=== PATIENT | female | born 1945 | race Caucasian/White ===

== ENCOUNTER 2022-06-14 08:51 | Inpatient (IN) | payer MEDICARE, OTHER, SELFPAY ==
[2022-06-14] VITALS (16 sets, daily range): BP systolic 81–99; BP diastolic 38–66; PULSE 66–120; RESP 14–24; TEMP 36.4–37.2; O2SAT 92–100; BMI 15.5
--- NOTE | ~2022-06-14 | XR_ITS ---
EXAMINATION: XR CHEST CLINICAL INFORMATION: Shortness of breath. Wheezing. COMPARISON: 11/09/2009 TECHNIQUE: Frontal view of the chest was obtained. FINDINGS: Cardiac leads overlie the chest. The lungs are well expanded. There is no focal consolidation, edema, or effusion. No pneumothorax. The cardiomediastinal silhouette is within normal limits of size with a tortuous aorta. No acute osseous abnormality. XR/XR chest 1V IMPRESSION: No acute pulmonary finding.
--- NOTE | ~2022-06-14 | XR_ITS ---
EXAMINATION: XR CHEST CLINICAL INFORMATION: Pleural effusion. COMPARISON: Chest radiographs 06/14/2022, 11/09/2009. TECHNIQUE: The chest is imaged portably and 6 views: AP, crosstable lateral x2, decubitus x3. FINDINGS: There are small bilateral layering basilar effusions, larger on left. There is bibasilar passive atelectasis. Difficult to exclude superimposed posterior basilar airspace consolidation. The upper and mid lung zones are clear. The vascularity is normal. The cardiopericardial silhouette is within normal. There is no pneumothorax or pleural reaction. XR/XR chest 4 views IMPRESSION: -Bilateral layering basilar effusions, larger on left. -Bibasilar passive atelectasis, difficult to exclude superimposed posterior basilar airspace consolidation. -No pneumothorax. Vascularity normal.
--- NOTE | ~2022-06-14 | US_ITS ---
EXAMINATION: US ABDOMEN COMPLETE CLINICAL INFORMATION: Malnourished. COMPARISON: CT scan of the abdomen and pelvis dated 11/09/2009. Chest radiograph dated 06/14/2022. TECHNIQUE: Real-time imaging of the abdominal viscera. FINDINGS: PANCREAS: Visualized portions unremarkable. ABDOMINAL AORTA: Visualized portions unremarkable. INFERIOR VENA CAVA: Visualized portions unremarkable. LIVER: Diffuse increased echotexture. In the left lobe is a lobulated anechoic lesion with echogenic margins measuring approximately 2.3 x 1.7 x 1.7 cm. Color Doppler showed no abnormal vascular flow. GALLBLADDER: Diffuse mural thickening without intraluminal abnormality. Mild pericholecystic fluid. Color Doppler showed no abnormal vascular flow. COMMON BILE DUCT: Normal in caliber measuring 0.4 cm in diameter. RIGHT KIDNEY: 11.1 cm. An interpolar anechoic cyst measures 1.1 cm. Doppler showed no abnormal vascular flow. LEFT KIDNEY: 10.4 cm. Unremarkable. SPLEEN: 6.6 cm. Unremarkable. FREE FLUID: Mild peritoneal ascites. Left pleural effusion. US/US abdomen complete IMPRESSION: 1. Hepatic steatosis. Anechoic lesion in the left lobe appears to correlate with the previously seen cyst, but cannot be classified as simple. This could be best evaluated with contrast-enhanced abdominal MRI. 2. Gallbladder mural thickening and pericholecystic fluid is nonspecific, but does not appear acute and is likely secondary to systemic disease/peritoneal ascites. No significant biliary ductal dilatation. If the patient experiences acute right upper quadrant pain this can be monitored for change with right upper quadrant abdominal ultrasound as clinically indicated. 3. Small right renal cyst demonstrates benign features not requiring follow-up. 4. Left pleural effusion. This was not seen on the most recent chest radiograph. PA and lateral views of the chest are recommended.
--- NOTE | ~2022-06-14 | CT_ITS ---
EXAMINATION: CT CHEST WITHOUT CONTRAST CLINICAL INFORMATION: Pleural effusion. COMPARISON: None. TECHNIQUE: Multidetector volumetric CT imaging of the chest was done. Axial MIP volume rendering provided. Sagittal and coronal reformatted images were obtained. This CT examination was performed using dose optimization techniques as appropriate, variously including the following: *Automated exposure control *Adjustment of mA and/or kV according to patient size (this includes techniques or standardized protocols for targeted exams where dose is matched to indication/reason for exam; i.e. extremities or head) *Use of iterative reconstruction technique DLP: 116 mGy-cm. FINDINGS: [employer]: Bilateral blunting of CP angle with hyper-expanded lungs. LUNGS: There is diffuse emphysematous lungs with a pleural-based 1.3 cm nodule right posterior apex axial image 160/8. There is a left lower lobe airspace consolidation/compressive atelectasis. The rest of lungs are clear. There is bilateral apical pleural thickening and parenchymal scarring. MEDIASTINUM: Heart size and the great vessels are normal caliber. There are coronary artery and mitral valve calcifications present. The thyroid lobes are symmetric and normal with a punctate left lobe calcification. Central trachea and the bronchi appear widely patent. PLEURA: There are bilateral [id number] pleural effusions slightly, greater on the left. AXILLA: There are small shotty lymph nodes in bilateral axilla, left greater than right. The largest lymph node left axilla measures 9 mm axial image 24/4. Right lateral thoracic lymph nodes measures 8 mm on axial image 30/4. UPPER ABDOMEN: Visualized liver, spleen, pancreas and bilateral adrenal glands are unremarkable. There is a dilated upper abdominal aorta measuring 3.3 x 3.5 cm. OSSEOUS STRUCTURES: No lytic or sclerotic process seen. There is mild ventral spondylosis upper thoracic spine. CT/CT chest wo con IMPRESSION: Bilateral [id number] pleural effusions greater on the left side with left lower lobe airspace consolidation/compressive atelectasis. There is a worrisome nodule in the left posterior lung apex. Fleischner guidelines were followed.
--- NOTE | ~2022-06-14 | CT_ITS ---
EXAMINATION: CT ABDOMEN WITH AND WITHOUT CONTRAST CLINICAL INFORMATION: Liver mass COMPARISON: Noncontrast chest CT 06/18/2022. Ultrasound 06/16/2022. TECHNIQUE: Multidetector volumetric imaging through the abdomen before and after the administration of: Intravenous contrast: 85 mL Omnipaque 350 No contrast reaction reported Sagittal and coronal reformatted images were obtained on the technologist workstation. Arterial and portal venous phase postcontrast images were obtained. This CT examination was performed using dose optimization techniques as appropriate, variously including the following: *Automated exposure control *Adjustment of mA and/or kV according to patient size (this includes techniques or standardized protocols for targeted exams where dose is matched to indication/reason for exam; i.e. extremities or head) *Use of iterative reconstruction technique Total exam dose-length product 538 mGy-cm FINDINGS: LUNG BASES: Moderate bilateral pleural effusions, left greater than right with associated atelectasis. Normal heart size. No pericardial effusion. LIVER, GALLBLADDER, AND BILIARY TREE: The lesion of concern is seen in the left lobe of liver measuring 2.3 x 1.8 cm. It has central fluid density with a single thin septation. There is minimal irregularity to the naranjo but they are not ill-defined. This was visible and similar in size on the noncontrast CT 11/09/2009. It was 2.1 cm in diameter at that time. There is an additional likely 5 mm cyst along the anterior margin the left lobe of the liver. The gallbladder is unremarkable with no evidence of radiopaque gallstones, gallbladder wall thickening, or obvious pericholecystic inflammatory changes. PANCREAS: Normal; no mass or surrounding fluid. SPLEEN: Normal size. No focal lesion. ADRENAL GLANDS: Normal; no mass. KIDNEYS AND URETERS: The kidneys are normal in size, shape, and attenuation. No hydronephrosis, hydroureter, or calculi. GASTROINTESTINAL TRACT: Stomach and small bowel non-dilated. No colonic wall thickening or pericolonic inflammatory changes. Scattered colonic diverticulosis. ABDOMINAL WALL: No significant hernia is appreciated. Anasarca. LYMPHOVASCULAR STRUCTURES: No retroperitoneal or mesenteric lymphadenopathy. Tortuous abdominal aorta. It measures 3.3 cm in transverse dimension on coronal images. There is extensive peripheral thrombus. This could reflect chronic sequelae of a prior dissection. The celiac and superior mesenteric arteries enhance normally, arising from the contrast-enhanced anterior portion of the aorta. Both renal arteries arise from what would be the true lumen or at least the contrast opacified portion of the aorta. Both, and iliac arteries enhance normally. OSSEOUS STRUCTURES: Chronic appearing superior endplate compression deformity of L5. Schmorl's node deformity of T12. CT/CT liver 3 phase IMPRESSION: The finding of concern in the left lobe of liver corresponds to a complex cyst. This is been present in the liver since 2008 minimal a changed in size since 2008. The greater than 10 years of relative stability are reassuring, arguing against a malignancy such as a cystadenoma. Its unclear that further follow-up would be helpful. 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 There is extensive peripheral thrombus in the abdominal aorta; the appearance suggests a chronic thrombosed dissection. Recommend nonemergent vascular surgery consultation to guide further management. Moderate bilateral pleural effusions, left greater than right.
--- NOTE | 2022-06-14 09:14 | ECG_ITS ---
Test Reason : fall Blood Pressure : / mmHG Vent. Rate : 116 BPM Atrial Rate : 000 BPM P-R Int : 000 ms QRS Dur : 082 ms QT Int : 450 ms P-R-T Axes : 000 -31 028 degrees QTc Int : 625 ms Atrial fibrillation with rapid ventricular response with premature ventricular or aberrantly conducted complexes Left axis deviation Low voltage QRS ST & T wave abnormality, consider inferior ischemia Abnormal ECG No previous ECGs available Referred By: Barbie Loera Electronically Signed By:
--- NOTE | 2022-06-14 09:17 | ED.FALL ---
HPI - Fall General Chief Complaint: Fall Stated Complaint: FALL OUT OF BED,NO OBV DEFORMITY PER EMS Time Seen by Provider: 06/14/22 09:06 Source: patient and EMS Mode of arrival: EMS Limitations: no limitations History of Present Illness HPI Narrative: 77-year-old female with reported no medical history, bed bound and nonambulatory for the last 1 year who presents to the ER from home via EMS for evaluation of a fall out of bed. She states she must have ?hit a button? on her hospital bed that is in her living room, causing the bed to go up in her to fall out of it. She fell onto her left side. She has a mild left hip pain, left shoulder pain and left breast pain where she fell. She did not hit her head or lose consciousness. She is not on anticoagulation. She is able to flex and extend the left leg. She does not think it is broken, she describes as just a little bit sore. She is an active smoker at home and reports some shortness of breath since the fall as well. She is not on any inhalers and has no known lung pathology but is a long-time smoker. She denies any chest pain. She reports a chronic cough, worse every morning. No new cough or phlegm production. No fevers. MD complaint: fall Onset (ago): minute(s) Fall from: out of bed Fall witnessed: no Place fall occurred: home Loss of consciousness: none Prolonged down time: no Symptoms prior to fall: none Context: tripped/slipped Location of injury: chest and pelvis Location of injury - extremities: left: shoulder Severity: mild Severity scale (1-10): 3 Quality: aching Associated symptoms (after fall): shortness of breath Related Data Allergies Allergy/AdvReac Type Severity Reaction Status Date / Time Unable to Assess Allergy Unverified 06/14/22 09:14 Review of Systems Review of Systems: Constitutional: No Fever, No Chills ENT/Mouth: No sore throat, No Rhinorrhea, No Swallowing Difficulty Eyes: No Eye Pain, No Swelling, No Redness Cardiovascular: No Chest Pain, + SOB, No Orthopnea, No Edema Respiratory: No Cough, No Sputum, + Wheezing, No dyspnea Gastrointestinal: No Nausea, No Vomiting, No Diarrhea, No abdominal Pain, No Hematochezia, No Melena Genitourinary: No Dysuria, No Urinary Frequency, No Hematuria Musculoskeletal: + joint pain, No Myalgias Skin: No Skin Lesions, No rash Neuro: + Weakness, No Numbness, No Dizziness, No Headache Psych: No Anxiety/Panic, No Depression Heme/Lymph: No Bruising, No Lymphadenopathy Endocrine: No Polyuria, No Polydipsia [facility] Social History Social History Advance Directives: Yes Advance Directives Information Provided: Yes Advance Directives on File: No Physical Exam Vital Signs: Vital Signs: Last Vital Signs Temp 97.5 F 06/14/22 12:30 Pulse 109 H 06/14/22 14:19 Resp 20 06/14/22 14:19 BP 87/43 L 06/14/22 14:19 Pulse Ox 93 06/14/22 14:19 O2 Del Method 06/14/22 14:19 O2 Flow Rate 1.5 06/14/22 14:19 BMI result Body Mass Index 15.5 Appearance: Alert, frail elderly female sitting up in the stretcher Oriented X3. No acute distress. Eyes: Pupils equal, round and reactive to light. ENT: Pharynx normal. Neck: Normal inspection. Neck supple. CVS: Tachycardic, heart rate 110, regular rhythm. Pulses normal. Respiratory: No respiratory distress. Breath sounds normal. No ecchymosis on the left side of her chest wall, no point tenderness. Abdomen: Soft and nontender. +BS x4 Skin: Skin warm and dry. Normal skin color. Normal skin turgor. No rashes. Extremities: Cachectic x4. Legs held in the flexed position, able to fully extend and bend of her bilateral lower extremities. Pelvis was stable. Mild tenderness the left lateral hip, no point tenderness. Normal range of motion. No lower extremity edema. Left upper extremity with mild tenderness throughout the shoulder joint, no point tenderness, normal passive and active range of motion of the left shoulder until about 90 degrees when she starts to have discomfort. Neurovascularly intact distally. 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 Neuro: Oriented X 3. No motor deficit. No sensory deficit. Cranial nerves 2-12 grossly intact. Normal speech and cognition. Course Course Course Narrative: 77-year-old female who is an active smoker and has not been to a physician in several years presents to the ER for evaluation after she fell out of her hospital bed at home. She reports some mild left-sided hip pain and left-sided shoulder pain. She has normal range of motion of the left hip without any deformity on examination, doubt acute fracture. On arrival to the ER patient is tachycardic and reports some shortness of breath. She has wheezing throughout her right lung. Most likely has in on diagnosis COPD. She is not on inhalers and continues to smoke at home. Will check a chest x-ray, give her a DuoNeb for her wheezing and shortness of breath. She denies any chest pain at this time. Blood pressure is soft 90/50 with a map of 72, most likely her baseline. She denies any lightheadedness or dizziness. Will get full workup and re-evaluate. She has a pending results and improved Reevaluation(s) Reevaluation #1: Patient feels better after her DuoNeb treatment. Wheezing has improved. SpO2 96% on room air. Difficult to obtain as saturation at times. Chest x-ray was performed but she declined getting imaging of her left shoulder left hip, stating she does not think anything is broken and they are necessary. Her lab workup is showing a significant normocytic anemia. Her H&H is 7.9/24.7. No known baseline. Her platelets are normal and her white blood cell count is normal. Patient does not know when she last had blood work done and does not know she has never been anemic before. She does report a history of rectal bleeding about 5 or 6 years ago. 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 She denies any recent rectal bleeding, heart the last episode was about 3 months ago with bright red blood per rectum x1. She denies any melena or other episodes of bleeding. Will plan to do a rectal exam, check occult stool, hold off on transfusion at this time as she is not actively bleeding or thought to be symptomatic due to her likely chronic anemia. Her alk-phos is mildly elevated as well. There is a concern for underlying cancer. Reevaluation #2: Stool is heme-positive dark brown stool. No palpable rectal tumor or hemorrhoids. Will plan to repeat H&H, if trending downward well require admission for further evaluation treatment. Reevaluation #3: H&H did trend down to 7.3/23.2. She is more hypotensive. She feels lightheaded. She has mild ongoing tachycardia. She denies chest pain and shortness of breath at this time. No active GI bleeding at this time. No signs of infection at this time and not thought to be septic. Will plan to give additional IV fluids, albumin (serum albumin 2 range), and transfuse 1 unit PRBC. Also give a dose of IV Protonix concern for possible slow upper GI bleed. Will make GI aware of her admission and plan to admit to Medicine for further management. Consent obtained for blood transfusion and is in the chart. Consultations Consultation #1: Gastroenterology MDM - Fall Lab Data Result diagrams: 06/14/22 14:03 06/14/22 10:26 Labs: Lab Results 06/14/22 06/14/22 06/14/22 Range/Units 09:41 09:41 09:41 WBC 10.2 (4.8-10.8) X10*3/uL RBC 2.61 L (4.20-5.50) X10*6/uL Hgb 7.9 L (12.0-16.0) g/dl Hct 24.7 L (37.0-47.0) % MCV 94.6 (80.0-98.0) fL MCH 30.3 (27.0-33.0) pg MCHC 32.0 (31.0-35.0) g/dl RDW 15.1 (11.0-16.0) % Plt Count 359 (160-400) X10*3/uL MPV Not Reportable Immature Gran % (Auto) 0.9 H (0.0-0.4) % Neut % (Auto) 75.5 H (45-73) % Lymph % (Auto) 12.2 L (20-40) % Jefferson % (Auto) 10.9 (2-11) % Eos % (Auto) 0.1 (0-4) % Baso % (Auto) 0.4 (0-2) % Lymph # (Auto) 1.2 (1.2-4.9) X10*3/uL Jefferson # (Auto) 1.1 (0.1-1.2) X10*3/uL Eos # (Auto) 0.0 (0.0-0.4) X10*3/uL Baso # (Auto) 0.0 (0.0-0.2) X10*3/uL Abs Immat Gran (auto) 0.09 H (0.00-0.03) X10*3/uL Absolute Neuts (auto) 7.7 (2.0-8.3) x10*3/uL Absolute Nucleated RBC 0.000 (0.0-0.012) X10*3/uL Nucleated RBC % (auto) 0.0 (0.0-0.2) /100WBC Smear Tech's Comments VERIFIED Sodium (135-145) mmol/L Potassium (3.3-5.1) mmol/L Chloride (96-108) mmol/L Carbon Dioxide (22-29) mmol/L Anion Gap (12-20) BUN (9-16) mg/dL Creatinine (0.5-1.4) mg/dL Estim Creat Clear Calc Estimated GFR Random Glucose (60-115) mg/dL Calcium (8.4-10.2) mg/dL Magnesium (1.6-2.6) mg/dL Total Bilirubin (0.0-1.0) mg/dL Direct Bilirubin (0.0-0.5) mg/dL AST (5-31) U/L ALT (0-31) U/L Alkaline Phosphatase (39-117) U/L Troponin I High Sens (<3.5-17.0) ng/L B-Natriuretic Peptide 143 H (<100) pg/mL Total Protein (6.5-8.0) g/dL Albumin (3.5-5.0) g/dL TSH (0.32-4.0) uIU/mL Stool Occult Blood (NEGATIVE) COVID-19 (AVA) Negative (Negative) COVID-19 Clin Com See Note Blood Type Antibody Screen Crossmatch 06/14/22 06/14/22 06/14/22 Range/Units 10:26 10:26 10:26 WBC (4.8-10.8) X10*3/uL RBC (4.20-5.50) X10*6/uL Hgb (12.0-16.0) g/dl Hct (37.0-47.0) % MCV (80.0-98.0) fL MCH (27.0-33.0) pg MCHC (31.0-35.0) g/dl RDW (11.0-16.0) % Plt Count (160-400) X10*3/uL MPV Immature Gran % (Auto) (0.0-0.4) % Neut % (Auto) (45-73) % Lymph % (Auto) (20-40) % Jefferson % (Auto) (2-11) % Eos % (Auto) (0-4) % Baso % (Auto) (0-2) % Lymph # (Auto) (1.2-4.9) X10*3/uL Jefferson # (Auto) (0.1-1.2) X10*3/uL Eos # (Auto) (0.0-0.4) X10*3/uL Baso # (Auto) (0.0-0.2) X10*3/uL Abs Immat Gran (auto) (0.00-0.03) X10*3/uL Absolute Neuts (auto) (2.0-8.3) x10*3/uL Absolute Nucleated RBC (0.0-0.012) X10*3/uL Nucleated RBC % (auto) (0.0-0.2) /100WBC Smear Tech's Comments Sodium 134 L (135-145) mmol/L Potassium 3.9 (3.3-5.1) mmol/L Chloride 102 (96-108) mmol/L Carbon Dioxide 19 L (22-29) mmol/L Anion Gap 17 (12-20) BUN 9 (9-16) mg/dL Creatinine 0.51 (0.5-1.4) mg/dL Estim Creat Clear Calc 58.0 Estimated GFR > 60 Random Glucose 127 H (60-115) mg/dL Calcium 7.3 L (8.4-10.2) mg/dL Magnesium 1.7 (1.6-2.6) mg/dL Total Bilirubin 0.5 (0.0-1.0) mg/dL Direct Bilirubin 0.3 (0.0-0.5) mg/dL AST 80 H (5-31) U/L ALT 40 H (0-31) U/L Alkaline Phosphatase 182 H (39-117) U/L Troponin I High Sens < 3.5 (<3.5-17.0) ng/L B-Natriuretic Peptide (<100) pg/mL Total Protein 5.1 L (6.5-8.0) g/dL Albumin 2.4 L (3.5-5.0) g/dL TSH 1.70 (0.32-4.0) uIU/mL Stool Occult Blood (NEGATIVE) COVID-19 (AVA) (Negative) COVID-19 Clin Com Blood Type Antibody Screen Crossmatch 06/14/22 06/14/22 06/14/22 Range/Units 12:57 14:03 14:03 WBC 9.8 (4.8-10.8) X10*3/uL RBC 2.39 L (4.20-5.50) X10*6/uL Hgb 7.3 L (12.0-16.0) g/dl Hct 23.2 L (37.0-47.0) % MCV 97.1 (80.0-98.0) fL MCH 30.5 (27.0-33.0) pg MCHC 31.5 (31.0-35.0) g/dl RDW 15.2 (11.0-16.0) % Plt Count 299 (160-400) X10*3/uL MPV 8.8 L Immature Gran % (Auto) 0.8 H (0.0-0.4) % Neut % (Auto) 77.7 H (45-73) % Lymph % (Auto) 9.0 L (20-40) % Jefferson % (Auto) 12.4 H (2-11) % Eos % (Auto) 0.0 (0-4) % Baso % (Auto) 0.1 (0-2) % Lymph # (Auto) 0.9 L (1.2-4.9) X10*3/uL Jefferson # (Auto) 1.2 (0.1-1.2) X10*3/uL Eos # (Auto) 0.0 (0.0-0.4) X10*3/uL Baso # (Auto) 0.0 (0.0-0.2) X10*3/uL Abs Immat Gran (auto) 0.08 H (0.00-0.03) X10*3/uL Absolute Neuts (auto) 7.6 (2.0-8.3) x10*3/uL Absolute Nucleated RBC 0.000 (0.0-0.012) X10*3/uL Nucleated RBC % (auto) 0.0 (0.0-0.2) /100WBC Smear Tech's Comments Sodium (135-145) mmol/L Potassium (3.3-5.1) mmol/L Chloride (96-108) mmol/L Carbon Dioxide (22-29) mmol/L Anion Gap (12-20) BUN (9-16) mg/dL Creatinine (0.5-1.4) mg/dL Estim Creat Clear Calc Estimated GFR Random Glucose (60-115) mg/dL Calcium (8.4-10.2) mg/dL Magnesium (1.6-2.6) mg/dL Total Bilirubin (0.0-1.0) mg/dL Direct Bilirubin (0.0-0.5) mg/dL AST (5-31) U/L ALT (0-31) U/L Alkaline Phosphatase (39-117) U/L Troponin I High Sens (<3.5-17.0) ng/L B-Natriuretic Peptide (<100) pg/mL Total Protein (6.5-8.0) g/dL Albumin (3.5-5.0) g/dL TSH (0.32-4.0) uIU/mL Stool Occult Blood POSITIVE (NEGATIVE) COVID-19 (AVA) (Negative) COVID-19 Clin Com Blood Type B Positive Antibody Screen NEGATIVE Crossmatch See Detail Critical Care Time Critical Care Time Critical Care Time: Yes Total Critical Care Time: 39 Attestation: I have personally provided critical care time exclusive of time spent on separately billable procedures. Time includes review of lab data, radiology results, discussion with consultants, and monitoring for potential decompensation. Intervention performed as documented. Discharge Plan Discharge Clinical Impression: Acute blood loss anemia, Heme positive stool Patient Disposition: Admitted As Inpatient
[2022-06-14] MEDS: Albuterol/Iprat 2.5/0.5MG 3 ML AMPUL.NEB INHALE ×3 (09:46→19:24)
[2022-06-14 09:49] LABS: Basophils Percent Auto 0.4 % (0-2); Eosinophils Percent Auto 0.1 % (0-4); Hematocrit 24.7 % (37.0-47.0); Hemoglobin 7.9 g/dl (12.0-16.0); Imm Gran Abs Auto 0.09 X10*3/uL (0.00-0.03); Imm Gran Pct Auto 0.9 % (0.0-0.4); Lymphocytes Absolute Auto 1.2 X10*3/uL (1.2-4.9); Lymphocytes Percent Auto 12.2 % (20-40); MANUAL DIFF FLAG SCAN; Mean Corpuscular Hemoglobin 30.3 pg (27.0-33.0); Mean Corpuscular Volume 94.6 fL (80.0-98.0); Monocytes Absolute Auto 1.1 X10*3/uL (0.1-1.2); Monocytes Percent Auto 10.9 % (2-11); Neutrophils Absolute Auto 7.7 x10*3/uL (2.0-8.3); Neutrophils Percent Auto 75.5 % (45-73); PLT CLUMP 1; Red Blood Count 2.61 X10*6/uL (4.20-5.50); Red Cell Distribution Width 15.1 % (11.0-16.0); SCAN SMEAR FLAG 1
[2022-06-14] MEDS: 0.9 % Sodium Chloride 1,000 ML 999 ML IVCONT (09:53)
[2022-06-14 10:06] LABS: COVID-19 Test Negative (Negative)
[2022-06-14 10:16] LABS: Platelet Count 359 X10*3/uL (160-400); SLIDE REVIEW VERIFIED; White Blood Count 10.2 X10*3/uL (4.8-10.8)
[2022-06-14 10:18] LABS: B Type Natriuretic Peptide 143 pg/mL (<100)
[2022-06-14] MEDS: Magnesium Sulfate/D5W 1 GM/100 ML PIGGYBACK IV (10:52)
[2022-06-14 11:11] LABS: Alanine Aminotransferase 40 U/L (0-31); Albumin Level 2.4 g/dL (3.5-5.0); Alkaline Phosphatase 182 U/L (39-117); Anion Gap 17 (12-20); Aspartate Amino Transferase 80 U/L (5-31); Bilirubin Direct 0.3 mg/dL (0.0-0.5); Bilirubin Total 0.5 mg/dL (0.0-1.0); Blood Urea Nitrogen 9 mg/dL (9-16); Calcium 7.3 mg/dL (8.4-10.2); Carbon Dioxide 19 mmol/L (22-29); Chloride 102 mmol/L (96-108); Estimated Glomerular Filt Rate > 60; Glucose Random 127 mg/dL (60-115); Magnesium 1.7 mg/dL (1.6-2.6); Potassium 3.9 mmol/L (3.3-5.1); Sodium 134 mmol/L (135-145); Total Protein 5.1 g/dL (6.5-8.0)
[2022-06-14 11:17] LABS: Troponin-I High Sensitivity < 3.5 ng/L (<3.5-17.0)
[2022-06-14 13:05] LABS: OBS Int Ctl Valid YES; OBS1 POSITIVE (NEGATIVE)
[2022-06-14 14:10] LABS: MANUAL DIFF FLAG NO
[2022-06-14 14:11] LABS: Basophils Percent Auto 0.1 % (0-2); Hematocrit 23.2 % (37.0-47.0); Hemoglobin 7.3 g/dl (12.0-16.0); Imm Gran Abs Auto 0.08 X10*3/uL (0.00-0.03); Imm Gran Pct Auto 0.8 % (0.0-0.4); Lymphocytes Absolute Auto 0.9 X10*3/uL (1.2-4.9); Mean Corpuscular HGB Conc 31.5 g/dl (31.0-35.0); Mean Corpuscular Hemoglobin 30.5 pg (27.0-33.0); Mean Corpuscular Volume 97.1 fL (80.0-98.0); Mean Platelet Volume 8.8 fL (9.4-12.3); Monocytes Absolute Auto 1.2 X10*3/uL (0.1-1.2); Monocytes Percent Auto 12.4 % (2-11); Neutrophils Absolute Auto 7.6 x10*3/uL (2.0-8.3); Neutrophils Percent Auto 77.7 % (45-73); Platelet Count 299 X10*3/uL (160-400); Red Blood Count 2.39 X10*6/uL (4.20-5.50); Red Cell Distribution Width 15.2 % (11.0-16.0); White Blood Count 9.8 X10*3/uL (4.8-10.8)
[2022-06-14] MEDS: Lactated Ringers 500 ML IVCONT (14:38)
[2022-06-14] MEDS: Albumin Human 25 % 100 ML IV (14:47)
[2022-06-14] MEDS: Pantoprazole Sodium 40 MG/10 ML VIAL IVPUSH (14:56)
--- NOTE | 2022-06-14 15:03 | PHA.MEDREC ---
Pharmacy Consult ? Medication Reconciliation Pharmacy has completed the medication reconciliation.
[2022-06-14 15:56] LABS: Immature Retic Fraction 31.5 % (3.0-15.9); Retic HGB Equivalent 27.1 pg (30.0-35.0); Reticulocyte Percent 3.2 % (0.5-1.8); Reticulocytes Absolute 0.076 X10*6/uL (0.026-0.095)
--- NOTE | 2022-06-14 15:59 | PM.IMHP ---
History of Present Illness Date of Service: 06/14/22 Chief Complaint: fall 77yo F with no diagnosed chronic medical conditions, but no primary care doctor for many years. She has been bed-bound for years. She presents after multiple falls related to her legs giving out, without any lightheadedness or LOC. Today, she fell on to her left side but denies any hip pain and declines hip radiography. She smokes 1 pack a day and drinks 4 glasses of wine daily. Denies history of alcohol withdrawal and does not get shaky when she does not drink alcohol. She has lost an unquantified amount of weight due to poor appetite. She reports a chronic cough but does not have diagnosed COPD or asthma. No purulent sputum. No fever. In the ED, she presented with soft BP in the 80s-90s/40s-50s with tachycardia in the 100s-110s. She was given a Duoneb treatment. Laboratory studies showed normocytic anemia, with Hb 7.9->7.3; other cell lines normal. She reports a history of colononscopy over 6 years ago at [facility] that revealed AVM. Denies recent hematochezia or melena. Denies abdominal pain. FOBT was positive. LFTs are moderately elevated, with AST 80, ALT 40, alk phos 182, and LDH 323. Albumin low at 2.4. Serum iron is low at 19. She was given 1L of IV NS, 500 mL of IV LR, and 25g of IV albumin. One unit of packed red blood cell transfusion was ordered. Review of Systems Review of Systems: Yes all other systems are reviewed and are negative [facility] Medical History History of arteriovenous malformation History of uterine fibroid Tobacco abuse Surgical History History of hysterectomy Social History Alcohol intake: current Patient Tobacco Use Status: Current everyday Tobacco user Cigarette Packs Per Day: 1 Advance Directives: Yes Advance Directives Information Provided: Yes Advance Directives on File: No Meds Allergies Allergy/AdvReac Type Severity Reaction Status Date / Time Unable to Assess Allergy Unverified 06/14/22 09:14 Active Medications: Current Medications Acetaminophen (Acetaminophen 325 Mg Tablet) 650 mg PO Q6H PRN PRN Reason: Pain, Mild (Pain Scale 1-3) Albuterol Sulfate (Albuterol Sulfate (0.083%) 2.5 Mg/3 Ml Vial.Neb) 2.5 mg INHALE Q2H PRN PRN Reason: Shortness of Breath/Wheezing Albuterol/Ipratropium (Albuterol/Iprat 2.5/0.5mg 3 Ml Ampul.Neb) 3 ml INHALE RQ4H WHILE AWAKE [facility] Last Admin: 06/14/22 15:53 Dose: 3 ml Thiamine HCl 100 mg/ Sodium (Chloride) 101 mls @ 202 mls/hr IV DAILY [facility] Multivitamins/Vitamin C (Multivitamin Tablet) 1 tab PO DAILY [facility] Nicotine (Nicotine 21 Mg Patch.Td24) 21 mg TRANSDERMA DAILY [facility] Ondansetron HCl (Ondansetron Hcl 4 Mg/2 Ml Vial) 4 mg IVPUSH Q8H PRN PRN Reason: Nausea and Vomiting Pantoprazole Sodium (Pantoprazole Sodium 40 Mg/10 Ml Vial) 40 mg IVPUSH DAILY@0630 [facility] Last Admin: 06/14/22 14:56 Dose: 40 mg Sodium Chloride (0.9 % Sodium Chloride Flush 3 Ml Syringe) 3 ml IVFLUSH QSHIFT [facility] Home Medications Medication Instructions Recorded Confirmed Last Taken Type No Known Home Meds 06/14/22 06/14/22 Unknown History Physical Exam Vital Signs and Narrative: Vital Signs: Last Vital Signs Temp 97.5 F 06/14/22 12:30 Pulse 110 H 06/14/22 15:53 Resp 16 06/14/22 15:53 BP 87/43 L 06/14/22 14:19 Pulse Ox 93 06/14/22 14:19 O2 Del Method 06/14/22 14:19 O2 Flow Rate 1.5 06/14/22 14:19 BMI result Body Mass Index 15.5 Gen: in no acute distress but cachectic and pale; weak; bedbound HEENT: sclera anicteric, moist and very pale mucus membranes Neck: supple Lungs: clear to auscultation bilaterally Heart: regular, tachycardic, no murmurs Abd: soft, non-tender, non-distended Ext: 1+ edema bilaterally Skin: warm/well-perfused Neuro: alert and oriented x3, no focal findings Psych: appropriate affect Results Labs CBC and Chem 7: 06/14/22 14:03 06/14/22 10:26 Labs: Laboratory Results - last 24 hr 06/14/22 06/14/22 06/14/22 09:41 09:41 09:41 MCV 94.6 MCH 30.3 MCHC 32.0 RDW 15.1 Plt Count 359 MPV Not Reportable Immature Gran % (Auto) 0.9 H Neut % (Auto) 75.5 H Lymph % (Auto) 12.2 L Cedar % (Auto) 10.9 Eos % (Auto) 0.1 Baso % (Auto) 0.4 Lymph # (Auto) 1.2 Cedar # (Auto) 1.1 Eos # (Auto) 0.0 Baso # (Auto) 0.0 Abs Immat Gran (auto) 0.09 H Absolute Neuts (auto) 7.7 Absolute Nucleated RBC 0.000 Nucleated RBC % (auto) 0.0 Smear Tech's Comments VERIFIED Absolute Retic Percent Retic Immature Retic Fraction Retic Hgb Equivalent Anion Gap Estim Creat Clear Calc Estimated GFR Random Glucose Calcium Magnesium Total Bilirubin Direct Bilirubin AST ALT Alkaline Phosphatase Troponin I High Sens B-Natriuretic Peptide 143 H Total Protein Albumin TSH Stool Occult Blood COVID-19 (AVA) Negative COVID-19 Clin Com See Note Blood Type Antibody Screen Crossmatch 06/14/22 06/14/22 06/14/22 10:26 10:26 10:26 MCV MCH MCHC RDW Plt Count MPV Immature Gran % (Auto) Neut % (Auto) Lymph % (Auto) Cedar % (Auto) Eos % (Auto) Baso % (Auto) Lymph # (Auto) Cedar # (Auto) Eos # (Auto) Baso # (Auto) Abs Immat Gran (auto) Absolute Neuts (auto) Absolute Nucleated RBC Nucleated RBC % (auto) Smear Tech's Comments Absolute Retic Percent Retic Immature Retic Fraction Retic Hgb Equivalent Anion Gap 17 Estim Creat Clear Calc 58.0 Estimated GFR > 60 Random Glucose 127 H Calcium 7.3 L Magnesium 1.7 Total Bilirubin 0.5 Direct Bilirubin 0.3 AST 80 H ALT 40 H Alkaline Phosphatase 182 H Troponin I High Sens < 3.5 B-Natriuretic Peptide Total Protein 5.1 L Albumin 2.4 L TSH 1.70 Stool Occult Blood COVID-19 (AVA) COVID-19 [employer] Com Blood Type Antibody Screen Crossmatch 06/14/22 06/14/22 06/14/22 12:57 14:03 14:03 MCV 97.1 MCH 30.5 MCHC 31.5 RDW 15.2 Plt Count 299 MPV 8.8 L Immature Gran % (Auto) 0.8 H Neut % (Auto) 77.7 H Lymph % (Auto) 9.0 L Cedar % (Auto) 12.4 H Eos % (Auto) 0.0 Baso % (Auto) 0.1 Lymph # (Auto) 0.9 L Cedar # (Auto) 1.2 Eos # (Auto) 0.0 Baso # (Auto) 0.0 Abs Immat Gran (auto) 0.08 H Absolute Neuts (auto) 7.6 Absolute Nucleated RBC 0.000 Nucleated RBC % (auto) 0.0 Smear Tech's Comments Absolute Retic 0.076 Percent Retic 3.2 H Immature Retic Fraction 31.5 H Retic Hgb Equivalent 27.1 L Anion Gap Estim Creat Clear Calc Estimated GFR Random Glucose Calcium Magnesium Total Bilirubin Direct Bilirubin AST ALT Alkaline Phosphatase Troponin I High Sens B-Natriuretic Peptide Total Protein Albumin TSH Stool Occult Blood POSITIVE COVID-19 (AVA) COVID-19 [employer] Com Blood Type B Positive Antibody Screen NEGATIVE Crossmatch See Detail Imaging Radiologist's Impressions: Impressions Chest X-Ray 06/14/22 10:44 IMPRESSION: No acute pulmonary finding. Assessment and Plan (1) Chronic blood loss anemia: Status: Acute Plan 77yo bedbound F with no diagnosed chronic medical conditions but heavy tobacco + alcohol use, and prior history of intestinal AVM, presenting after multiple falls and found to be profoundly anemic and malnourished. # chronic blood loss/iron deficiency anemia, likely UGIB # hypotension - admit to IMC, transfuse total 2 units pRBCs, NPO, GI consult for EGD, IV PPI, iron supplementation once taking POs # possible COPD - prn nebulizer treatments, outpt PFTs # tobacco abuse - nicotine replacement therapy # excess EtOH intake - CIWA scale. IV thiamine. Addiction Medicine + CARE Team consults # severe protein/calorie malnutrition - multivitamin + supplements when taking POs VTE prophylaxis: SCDs, no heparin code status: full code I anticipate that the patient will stay at least 2 midnights in hospital due to the above reasons. It is neither reasonable nor safe to care for them in a less acute setting. Quality Stroke Does the patient have a stroke diagnosis?: No VTE Prior VTE?: No VTE Risk Level:: Medical - moderate - high VTE Device Contraindication: N/A - Device Ordered VTE Drug Contraindication: Treatment Not Indicated
[2022-06-14 16:04] LABS: Iron 19 mcg/dL (30-160); Lactate Dehydrogenase 323 U/L (122-220); Percent Iron Saturation 8 % (15-50); Total Iron Binding Capacity 229 mcg/dL (228-428); Unsaturated Iron Binding 210 ug/dL
[2022-06-14 16:26] LABS: Ferritin 76 ng/mL (10-250)
[2022-06-14 16:51] LABS: Folate < 1.6 ng/mL (> or = 4.0); Vitamin B12 1135 pg/mL (200-900)
[2022-06-14] MEDS: Multivitamin TABLET 1 TAB PO (16:54)
[2022-06-14] MEDS: Thiamine HCL 100 MG in 0.9 % Sodium Chloride 100 ML 202 MG IV (16:54)
[2022-06-14] MEDS: Nicotine 21 MG PATCH.TD24 TRANSDERMA (16:54)
[2022-06-14 18:39] LABS: Hematocrit 24.6 % (37.0-47.0); Hemoglobin 8.1 g/dl (12.0-16.0)
[2022-06-14] MEDS: 0.9 % Sodium Chloride Flush 3 ML SYRINGE IVFLUSH (23:53)
[2022-06-15] VITALS (11 sets, daily range): BP systolic 81–96; BP diastolic 50–65; PULSE 89–109; RESP 13–18; TEMP 36.4–36.9; O2SAT 92–100
--- NOTE | 2022-06-15 02:23 | PC.NURSE ---
Provider notified of BP 78-90/45-60, P 100-110. No new orders at this time.
--- NOTE | 2022-06-15 02:28 | PC.NURSE ---
Report given to omar RN-patient to be transferred to overflow unit bed 6.
--- NOTE | 2022-06-15 02:33 | PM.EVENT ---
Event Note Date of Service: 06/15/22 Event Note: pt hypotensive likely 2/2 dehydrationa nd blood loss anemia will give 1 L of LR
[2022-06-15] MEDS: Lactated Ringers 1,000 ML 999 ML IV (03:21)
[2022-06-15 03:24] LABS: Basophils Percent Auto 0.4 % (0-2); Eosinophils Percent Auto 0.1 % (0-4); Hematocrit 27.2 % (37.0-47.0); Hemoglobin 9.1 g/dl (12.0-16.0); Imm Gran Abs Auto 0.03 X10*3/uL (0.00-0.03); Imm Gran Pct Auto 0.4 % (0.0-0.4); Lymphocytes Absolute Auto 1.5 X10*3/uL (1.2-4.9); Lymphocytes Percent Auto 21.3 % (20-40); MANUAL DIFF FLAG NO; Mean Corpuscular HGB Conc 33.5 g/dl (31.0-35.0); Mean Corpuscular Hemoglobin 30.4 pg (27.0-33.0); Mean Corpuscular Hemoglobin 30.5 pg (27.0-33.0); Mean Corpuscular Volume 91.3 fL (80.0-98.0); Mean Platelet Volume 8.7 fL (9.4-12.3); Mean Platelet Volume 8.8 fL (9.4-12.3); Monocytes Percent Auto 14.5 % (2-11); NRBC Pct Auto 0.3 /100WBC (0.0-0.2); Neutrophils Absolute Auto 4.5 x10*3/uL (2.0-8.3); Neutrophils Percent Auto 63.3 % (45-73); Platelet Count 205 X10*3/uL (160-400); Platelet Count 216 X10*3/uL (160-400); Red Blood Count 2.98 X10*6/uL (4.20-5.50); Red Blood Count 2.99 X10*6/uL (4.20-5.50); Red Cell Distribution Width 15.3 % (11.0-16.0); White Blood Count 6.8 X10*3/uL (4.8-10.8); White Blood Count 7.1 X10*3/uL (4.8-10.8)
[2022-06-15 03:30] LABS: Prothrombin Time 11.9 SEC (10.0-13.1)
[2022-06-15 03:47] LABS: Anion Gap 12 (12-20); Blood Urea Nitrogen 10 mg/dL (9-16); Calcium 7.5 mg/dL (8.4-10.2); Carbon Dioxide 21 mmol/L (22-29); Chloride 105 mmol/L (96-108); Creatinine Clr Calc Pharmacy 67.2; Estimated Glomerular Filt Rate > 60; Glucose Random 92 mg/dL (60-115); Potassium 3.1 mmol/L (3.3-5.1); Sodium 135 mmol/L (135-145)
[2022-06-15] MEDS: Pantoprazole Sodium 40 MG/10 ML VIAL IVPUSH (05:50)
--- NOTE | 2022-06-15 06:26 | PC.NURSE ---
Pt blood pressure 81/55, Hospitalist made aware, Pt denies, sob/cp and dizziness.
[2022-06-15 07:29] LABS: Lactic Acid 1.4 mmol/L (0.5-2.0)
[2022-06-15 08:37] LABS: Magnesium 1.9 mg/dL (1.6-2.6)
[2022-06-15] MEDS: Albumin Human 25 % 100 ML IV ×3 (08:41→21:57)
[2022-06-15] MEDS: Nicotine 21 MG PATCH.TD24 TRANSDERMA (08:43)
[2022-06-15] MEDS: Multivitamin TABLET 1 TAB PO (08:45)
[2022-06-15] MEDS: Thiamine HCL 100 MG in 0.9 % Sodium Chloride 100 ML 200 MG IV (08:55)
--- NOTE | 2022-06-15 09:17 | P.CNGI_ITS ---
History of Present Illness Data of Consult Service Date: 06/15/22 Requesting physician: Anamika Willis Primary Care Provider: None Physician HPI Reason for consult: anemia 77yo F who I am seeing for assessment of anemia. Patient initially presenting with weakness and multiple falls without LOC. She also admits to weight loss and poor appetite with chronic cough. she also admits to chronic constipation and had x1 episode of rectal bleeding one month ago. otherwise denies melena. She also feels she has lost weight but cant quantify. Admits to poor appetite and episodic upper abdominal discomfort worse with food. denies dysphagia. She has been bed bound for months which started 2 years ago with progressive weakness of legs with diminshed mobility and strength in legs. she has fear of doctors and never sought help all this time. She reports a history of colonoscopy over 6 years ago at [facility] that revealed AVM She smokes 1 pack a day and drinks 4 glasses of wine daily. not taking nsaids on a regular basis or aspirin. LABS: normocytic anemia, with Hb 7.9->7.3, with 1 unit PRBC ordered and appropriate incrementation to 9 g/dl. AST 80, ALT 40, alk phos 182, and LDH 323.? Albumin low at 2.4.? Serum iron low folate low Review of Systems Review of Systems: Constitutional : + Weight loss, No Fever, No Chills ENT/Mouth : No sore throat, No Rhinorrhea Eyes: No Swelling, No Redness Cardiovascular : No Chest Pain, No SOB, No Edema Respiratory : + Cough, No Sputum, No Wheezing Gastrointestinal : see HPI Genitourinary : NO Dysuria, No Urinary Frequency, No Hematuria, No Urgency Musculoskeletal : No joint pain, No Myalgias, No Joint Swelling Skin : No Skin Lesions, No rash Neuro : + Weakness, No Numbness, No Dizziness, No Headache Psych : No Anxiety/Panic, No Depression Heme/Lymph: No Bruising, No Lymphadenopathy Endocrine : No Polyuria, No Polydipsia All other systems reviewed and are negative. [facility] Past Medical History Medical History History of arteriovenous malformation History of uterine fibroid Tobacco abuse Surgical History Surgical History History of hysterectomy Social History Social History Alcohol intake: current Patient Tobacco Use Status: Current everyday Tobacco user Cigarette Packs Per Day: 1 Advance Directives: Yes Advance Directives Information Provided: Yes Advance Directives on File: No Meds Allergies Allergy/AdvReac Type Severity Reaction Status Date / Time Unable to Assess Allergy Unverified 06/14/22 09:14 Active Medications: Current Medications Acetaminophen (Acetaminophen 325 Mg Tablet) 650 mg PO Q6H PRN PRN Reason: Pain, Mild (Pain Scale 1-3) Albuterol Sulfate (Albuterol Sulfate (0.083%) 2.5 Mg/3 Ml Vial.Neb) 2.5 mg INHALE Q2H PRN PRN Reason: Shortness of Breath/Wheezing Albuterol/Ipratropium (Albuterol/Iprat 2.5/0.5mg 3 Ml Ampul.Neb) 3 ml INHALE RQ4H WHILE AWAKE [facility] Last Admin: 06/15/22 09:07 Dose: Not Given Thiamine HCl 100 mg/ Sodium (Chloride) 101 mls @ 202 mls/hr IV DAILY [facility] Last Admin: 06/15/22 08:55 Dose: 200 mls/hr Folic Acid 1 mg/ Sodium (Chloride) 50.2 mls @ 100.4 mls/hr IV DAILY [facility] Potassium Chloride () 10 meq in 100 mls @ 100 mls/hr IV Q1H [facility] Stop: 06/15/22 10:59 Albumin Human (Kedbumin 25 %) 100 mls @ 100 mls/hr IV Q6H [facility] Stop: 06/16/22 03:59 Last Admin: 06/15/22 08:41 Dose: 100 mls/hr Multivitamins/Vitamin C (Multivitamin Tablet) 1 tab PO DAILY [facility] Last Admin: 06/15/22 08:45 Dose: 1 tab Nicotine (Nicotine 21 Mg Patch.Td24) 21 mg TRANSDERMA DAILY [facility] Last Admin: 06/15/22 08:43 Dose: 21 mg Ondansetron HCl (Ondansetron Hcl 4 Mg/2 Ml Vial) 4 mg IVPUSH Q8H PRN PRN Reason: Nausea and Vomiting Pantoprazole Sodium (Pantoprazole Sodium 40 Mg/10 Ml Vial) 40 mg IVPUSH DAILY@0630 [facility] Last Admin: 06/15/22 05:50 Dose: 40 mg Sodium Chloride (0.9 % Sodium Chloride Flush 3 Ml Syringe) 3 ml IVFLUSH QSHIFT [facility] Last Admin: 06/15/22 09:14 Dose: Not Given Home Medications Medication Instructions Recorded Confirmed Last Taken Type No Known Home Meds 06/14/22 06/14/22 Unknown History Physical Exam Vital Signs: Vital Signs: Last Vital Signs Temp 97.9 F 06/15/22 05:29 Pulse 96 06/15/22 08:09 Resp 16 06/15/22 08:09 BP 83/59 L 06/15/22 08:09 Pulse Ox 97 06/15/22 08:09 O2 Del Method 06/15/22 08:09 O2 Flow Rate 1 06/15/22 08:09 BMI result Body Mass Index 15.5 EXAM: GENERAL: The patient is thin and wasted VITAL SIGNS:see workflow HEENT: Nonicteric sclerae, PERRLA, EOMI. Oropharynx clear. Moist mucous membranes. Conjunctivae appear well perfused. No thyroid mass. CHEST: Chest wall is nontender. HEART: Regular rate and rhythm without murmurs. LUNGS: Clear to auscultation bilaterally with reduced air entry ABDOMEN: Soft, positive bowel sounds, nontender, no organomegaly.no flank tenderness SKIN: No rash, no excessive bruising, petechiae, or purpura. NEUROLOGIC: Cranial nerves II-XII intact, reduced power and movement of both legs, very wasted psych- normal Results Labs CBC & Chem 7: 06/15/22 03:17 06/15/22 03:17 Labs: Short CBC 06/14/22 06/14/22 06/14/22 Range/Units 09:41 14:03 18:09 WBC 10.2 9.8 (4.8-10.8) X10*3/uL Hgb 7.9 L 7.3 L 8.1 L (12.0-16.0) g/dl Hct 24.7 L 23.2 L 24.6 L (37.0-47.0) % Plt Count 359 299 (160-400) X10*3/uL 06/15/22 06/15/22 Range/Units 03:17 03:17 WBC 6.8 7.1 (4.8-10.8) X10*3/uL Hgb 9.1 L 9.1 L (12.0-16.0) g/dl Hct 27.2 L 27.2 L (37.0-47.0) % Plt Count 216 D 205 (160-400) X10*3/uL BMP 06/14/22 06/15/22 10:26 03:17 Sodium 134 L 135 Potassium 3.9 3.1 L D Chloride 102 105 Carbon Dioxide 19 L 21 L BUN 9 10 Creatinine 0.51 0.44 L Calcium 7.3 L 7.5 L Liver Function 06/14/22 Range/Units 10:26 Total Bilirubin 0.5 (0.0-1.0) mg/dL Direct Bilirubin 0.3 (0.0-0.5) mg/dL AST 80 H (5-31) U/L ALT 40 H (0-31) U/L Alkaline Phosphatase 182 H (39-117) U/L Albumin 2.4 L (3.5-5.0) g/dL Assessment and Plan (1) Chronic blood loss anemia: Status: Acute (2) Musculoskeletal immobility: Status: Acute (3) Malnutrition: Status: Acute Plan 1/ Anemia, iron def with folic acid def as well, maybe due to malnutrition or malabsorption, neoplasia, PUD, IBD 2/ Immobility and muscle wasting maybe due to neuropathy, spinal cord disease, paraneoplastic syndrome, dysautonomia nahun with her low BP readings. PLAN: 1/ replenish folate as doing 2/ US abdomen, may need CT scan as well 3/ check TSh, cortisol seems to be normal 4/ check viral hep serologies, HIV, peripheral smear, VDRL, myeloma screen, anti Hu, YO antibodies, fecal fat 5/ EGD on Friday, meantime can add midodrine see if helps her BP 6/ consider neurological consult Procedures Date of Service Date of Service: 06/15/22
--- NOTE | 2022-06-15 10:34 | P.PNIM_ITS ---
Subjective Subjective Date of Service: 06/15/22 Interval History: BP still low, given LR LA normal Denies lightheadedness No abd pain Poor appetite Review of Systems Review of Systems: Yes all other systems are reviewed and are negative Physical Exam Vital Signs: Vital Signs: Last Vital Signs Temp 97.9 F 06/15/22 05:29 Pulse 96 06/15/22 08:09 Resp 16 06/15/22 08:09 BP 83/59 L 06/15/22 08:09 Pulse Ox 97 06/15/22 08:09 O2 Del Method 06/15/22 08:09 O2 Flow Rate 1 06/15/22 08:09 BMI result Body Mass Index 15.5 Gen: in no acute distress but cachectic and pale; weak; bedbound HEENT: sclera anicteric, moist and very pale mucus membranes Neck: supple Lungs: clear to auscultation bilaterally Heart: regular, no murmurs Abd: soft, non-tender, non-distended Ext: 1+ edema bilaterally Skin: warm/well-perfused Neuro: alert and oriented x3, no focal findings Psych: appropriate affect Objective Data Active Medications Acetaminophen (Acetaminophen 325 Mg Tablet) 650 mg PO Q6H PRN PRN Reason: Pain, Mild (Pain Scale 1-3) Albuterol Sulfate (Albuterol Sulfate (0.083%) 2.5 Mg/3 Ml Vial.Neb) 2.5 mg INHALE Q2H PRN PRN Reason: Shortness of Breath/Wheezing Albuterol/Ipratropium (Albuterol/Iprat 2.5/0.5mg 3 Ml Ampul.Neb) 3 ml INHALE RQ4H WHILE AWAKE [facility] Last Admin: 06/15/22 09:07 Dose: Not Given Documented By: MARK Non-Admin Reason: rt unavail Thiamine HCl 100 mg/ Sodium (Chloride) 101 mls @ 202 mls/hr IV DAILY [facility] Last Admin: 06/15/22 08:55 Dose: 200 mls/hr Documented By: MICKEY Comments: 100mg into 100ml 0.9% sodium chloride Folic Acid 1 mg/ Sodium (Chloride) 50.2 mls @ 100.4 mls/hr IV DAILY [facility] Potassium Chloride () 10 meq in 100 mls @ 100 mls/hr IV Q1H [facility] Stop: 06/15/22 10:59 Albumin Human (Kedbumin 25 %) 100 mls @ 100 mls/hr IV Q6H [facility] Stop: 06/16/22 03:59 Last Admin: 06/15/22 08:41 Dose: 100 mls/hr Documented By: MICKEY Multivitamins/Vitamin C (Multivitamin Tablet) 1 tab PO DAILY [facility] Last Admin: 06/15/22 08:45 Dose: 1 tab Documented By: MICKEY Nicotine (Nicotine 21 Mg Patch.Td24) 21 mg TRANSDERMA DAILY [facility] Last Admin: 06/15/22 08:43 Dose: 21 mg Documented By: MICKEY Ondansetron HCl (Ondansetron Hcl 4 Mg/2 Ml Vial) 4 mg IVPUSH Q8H PRN PRN Reason: Nausea and Vomiting Pantoprazole Sodium (Pantoprazole Sodium 40 Mg/10 Ml Vial) 40 mg IVPUSH DAILY@0630 [facility] Last Admin: 06/15/22 05:50 Dose: 40 mg Documented By: CLAUDIA Sodium Chloride (0.9 % Sodium Chloride Flush 3 Ml Syringe) 3 ml IVFLUSH QSHIFT [facility] Last Admin: 06/15/22 09:14 Dose: Not Given Documented By: MICKEY Non-Admin Reason: IV Running Labs CBC & Chem 7: 06/15/22 03:17 06/15/22 03:17 Labs: Laboratory Results - last 24 hr 06/14/22 06/14/22 06/14/22 09:41 10:26 10:26 MCV MCH MCHC RDW Plt Count MPV Immature Gran % (Auto) Neut % (Auto) Lymph % (Auto) Gates % (Auto) Eos % (Auto) Baso % (Auto) Lymph # (Auto) Gates # (Auto) Eos # (Auto) Baso # (Auto) Abs Immat Gran (auto) Absolute Neuts (auto) Absolute Nucleated RBC Nucleated RBC % (auto) Absolute Retic Percent Retic Immature Retic Fraction Retic Hgb Equivalent PT INR Anion Gap 17 Estim Creat Clear Calc 58.0 Estimated GFR > 60 Random Glucose 127 H Lactic Acid Calcium 7.3 L Magnesium 1.7 Iron 19 L TIBC 229 % Saturation 8 L Unsat Iron Binding 210 Ferritin 76 Total Bilirubin 0.5 Direct Bilirubin 0.3 AST 80 H ALT 40 H Alkaline Phosphatase 182 H Lactate Dehydrogenase 323 H Troponin I High Sens Total Protein 5.1 L Albumin 2.4 L Vitamin B12 1135 H Folate < 1.6 L TSH 1.70 Random Cortisol Stool Occult Blood Blood Type Antibody Screen Crossmatch 06/14/22 06/14/22 06/14/22 10:26 12:57 14:03 MCV 97.1 MCH 30.5 MCHC 31.5 RDW 15.2 Plt Count 299 MPV 8.8 L Immature Gran % (Auto) 0.8 H Neut % (Auto) 77.7 H Lymph % (Auto) 9.0 L Gates % (Auto) 12.4 H Eos % (Auto) 0.0 Baso % (Auto) 0.1 Lymph # (Auto) 0.9 L Gates # (Auto) 1.2 Eos # (Auto) 0.0 Baso # (Auto) 0.0 Abs Immat Gran (auto) 0.08 H Absolute Neuts (auto) 7.6 Absolute Nucleated RBC 0.000 Nucleated RBC % (auto) 0.0 Absolute Retic 0.076 Percent Retic 3.2 H Immature Retic Fraction 31.5 H Retic Hgb Equivalent 27.1 L PT INR Anion Gap Estim Creat Clear Calc Estimated GFR Random Glucose Lactic Acid Calcium Magnesium Iron TIBC % Saturation Unsat Iron Binding Ferritin Total Bilirubin Direct Bilirubin AST ALT Alkaline Phosphatase Lactate Dehydrogenase Troponin I High Sens < 3.5 Total Protein Albumin Vitamin B12 Folate TSH Random Cortisol Stool Occult Blood POSITIVE Blood Type Antibody Screen Crossmatch 06/14/22 06/15/22 06/15/22 14:03 03:17 03:17 MCV 91.3 D MCH 30.5 MCHC 33.5 RDW 15.3 Plt Count 216 D MPV 8.7 L Immature Gran % (Auto) Neut % (Auto) Lymph % (Auto) Gates % (Auto) Eos % (Auto) Baso % (Auto) Lymph # (Auto) Gates # (Auto) Eos # (Auto) Baso # (Auto) Abs Immat Gran (auto) Absolute Neuts (auto) Absolute Nucleated RBC 0.000 Nucleated RBC % (auto) 0.0 Absolute Retic Percent Retic Immature Retic Fraction Retic Hgb Equivalent PT 11.9 INR 1.0 Anion Gap Estim Creat Clear Calc Estimated GFR Random Glucose Lactic Acid Calcium Magnesium Iron TIBC % Saturation Unsat Iron Binding Ferritin Total Bilirubin Direct Bilirubin AST ALT Alkaline Phosphatase Lactate Dehydrogenase Troponin I High Sens Total Protein Albumin Vitamin B12 Folate TSH Random Cortisol Stool Occult Blood Blood Type B Positive Antibody Screen NEGATIVE Crossmatch See Detail 06/15/22 06/15/22 06/15/22 03:17 03:17 03:17 MCV 91.0 MCH 30.4 MCHC 33.5 RDW 15.3 Plt Count 205 MPV 8.8 L Immature Gran % (Auto) 0.4 Neut % (Auto) 63.3 Lymph % (Auto) 21.3 Gates % (Auto) 14.5 H Eos % (Auto) 0.1 Baso % (Auto) 0.4 Lymph # (Auto) 1.5 Gates # (Auto) 1.0 Eos # (Auto) 0.0 Baso # (Auto) 0.0 Abs Immat Gran (auto) 0.03 Absolute Neuts (auto) 4.5 Absolute Nucleated RBC 0.020 H Nucleated RBC % (auto) 0.3 H Absolute Retic Percent Retic Immature Retic Fraction Retic Hgb Equivalent PT INR Anion Gap 12 Estim Creat Clear Calc 67.2 Estimated GFR > 60 Random Glucose 92 Lactic Acid Calcium 7.5 L Magnesium 1.9 Iron TIBC % Saturation Unsat Iron Binding Ferritin Total Bilirubin Direct Bilirubin AST ALT Alkaline Phosphatase Lactate Dehydrogenase Troponin I High Sens Total Protein Albumin Vitamin B12 Folate TSH Random Cortisol 16.0 Stool Occult Blood Blood Type Antibody Screen Crossmatch 06/15/22 07:13 MCV MCH MCHC RDW Plt Count MPV Immature Gran % (Auto) Neut % (Auto) Lymph % (Auto) Gates % (Auto) Eos % (Auto) Baso % (Auto) Lymph # (Auto) Gates # (Auto) Eos # (Auto) Baso # (Auto) Abs Immat Gran (auto) Absolute Neuts (auto) Absolute Nucleated RBC Nucleated RBC % (auto) Absolute Retic Percent Retic Immature Retic Fraction Retic Hgb Equivalent PT INR Anion Gap Estim Creat Clear Calc Estimated GFR Random Glucose Lactic Acid 1.4 Calcium Magnesium Iron TIBC % Saturation Unsat Iron Binding Ferritin Total Bilirubin Direct Bilirubin AST ALT Alkaline Phosphatase Lactate Dehydrogenase Troponin I High Sens Total Protein Albumin Vitamin B12 Folate TSH Random Cortisol Stool Occult Blood Blood Type Antibody Screen Crossmatch Assessment and Plan (1) Chronic blood loss anemia: Status: Acute (2) Heme positive stool: Status: Acute Plan 77yo bedbound F with no diagnosed chronic medical conditions but heavy tobacco + alcohol use, and prior history of intestinal AVM, presenting after multiple falls and found to be profoundly anemic and malnourished. # chronic blood loss/iron and folate deficiency anemia, likely UGIB - H+H responded appropriately to transfusion of 2u pRBCs. give IV folate. start iron once taking POs. continue IV PPI. pending GI evaluation with EGD # hypotension - not septic, likely due to hypoalbuminemia- will give 25g albumin q6h x 4 doses. random cortisol normal # hypoK - replete, recheck in AM # possible COPD - prn nebulizer treatments, outpt PFTs # tobacco abuse - nicotine replacement therapy # excess EtOH intake - CIWA scale.? IV thiamine.? Addiction Medicine + CARE Team consults. no withdrawal syndrome at this point # severe protein/calorie malnutrition - multivitamin + supplements when taking POs VTE prophylaxis: SCDs, no heparin In my clinical judgment, the patient requires continued hospitalization for the following reasons: endoscopic evaluation Quality Stroke Does the patient have a stroke diagnosis?: No VTE Prior VTE?: No VTE Risk Level:: Medical - moderate - high VTE Device Contraindication: N/A - Device Ordered VTE Drug Contraindication: Treatment Not Indicated
[2022-06-15] MEDS: Potassium Chloride/H20 10 MEQ/100 ML PIGGYBACK 100 MEQ IV ×2 (10:36→11:54)
[2022-06-15] MEDS: Folic Acid 1 MG in 0.9 % Sodium Chloride 50 ML 100.4 MG IV (11:44)
[2022-06-15] MEDS: Albuterol/Iprat 2.5/0.5MG 3 ML AMPUL.NEB INHALE ×3 (12:13→20:12)
--- NOTE | 2022-06-15 15:24 | MHC.RECOVSUP ---
Recovery Support note: Patient is a 77 year old Mexican speaking female who presented to [facility] due to a fall. This technical report writer met with patient in [id number] to discuss her alcohol use and recovery supports. Patient reports she exaggerated her alcohol use when speaking with the doctor. Patient reports she drinks 1-2 glasses of wine with a lot of ice in them. Patient reports she does not find this pattern of use to be problematic and that she is not interested in reducing her consumption at this time or hearing about recovery resources. Recovery Support Team is available to meet with patient to discuss recovery supports and reducing consumption if patient is interested. Discussed case with Izabela Rojo NP.
[2022-06-15] MEDS: Midodrine HCl 5 MG TABLET PO (16:05)
--- NOTE | 2022-06-15 16:18 | MHC.CM.PN ---
PT REPORTS SHE LIVES AT HOME WITH HER SHE SAYS SHE HAS BEEN BED BOUND FOR YEARS AND HE PROVIDES ALL OF HER CARE PT DENIES HAVING ANY HOME SERVICES SHE ALSO HAS NO PCP PT REPORTS SHE USED TO HAVE A HOSPITAL BED BUT IT WAS TOO BIG SO SHE SLEEPS ON THE COUCH PT REPORTS HER IS HER HCP - COPY REQUESTED PT IS NOT COVID VACCINATED IMM DELIVERED, COPY SENT TO [facility] CURRENT DC IS HOME WITH RESUMPTION OF FAMILY CARE PT WILL NEED BLS TRANSPORT
--- NOTE | 2022-06-15 18:50 | PC.NURSE ---
pt lying in hospital bed, aox3, soft spoken. Reports to be bedbound about one year (PT consulted this shift). Denies any sx of ETOH withdrawal, no s/s noted during assessment. Denies CP/SOB, Bp soft throughout shift (MD aware), started midodrine this shift. Gi consult in place, would like Bp to improve prior to any invasive testing per report. Denies pain, abd is soft non tender, +BSx 4. no edema noted to extremities. Family at bedside throught shift. Denies any other needs at this time, call cm within place. will continue to monitor.
--- NOTE | 2022-06-15 19:47 | PM.EVENT ---
Event Note Date of Service: 06/15/22 Event Note: Addiction note Please see Recovery Support note
[2022-06-16] VITALS (9 sets, daily range): BP systolic 82–101; BP diastolic 57–76; PULSE 87–111; RESP 14–20; TEMP 36.3–37; O2SAT 95–100
[2022-06-16] MEDS: Albumin Human 25 % 100 ML IV ×4 (03:56→20:13)
[2022-06-16] MEDS: Pantoprazole Sodium 40 MG/10 ML VIAL IVPUSH (06:06)
[2022-06-16 06:25] LABS: Hematocrit 25.5 % (37.0-47.0); Hemoglobin 8.4 g/dl (12.0-16.0); Mean Corpuscular HGB Conc 32.9 g/dl (31.0-35.0); Mean Corpuscular Hemoglobin 29.9 pg (27.0-33.0); Mean Corpuscular Volume 90.7 fL (80.0-98.0); Mean Platelet Volume 8.7 fL (9.4-12.3); Platelet Count 207 X10*3/uL (160-400); Red Blood Count 2.81 X10*6/uL (4.20-5.50); White Blood Count 5.5 X10*3/uL (4.8-10.8)
[2022-06-16 07:13] LABS: Alanine Aminotransferase 24 U/L (0-31); Albumin Level 3.5 g/dL (3.5-5.0); Alkaline Phosphatase 95 U/L (39-117); Anion Gap 13 (12-20); Aspartate Amino Transferase 60 U/L (5-31); Bilirubin Total 1.5 mg/dL (0.0-1.0); Blood Urea Nitrogen 9 mg/dL (9-16); Calcium 8.2 mg/dL (8.4-10.2); Carbon Dioxide 21 mmol/L (22-29); Chloride 105 mmol/L (96-108); Creatinine Clr Calc Pharmacy 65.7; Estimated Glomerular Filt Rate > 60; Glucose Random 79 mg/dL (60-115); Magnesium 1.8 mg/dL (1.6-2.6); Potassium 2.7 mmol/L (3.3-5.1); Sodium 136 mmol/L (135-145); Total Protein 5.1 g/dL (6.5-8.0)
[2022-06-16] MEDS: Albuterol/Iprat 2.5/0.5MG 3 ML AMPUL.NEB INHALE ×4 (07:38→19:01)
[2022-06-16] MEDS: Multivitamin TABLET 1 TAB PO (08:20)
[2022-06-16] MEDS: Nicotine 21 MG PATCH.TD24 TRANSDERMA (08:23)
[2022-06-16] MEDS: 0.9 % Sodium Chloride Flush 3 ML SYRINGE IVFLUSH ×3 (08:26→20:14)
[2022-06-16] MEDS: Potassium Chloride/H20 10 MEQ/100 ML PIGGYBACK 100 MEQ IV ×4 (08:26→16:26)
[2022-06-16] MEDS: Folic Acid 1 MG in 0.9 % Sodium Chloride 50 ML 100 MG IV (09:23)
[2022-06-16] MEDS: Potassium Chloride Packet 20 MEQ PACKET 40 MEQ PO (09:23)
--- NOTE | 2022-06-16 09:55 | HO.PM.IMPN ---
Subjective Subjective Date of Service: 06/16/22 Interval History: BP low; not lightheaded no abd pain Review of Systems Review of Systems: Yes all other systems are reviewed and are negative Physical Exam Vital Signs: Vital Signs: Last Vital Signs Temp 97.7 F 06/16/22 07:41 Pulse 90 06/16/22 07:41 Resp 20 06/16/22 07:41 BP 82/69 L 06/16/22 07:41 Pulse Ox 100 06/16/22 07:41 O2 Del Method 06/16/22 07:41 O2 Flow Rate 4 06/16/22 07:41 BMI result Body Mass Index 15.5 Gen: in no acute d istress but cachec tic and pale; weak ; bedbound HEENT: sclera anicteric, moist and very pal e mucus membranes Neck: supple Lungs : clear to auscult ation bilaterally Heart: regular, no murmurs Abd: soft , non-tender, non- distended Ext: 1+ edema bilaterally Skin: warm/well-pe rfused Neuro: aler t and oriented x3, no focal findings Psych: appropriat e affect Objective Data Active Medications Acetaminophen (Acetaminophen 325 Mg Tablet) 650 mg PO Q6H PRN PRN Reason: Pain, Mild (Pain Scale 1-3) Albuterol Sulfate (Albuterol Sulfate (0.083%) 2.5 Mg/3 Ml Vial.Neb) 2.5 mg INHALE Q2H PRN PRN Reason: Shortness of Breath/Wheezing Albuterol/Ipratropium (Albuterol/Iprat 2.5/0.5mg 3 Ml Ampul.Neb) 3 ml INHALE RQ4H WHILE AWAKE [facility] Last Admin: 06/16/22 07:38 Dose: 3 ml Documented By: MARK Thiamine HCl 100 mg/ Sodium (Chloride) 101 mls @ 202 mls/hr IV DAILY [facility] Last Infusion: 06/15/22 13:04 Dose: 200 mls/hr Documented By: MICKEY Folic Acid 1 mg/ Sodium (Chloride) 50.2 mls @ 100.4 mls/hr IV DAILY [facility] Last Admin: 06/16/22 09:23 Dose: 100 mls/hr Documented By: LAILA Albumin Human (Kedbumin 25 %) 100 mls @ 100 mls/hr IV Q6H [facility] Stop: 06/17/22 02:59 Last Admin: 06/16/22 08:24 Dose: 100 mls/hr Documented By: LAILA Potassium Chloride () 10 meq in 100 mls @ 100 mls/hr IV Q1H [facility] Stop: 06/16/22 11:44 Last Infusion: 06/16/22 09:41 Dose: 0 mls/hr Documented By: LAILA Midodrine (Midodrine Hcl 10 Mg Tablet) 10 mg PO TIDAC [facility] Multivitamins/Vitamin C (Multivitamin Tablet) 1 tab PO DAILY [facility] Last Admin: 06/16/22 08:20 Dose: 1 tab Documented By: LAILA Nicotine (Nicotine 21 Mg Patch.Td24) 21 mg TRANSDERMA DAILY [facility] Last Admin: 06/16/22 08:23 Dose: 21 mg Documented By: LAILA Ondansetron HCl (Ondansetron Hcl 4 Mg/2 Ml Vial) 4 mg IVPUSH Q8H PRN PRN Reason: Nausea and Vomiting Pantoprazole Sodium (Pantoprazole Sodium 40 Mg/10 Ml Vial) 40 mg IVPUSH DAILY@0630 [facility] Last Admin: 06/16/22 06:06 Dose: 40 mg Documented By: LISET Sodium Chloride (0.9 % Sodium Chloride Flush 3 Ml Syringe) 3 ml IVFLUSH QSHIFT [facility] Last Admin: 06/16/22 08:26 Dose: 3 ml Documented By: LAILA Labs CBC & Chem 7: 06/16/22 06:11 06/16/22 06:11 Labs: Laboratory Results - last 24 hr 06/15/22 06/16/22 06/16/22 03:17 06:11 06:11 MCV 90.7 MCH 29.9 MCHC 32.9 RDW 16.0 Plt Count 207 MPV 8.7 L Absolute Nucleated RBC 0.000 Nucleated RBC % (auto) 0.0 Anion Gap 13 Estim Creat Clear Calc 65.7 Estimated GFR > 60 Random Glucose 79 Calcium 8.2 L D Magnesium 1.8 Total Bilirubin 1.5 H AST 60 H ALT 24 Alkaline Phosphatase 95 D Total Protein 5.1 L Albumin 3.5 D Random Cortisol 16.0 Assessment and Plan (1) Chronic blood loss anemia: Status: Acute (2) Heme positive stool: Status: Acute Plan hospital d#3 77yo bedbound F with no diagnosed chronic medical conditions but heavy tobacco + alcohol use, and prior history of intestinal AVM, presenting after multiple falls and found to be profoundly anemic and malnourished. # chronic blood loss/iron and folate deficiency anemia, likely UGIB - H+H responded appropriately to transfusion of 2u pRBCs. continue IV folate. start iron once taking POs. continue IV PPI. pending GI evaluation with EGD tomorrow # hypotension - not septic, likely due to hypoalbuminemia- will give another round of 25g albumin q6h x 4 doses. random cortisol normal # hypoK - replete IV+PO, recheck in AM # possible COPD - prn nebulizer treatments, outpt PFTs # tobacco abuse - nicotine replacement therapy # excess EtOH intake - CIWA scale.? IV thiamine.? Addiction Medicine + CARE Team consults. no withdrawal syndrome at this point. pt reports exaggerating how much she actually drinks. # severe protein/calorie malnutrition - multivitamin + supplements when taking POs VTE prophylaxis: SCDs, no heparin dispo: STR per PT In my clinical judgment, the patient requires continued hospitalization for the following reasons: endoscopic evaluation, placement Quality Stroke Does the patient have a stroke diagnosis?: No VTE Prior VTE?: No VTE Risk Level:: Medical - moderate - high VTE Device Contraindication: N/A - Device Ordered VTE Drug Contraindication: Treatment Not Indicated
[2022-06-16] MEDS: Thiamine HCL 100 MG in 0.9 % Sodium Chloride 100 ML 200 MG IV (10:49)
[2022-06-16] MEDS: Midodrine HCl 10 MG TABLET PO ×2 (10:50→16:27)
[2022-06-16] MEDS: LORazepam 0.5 MG TABLET PO (18:44)
[2022-06-17] VITALS (14 sets, daily range): BP systolic 90–120; BP diastolic 55–80; PULSE 91–104; RESP 16–24; TEMP 36.2–36.9; O2SAT 94–100; BMI 15.5
[2022-06-17] MEDS: Albumin Human 25 % 100 ML IV (03:36)
[2022-06-17] MEDS: Pantoprazole Sodium 40 MG/10 ML VIAL IVPUSH (05:47)
[2022-06-17 06:17] LABS: Hemoglobin 8.5 g/dl (12.0-16.0); Mean Corpuscular HGB Conc 32.7 g/dl (31.0-35.0); Mean Corpuscular Hemoglobin 30.4 pg (27.0-33.0); Mean Corpuscular Volume 92.9 fL (80.0-98.0); Mean Platelet Volume 8.9 fL (9.4-12.3); Platelet Count 212 X10*3/uL (160-400); White Blood Count 5.4 X10*3/uL (4.8-10.8)
[2022-06-17 06:45] LABS: Alanine Aminotransferase 21 U/L (0-31); Albumin Level 4.2 g/dL (3.5-5.0); Alkaline Phosphatase 76 U/L (39-117); Aspartate Amino Transferase 47 U/L (5-31); Bilirubin Direct 0.9 mg/dL (0.0-0.5); Bilirubin Total 1.2 mg/dL (0.0-1.0); Total Protein 5.6 g/dL (6.5-8.0)
[2022-06-17 06:54] LABS: HBS Num1 2.47 mIU/mL (0-7.99); HBsAGNum1 0.22 S/CO (0.00-0.99); HIV AB/AG Nonreactive (Nonreactive); HIV Num 1 0.06 S/CO (0.00-0.99); Hepatitis B Core Antibody Nonreactive (Nonreactive); Hepatitis B Surface Antigen Negative (Negative); ~HepC Num1 0.04 S/CO (0.00-0.79); ~Hepatitis B Surface Antibody NONREACTIVE (Nonreactive); ~Hepatitis C Antibody Nonreactive (Nonreactive)
[2022-06-17 08:08] LABS: Blood Urea Nitrogen 6 mg/dL (9-16); Calcium 8.6 mg/dL (8.4-10.2); Creatinine Clr Calc Pharmacy 61.6; Estimated Glomerular Filt Rate > 60; Glucose Random 62 mg/dL (60-115)
[2022-06-17 08:19] LABS: Anion Gap 17 (12-20); Carbon Dioxide 17 mmol/L (22-29); Chloride 105 mmol/L (96-108); Potassium 3.3 mmol/L (3.3-5.1); Sodium 136 mmol/L (135-145)
[2022-06-17] MEDS: Midodrine HCl 10 MG TABLET PO ×3 (08:33→17:30)
[2022-06-17] MEDS: Multivitamin TABLET 1 TAB PO (08:33)
[2022-06-17] MEDS: LORazepam 0.5 MG TABLET PO (08:33)
[2022-06-17] MEDS: Nicotine 21 MG PATCH.TD24 TRANSDERMA (08:33)
[2022-06-17] MEDS: 0.9 % Sodium Chloride Flush 3 ML SYRINGE IVFLUSH ×2 (08:34→17:30)
[2022-06-17] MEDS: Albuterol/Iprat 2.5/0.5MG 3 ML AMPUL.NEB INHALE ×3 (08:39→19:07)
--- NOTE | 2022-06-17 10:27 | PC.NURSE ---
In preparation for transport 4 rings, 1 bracelet and 1 necklace removed from pt and placed in bag labeled with pts name and given to Noman. Witnessed by Carlos Eduardo Villegas.
[2022-06-17 10:28] LABS: Syphilis Screen Nonreactive (Nonreactive)
[2022-06-17] MEDS: Lactated Ringers 1,000 ML 100 ML IVCONT ×3 (10:46→23:41)
--- NOTE | 2022-06-17 10:48 | MHC.SHP ---
Pre-Procedural Eval Section A Date of Service: 06/17/22 The patient is an INPATIENT: Yes The History & Physical has been completed within 30 days and I have reviewed it.: Yes Section B Chief Complaint: GI Bleed, anemia, hypotension, malnutrition Allergies: Allergies Allergy/AdvReac Type Severity Reaction Status Date / Time No Known Allergies Allergy Verified 06/16/22 08:48 Plan Diagnosis/Plan: Unchanged I have reviewed the history and physical and performed a pertinent physical examination on my patient. No changes have occurred unless specified. EGD
--- NOTE | 2022-06-17 10:48 | W.PM.OPN ---
Operative Note Operative Note Date of Service: 06/17/22 Narrative: Procedure Description: EGD Indication: anemia Anesthesia: MAC FLEXIBLE TRANSORAL UPPER GASTROINTESTINAL ENDOSCOPY UPPER ENDOSCOPY Consent: Indications for the procedure and potential complications of bleeding, perforation, reaction to medications and missed diagnosis were discussed with the patient and informed consent was obtained. Instrument: Olympus GIF H 190 J mid size upper endoscope Monitoring: Vital signs and clinical assessment, continuous EKG monitoring, Pulse oximetry, Carbon Dioxide monitoring and blood pressure monitoring were done throughout the procedure. Procedure: The patient was placed in the left lateral decubitis position and pre-procedure medications were administered and a bite block was placed. The endoscope was inserted into the mouth and advanced under direct vision to the third part of duodenum. A careful inspection was made as the upper endoscope was withdrawn including a retroflexed examination of the proximal stomach; Findings and interventions are described below. Findings: Larynx:normal Esophagus: GE junction at 35 cm, diaphragm hiatus at 35 cm, esophagitis noted, moderate inflammation with schatzki ring, bx taken Stomach: Patchy gastric erythema. Biopsies were obtained. Grade 2 flap valve on retroflexed examination of the cardia. Duodenum: Mucosal atrophy with patchy erythema and few erosions Intervention: Biopsies as noted above Impression/Findings: duodenitis- may be acid related damage or enteropathy e.g celiac disease esophagitis schatzki ring PLAN: await bx, check celiac panel she had declined colonoscopy, if anemia persists and bx neg for celiac then re discuss colonoscopy with her
--- NOTE | 2022-06-17 10:59 | HO.PM.IMPN ---
Subjective Subjective Date of Service: 06/17/22 Interval History: BP improved still lightheaded though improved no further GI bleeding NPO for EGD today Review of Systems Review of Systems: Yes all other systems are reviewed and are negative Physical Exam Vital Signs: Vital Signs: Last Vital Signs Temp 97.7 F 06/17/22 10:39 Pulse 101 H 06/17/22 10:39 Resp 24 H 06/17/22 10:39 BP 114/70 06/17/22 10:39 Pulse Ox 94 06/17/22 10:39 O2 Del Method 06/17/22 10:39 O2 Flow Rate 2 06/17/22 07:40 BMI result Body Mass Index 15.5 Gen: in no acute distress but cachectic and pale; weak; bedbound HEENT: sclera anicteric, moist and very pale mucus membranes Neck: supple Lungs: clear to auscultation bilaterally Heart: regular, no murmurs Abd: soft, non-tender, non-distended Ext: 1+ edema bilaterally Skin: warm/well-perfused Neuro: alert and oriented x3, no focal findings Psych: appropriate affect Objective Data Active Medications Acetaminophen (Acetaminophen 325 Mg Tablet) 650 mg PO Q6H PRN PRN Reason: Pain, Mild (Pain Scale 1-3) Albuterol Sulfate (Albuterol Sulfate (0.083%) 2.5 Mg/3 Ml Vial.Neb) 2.5 mg INHALE Q2H PRN PRN Reason: Shortness of Breath/Wheezing Albuterol/Ipratropium (Albuterol/Iprat 2.5/0.5mg 3 Ml Ampul.Neb) 3 ml INHALE RQ4H WHILE AWAKE [facility] Last Admin: 06/17/22 08:39 Dose: 3 ml Documented By: ISHAN Thiamine HCl 100 mg/ Sodium (Chloride) 101 mls @ 202 mls/hr IV DAILY [facility] Last Infusion: 06/16/22 11:48 Dose: 0 mls/hr Documented By: LAILA Folic Acid 1 mg/ Sodium (Chloride) 50.2 mls @ 100.4 mls/hr IV DAILY [facility] Last Infusion: 06/16/22 10:08 Dose: 0 mls/hr Documented By: LAILA Lorazepam (Lorazepam 0.5 Mg Tablet) 0.5 mg PO Q8H PRN PRN Reason: anxiety Last Admin: 06/17/22 08:33 Dose: 0.5 mg Documented By: RYAN Midodrine (Midodrine Hcl 10 Mg Tablet) 10 mg PO TIDAC [facility] Last Admin: 06/17/22 08:33 Dose: 10 mg Documented By: RYAN Multivitamins/Vitamin C (Multivitamin Tablet) 1 tab PO DAILY [facility] Last Admin: 06/17/22 08:33 Dose: 1 tab Documented By: RYAN Nicotine (Nicotine 21 Mg Patch.Td24) 21 mg TRANSDERMA DAILY [facility] Last Admin: 06/17/22 08:33 Dose: 21 mg Documented By: RYAN Ondansetron HCl (Ondansetron Hcl 4 Mg/2 Ml Vial) 4 mg IVPUSH Q8H PRN PRN Reason: Nausea and Vomiting Pantoprazole Sodium (Pantoprazole Sodium 40 Mg/10 Ml Vial) 40 mg IVPUSH DAILY@0630 [facility] Last Admin: 06/17/22 05:47 Dose: 40 mg Documented By: LACI Sodium Chloride (0.9 % Sodium Chloride Flush 3 Ml Syringe) 3 ml IVFLUSH QSHIFT [facility] Last Admin: 06/17/22 08:34 Dose: 3 ml Documented By: RYAN Labs CBC & Chem 7: 06/17/22 06:08 06/17/22 06:08 Labs: Laboratory Results - last 24 hr 06/16/22 06/16/22 06/17/22 06:11 06:11 06:08 MCV 92.9 MCH 30.4 MCHC 32.7 RDW 16.0 Plt Count 212 MPV 8.9 L Absolute Nucleated RBC 0.000 Nucleated RBC % (auto) 0.0 Anion Gap Estim Creat Clear Calc Estimated GFR Random Glucose Calcium Total Bilirubin Direct Bilirubin AST ALT Alkaline Phosphatase Total Protein Albumin T.pallidum Ab (EIA) Nonreactive Hep Bs Antigen Negative Hep Bs Antibody NONREACTIVE Hep B Core Total Ab Nonreactive Hepatitis C Ab (EIA) Nonreactive HIV 1&2 Ab/P24 Ag 4thGn Nonreactive 06/17/22 06:08 MCV MCH MCHC RDW Plt Count MPV Absolute Nucleated RBC Nucleated RBC % (auto) Anion Gap 17 Estim Creat Clear Calc 61.6 Estimated GFR > 60 Random Glucose 62 Calcium 8.6 Total Bilirubin 1.2 H Direct Bilirubin 0.9 H AST 47 H ALT 21 Alkaline Phosphatase 76 Total Protein 5.6 L Albumin 4.2 T.pallidum Ab (EIA) Hep Bs Antigen Hep Bs Antibody Hep B Core Total Ab Hepatitis C Ab (EIA) HIV 1&2 Ab/P24 Ag 4thGn Impressions Abdomen Ultrasound 06/16/22 09:30 IMPRESSION: 1. Hepatic steatosis. Anechoic lesion in the left lobe appears to correlate with the previously seen cyst, but cannot be classified as simple. This could be best evaluated with contrast-enhanced abdominal MRI. 2. Gallbladder mural thickening and pericholecystic fluid is nonspecific, but does not appear acute and is likely secondary to systemic disease/peritoneal ascites. No significant biliary ductal dilatation. If the patient experiences acute right upper quadrant pain this can be monitored for change with right upper quadrant abdominal ultrasound as clinically indicated. 3. Small right renal cyst demonstrates benign features not requiring follow-up. 4. Left pleural effusion. This was not seen on the most recent chest radiograph. PA and lateral views of the chest are recommended. Assessment and Plan (1) Chronic blood loss anemia: Status: Acute (2) Heme positive stool: Status: Acute Plan hospital d#4 77yo bedbound F with no diagnosed chronic medical conditions but heavy tobacco + alcohol use, and prior history of intestinal AVM, presenting after multiple falls and found to be profoundly anemic and malnourished. # chronic blood loss/iron and folate deficiency anemia, likely UGIB - H+H responded appropriately to transfusion of 2u pRBCs. continue IV folate. start iron once taking POs. continue IV PPI. EGD today # neuromuscular weakness - Neurology consult pending. serologic workup as per GI. # liver neoplasm - unable to characterize as simple; will obtain contrast-enhanced MRI and check AFP # pleural effusion - CXR PA/lat/decub # hypotension - not septic. cortisol normal. improved after albumin + blood transfusion # hypoK - repleted # possible COPD - prn nebulizer treatments, outpt PFTs # tobacco abuse - nicotine replacement therapy # excess EtOH intake - CIWA scale.? IV thiamine.? Addiction Medicine + CARE Team consults. no withdrawal syndrome at this point. pt reports exaggerating how much she actually drinks. # severe protein/calorie malnutrition - multivitamin + supplements when taking POs VTE prophylaxis: SCDs, no heparin given GI bleeding dispo: STR per PT In my clinical judgment, the patient requires continued hospitalization for the following reasons: endoscopic evaluation, placement Quality Stroke Does the patient have a stroke diagnosis?: No VTE Prior VTE?: No VTE Risk Level:: Medical - moderate - high VTE Device Contraindication: N/A - Device Ordered VTE Drug Contraindication: Treatment Not Indicated
--- NOTE | 2022-06-17 12:13 | MHC.CM.PN ---
Per rounds, plan for patient to have EGD today. No discharge. Case Management will continue to follow patient for discharge planning needs.
[2022-06-17] MEDS: Folic Acid 1 MG in 0.9 % Sodium Chloride 50 ML 100 MG IV (12:45)
[2022-06-17] MEDS: Thiamine HCL 100 MG in 0.9 % Sodium Chloride 100 ML 202 MG IV (14:01)
--- NOTE | 2022-06-17 14:04 | MHC.CLN ---
Addendum entered by Lynne Jay, MINA 06/17/22 15:17: DIET ADVANCED TO REGULAR WITH ENSURE TID PER MD. ADDED NDD3 CONSISTENCY PER CONVERSATION WITH PATIENT. ENSURE TID PROVIDES ADDITIONAL 1050 KCALS, 60 G PROTEIN. Original Note: NUTRITION CURRENTLY NPO POST PROCEDURE. PREFERS SOFT FOODS. WHEN DIET RESUMES, RECOMMEND NDD3 CONSISTENCY BASED ON CONVERSATION WITH PATIENT. ADD ENSURE BID TO PROVIDE ADDITIONAL 700 KCALS, 40 GRAMS PROTEIN. QUALIFIES SEVERELY MALNOURISHED.
--- NOTE | 2022-06-17 15:27 | P.CNNE_ITS ---
History of Present Illness Data of Consult Service Date: 06/17/22 Primary Care Provider: None Physician HPI Reason for consult: Autonomic neuropathy 77 years old woman drinking 2-4 alcoholic beverages a day and complain of being generally weak, having tremor and I was asked to see her for possible autonomic neuropathy. Apparently she has not been able to ambulate for a while. There was no complaint of any sudden change in personality or trauma. Review of Systems Review of Systems: No recent fall or trauma [facility] Past Medical History Medical History History of arteriovenous malformation History of uterine fibroid Tobacco abuse Surgical History Surgical History History of hysterectomy Social History Social History Household Members: Spouse Housing: House Do you presently have visiting nurse or other home services: No Alcohol intake: current Patient Tobacco Use Status: Current everyday Tobacco user Tobacco use type: Cigarette Cigarette Packs Per Day: 1 Cigarettes Per Day: 20.0 Advance Directives Date on File: 06/15/22 service: No Current occupational status: retired [employer] Allergies Allergy/AdvReac Type Severity Reaction Status Date / Time No Known Allergies Allergy Verified 06/16/22 08:48 Active Medications: Current Medications Acetaminophen (Acetaminophen 325 Mg Tablet) 650 mg PO Q6H PRN PRN Reason: Pain, Mild (Pain Scale 1-3) Albuterol Sulfate (Albuterol Sulfate (0.083%) 2.5 Mg/3 Ml Vial.Neb) 2.5 mg INHALE Q2H PRN PRN Reason: Shortness of Breath/Wheezing Albuterol/Ipratropium (Albuterol/Iprat 2.5/0.5mg 3 Ml Ampul.Neb) 3 ml INHALE RQ4H WHILE AWAKE [facility] Last Admin: 06/17/22 12:04 Dose: Not Given Folic Acid 1 mg/ Sodium (Chloride) 50.2 mls @ 100.4 mls/hr IV DAILY [facility] Last Infusion: 06/17/22 13:52 Dose: Infused Lactated Ringer's (Lr) 1,000 mls @ 100 mls/hr IVCONT .Q10H [facility] Last Admin: 06/17/22 10:46 Dose: 100 mls/hr Thiamine HCl 100 mg/ Sodium (Chloride) 101 mls @ 202 mls/hr IV DAILY [facility] Last Infusion: 06/17/22 14:59 Dose: Infused Lorazepam (Lorazepam 0.5 Mg Tablet) 0.5 mg PO Q8H PRN PRN Reason: anxiety Last Admin: 06/17/22 08:33 Dose: 0.5 mg Midodrine (Midodrine Hcl 10 Mg Tablet) 10 mg PO TIDAC [facility] Last Admin: 06/17/22 12:45 Dose: 10 mg Multivitamins/Vitamin C (Multivitamin Tablet) 1 tab PO DAILY [facility] Last Admin: 06/17/22 08:33 Dose: 1 tab Nicotine (Nicotine 21 Mg Patch.Td24) 21 mg TRANSDERMA DAILY [facility] Last Admin: 06/17/22 08:33 Dose: 21 mg Ondansetron HCl (Ondansetron Hcl 4 Mg/2 Ml Vial) 4 mg IVPUSH Q8H PRN PRN Reason: Nausea and Vomiting Pantoprazole Sodium (Pantoprazole Sodium 40 Mg/10 Ml Vial) 40 mg IVPUSH DAILY@0630 [facility] Last Admin: 06/17/22 05:47 Dose: 40 mg Sodium Chloride (0.9 % Sodium Chloride Flush 3 Ml Syringe) 3 ml IVFLUSH QSHIFT [facility] Last Admin: 06/17/22 08:34 Dose: 3 ml Home Medications Medication Instructions Recorded Confirmed Last Taken Type No Known Home Meds 06/14/22 06/14/22 Unknown History Physical Exam Vital Signs: Vital Signs: Last Vital Signs Temp 97.6 F 06/17/22 12:04 Pulse 94 06/17/22 12:04 Resp 18 06/17/22 12:04 BP 107/61 06/17/22 12:04 Pulse Ox 95 06/17/22 12:04 O2 Del Method 06/17/22 12:04 O2 Flow Rate 5 06/17/22 11:34 BMI result Body Mass Index 15.5 Neuro: Other: She was alert and awake with normal spontaneity of speech fluency comprehension and affect. Oral hygiene was poor. She had a generalized muscle atrophy and somewhat cachexia. Limbs were flexed. Deep tendon reflexes are absent. There were significant arthritic changes. Moderate tremor with sustained posture was noted in upper extremities. Plantars were withdrawing. Feet were very sensitive. Face was symmetrical. Visual garcia are full. Extraocular muscles were intact. There was no nystagmus. Results Labs CBC & Chem 7: 06/17/22 06:08 06/17/22 06:08 Labs: Short CBC 06/17/22 Range/Units 06:08 WBC 5.4 (4.8-10.8) X10*3/uL Hgb 8.5 L (12.0-16.0) g/dl Hct 26.0 L (37.0-47.0) % Plt Count 212 (160-400) X10*3/uL BMP 06/17/22 06:08 Sodium 136 Potassium 3.3 D Chloride 105 Carbon Dioxide 17 L BUN 6 L Creatinine 0.48 L Calcium 8.6 Liver Function 06/17/22 Range/Units 06:08 Total Bilirubin 1.2 H (0.0-1.0) mg/dL Direct Bilirubin 0.9 H (0.0-0.5) mg/dL AST 47 H (5-31) U/L ALT 21 (0-31) U/L Alkaline Phosphatase 76 (39-117) U/L Albumin 4.2 (3.5-5.0) g/dL Assessment and Plan (1) Alcoholism: Status: Acute (2) Alcoholic peripheral neuropathy: Status: Acute 77 years old woman who suffered from multiple complications of alcoholism including peripheral neuropathy tremor and in this type of patient autonomic neuropathy was also common. She also has significant arthritis, which might have been another reason for her disability. Mainstay of management is vitamin B complex supplementation, complete avoidance of alcohol, and attention to her behavioral issues per (3) Cerebellar ataxia: Status: Acute Procedures Date of Service Date of Service: 06/17/22
[2022-06-18] VITALS (10 sets, daily range): BP systolic 82–101; BP diastolic 49–62; PULSE 88–106; RESP 16–24; TEMP 35.6–36.6; O2SAT 90–97
[2022-06-18 06:28] LABS: Hematocrit 29.2 % (37.0-47.0); Hemoglobin 9.2 g/dl (12.0-16.0); Mean Corpuscular HGB Conc 31.5 g/dl (31.0-35.0); Mean Corpuscular Volume 95.1 fL (80.0-98.0); Mean Platelet Volume 9.2 fL (9.4-12.3); Platelet Count 232 X10*3/uL (160-400); Red Blood Count 3.07 X10*6/uL (4.20-5.50); Red Cell Distribution Width 16.3 % (11.0-16.0); White Blood Count 5.5 X10*3/uL (4.8-10.8)
[2022-06-18] MEDS: Pantoprazole Sodium 40 MG/10 ML VIAL IVPUSH (06:43)
[2022-06-18 07:08] LABS: Anion Gap 19 (12-20); Blood Urea Nitrogen 4 mg/dL (9-16); Calcium 7.8 mg/dL (8.4-10.2); Carbon Dioxide 15 mmol/L (22-29); Chloride 107 mmol/L (96-108); Creatinine Clr Calc Pharmacy 61.6; Estimated Glomerular Filt Rate > 60; Glucose Random 58 mg/dL (60-115); Magnesium 1.5 mg/dL (1.6-2.6); Sodium 138 mmol/L (135-145)
[2022-06-18] MEDS: Albuterol/Iprat 2.5/0.5MG 3 ML AMPUL.NEB INHALE ×3 (07:45→20:14)
[2022-06-18] MEDS: Potassium Chloride ER 20 MEQ TAB.ER.PRT PO (08:08)
[2022-06-18] MEDS: Nicotine 21 MG PATCH.TD24 TRANSDERMA (08:08)
[2022-06-18] MEDS: Midodrine HCl 10 MG TABLET PO ×3 (08:09→17:13)
[2022-06-18] MEDS: Magnesium Sulfate/H2O 2 GM/50 ML PIGGYBACK IV (08:09)
[2022-06-18] MEDS: Multivitamin TABLET 1 TAB PO (08:09)
[2022-06-18] MEDS: Ferrous Sulfate 324 MG TABLET.DR PO (08:09)
[2022-06-18] MEDS: 0.9 % Sodium Chloride Flush 3 ML SYRINGE IVFLUSH (08:12)
[2022-06-18 08:29] LABS: Glucose, Whole Blood 67 mg/dL (60-115)
[2022-06-18 09:21] LABS: Glucose, Whole Blood 75 mg/dL (60-115)
[2022-06-18] MEDS: Potassium Chloride/H20 10 MEQ/100 ML PIGGYBACK 100 MEQ IV ×2 (10:23→11:32)
[2022-06-18 12:17] LABS: Procalcitonin 0.04 ng/mL
--- NOTE | 2022-06-18 12:48 | HO.PM.IMPN ---
Subjective Subjective Date of Service: 06/18/22 Interval History: BP improved Hypoglycemic this AM without symptoms Coughing- thinks she aspirated a piece of a crushed pill Review of Systems Review of Systems: Yes all other systems are reviewed and are negative Physical Exam Vital Signs: Vital Signs: Last Vital Signs Temp 97.4 F 06/18/22 11:48 Pulse 98 06/18/22 11:48 Resp 18 06/18/22 11:48 BP 101/62 06/18/22 11:48 Pulse Ox 91 L 06/18/22 11:48 O2 Del Method 06/18/22 11:48 O2 Flow Rate 5 06/17/22 11:34 BMI result Body Mass Index 15.5 Gen: in no acute distress but cachectic and pale; weak; bedbound HEENT: sclera anicteric, moist and very pale mucus membranes Neck: supple Lungs: clear to auscultation bilaterally Heart: regular, no murmurs Abd: soft, non-tender, non-distended Ext: trace edema bilaterally Skin: warm/well-perfused Neuro: alert and oriented x3, no focal findings Psych: appropriate affect Objective Data Active Medications Acetaminophen (Acetaminophen 325 Mg Tablet) 650 mg PO Q6H PRN PRN Reason: Pain, Mild (Pain Scale 1-3) Albuterol Sulfate (Albuterol Sulfate (0.083%) 2.5 Mg/3 Ml Vial.Neb) 2.5 mg INHALE Q2H PRN PRN Reason: Shortness of Breath/Wheezing Albuterol/Ipratropium (Albuterol/Iprat 2.5/0.5mg 3 Ml Ampul.Neb) 3 ml INHALE RQ4H WHILE AWAKE [facility] Last Admin: 06/18/22 10:43 Dose: 3 ml Documented By: MARK Ferrous Sulfate (Ferrous Sulfate 324 Mg Tablet.Dr) 324 mg PO DAILY [facility] Last Admin: 06/18/22 08:09 Dose: 324 mg Documented By: RYAN Guaifenesin/Dextromethorphan (Guaifenesin Dm 100/10/5 Ml 5 Ml Syrup) 5 ml PO Q4H PRN PRN Reason: cough Folic Acid 1 mg/ Sodium (Chloride) 50.2 mls @ 100.4 mls/hr IV DAILY [facility] Last Infusion: 06/17/22 13:52 Dose: 0 mls/hr Documented By: RYAN Thiamine HCl 100 mg/ Sodium (Chloride) 101 mls @ 202 mls/hr IV DAILY [facility] Last Infusion: 06/17/22 14:59 Dose: 0 mls/hr Documented By: RYAN Dextrose/Lactated Ringer's (D5lr) 1,000 mls @ 40 mls/hr IVCONT .Q24H [facility] Lorazepam (Lorazepam 0.5 Mg Tablet) 0.5 mg PO Q8H PRN PRN Reason: anxiety Last Admin: 06/17/22 08:33 Dose: 0.5 mg Documented By: RYAN Midodrine (Midodrine Hcl 10 Mg Tablet) 10 mg PO TIDAC [facility] Last Admin: 06/18/22 08:09 Dose: 10 mg Documented By: RYAN Multivitamins/Vitamin C (Multivitamin Tablet) 1 tab PO DAILY [facility] Last Admin: 06/18/22 08:09 Dose: 1 tab Documented By: RYAN Nicotine (Nicotine 21 Mg Patch.Td24) 21 mg TRANSDERMA DAILY [facility] Last Admin: 06/18/22 08:08 Dose: 21 mg Documented By: RYAN Ondansetron HCl (Ondansetron Hcl 4 Mg/2 Ml Vial) 4 mg IVPUSH Q8H PRN PRN Reason: Nausea and Vomiting Pantoprazole Sodium (Pantoprazole Sodium 40 Mg/10 Ml Vial) 40 mg IVPUSH DAILY@0630 [facility] Last Admin: 06/18/22 06:43 Dose: 40 mg Documented By: LACI Sodium Chloride (0.9 % Sodium Chloride Flush 3 Ml Syringe) 3 ml IVFLUSH QSHIFT [facility] Last Admin: 06/18/22 08:12 Dose: 3 ml Documented By: RYAN Labs CBC & Chem 7: 06/18/22 05:32 06/18/22 05:32 Labs: Laboratory Results - last 24 hr 06/18/22 06/18/22 06/18/22 05:32 05:32 05:32 MCV 95.1 MCH 30.0 MCHC 31.5 RDW 16.3 H Plt Count 232 MPV 9.2 L Absolute Nucleated RBC 0.000 Nucleated RBC % (auto) 0.0 Anion Gap 19 Estim Creat Clear Calc 61.6 Estimated GFR > 60 POC Glucose Random Glucose 58 L* Calcium 7.8 L D Magnesium 1.5 L Procalcitonin 0.04 06/18/22 06/18/22 08:25 09:14 MCV MCH MCHC RDW Plt Count MPV Absolute Nucleated RBC Nucleated RBC % (auto) Anion Gap Estim Creat Clear Calc Estimated GFR POC Glucose 67 75 Random Glucose Calcium Magnesium Procalcitonin Assessment and Plan (1) Chronic blood loss anemia: Status: Acute (2) Heme positive stool: Status: Acute Plan hospital d#5 77yo bedbound F with no diagnosed chronic medical conditions but heavy tobacco + alcohol use, and prior history of intestinal AVM, presenting after multiple falls and found to be profoundly anemic and malnourished # chronic blood loss/iron and folate deficiency anemia, likely UGIB - H+H responded appropriately to transfusion of 2u pRBCs. continue IV folate. start PO iron. continue IV PPI. EGD done 06/[address] Matthews showing: Esophagus: GE junction at 35? cm, diaphragm hiatus at 35 cm, esophagitis noted, moderate inflammation with schatzki ring, bx taken Stomach: Patchy gastric erythema. Biopsies were obtained. Grade 2 flap valve on retroflexed examination of the cardia. 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 continue thiamine. serologic workup as per GI consult pending # liver neoplasm - unable to characterize as simple; ordered contrast-enhanced MRI (pt postponed yesterday and today) and f/u AFP level # cough # pleural effusion - check CXR PA/lat/decub # hypotension - not septic. cortisol normal. improved after albumin + blood transfusion # hypoMg - replete IV, recheck level in AM # hypoK - replete IV/PO, reecheck level in AM # possible COPD - prn nebulizer treatments, outpt PFTs # tobacco abuse - nicotine replacement therapy # excess EtOH intake - CIWA scale.? IV thiamine.? Addiction Medicine + CARE Team consults. no withdrawal syndrome at this point. pt reports exaggerating how much she actually drinks # severe protein/calorie malnutrition - multivitamin + supplements ordered VTE prophylaxis: SCDs, no heparin given GI bleeding dispo: STR per PT In my clinical judgment, the patient requires continued hospitalization for the following reasons: hypoglycemic, electrolyte abnormalities Quality Stroke Does the patient have a stroke diagnosis?: No VTE Prior VTE?: No VTE Risk Level:: Medical - moderate - high VTE Device Contraindication: N/A - Device Ordered VTE Drug Contraindication: Treatment Not Indicated
[2022-06-18] MEDS: Folic Acid 1 MG in 0.9 % Sodium Chloride 50 ML 100 MG IV (12:59)
[2022-06-18] MEDS: guaiFENesin DM 100/10/5 ML 5 ML SYRUP PO ×2 (13:03→21:27)
--- NOTE | 2022-06-18 13:42 | HO.POSTANES ---
Post Anesthesia Evaluation Post Anesthesia Evaluation Vital Signs: Vital Signs Temp Pulse Resp BP Pulse Ox O2 Del Method 06/18/22 11:48 97.4 F 98 18 101/62 91 L Room Air 06/18/22 10:43 16 06/18/22 07:46 88 16 06/18/22 07:41 97.6 F 98 19 90/49 L 96 Room Air 06/18/22 04:00 96.0 F L 92 16 93/60 97 Room Air Anesthesia: Monitored Mental Status: Awake Pain Control: Satisfactory Nausea/Vomiting: None Hydration: Adequate Anesthesia-Related Issues: No Anes. Related Issues
[2022-06-18] MEDS: Thiamine HCL 100 MG in 0.9 % Sodium Chloride 100 ML 202 MG IV (13:47)
[2022-06-18] MEDS: Dextrose 5 % and Lactated Ring 1,000 ML 40 ML IVCONT (14:29)
[2022-06-19] VITALS (10 sets, daily range): BP systolic 83–99; BP diastolic 44–63; PULSE 94–110; RESP 12–20; TEMP 36.4–36.6; O2SAT 88–96
[2022-06-19] MEDS: Pantoprazole Sodium 40 MG/10 ML VIAL IVPUSH (05:39)
[2022-06-19] MEDS: guaiFENesin DM 100/10/5 ML 5 ML SYRUP PO (05:41)
[2022-06-19 06:01] LABS: Anion Gap 11 (12-20); Blood Urea Nitrogen 5 mg/dL (9-16); Calcium 8.2 mg/dL (8.4-10.2); Carbon Dioxide 21 mmol/L (22-29); Chloride 110 mmol/L (96-108); Creatinine Clr Calc Pharmacy 62.9; Estimated Glomerular Filt Rate > 60; Glucose Random 104 mg/dL (60-115); Magnesium 1.7 mg/dL (1.6-2.6); Potassium 3.1 mmol/L (3.3-5.1); Sodium 139 mmol/L (135-145)
[2022-06-19] MEDS: Thiamine HCL 100 MG in 0.9 % Sodium Chloride 100 ML 202 MG IV (07:44)
[2022-06-19] MEDS: Midodrine HCl 10 MG TABLET PO ×2 (07:47→15:41)
[2022-06-19] MEDS: Multivitamin TABLET 1 TAB PO (07:48)
[2022-06-19] MEDS: Nicotine 21 MG PATCH.TD24 TRANSDERMA (07:48)
[2022-06-19] MEDS: Ferrous Sulfate 324 MG TABLET.DR PO (07:48)
[2022-06-19] MEDS: Albuterol/Iprat 2.5/0.5MG 3 ML AMPUL.NEB INHALE ×3 (07:54→20:00)
[2022-06-19] MEDS: Folic Acid 1 MG in 0.9 % Sodium Chloride 50 ML 100 MG IV (08:35)
[2022-06-19] MEDS: Magnesium Oxide 400 MG TABLET PO ×2 (09:36→19:51)
[2022-06-19] MEDS: Dextrose 5 % and Lactated Ring 1,000 ML 40 ML IVCONT (09:36)
[2022-06-19] MEDS: Potassium Chloride ER 20 MEQ TAB.ER.PRT 40 MEQ PO (09:37)
--- NOTE | 2022-06-19 11:05 | MHC.CLN ---
F/U DIET=REGULAR, NDD3, WITH ENSURE TID. ENSURE PROVIDES ADDITIONAL 1050 KCALS, 60 G PROTEIN. INTAKE APPEARS VARIABLE. MONITOR MEAL INTAKE/DIET TOLERANCE.
--- NOTE | 2022-06-19 12:19 | P.PNIM_ITS ---
Subjective Subjective Date of Service: 06/19/22 Interval History: cc: ftt interval history: i feel sick Cardiovascular Cardiovascular: Reports no additional cardiovascular complaints Respiratory Respiratory: Reports no additional respiratory complaints Physical Exam Vital Signs: Vital Signs: Last Vital Signs Temp 97.8 F 06/19/22 11:38 Pulse 98 06/19/22 11:46 Resp 17 06/19/22 11:46 BP 96/61 06/19/22 11:38 Pulse Ox 93 06/19/22 11:38 O2 Del Method 06/19/22 11:38 O2 Flow Rate 5 06/17/22 11:34 BMI result Body Mass Index 15.5 General: AO X 3, no acute distress, frail appearing Resp: CTA bilateral, no accessory muscles used CVS: S1,S2,RRR GI: soft, non tender, non distended Neuro: motor grossly intact, alert Psych: appropriate affect, appropriate insight Objective Data Active Medications Acetaminophen (Acetaminophen 325 Mg Tablet) 650 mg PO Q6H PRN PRN Reason: Pain, Mild (Pain Scale 1-3) Albuterol Sulfate (Albuterol Sulfate (0.083%) 2.5 Mg/3 Ml Vial.Neb) 2.5 mg INHALE Q2H PRN PRN Reason: Shortness of Breath/Wheezing Albuterol/Ipratropium (Albuterol/Iprat 2.5/0.5mg 3 Ml Ampul.Neb) 3 ml INHALE RQ4H WHILE AWAKE [facility] Last Admin: 06/19/22 11:42 Dose: 3 ml Documented By: VINH Ferrous Sulfate (Ferrous Sulfate 324 Mg Tablet.) 324 mg PO DAILY [facility] Last Admin: 06/19/22 07:48 Dose: 324 mg Documented By: ARNULFO Guaifenesin/Dextromethorphan (Guaifenesin Dm 100/10/5 Ml 5 Ml Syrup) 5 ml PO Q4H PRN PRN Reason: cough Last Admin: 06/19/22 05:41 Dose: 5 ml Documented By: JAVIER Folic Acid 1 mg/ Sodium (Chloride) 50.2 mls @ 100.4 mls/hr IV DAILY [facility] Last Infusion: 06/19/22 09:42 Dose: 100 mls/hr Documented By: ARNULFO Thiamine HCl 100 mg/ Sodium (Chloride) 101 mls @ 202 mls/hr IV DAILY [facility] Last Infusion: 06/19/22 08:51 Dose: 202 mls/hr Documented By: ARNULFO Dextrose/Lactated Ringer's (D5lr) 1,000 mls @ 40 mls/hr IVCONT .Q24H [facility] Last Admin: 06/19/22 09:36 Dose: 40 mls/hr Documented By: ARNULFO Lorazepam (Lorazepam 0.5 Mg Tablet) 0.5 mg PO Q8H PRN PRN Reason: anxiety Last Admin: 06/17/22 08:33 Dose: 0.5 mg Documented By: RYAN Magnesium Oxide (Magnesium Oxide 400 Mg Tablet) 400 mg PO BIDPC [facility] Last Admin: 06/19/22 09:36 Dose: 400 mg Documented By: ARNULFO Midodrine (Midodrine Hcl 10 Mg Tablet) 10 mg PO TIDAC [facility] Last Admin: 06/19/22 12:10 Dose: Not Given Documented By: ARNULFO Non-Admin Reason: Patient Refused Multivitamins/Vitamin C (Multivitamin Tablet) 1 tab PO DAILY [facility] Last Admin: 06/19/22 07:48 Dose: 1 tab Documented By: ARNULFO Nicotine (Nicotine 21 Mg Patch.Td24) 21 mg TRANSDERMA DAILY [facility] Last Admin: 06/19/22 07:48 Dose: 21 mg Documented By: ARNULFO Ondansetron HCl (Ondansetron Hcl 4 Mg/2 Ml Vial) 4 mg IVPUSH Q8H PRN PRN Reason: Nausea and Vomiting Pantoprazole Sodium (Pantoprazole Sodium 40 Mg/10 Ml Vial) 40 mg IVPUSH DAILY@0630 [facility] Last Admin: 06/19/22 05:39 Dose: 40 mg Documented By: CASTILM Sodium Chloride (0.9 % Sodium Chloride Flush 3 Ml Syringe) 3 ml IVFLUSH QSHIFT [facility] Last Admin: 06/19/22 07:48 Dose: Not Given Documented By: ARNULFO Non-Admin Reason: IV Running Labs CBC & Chem 7: 06/18/22 05:32 06/19/22 05:26 Labs: Laboratory Results - last 24 hr 06/19/22 05:26 Anion Gap 11 L Estim Creat Clear Calc 62.9 Estimated GFR > 60 Random Glucose 104 Calcium 8.2 L Magnesium 1.7 Assessment and Plan (1) Chronic blood loss anemia: Status: Acute (2) Heme positive stool: Status: Acute Plan hospital d#6 77yo bedbound F with no diagnosed chronic medical conditions but heavy tobacco + alcohol use, and prior history of intestinal AVM, presenting after multiple falls and found to be profoundly anemic and malnourished chronic blood loss/iron and folate deficiency anemia, likely UGIB - H+H responded appropriately to transfusion of 2u pRBCs. continue IV folate. started PO iron. continue IV PPI. EGD done 06/[address] Matthews showing: Esophagus: GE junction at 35? cm, diaphragm hiatus at 35 cm, esophagitis noted, moderate inflammation with schatzki ring, bx taken Stomach: Patchy gastric erythema. Biopsies were obtained. Grade 2 flap valve on retroflexed examination of the cardia. 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 continue thiamine. serologic workup as per GI consult pending liver mass - unable to characterize as simple; patient will not tolerate MRI, will get [address], f/u AFP level hypotension - not septic. cortisol normal. improved after albumin + blood transfusion hypoMg - replete, monitor hypoK - replete, monitor possible COPD - prn nebulizer treatments, outpt PFTs tobacco abuse - nicotine replacement therapy etoh dependence - CIWA scale.? IV thiamine.? Addiction Medicine + CARE Team consults. no withdrawal syndrome at this point. pt reports exaggerating how much she actually drinks severe protein/calorie malnutrition - multivitamin + supplements ordered VTE prophylaxis: SCDs, no heparin given GI bleeding dispo: STR per PT reason for continued hospitalization: ongoing work up for FTT, ruling out liver malignancy Quality Stroke Does the patient have a stroke diagnosis?: No VTE Prior VTE?: No VTE Risk Level:: Medical - moderate - high VTE Device Contraindication: N/A - Device Ordered VTE Drug Contraindication: Treatment Not Indicated
[2022-06-19 14:18] LABS: Haptoglobin 68 mg/dL (43-212)
[2022-06-19] MEDS: iohexoL 350 MG/ML 100 ML INFUS..BTL IV (15:10)
[2022-06-19] MEDS: 0.9 % Sodium Chloride Flush 3 ML SYRINGE IVFLUSH (15:29)
[2022-06-19 15:40] LABS: IgA 283 mg/dL (70-320); IgG 541 mg/dL (600-1540); IgM 29 mg/dL (50-300)
--- NOTE | 2022-06-19 15:53 | PC.NURSE ---
Addendum entered by Vera Gallegos RN 06/19/22 17:11: BP 90/61 pulse 108,Dr. Berman notified,patient has no complaints Original Note: P low BP 83/57 pulse 101,refused Midodrine at 1130,IV fluid was on hold due to CT ,patient asymptomatic I Dr. Berman notified,IV fluid restarted,Midodrine dose administered E will recheck BP in 1 hr
[2022-06-20] VITALS (9 sets, daily range): BP systolic 90–105; BP diastolic 52–63; PULSE 89–123; RESP 14–20; TEMP 36.3–36.9; O2SAT 90–96
[2022-06-20] MEDS: Pantoprazole Sodium 40 MG/10 ML VIAL IVPUSH (05:27)
[2022-06-20 06:09] LABS: Hematocrit 28.6 % (37.0-47.0); Hemoglobin 9.4 g/dl (12.0-16.0); Mean Corpuscular HGB Conc 32.9 g/dl (31.0-35.0); Mean Corpuscular Hemoglobin 30.8 pg (27.0-33.0); Mean Corpuscular Volume 93.8 fL (80.0-98.0); Mean Platelet Volume 8.9 fL (9.4-12.3); Platelet Count 259 X10*3/uL (160-400); Red Blood Count 3.05 X10*6/uL (4.20-5.50); Red Cell Distribution Width 17.2 % (11.0-16.0); White Blood Count 7.2 X10*3/uL (4.8-10.8)
[2022-06-20 06:31] LABS: Alanine Aminotransferase 16 U/L (0-31); Albumin Level 3.2 g/dL (3.5-5.0); Alkaline Phosphatase 83 U/L (39-117); Anion Gap 8 (12-20); Aspartate Amino Transferase 27 U/L (5-31); Bilirubin Direct 0.6 mg/dL (0.0-0.5); Bilirubin Total 0.9 mg/dL (0.0-1.0); Blood Urea Nitrogen 7 mg/dL (9-16); Calcium 8.2 mg/dL (8.4-10.2); Carbon Dioxide 25 mmol/L (22-29); Chloride 111 mmol/L (96-108); Creatinine Clr Calc Pharmacy 67.2; Estimated Glomerular Filt Rate > 60; Glucose Fasting 94 mg/dL (60-99); Magnesium 1.7 mg/dL (1.6-2.6); Potassium 3.2 mmol/L (3.3-5.1); Sodium 141 mmol/L (135-145); Total Protein 4.8 g/dL (6.5-8.0)
[2022-06-20] MEDS: Dextrose 5 % and Lactated Ring 1,000 ML 40 ML IVCONT (06:50)
--- NOTE | 2022-06-20 07:00 | CA_ITS ---
Transthoracic Echocardiogram Patient (Last, First, Middle): Parent, Monae Miguel Gender: Female Date of : 1945 Age: 77 Procedure Date: 06/20/2022 Procedure Type: Transthoracic Echocardiogram Location: S3E Height: 157.48 cm Weight: 38.56 kg BSA: 1.33 m2 Heart Rate: bpm BP: 95 / 61 mmHg Architecture Instructor: DOROTHY Referring MD: Ariel Berman MD Symptoms: bilateral effusions, rule out chf Study Quality: Fair Conclusions: - Normal left ventricular cavity size. There is normal left ventricular wall thickness. The left ventricular systolic function is hyperdynamic. The visually estimated ejection fraction is >70%. - There is normal right ventricular systolic function. RV is moderately to severely dilated. - The left atrium is moderately dilated. RA is dilated. - The mitral valve appears myxomatous. There is moderate mitral valve regurgitation. - Mildly elevated right atrial pressure. Mild pulmonary hypertension is present. - There is mild dilatation of the sinuses of Valsalva measuring 4.03 cm and mild dilatation of the ascending aorta measuring 3.60 cm. Findings Left Ventricle Normal left ventricular cavity size. There is normal left ventricular wall thickness. The left ventricular systolic function is hyperdynamic. The visually estimated ejection fraction is >70%. There is no evidence of regional wall motion abnormalities. Diastolic function is normal for age. Right Ventricle There is normal right ventricular systolic function. RV is moderately to severely dilated. Atria The left atrium is moderately dilated. RA is dilated. Aortic Valve There is a normal trileaflet aortic valve. There is mild calcification of the aortic valve. There is mild thickening of the aortic valve. There is no aortic valve stenosis. There is no aortic valve regurgitation. Mitral Valve The mitral valve appears myxomatous. There is moderate mitral valve regurgitation. The mitral regurgitation jet is directed posteriorly. There is no mitral valve stenosis. Pulmonic Valve The pulmonic valve was not well visualized. Tricuspid Valve Likely normal tricuspid valve structure and function. There is mild to moderate tricuspid valve regurgitation. Mildly elevated right atrial pressure. Mild pulmonary hypertension is present. Great Vessels There is mild dilatation of the sinuses of Valsalva measuring 4.03 cm and mild dilatation of the ascending aorta measuring 3.60 cm. The visualized portions of the pulmonary artery and branches are normal. Venous The inferior vena cava is normal in size and collapses less than 50% with inspiration. Pericardium/Pleural There is no evidence of pericardial effusion. Prior Study Comparison No prior study available for comparison. Measurements 2D Linear Measurements IVSd: 0.86 0.6-0.9/0.6-1.0 cm LVIDd: 4.77 3.9-5.3/4.2-5.9 cm LVIDd Index: 3.59 2.4-3.2/2.2-3.1 cm/m2 LVIDs: 2.77 2.0-3.6 cm LVPWd: 0.77 0.7-1.1 cm LA Diam: 3.10 2.7-3.8/3.0-4.0 cm LAIDs Index: 2.33 1.5-2.3 cm/m2 LV Mass: 159.25 67-162/88-224 g LV Mass Index: 119.73 43-95/49-115 g/m2 LVOT Diam: 2.20 3.0+(-)1.3 cm Mitral Valve MV Pk E: 0.86 MV PK A: 1.02 MV Decel Time: 194.00 E/A: 0.80 E'Lateral: 11.20 E'Medial: 8.92 E/E' Med: 9.60 E/E' Lat: 7.70 PHT: 57.00 MVA PHT: 3.86 Decel Carter: 4.42 Aortic Valve AoV Pk Mele: 1.10 AoV Mn Mele: 0.83 AoV VTI: 0.21 AoV Pk Grad: 5.00 Aov Mn Grad: 3.00 SHERLY Cont.VTI: 2.88 LVOT LVOT Pk Mele: 0.82 LVOT Mn Mele: 0.57 LVOT VTI: 0.16 LVOT Pk Grad: 3.00 LVOT Mn Grad: 1.00 LVOT Diam: 2.20 LVOT Area: 3.80 Diastolic Function MV Pk E: 0.86 MV Pk A: 1.02 E/A: 0.80 E'Medial: 8.92 E/E' Med: 9.60 E' Laterial: 11.20 E/E' Lat: 7.70 Right Ventricle TAPSE (mm): 21.90 TVS' Mele: 15.90 Tricuspid Valve TR Pk Mele: 2.93 TR Pk Grad: 34.00 RA Press: 8.00 RVSP: 42.00 Great Vessels Aorta Sinus of Valsalva: 4.03 2.0-3.[address] Ridge: 3.00 1.7-3.4 cm Ao Asc: 3.60 2.1-3.4 cm Updated in Other Vendor System with Status of Final Jone Diaz MD electronically signed on 06/21/2022 11:05:06 PM with status of Final
[2022-06-20] MEDS: Albuterol/Iprat 2.5/0.5MG 3 ML AMPUL.NEB INHALE ×4 (07:31→19:56)
[2022-06-20] MEDS: Magnesium Oxide 400 MG TABLET PO ×3 (08:00→16:33)
--- NOTE | 2022-06-20 09:17 | HO.PM.IMPN ---
Subjective Subjective Date of Service: 06/20/22 Interval History: cc: ftt interval history: cough Cardiovascular Cardiovascular: Reports no additional cardiovascular complaints Respiratory Respiratory: Reports no additional respiratory complaints Physical Exam Vital Signs: Vital Signs: Last Vital Signs Temp 97.9 F 06/20/22 08:00 Pulse 108 H 06/20/22 08:00 Resp 20 06/20/22 08:00 BP 95/61 06/20/22 08:00 Pulse Ox 93 06/20/22 08:00 O2 Del Method 06/20/22 08:00 O2 Flow Rate 2 06/19/22 23:32 BMI result Body Mass Index 15.5 General: AO X 3, no acute distress, frail appearing Resp: CTA bilateral, no accessory muscles used CVS: S1,S2,RRR GI: soft, non tender, non distended Neuro: motor grossly intact, alert Psych: appropriate affect, appropriate insight Objective Data Active Medications Acetaminophen (Acetaminophen 325 Mg Tablet) 650 mg PO Q6H PRN PRN Reason: Pain, Mild (Pain Scale 1-3) Albuterol Sulfate (Albuterol Sulfate (0.083%) 2.5 Mg/3 Ml Vial.Neb) 2.5 mg INHALE Q2H PRN PRN Reason: Shortness of Breath/Wheezing Albuterol/Ipratropium (Albuterol/Iprat 2.5/0.5mg 3 Ml Ampul.Neb) 3 ml INHALE RQ4H WHILE AWAKE [facility] Last Admin: 06/20/22 07:31 Dose: 3 ml Documented By: MARK Ferrous Sulfate (Ferrous Sulfate 324 Mg Tablet.) 324 mg PO DAILY [facility] Last Admin: 06/19/22 07:48 Dose: 324 mg Documented By: ARNULFO Folic Acid (Folic Acid 1 Mg Tablet) 1 mg PO DAILY [facility] Guaifenesin (Guaifenesin 200 Mg/10 Ml 10 Ml Liquid) 10 ml PO Q4H PRN PRN Reason: cough Guaifenesin/Dextromethorphan (Guaifenesin Dm 100/10/5 Ml 5 Ml Syrup) 5 ml PO Q4H PRN PRN Reason: cough Last Admin: 06/19/22 05:41 Dose: 5 ml Documented By: JAVIER Folic Acid 1 mg/ Sodium (Chloride) 50.2 mls @ 100.4 mls/hr IV DAILY [facility] Last Infusion: 06/19/22 09:42 Dose: 100 mls/hr Documented By: ARNULFO Lorazepam (Lorazepam 0.5 Mg Tablet) 0.5 mg PO Q8H PRN PRN Reason: anxiety Last Admin: 06/17/22 08:33 Dose: 0.5 mg Documented By: RYAN Magnesium Oxide (Magnesium Oxide 400 Mg Tablet) 400 mg PO BIDPC [facility] Last Admin: 06/19/22 19:51 Dose: 400 mg Documented By: RJ Midodrine (Midodrine Hcl 10 Mg Tablet) 10 mg PO TIDAC [facility] Last Admin: 06/19/22 15:41 Dose: 10 mg Documented By: RJ Multivitamins/Vitamin C (Multivitamin Tablet) 1 tab PO DAILY [facility] Last Admin: 06/19/22 07:48 Dose: 1 tab Documented By: ARNULFO Nicotine (Nicotine 21 Mg Patch.Td24) 21 mg TRANSDERMA DAILY [facility] Last Admin: 06/19/22 07:48 Dose: 21 mg Documented By: ARNULFO Ondansetron HCl (Ondansetron Hcl 4 Mg/2 Ml Vial) 4 mg IVPUSH Q8H PRN PRN Reason: Nausea and Vomiting Sodium Chloride (0.9 % Sodium Chloride Flush 3 Ml Syringe) 3 ml IVFLUSH QSHIFT [facility] Last Admin: 06/20/22 00:34 Dose: Not Given Documented By: KATHRYN Non-Admin Reason: IV Running Thiamine HCl (Thiamine Hcl 100 Mg Tablet) 100 mg PO DAILY [facility] Labs CBC & Chem 7: 06/20/22 05:58 06/20/22 05:58 Labs: Laboratory Results - last 24 hr 06/16/22 06/17/22 06/20/22 07:31 06:08 05:58 MCV 93.8 MCH 30.8 MCHC 32.9 RDW 17.2 H Plt Count 259 MPV 8.9 L Absolute Nucleated RBC 0.000 Nucleated RBC % (auto) 0.0 Haptoglobin 68 Anion Gap Estim Creat Clear Calc Estimated GFR Fasting Glucose Calcium Magnesium Total Bilirubin Direct Bilirubin AST ALT Alkaline Phosphatase Total Protein Albumin IgG Total 541 L IgA Total 283 IgM 29 L TAE Interpretation SEE NOTE 06/20/22 05:58 MCV MCH MCHC RDW Plt Count MPV Absolute Nucleated RBC Nucleated RBC % (auto) Haptoglobin Anion Gap 8 L Estim Creat Clear Calc 67.2 Estimated GFR > 60 Fasting Glucose 94 Calcium 8.2 L Magnesium 1.7 Total Bilirubin 0.9 Direct Bilirubin 0.6 H AST 27 D ALT 16 Alkaline Phosphatase 83 Total Protein 4.8 L Albumin 3.2 L D IgG Total IgA Total IgM TAE Interpretation Assessment and Plan (1) Chronic blood loss anemia: Status: Acute (2) Heme positive stool: Status: Acute Plan hospital d#6 77yo bedbound F with no diagnosed chronic medical conditions but heavy tobacco + alcohol use, and prior history of intestinal AVM, presenting after multiple falls and found to be profoundly anemic and malnourished chronic blood loss/iron and folate deficiency anemia, likely UGIB - H+H responded appropriately to transfusion of 2u pRBCs. changed to po folic acid, thiamine, ppi continue PO iron EGD done 06/[address] Matthews showing: Esophagus: GE junction at 35? cm, diaphragm hiatus at 35 cm, esophagitis noted, moderate inflammation with schatzki ring, bx taken Stomach: Patchy gastric erythema. Biopsies were obtained. Grade 2 flap valve on retroflexed examination of the cardia. 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 continue thiamine. serologic workup as per GI consult pending liver mass triple phase CT reassuring, malignancy unlikely, follow up AFP lung nodule 1.3cm, outpatient follow up hypotension - not septic. cortisol normal. improved after albumin + blood transfusion bilateral pleural effusions check echo abdominal aortic thrombus outpatient vascular eval hypoMg - replete, monitor hypoK - replete, monitor possible COPD - prn nebulizer treatments, outpt PFTs tobacco abuse - nicotine replacement therapy etoh dependence - CIWA scale.? po thiamine.? Addiction Medicine + CARE Team consults. no withdrawal syndrome at this point. pt reports exaggerating how much she actually drinks severe protein/calorie malnutrition, FTT - multivitamin + supplements ordered VTE prophylaxis: SCDs, no heparin given GI bleeding dispo: STR per PT reason for continued hospitalization: ongoing work up for FTT, monitoring closely for ability to maintain bp and glucose with po intake Quality Stroke Does the patient have a stroke diagnosis?: No VTE Prior VTE?: No VTE Risk Level:: Medical - moderate - high VTE Device Contraindication: N/A - Device Ordered VTE Drug Contraindication: Treatment Not Indicated
[2022-06-20] MEDS: Thiamine HCL 100 MG TABLET PO (09:51)
[2022-06-20] MEDS: Ferrous Sulfate 324 MG TABLET.DR PO (09:51)
[2022-06-20] MEDS: Acetaminophen 325 MG TABLET 650 MG PO (09:51)
[2022-06-20] MEDS: Midodrine HCl 10 MG TABLET PO ×3 (09:52→16:34)
[2022-06-20] MEDS: Nicotine 21 MG PATCH.TD24 TRANSDERMA (09:52)
[2022-06-20] MEDS: Folic Acid 1 MG TABLET PO (09:52)
[2022-06-20] MEDS: Potassium Chloride ER 20 MEQ TAB.ER.PRT 40 MEQ PO (09:52)
[2022-06-20] MEDS: Multivitamin TABLET 1 TAB PO (09:52)
[2022-06-20] MEDS: guaiFENesin DM 100/10/5 ML 5 ML SYRUP PO (09:52)
--- NOTE | 2022-06-20 12:00 | MHC.CM.PN ---
Per ROUNDS discussion, Patient is not yet medically cleared for dc. CM met with Patient and her /Noman at bedside to discuss SNF options. Patient and feel that [facility] may be their top choice since [facility] has denied, but they would like to discuss options with their children before committing to a choice. CM agreed to meet with Patient and tomorrow to confirm SNF top choice.CM will follow.
[2022-06-20 14:46] LABS: Immunoglobulin A 301 mg/dL (70-320)
[2022-06-20] MEDS: 0.9 % Sodium Chloride Flush 3 ML SYRINGE IVFLUSH (16:33)
[2022-06-20 17:47] LABS: Transglutaminase Ab IgG <1.0 U/mL; Transglutaminase IgA <1.0 U/mL
--- NOTE | 2022-06-20 18:48 | MHC.SL.SWA ---
Speech Pathologist Impression: Risk of Aspiration Due to: Poor PO Intake Dysphasia Diet Status: Pt is at baseline for swallow needs. Liquid Consistency and Strategies for Safe Swallow: Liquid Intake Recommendation: Thin Liquid Intake Strategies: Small Sips Solid Food Consistency: Dietary Recommendations: Chopped/Advanced (NDD3) Additional Modifications to Solid Foods: Avoid difficult to chew solids. Provide smaller, more frequent meals. Oral Medication Intake: Whole with Liquid Please contact the pharmacy regarding appropriate crushable or liquid drug formulations that are available whenever modified delivery is recommended. Compensatory Strategies and Precautions to be Taken for Safe Swallow: Sitting Upright (90 deg) Small Bites and Sips Alternate Liquids/Solids Rate of Ingestion Change Supervision While Eating and Drinking for Safe Swallow: Intermittent Supervision Foods to Avoid: Difficult to chew solids Swallowing Recommended Treatments: Recommendation for Speech: Discharged with Instructions for Home Use Comment: Pt presents with oral motor mostly WFL, but has poor dentition/evident decayed and missing teeth. Pt tolerated thin liquids WFL, but had delayed oral phase on puree and delay intiating swallow on this consistency. On soft solid consistency, Pt had prolonged mastication but more timely swallow, WFL. Pt reports that she takes a long time to eat, often fatigues during meal. Pt currently on Chopped/Advanced Diet consistency with thin liquids, which is appropriate, and patients baseline. Pt would benefit from smaller more frequent meals during the day to encourage and increase PO intake. As patient is at baseline, no additional ANALYTICS ASSOCIATE services recommended at this time. recommend D/C Speech. Recommendations communicated by secure text to MINA DUDLEY, and in person with Nursing Frequency/Duration: Date Range for Service Req: Timeline to reassess: Upholstery Instructor Clinican/Clinical Fellow: No Supervisory Statement: I have reviewed and agree with the student/clinical fellow's documentation: N/A Speech Language Pathologist: Yasmeen Alamo M.A., [facility]-ANALYTICS ASSOCIATE
[2022-06-21] VITALS (10 sets, daily range): BP systolic 96–111; BP diastolic 54–69; PULSE 78–100; RESP 15–20; TEMP 36.5–37; O2SAT 90–100
[2022-06-21] MEDS: 0.9 % Sodium Chloride Flush 3 ML SYRINGE IVFLUSH ×3 (00:16→17:24)
[2022-06-21 06:29] LABS: Hematocrit 27.1 % (37.0-47.0); Hemoglobin 8.8 g/dl (12.0-16.0); Mean Corpuscular HGB Conc 32.5 g/dl (31.0-35.0); Mean Corpuscular Hemoglobin 30.6 pg (27.0-33.0); Mean Corpuscular Volume 94.1 fL (80.0-98.0); Mean Platelet Volume 9.4 fL (9.4-12.3); Platelet Count 263 X10*3/uL (160-400); Red Blood Count 2.88 X10*6/uL (4.20-5.50); Red Cell Distribution Width 17.3 % (11.0-16.0); White Blood Count 6.2 X10*3/uL (4.8-10.8)
[2022-06-21 07:09] LABS: Anion Gap 10 (12-20); Blood Urea Nitrogen 11 mg/dL (9-16); Calcium 8.2 mg/dL (8.4-10.2); Carbon Dioxide 23 mmol/L (22-29); Chloride 113 mmol/L (96-108); Creatinine Clr Calc Pharmacy 65.7; Estimated Glomerular Filt Rate > 60; Glucose Fasting 77 mg/dL (60-99); Potassium 3.9 mmol/L (3.3-5.1); Sodium 142 mmol/L (135-145)
[2022-06-21] MEDS: Albuterol/Iprat 2.5/0.5MG 3 ML AMPUL.NEB INHALE ×3 (08:24→15:58)
--- NOTE | 2022-06-21 09:48 | MHC.CLN ---
F/U DIET=REGULAR, NDD3. SEEN BY REHABILITATION SERVICES MANAGER 06/20 AND CONTINUE NDD3. TAKES PATIENT A LONG TIME TO EAT AND TIRES WHILE EATING. REPORTED TO [facility] THAT DISLIKES ENSURE AND WILL NOT TAKE. GSR TRIALLED VARIETY OF FLAVORS AND PATIENT DISLIKES. DISCONTINUE ENSURE SUPPLEMENT. PATIENT IS SEVERELY MALNOURISHED WITH LIMITED PO INTAKE. CONTINUE TO FOLLOW WEIGHTS AND INTAKE. ENCOURAGE PO ABLE.
[2022-06-21] MEDS: Ferrous Sulfate 324 MG TABLET.DR PO (10:15)
[2022-06-21] MEDS: Multivitamin TABLET 1 TAB PO (10:15)
[2022-06-21] MEDS: Nicotine 21 MG PATCH.TD24 TRANSDERMA (10:16)
[2022-06-21] MEDS: Magnesium Oxide 400 MG TABLET PO ×2 (10:16→17:24)
[2022-06-21] MEDS: Midodrine HCl 10 MG TABLET PO ×3 (10:16→17:24)
--- NOTE | 2022-06-21 12:13 | P.PNIM_ITS ---
Subjective Subjective Date of Service: 06/21/22 Interval History: cc: ftt interval history: cough improved Cardiovascular Cardiovascular: Reports no additional cardiovascular complaints Respiratory Respiratory: Reports no additional respiratory complaints Physical Exam Vital Signs: Vital Signs: Last Vital Signs Temp 97.9 F 06/21/22 11:26 Pulse 92 06/21/22 12:10 Resp 18 06/21/22 12:10 BP 96/54 L 06/21/22 11:26 Pulse Ox 93 06/21/22 11:26 O2 Del Method 06/21/22 11:26 O2 Flow Rate 2 06/19/22 23:32 BMI result Body Mass Index 15.5 General: AO X 3, no acute distress, frail appearing Resp: CTA bilateral, no accessory muscles used CVS: S1,S2,RRR GI: soft, non tender, non distended Neuro: motor grossly intact, alert Psych: appropriate affect, appropriate insight Objective Data Active Medications Acetaminophen (Acetaminophen 325 Mg Tablet) 650 mg PO Q6H PRN PRN Reason: Pain, Mild (Pain Scale 1-3) Last Admin: 06/20/22 09:51 Dose: 650 mg Documented By: ARNULFO Albuterol Sulfate (Albuterol Sulfate (0.083%) 2.5 Mg/3 Ml Vial.Neb) 2.5 mg INHALE Q2H PRN PRN Reason: Shortness of Breath/Wheezing Albuterol/Ipratropium (Albuterol/Iprat 2.5/0.5mg 3 Ml Ampul.Neb) 3 ml INHALE RQ4H WHILE AWAKE [facility] Last Admin: 06/21/22 12:06 Dose: 3 ml Documented By: CELENA Ferrous Sulfate (Ferrous Sulfate 324 Mg Tablet.Dr) 324 mg PO DAILY [facility] Last Admin: 06/21/22 10:15 Dose: 324 mg Documented By: ARNULFO Folic Acid (Folic Acid 1 Mg Tablet) 1 mg PO DAILY [facility] Last Admin: 06/21/22 10:15 Dose: 1 mg Documented By: ARNULFO Guaifenesin (Guaifenesin 200 Mg/10 Ml 10 Ml Liquid) 10 ml PO Q4H PRN PRN Reason: cough Guaifenesin/Dextromethorphan (Guaifenesin Dm 100/10/5 Ml 5 Ml Syrup) 5 ml PO Q4H PRN PRN Reason: cough Last Admin: 06/20/22 09:52 Dose: 5 ml Documented By: ARNULFO Lorazepam (Lorazepam 0.5 Mg Tablet) 0.5 mg PO Q8H PRN PRN Reason: anxiety Last Admin: 06/17/22 08:33 Dose: 0.5 mg Documented By: RYAN Magnesium Oxide (Magnesium Oxide 400 Mg Tablet) 400 mg PO BIDPC [facility] Last Admin: 06/21/22 10:16 Dose: 400 mg Documented By: ARNULFO Midodrine (Midodrine Hcl 10 Mg Tablet) 10 mg PO TIDAC [facility] Last Admin: 06/21/22 10:16 Dose: 10 mg Documented By: ARNULFO Multivitamins/Vitamin C (Multivitamin Tablet) 1 tab PO DAILY [facility] Last Admin: 06/21/22 10:15 Dose: 1 tab Documented By: ARNULFO Nicotine (Nicotine 21 Mg Patch.Td24) 21 mg TRANSDERMA DAILY [facility] Last Admin: 06/21/22 10:16 Dose: 21 mg Documented By: ARNULFO Omeprazole (Omeprazole 40 Mg Capsule.Dr) 40 mg PO DAILY@0630 [facility] Last Admin: 06/21/22 06:18 Dose: Not Given Documented By: GRAY Non-Admin Reason: pt declined Ondansetron HCl (Ondansetron Hcl 4 Mg/2 Ml Vial) 4 mg IVPUSH Q8H PRN PRN Reason: Nausea and Vomiting Sodium Chloride (0.9 % Sodium Chloride Flush 3 Ml Syringe) 3 ml IVFLUSH QSHIFT [facility] Last Admin: 06/21/22 10:24 Dose: 3 ml Documented By: ARNULFO Thiamine HCl (Thiamine Hcl 100 Mg Tablet) 100 mg PO DAILY [facility] Last Admin: 06/21/22 10:16 Dose: 100 mg Documented By: ARNULFO Labs CBC & Chem 7: 06/21/22 05:24 06/21/22 05:24 Labs: Laboratory Results - last 24 hr 06/18/22 06/18/22 06/21/22 05:32 05:32 05:24 MCV 94.1 MCH 30.6 MCHC 32.5 RDW 17.3 H Plt Count 263 MPV 9.4 Absolute Nucleated RBC 0.000 Nucleated RBC % (auto) 0.0 Anion Gap Estim Creat Clear Calc Estimated GFR Fasting Glucose Calcium Alpha Fetoprotein 2.0 IgA 301 Tiss Transglutamin IgG <1.0 Tiss Transglutamin IgA <1.0 06/21/22 05:24 MCV MCH MCHC RDW Plt Count MPV Absolute Nucleated RBC Nucleated RBC % (auto) Anion Gap 10 L Estim Creat Clear Calc 65.7 Estimated GFR > 60 Fasting Glucose 77 Calcium 8.2 L Alpha Fetoprotein IgA Tiss Transglutamin IgG Tiss Transglutamin IgA Assessment and Plan (1) Chronic blood loss anemia: Status: Acute (2) Heme positive stool: Status: Acute Plan hospital d#6 77yo bedbound F with no diagnosed chronic medical conditions but heavy tobacco + alcohol use, and prior history of intestinal AVM, presenting after multiple falls and found to be profoundly anemic and malnourished chronic blood loss/iron and folate deficiency anemia, likely UGIB - H+H responded appropriately to transfusion of 2u pRBCs. changed to po folic acid, thiamine, ppi continue PO iron EGD done 06/[address] Matthews showing: Esophagus: GE junction at 35? cm, diaphragm hiatus at 35 cm, esophagitis noted, moderate inflammation with schatzki ring, bx taken Stomach: Patchy gastric erythema. Biopsies were obtained. Grade 2 flap valve on retroflexed examination of the cardia. 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 continue thiamine. serologic workup as per GI consult pending liver mass triple phase CT reassuring, alpha fetoprotein - 2, malignancy unlikely lung nodule 1.3cm, outpatient follow up hypotension - not septic. cortisol normal. improved after albumin + blood transfusion bilateral pleural effusions follow up echo abdominal aortic thrombus outpatient vascular eval hypoMg replaced hypoK replaced possible COPD - prn nebulizer treatments, outpt PFTs tobacco abuse - nicotine replacement therapy etoh dependence - CIWA scale.? po thiamine.? Addiction Medicine + CARE Team consults. no withdrawal syndrome at this point. pt reports exaggerating how much she actuall y drinks severe protein/calorie malnutrition, FTT - multivitamin + supplements ordered VTE prophylaxis: SCDs, no heparin given GI bleeding dispo: STR per PT reason for continued hospitalization: safe dispo planning Quality Stroke Does the patient have a stroke diagnosis?: No VTE Prior VTE?: No VTE Risk Level:: Medical - moderate - high VTE Device Contraindication: N/A - Device Ordered VTE Drug Contraindication: Treatment Not Indicated
--- NOTE | 2022-06-21 14:50 | MHC.CM.PN ---
CM met with Patient, her 2 Daughters and a few times today and addressed IMM with them, providing them with the original and placing a copy on the chart. Patient has accepted a private room bed offer from [facility] (Awaiting answer to [facility] or [facility]).Transportation has been arranged for tomorrow 06/22/22 at 3PM. CM will follow.
--- NOTE | 2022-06-21 15:09 | MHC.CM.PN ---
ADDENDUM TO PREVIOUS CM NOTE/Patient will go to [facility].
--- NOTE | 2022-06-21 15:32 | MHC.CM.PN ---
HCP form completed today. Original and copies given to patient, copy filed in chart, and copy uploaded to [employer].
[2022-06-22] VITALS: BP 118/71; PULSE 90; RESP 18; TEMP 36.9; O2SAT 90
[2022-06-22] MEDS: 0.9 % Sodium Chloride Flush 3 ML SYRINGE IVFLUSH ×2 (00:36→09:13)
[2022-06-22 03:46] VITALS: BP 113/71; PULSE 89; RESP 18; TEMP 36.3; O2SAT 92
--- NOTE | 2022-06-22 05:54 | PC.NURSE ---
prilosec held as patient cannot swallow large pills, and cannot crush
[2022-06-22 08:00] VITALS: BP 100/59; PULSE 94; RESP 16; TEMP 36; O2SAT 92
[2022-06-22] MEDS: Nicotine 21 MG PATCH.TD24 TRANSDERMA (09:12)
[2022-06-22] MEDS: Thiamine HCL 100 MG TABLET PO ×2 (09:13→10:44)
[2022-06-22] MEDS: Folic Acid 1 MG TABLET PO ×2 (09:13→10:44)
--- NOTE | 2022-06-22 10:10 | PM.DS ---
DS: Providers Provider Date of Service: 06/22/22 Date of admission: 06/14/22 15:51 Primary care physician: None Physician Consults: 06/14/22 14:39 Consult to Gastroenterology Routine Consulting Provider: Tasha Matthews Reason for consultation: Hb 7.3, FOBT+, hypotension 06/14/22 15:36 Addiction Medicine Routine Consulting Provider: Izabela Rojo Reason for consultation: AUD 06/15/22 14:09 Consult to Neurology Routine Consulting Provider: [facility] Reason for consultation: insidious onset of weakness... autonomic instability. ?NM issue DS: Diagnosis Discharge Diagnosis (1) Chronic blood loss anemia: Status: Acute (2) Heme positive stool: Status: Acute DS: Summary Hospital Course Hospital Course: from initial hpi: Chief Complaint: fall 77yo F with no diagnosed chronic medical conditions, but no primary care doctor for many years.? She has been bed-bound for years.? She presents after multiple falls related to her legs giving out, without any lightheadedness or LOC.? Today, she fell on to her left side but denies any hip pain and declines hip radiography.? She smokes 1 pack a day and drinks 4 glasses of wine daily.? Denies history of alcohol withdrawal and does not get shaky when she does not drink alcohol.? She has lost an unquantified amount of weight due to poor appetite.? She reports a chronic cough but does not have diagnosed COPD or asthma.? No purulent sputum.? No fever. In the ED, she presented with soft BP in the 80s-90s/40s-50s with tachycardia in the 100s-110s.? She was given a Duoneb treatment.? Laboratory studies showed normocytic anemia, with Hb 7.9->7.3; other cell lines normal.? She reports a history of colononscopy over 6 years ago at [facility] that revealed AVM.? Denies recent hematochezia or melena.? Denies abdominal pain.? FOBT was positive.? LFTs are moderately elevated, with AST 80, ALT 40, alk phos 182, and LDH 323.? Albumin low at 2.4.? Serum iron is low at 19.? She was given 1L of IV NS, 500 mL of IV LR, and 25g of IV albumin.? One unit of packed red blood cell transfusion was ordered. hospital course: Patient was admitted for failure to thrive Due to severe protein calorie malnutrition, found to have chronic iron and folate deficient anemia due to chronic blood loss and alcohol dependence, she was transfused 2 units PRBC and hemoglobin improved appropriately and remained stable. She was also started on vitamin supplements. She underwent EGD [address] Garcias which showed esophagitis, moderate inflammation with Schatzki ring, patchy gastric erythema, grade 2 flap on retroflexed examination of cardia, mucosal atrophy with patchy erythema and few erosions of the duodenum. Patient refused colonoscopy. 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 On ultrasound she was noted to have liver mass, she was unable to tolerate MRI, however, stable triple phase CT and negative alpha fetoprotein made diagnosis of malignancy unlikely. She was noted to have a 1.3 cm lung nodule and she should have a repeat CT chest in 3 months. She was also noted to have abdominal aortic thrombus and non emergent vascular evaluation was recommended. For hypokalemia and hypomagnesemia this was replaced. She likely has COPD and can get p.r.n. nebulizer treatments and outpatient PFTs are recommended. echo showed hyperdynamic LV, with RV dilitation and mild pulm htn. She is recommended to stop smoking. patient will be discharged to [facility]. she is expected to require less than 30 days. Time Spent with Patient Time attestation: Total time spent providing and/or coordinating discharge services: Discharge coordination time: Greater than 30 minutes Quality: Safe Use of Opioids Does Pt have an Active Cancer Diagnosis on the Problem List?: No Quality: Stroke Does the patient have a stroke diagnosis?: No Physical Exam Vital Signs: Vital Signs: Last Vital Signs Temp 96.8 F 06/22/22 08:00 Pulse 94 06/22/22 08:00 Resp 16 06/22/22 08:00 BP 100/59 L 06/22/22 08:00 Pulse Ox 92 06/22/22 08:00 O2 Del Method 06/22/22 08:00 O2 Flow Rate 2 06/19/22 23:32 BMI result Body Mass Index 15.5 General: AO X 3, no acute distress, frail appearing Resp: CTA bilateral, no accessory muscles used CVS: S1,S2,RRR GI: soft, non tender, non distended Neuro: motor grossly intact, alert Psych: appropriate affect, appropriate insight DS: Data Data Completed and Pending Completed studies during hospitalization [Text1]: Pending at discharge 06/17/22 11:09 Surgical [PTH] Routine Discharge Plan Discharge Patient Disposition: Xfer SNF Discharge Diagnosis: FTT, alochol neuropathy, cerebllar ataxia, anemia, pulm nodule Referrals: [facility] [Outside] - 1 Week John Martinez MD [Physician] - 1 Week (abdominal aortic thrombus) Physician,None [Primary Care Provider] - 1 Week Discharge Medications: New omeprazole 40 mg Capsule,Delayed Release(Dr/Ec) 40 mg PO DAILY@0630 Qty: 0 0RF magnesium oxide 400 mg (241.3 mg magnesium) Tablet 400 mg PO BIDPC Qty: 0 0RF folic acid 1 mg Tablet 1 mg PO DAILY Qty: 0 0RF midodrine 10 mg Tablet 10 mg PO TIDAC Qty: 0 0RF ferrous sulfate 324 mg (65 mg iron) Tablet,Delayed Release (Dr/Ec) 324 mg PO DAILY Qty: 0 0RF multivitamin [Daily-Alok] Tablet 1 tab PO DAILY Qty: 0 0RF thiamine mononitrate (vit B1) 100 mg Tablet 100 mg PO DAILY Qty: 0 0RF Discharge Orders: Discharge Order (Routine); Ordered 06/22/22 Ordered By: Ariel Berman Diet: Advance to usual diet Activity on Discharge: As tolerated Stand Alone Forms: Patient Portal Discharge page Care Plan Goals: recovery Health Concerns: FTT, malnutrition, etoh, pulm nodule Plan of Treatment: stop etoh, encourage po intake, ct chest in 3 months, vascular follow up Assessment: see above
[2022-06-22] MEDS: Magnesium Oxide 400 MG TABLET PO (10:43)
[2022-06-22] MEDS: Ferrous Sulfate 324 MG TABLET.DR PO (10:43)
[2022-06-22] MEDS: Midodrine HCl 10 MG TABLET PO ×2 (10:43→14:34)
[2022-06-22] MEDS: Multivitamin TABLET 1 TAB PO (10:44)
[2022-06-22 11:39] VITALS: BP 94/58; PULSE 96; RESP 17; TEMP 36.4; O2SAT 92
[2022-06-22 12:14] LABS: Influenza A PCR NEGATIVE (Negative); Influenza B PCR NEGATIVE (Negative); Resp Syncy Virus RNA Qual PCR NEGATIVE (Negative); SARS COV2 PCR INHOUSE NEGATIVE (Negative)
[2022-06-22 14:56] LABS: Hu Antibody Screen, IFA Serum NEGATIVE (NEGATIVE)
[2022-06-22 15:11] LABS: Yo Antibody, Serum Screen NEGATIVE (NEGATIVE)
== END 2022-06-22 17:26 | disposition skilled nursing facility (03) | DRG 368 ==
LOC: HO.ED 14:51 → HO.EDOVER 15:59 → HO.S3 06-15 19:10
PROVIDERS: Internal Medicine; Internal Medicine Gastroenterology; Physician Assistant; Admitting Provider Family Medicine; Emergency Provider Emergency Medicine; Visit Provider Internal Medicine
PROC: 0DJ08ZZ Inspection of Upper Intestinal Tract, Via Natural or Artificial Opening Endoscopic (ICD-10-PCS; CPT 43235; principal; 2022-06-17 14:20)
DX: K20.91 Esophagitis, unspecified with bleeding (principal); E43 Unspecified severe protein-calorie malnutrition; Z68.1 Body mass index [BMI] 19.9 or less, adult; F10.288 Alcohol dependence with other alcohol-induced disorder; G11.9 Hereditary ataxia, unspecified; J90 Pleural effusion, not elsewhere classified; I74.09 Other arterial embolism and thrombosis of abdominal aorta; J44.9 Chronic obstructive pulmonary disease, unspecified; I95.9 Hypotension, unspecified; K59.09 Other constipation; K22.2 Esophageal obstruction; E53.8 Deficiency of other specified B group vitamins; G62.1 Alcoholic polyneuropathy; E86.0 Dehydration; D37.6 Neoplasm of uncertain behavior of liver, gallbladder and bile ducts; E87.6 Hypokalemia; R91.1 Solitary pulmonary nodule; E88.09 Other disorders of plasma-protein metabolism, not elsewhere classified; F17.210 Nicotine dependence, cigarettes, uncomplicated; R62.7 Adult failure to thrive; Z74.01 Bed confinement status; E83.42 Hypomagnesemia; R29.6 Repeated falls; Z91.81 History of falling; Z71.6 Tobacco abuse counseling; Z20.822 Contact with and (suspected) exposure to COVID-19; Z79.899 Other long term (current) drug therapy
CPT/HCPCS: 0241U; 36415; 36430; 71045; 71048; 71250; 74170; 76700; 80048; 80053; 80076; 82105; 82272; 82533; 82550; 82607; 82728; 82746; 82784; 82947; 83010; 83540; 83605; 83615; 83735; 83880; 84145; 84181; 84443; 84484; 85014; 85018; 85025; 85027; 85045; 85610; 86255; 86256; 86334; 86364; 86704; 86706; 86780; 86803; 86850; 86900; 86901; 86923; 87340; 87389; 87635; 88305; 88342; 92610; 93005; 93306; 94640; 94664; 96361; 96365; 96367; 97162; 97530; 99285; J2370; J3411; J3475; P9016; P9047; Q9967

== ENCOUNTER 2022-07-10 09:19 | Outpatient (REF) | payer MEDICARE, OTHER, SELFPAY ==
--- NOTE | ~2022-07-10 | CT_ITS ---
EXAMINATION: CT CHEST WITH CONTRAST CLINICAL INFORMATION: Thyroid nodules. COMPARISON: None. TECHNIQUE: Multidetector volumetric CT imaging of the chest was obtained after the administration of 65 mL of Omnipaque 350 intravenous contrast without immediate adverse reactions. Axial MIP volume rendering provided. Sagittal and coronal reformatted images were obtained. This CT examination was performed using dose optimization techniques as appropriate, variously including the following: *Automated exposure control *Adjustment of mA and/or kV according to patient size (this includes techniques or standardized protocols for targeted exams where dose is matched to indication/reason for exam; i.e. extremities or head) *Use of iterative reconstruction technique DLP: 67 mGy-cm FINDINGS: LUNGS AND PLEURA: Since the prior study, the patient appears to have possibly undergone a right-sided thoracentesis as the right-sided effusion has significantly decreased in size with only a trace amount of fluid remaining. A [id number] left pleural effusion is slightly increased in size. The previously seen spiculated mass at the right apex is again seen measuring 1.3 cm and appearances are unchanged. This was obviously based on the visceral pleura and is now positioned more posteriorly as there is no intervening pleural fluid between the visceral and parietal pleura. This follow up study is less than 1 month from the prior exam and therefore not adequate to assess any change. Again seen is underlying COPD with bullous formation most marked at the apices. There is left lower lobe compressive atelectasis associated with the above-mentioned effusion. Atelectasis is present in the right middle lobe abutting the fissure with some branching densities in the right middle lobe unchanged from prior, most likely secondary to airway disease. MEDIASTINUM: Heart size normal. Small precarinal lymph node is unchanged. No hilar or mediastinal lymphadenopathy is seen. Some calcified small nodes are seen in the right tita. AXILLA: No lymphadenopathy. UPPER ABDOMEN: There is marked disease in the abdominal aorta with mild aneurysmal dilatation at the hiatus measuring 3.8 cm. Marked eccentric thrombus is present in the abdominal aorta taking up over half of the lumen. OSSEOUS STRUCTURES: Degenerative changes are present in the spine with a Schmorl's node involving the superior endplate of T12. CT/CT chest w con IMPRESSION: 1. No interval change in the right upper lobe pleural-based lung mass in this patient with COPD. This could be round atelectasis. Consider prone imaging at the time of the next follow up study. 2017 Fleischner Society Recommendations for Lung Nodule(s): Follow up based on size (average of [id number] axis diameters). Use most suspicious nodule for follow up. Single solid lung nodule > 8 mm: Consider non-contrast chest CT at 3 months, PET/CT, or tissue sampling. These guidelines do not apply to patients younger than 35 years, immunocompromised patients, and patients with cancer. F/u in patients with significant comorbidities as clinically warranted. For lung cancer screening, adhere to Lung-RADS guidelines. 2. Interval decrease in right-sided pleural effusion (? thoracentesis) with slight increase in size of left pleural effusion. Reference: Radiology. 2017 Alfredo; 284(1):228-243 Fleischner guidelines were followed.
[2022-07-10] MEDS: iohexoL 350 MG/ML 100 ML INFUS..BTL 65 ML IV (10:02)
== END 2022-07-10 09:20 | disposition home or self-care (01) ==
LOC: HO.CT 09:19
PROVIDERS: Visit Provider Internal Medicine
DX: Z13.89 Encounter for screening for other disorder (principal)
CPT/HCPCS: 71260; Q9967

== ENCOUNTER 2022-07-13 15:10 | Inpatient (IN) | payer MEDICARE, OTHER, SELFPAY ==
[2022-07-13] VITALS (10 sets, daily range): BP systolic 81–130; BP diastolic 40–86; PULSE 73–122; RESP 12–166; TEMP 37.2–39.2; O2SAT 86–98; BMI 16.0
--- NOTE | ~2022-07-13 | XR_ITS ---
EXAMINATION: XR CHEST CLINICAL INFORMATION: Fever COMPARISON: Chest x-ray 06/17/[address] of the chest 07/10/2022 TECHNIQUE: Frontal view of the chest was obtained. FINDINGS: Normal heart size. Calcifications of the thoracic aorta. Again demonstrated is a small to moderate left pleural effusion with associated consolidation versus atelectasis at the left lower lobe. The right lung is clear. Pleural-based lesion seen on the prior chest CT is not well visualized by radiograph. No acute osseous abnormality. Unchanged scoliosis of the spine. XR/XR chest 1V IMPRESSION: Redemonstration of small to moderate left pleural effusion. Associated consolidation versus atelectasis at the left lung base.
--- NOTE | 2022-07-13 15:27 | ECG_ITS ---
Test Reason : TACHY Blood Pressure : / mmHG Vent. Rate : 063 BPM Atrial Rate : 063 BPM P-R Int : 136 ms QRS Dur : 088 ms QT Int : 528 ms P-R-T Axes : 000 -40 -44 degrees QTc Int : 540 ms Sinus rhythm with Premature atrial complexes Left axis deviation Low voltage QRS Inferior infarct , age undetermined T inversion anteriorly, consider ischemia Prolonged QT Abnormal ECG When compared with ECG of 14-JUN-2022 10:14, anterior T inversions now seen Referred By: Barbie Loera Electronically Signed By:LONA ROB
--- NOTE | 2022-07-13 15:28 | ED_ITS ---
HPI - General Adult General Chief complaint: General Medical Stated complaint: fever Time Seen by Provider: 07/13/22 15:20 Source: patient, EMS and old records reviewed Mode of arrival: EMS Limitations: no limitations History of Present Illness HPI narrative: 77-year-old bed-bound female with recent admission to [facility] for failure to thrive, severe protein calorie malnutrition, chronic anemia with chronic blood loss requiring blood transfusion and subsequent discharge to short-term rehab who presents back to the emergency room today from home via EMS with lethargy and fever. She reportedly got home from short-term rehab 4 days ago. She has a very vague historian. She says she feels ?crappy.? When asked about her breathing she says it is ?a little off. ? she denies any productive cough, chest pain or difficulty breathing. She reports body achiness and just feeling unwell. Her reportedly did an at home COVID test per EMS which turned out to be positive. Patient is unvaccinated for COVID-19. EMS was unable to obtain an oxygen saturations are she was empirically placed on 2 L nasal cannula, when a brief SpO2 was visualized was 100%. When asked when she started to feel unwell she says it has been several weeks. complaint: lethargy and fever Onset (ago): week(s) Location: head, chest, back, left, right, upper extremity and lower extremity Radiation: non-radiation Severity: moderate Quality: aching Pain Consistency: constant Relieving factors: none Exacerbating factors: none Associated symptoms: cough, fever/chills, headaches, loss of appetite, malaise and shortness of breath Treatments prior to arrival: none Related Data Previous Rx's Medication Instructions Recorded ferrous sulfate 324 mg (65 mg 324 mg PO DAILY #0 tabs 06/22/22 iron) tablet,delayed release folic acid 1 mg tablet 1 mg PO DAILY #0 tabs 06/22/22 magnesium oxide 400 mg (241.3 mg 400 mg PO BIDPC #0 tabs 06/22/22 magnesium) tablet midodrine 10 mg tablet 10 mg PO TIDAC #0 tabs 06/22/22 multivitamin (Daily-Alok tablet) 1 tab PO DAILY #0 tabs 06/22/22 nicotine 21 mg/24 hr daily 21 mg transdermal DAILY #0 ea 06/22/22 transdermal patch omeprazole 40 mg capsule,delayed 40 mg PO DAILY@0630 #0 caps 06/22/22 release thiamine mononitrate (vit B1) 100 100 mg PO DAILY #0 tabs 06/22/22 mg tablet Allergies Allergy/AdvReac Type Severity Reaction Status Date / Time No Known Allergies Allergy Verified 06/16/22 08:48 Review of Systems Review of Systems: Constitutional:+ Fever, + Chills ENT/Mouth: No sore throat, No Rhinorrhea, No Swallowing Difficulty Eyes: No Eye Pain, No Swelling, No Redness Cardiovascular: No Chest Pain, + SOB, No Orthopnea, No Edema Respiratory: + Cough, No Sputum, No Wheezing, No dyspnea Gastrointestinal: No Nausea, No Vomiting, No Diarrhea, No abdominal Pain, No Hematochezia, No Melena Genitourinary: No Dysuria, No Urinary Frequency, No Hematuria Musculoskeletal: No joint pain, + Myalgias Skin: No Skin Lesions, No rash Neuro: + Weakness, No Numbness, No Dizziness, + Headache Psych: No Anxiety/Panic, + Depression Heme/Lymph: No Bruising, No Lymphadenopathy Endocrine: No Polyuria, No Polydipsia PMFSH Past Medical History Medical History History of arteriovenous malformation History of uterine fibroid Tobacco abuse Surgical History History of hysterectomy Social History Social History Household Members: Spouse Housing: House Do you presently have visiting nurse or other home services: No Alcohol intake: current Patient Tobacco Use Status: Current everyday Tobacco user Tobacco use type: Cigarette Cigarette Packs Per Day: 1 Cigarettes Per Day: 20.0 Advance Directives: No Advance Directives Information Provided: No Advance Directives Date on File: 06/15/22 service: No Current occupational status: retired Physical Exam ED Vital Signs: Vital Signs - 24 hr 07/13/22 15:18 07/13/22 15:33 07/13/22 15:40 Temperature 102.6 F H Pulse Rate 117 H 122 H Respiratory Rate 19 18 Blood Pressure 100/66 Pulse Oximetry 86 L 96 93 Oxygen Delivery Method Room Air Nasal Cannula Nasal Cannula Oxygen Flow Rate 5 2 07/13/22 16:45 07/13/22 17:38 Temperature Pulse Rate 117 H 104 H Respiratory Rate 20 18 Blood Pressure 108/53 L 86/41 L Pulse Oximetry 98 93 Oxygen Delivery Method Nasal Cannula Nasal Cannula Oxygen Flow Rate 2 3 BMI result Body Mass Index 16.0 Appearance: Chronically ill appearing, frail, cachectic elderly female lying on the stretcher, slightly lethargic. Eyes: Pupils equal, round and reactive to light. ENT: Pharynx normal. Neck: Normal inspection. Neck supple. CVS: Tachycardic, regular rhythm. Heart rate 120's. Pulses normal. Respiratory: No respiratory distress. Breath sounds diminished throughout, no wheezes, rhonchi, rales. Abdomen: Flat, Soft and nontender. +BS x4 Skin: Skin warm and dry. Normal skin color. Normal skin turgor. No rashes. Extremities: Thin, frail, cachectic. Neuro: Alert and oriented, poor historian, diffuse global weakness, lower extremities flaccid Course Course Course Narrative: 77-year-old cachectic and bedbound female with recent admission to each for failure to thrive, malnutrition, blood-loss anemia who was brought back to the emergency department from home after she was found to be lethargic and febrile at home by her . Reportedly positive for COVID-19 at home. She is unvaccinated. Difficult to obtain an oxygen saturation on her on arrival. She is not in any respiratory distress. She is tachycardic to 120s and febrile to 102.6. Sepsis alert called. Forehead probe was applied and patient found to be hypoxic to 83%. She was placed on nasal cannula, requiring 5 L nasal cannula to maintain oxygen saturations of 96 or greater. Nursing advised to keep her O2 sat 90-92 given her probable diagnosis of COPD with her longstanding smoking history. Chest x- ray, EKG, sepsis workup is pending. Ordered for Tylenol for fever and IV fluids. Most likely viral etiology, although she could have hospital-acquired pneumonia. Awaiting chest x-ray. Reevaluation(s) Reevaluation #1: Labs showing no leukocytosis. Hemoglobin increased almost 3 points, most likely hemoconcentration due to dehydration. She is getting IV fluids. Lactic acid slightly elevated 2.1. She is found to be COVID positive. Etiology of her sepsis is most likely due to COVID. Of note patient had imaging done as an outpatient 3 days ago. She had a CT scan showing decrease in right-sided pleural effusion, slight increase in size of the left pleural effusion, no interval change in the right upper lobe pleural-based lung mass, COPD. Reevaluation #2: Patient's x-ray is with terrible positioning. Limited utility. She did just have the recent CT scan of her chest 3 days ago. Will hold off on repeating CT scan for now. Her procalcitonin is low and she has no leukocytosis. Doubt superimposed bacterial pneumonia. Will hold off on antibiotics for now. IV steroids started for COVID-19. She would most likely benefit from the remdesivir. Will consider ultrasounds of the chest to evaluate for possible drainable pleural effusions, to help improve her oxygen requirements and respiratory status. No emergent need for this at this time. Planning for admission. Reevaluation #3: Patient noted still to be febrile 102.6 after 1 g of Tylenol given. Will give low-dose of IV ketorolac now. Renal function is normal. She is also noted to be hypotensive 86/41, with a history of hypotension on chronic midodrine. Will give her 10 mg of midodrine now as well as 500 cc of IV fluid for ongoing insensible losses. Patient is source of infection is viral, not bacterial. Hold off on IV antibiotics for now. [facility] for admission. Medical Decision Making Lab Data Result diagrams: 07/13/22 15:52 07/13/22 15:52 Labs: Lab Results 07/13/22 07/13/22 07/13/22 Range/Units 15:52 15:52 15:52 WBC 7.4 (4.8-10.8) X10*3/uL RBC 3.78 L D (4.20-5.50) X10*6/uL Hgb 11.7 L D (12.0-16.0) g/dl Hct 36.4 L D (37.0-47.0) % MCV 96.3 (80.0-98.0) fL MCH 31.0 (27.0-33.0) pg MCHC 32.1 (31.0-35.0) g/dl RDW 19.9 H (11.0-16.0) % Plt Count 379 D (160-400) X10*3/uL MPV 8.8 L (9.4-12.3) fL Immature Gran % (Auto) 0.3 (0.0-0.4) % Neut % (Auto) 65.7 (45-73) % Lymph % (Auto) 17.8 L (20-40) % [place] % (Auto) 15.8 H (2-11) % Eos % (Auto) 0.0 (0-4) % Baso % (Auto) 0.4 (0-2) % Lymph # (Auto) 1.3 (1.2-4.9) X10*3/uL [place] # (Auto) 1.2 (0.1-1.2) X10*3/uL Eos # (Auto) 0.0 (0.0-0.4) X10*3/uL Baso # (Auto) 0.0 (0.0-0.2) X10*3/uL Abs Immat Gran (auto) 0.02 (0.00-0.03) X10*3/uL Absolute Neuts (auto) 4.9 (2.0-8.3) x10*3/uL Absolute Nucleated RBC 0.000 (0.0-0.012) X10*3/uL Nucleated RBC % (auto) 0.0 (0.0-0.2) /100WBC Sodium 139 (135-145) mmol/L Potassium 4.7 D (3.3-5.1) mmol/L Chloride 105 (96-108) mmol/L Carbon Dioxide 22 (22-29) mmol/L Anion Gap 17 (12-20) BUN 11 (9-16) mg/dL Creatinine 0.45 L (0.5-1.4) mg/dL Estim Creat Clear Calc 69.9 Estimated GFR > 60 Random Glucose 87 (60-115) mg/dL Lactic Acid 2.1 H* (0.5-2.0) mmol/L Calcium 8.1 L (8.4-10.2) mg/dL Magnesium 2.0 (1.6-2.6) mg/dL Total Bilirubin 0.3 (0.0-1.0) mg/dL Direct Bilirubin < 0.2 (0.0-0.5) mg/dL AST 66 H (5-31) U/L ALT 23 (0-31) U/L Alkaline Phosphatase 126 H D (39-117) U/L Total Protein 6.8 D (6.5-8.0) g/dL Albumin 3.3 L (3.5-5.0) g/dL Procalcitonin ng/mL Ethyl Alcohol < 10 mg/dL COVID-19 (AVA) (Negative) COVID-19 Clin Com 07/13/22 07/13/22 Range/Units 15:52 15:52 WBC (4.8-10.8) X10*3/uL RBC (4.20-5.50) X10*6/uL Hgb (12.0-16.0) g/dl Hct (37.0-47.0) % MCV (80.0-98.0) fL MCH (27.0-33.0) pg MCHC (31.0-35.0) g/dl RDW (11.0-16.0) % Plt Count (160-400) X10*3/uL MPV (9.4-12.3) fL Immature Gran % (Auto) (0.0-0.4) % Neut % (Auto) (45-73) % Lymph % (Auto) (20-40) % [place] % (Auto) (2-11) % Eos % (Auto) (0-4) % Baso % (Auto) (0-2) % Lymph # (Auto) (1.2-4.9) X10*3/uL [place] # (Auto) (0.1-1.2) X10*3/uL Eos # (Auto) (0.0-0.4) X10*3/uL Baso # (Auto) (0.0-0.2) X10*3/uL Abs Immat Gran (auto) (0.00-0.03) X10*3/uL Absolute Neuts (auto) (2.0-8.3) x10*3/uL Absolute Nucleated RBC (0.0-0.012) X10*3/uL Nucleated RBC % (auto) (0.0-0.2) /100WBC Sodium (135-145) mmol/L Potassium (3.3-5.1) mmol/L Chloride (96-108) mmol/L Carbon Dioxide (22-29) mmol/L Anion Gap (12-20) BUN (9-16) mg/dL Creatinine (0.5-1.4) mg/dL Estim Creat Clear Calc Estimated GFR Random Glucose (60-115) mg/dL Lactic Acid (0.5-2.0) mmol/L Calcium (8.4-10.2) mg/dL Magnesium (1.6-2.6) mg/dL Total Bilirubin (0.0-1.0) mg/dL Direct Bilirubin (0.0-0.5) mg/dL AST (5-31) U/L ALT (0-31) U/L Alkaline Phosphatase (39-117) U/L Total Protein (6.5-8.0) g/dL Albumin (3.5-5.0) g/dL Procalcitonin 0.12 ng/mL Ethyl Alcohol mg/dL COVID-19 (AVA) Positive A (Negative) COVID-19 Clin Com See Note Critical Care Time Critical Care Time Critical Care Time: Yes Total Critical Care Time: 46 Attestation: I have personally provided critical care time exclusive of time spent on separately billable procedures. Time includes review of lab data, prior records and imaging, radiology results, discussion with consultants, and monitoring for potential decompensation. Intervention performed as documented. Discharge Plan Discharge Clinical Impression: COVID-19, Acute respiratory failure with hypoxia Patient Disposition: Admitted As Inpatient
[2022-07-13 16:02] LABS: Basophils Percent Auto 0.4 % (0-2); Hematocrit 36.4 % (37.0-47.0); Hemoglobin 11.7 g/dl (12.0-16.0); Imm Gran Abs Auto 0.02 X10*3/uL (0.00-0.03); Imm Gran Pct Auto 0.3 % (0.0-0.4); Lymphocytes Absolute Auto 1.3 X10*3/uL (1.2-4.9); Lymphocytes Percent Auto 17.8 % (20-40); MANUAL DIFF FLAG NO; Mean Corpuscular HGB Conc 32.1 g/dl (31.0-35.0); Mean Corpuscular Volume 96.3 fL (80.0-98.0); Mean Platelet Volume 8.8 fL (9.4-12.3); Monocytes Absolute Auto 1.2 X10*3/uL (0.1-1.2); Monocytes Percent Auto 15.8 % (2-11); Neutrophils Absolute Auto 4.9 x10*3/uL (2.0-8.3); Neutrophils Percent Auto 65.7 % (45-73); Platelet Count 379 X10*3/uL (160-400); Red Blood Count 3.78 X10*6/uL (4.20-5.50); Red Cell Distribution Width 19.9 % (11.0-16.0); White Blood Count 7.4 X10*3/uL (4.8-10.8)
[2022-07-13 16:06] LABS: COVID-19 Test Positive (Negative)
[2022-07-13] MEDS: 0.9 % Sodium Chloride 1,000 ML 999 ML IVCONT (16:07)
[2022-07-13] MEDS: Acetaminophen 325 MG TABLET 975 MG PO (16:11)
[2022-07-13 16:21] LABS: Alanine Aminotransferase 23 U/L (0-31); Albumin Level 3.3 g/dL (3.5-5.0); Alkaline Phosphatase 126 U/L (39-117); Anion Gap 17 (12-20); Aspartate Amino Transferase 66 U/L (5-31); Bilirubin Direct < 0.2 mg/dL (0.0-0.5); Bilirubin Total 0.3 mg/dL (0.0-1.0); Blood Urea Nitrogen 11 mg/dL (9-16); Calcium 8.1 mg/dL (8.4-10.2); Carbon Dioxide 22 mmol/L (22-29); Chloride 105 mmol/L (96-108); Creatinine Clr Calc Pharmacy 69.9; Estimated Glomerular Filt Rate > 60; Ethanol < 10 mg/dL; Glucose Random 87 mg/dL (60-115); Potassium 4.7 mmol/L (3.3-5.1); Sodium 139 mmol/L (135-145); Total Protein 6.8 g/dL (6.5-8.0)
[2022-07-13 16:26] LABS: Lactic Acid 2.1 mmol/L (0.5-2.0)
[2022-07-13 16:36] LABS: Procalcitonin 0.12 ng/mL
--- NOTE | 2022-07-13 17:18 | PHA.MEDREC ---
Pharmacy Consult ? Medication Reconciliation Pharmacy has completed the medication reconciliation.
[2022-07-13] MEDS: methylPREDNISolone Sod Succ 40 MG/ML VIAL IVPUSH (17:23)
--- NOTE | 2022-07-13 17:49 | P.HPHOSP_ITS ---
History of Present Illness Date of Service: 07/13/22 Chief Complaint: fever, lethargy 77yo bedbound F recently admitted here 06/15-06/22/22 after not seeing a doctor for many years. She was admitted for anemia due to chronic GI blood loss and folate deficiency, along with failure to thrive. EGD on 06/17/22 showed e sophagitis, moderate inflammation with Schatzki ring, patchy gastric erythema, grade 2 flap on retroflexed examination of cardia, mucosal atrophy with patchy erythema and few erosions of the duodenum.? Patient refused colonoscopy.? 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 She was discharged to a SNF for short-term rehabilitation and just got home 4 days ago. However, 2-3 days ago, she developed a cough and worsening dyspnea, along with fever and lethargy. No sputum production and no chest pain. She did a home test for Covid-19, which was positive; she is completely unvaccinated. She arrived in the ED and was found to be tachycardic in the 110s-120s and febrile to 102.6. SaO2 was 83%. BP 86/41; she is on midodrine for low blood pressure. She was given 1L IV NS and 40 mg of IV methylprednisolone. Lactic acid was 2.1 and AVA confirmed the diagnosis of Covid-19. The patient had an outpatient CT scan 3 days ago showing decreased R-sided pleural effusion, slightly increased L pleural effusion, and no change in the RUL pleural-based lung mass, for which plan is a repeat CT chest in 3 months. Review of Systems Review of Systems: Yes all other systems are reviewed and are negative [facility] Medical History History of arteriovenous malformation History of uterine fibroid Tobacco abuse Surgical History History of hysterectomy Social History Household Members: Spouse Housing: House Do you presently have visiting nurse or other home services: No Alcohol intake: current Patient Tobacco Use Status: Current everyday Tobacco user Tobacco use type: Cigarette Cigarette Packs Per Day: 1 Cigarettes Per Day: 20.0 Advance Directives: No Advance Directives Information Provided: No Advance Directives Date on File: 06/15/22 service: No Current occupational status: retired Meds Allergies Allergy/AdvReac Type Severity Reaction Status Date / Time No Known Allergies Allergy Verified 06/16/22 08:48 Active Medications: Current Medications Dexamethasone Sodium Phosphate (Dexamethasone Sod Phosphate 4 Mg/Ml Vial) 6 mg IVPUSH DAILY [facility] Stop: 07/23/22 09:01 Ferrous Sulfate (Ferrous Sulfate 324 Mg Tablet.) 324 mg PO DAILY [facility] Folic Acid (Folic Acid 1 Mg Tablet) 1 mg PO DAILY [facility] Sodium Chloride (Ns) 500 mls @ 250 mls/hr IVCONT .Q2H [facility] Stop: 07/13/22 19:59 Magnesium Oxide (Magnesium Oxide 400 Mg Tablet) 400 mg PO BIDPC [facility] Midodrine (Midodrine Hcl 10 Mg Tablet) 10 mg PO TIDAC [facility] Multivitamins/Vitamin C (Multivitamin Tablet) 1 tab PO DAILY [facility] Nicotine (Nicotine 21 Mg Patch.Td24) 21 mg TRANSDERMA DAILY [facility] Omeprazole (Omeprazole 40 Mg Capsule.) 40 mg PO DAILY@0630 [facility] Thiamine HCl (Thiamine Hcl 100 Mg Tablet) 100 mg PO DAILY [facility] Physical Exam Vital Signs and Narrative: Vital Signs: Last Vital Signs Temp 102.6 F H 07/13/22 15:18 Pulse 104 H 07/13/22 17:38 Resp 18 07/13/22 17:38 BP 86/41 L 07/13/22 17:38 Pulse Ox 93 07/13/22 17:38 O2 Del Method 07/13/22 17:38 O2 Flow Rate 3 07/13/22 17:38 BMI result Body Mass Index 16.0 Gen: chronically ill-appearing, cachectic and very weak HEENT: sclera anicteric, moist mucus membranes Neck: supple Lungs: clear to auscultation bilaterally Heart: regular, tachycardic no murmurs Abd: soft, non-tender, non-distended Ext: no edema Skin: warm/well-perfused Neuro: alert and oriented x3, no focal findings Psych:restricted affect Results Labs CBC and Chem 7: 07/13/22 15:52 07/13/22 15:52 Labs: Laboratory Results - last 24 hr 07/13/22 07/13/22 07/13/22 15:52 15:52 15:52 MCV 96.3 MCH 31.0 MCHC 32.1 RDW 19.9 H Plt Count 379 D MPV 8.8 L Immature Gran % (Auto) 0.3 Neut % (Auto) 65.7 Lymph % (Auto) 17.8 L [place] % (Auto) 15.8 H Eos % (Auto) 0.0 Baso % (Auto) 0.4 Lymph # (Auto) 1.3 [place] # (Auto) 1.2 Eos # (Auto) 0.0 Baso # (Auto) 0.0 Abs Immat Gran (auto) 0.02 Absolute Neuts (auto) 4.9 Absolute Nucleated RBC 0.000 Nucleated RBC % (auto) 0.0 Anion Gap 17 Estim Creat Clear Calc 69.9 Estimated GFR > 60 Random Glucose 87 Lactic Acid 2.1 H* Calcium 8.1 L Magnesium 2.0 Total Bilirubin 0.3 Direct Bilirubin < 0.2 AST 66 H ALT 23 Alkaline Phosphatase 126 H D Total Protein 6.8 D Albumin 3.3 L Procalcitonin Ethyl Alcohol < 10 COVID-19 (AVA) COVID-19 Clin Com 07/13/22 07/13/22 15:52 15:52 MCV MCH MCHC RDW Plt Count MPV Immature Gran % (Auto) Neut % (Auto) Lymph % (Auto) [place] % (Auto) Eos % (Auto) Baso % (Auto) Lymph # (Auto) [place] # (Auto) Eos # (Auto) Baso # (Auto) Abs Immat Gran (auto) Absolute Neuts (auto) Absolute Nucleated RBC Nucleated RBC % (auto) Anion Gap Estim Creat Clear Calc Estimated GFR Random Glucose Lactic Acid Calcium Magnesium Total Bilirubin Direct Bilirubin AST ALT Alkaline Phosphatase Total Protein Albumin Procalcitonin 0.12 Ethyl Alcohol COVID-19 (AVA) Positive A ITS Impressions Chest X-Ray 07/13/22 16:30 IMPRESSION: Redemonstration of small to moderate left pleural effusion. Associated consolidation versus atelectasis at the left lung base. COVID-19 Clin Com See Note Imaging Radiologist's Impressions: Impressions Chest X-Ray 07/13/22 16:30 IMPRESSION: Redemonstration of small to moderate left pleural effusion. Associated consolidation versus atelectasis at the left lung base. 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, who just got home 4 days ago after a stay at a SNF for STR but then developed fever, lethargy, dyspnea, and cough 2-3 days ago and is found to be hypoxic from Covid-19 infection with bilateral pleural effusions # Covid-19 infection, severe - admit to [facility] on isolation, give remdesivir x 5 days + dexamethasone x 10 days, trend inflammatory markers, high risk of decompensation given unvaccinated status # acute hypoxic resp failure - wean O2 as tolerated, currently on 4L via NC, goal SaO2 90-92% # viral sepsis # lactic acidosis - due to Covid-19 infection # COPD exac - steroids as above, nebs # pleural effusions - ?hypoalbuminemia. to consider US thoracentesis if respiratory status does not improve # chronic anemia due to GI blood loss + folate deficiency - continue Fe + folate supplementation # tobacco abuse - NRT # severe protein-calorie malnutrition - supplements # VTE ppx - LMWH with caution given anemia/GI blood loss; monitor Hb carefully # code status: full I anticipate that the patient will stay at least 2 midnights in hospital due to the above reasons. It is neither reasonable nor safe to care for them in a less acute setting. I updated the pt's Noman by phone Quality Stroke Does the patient have a stroke diagnosis?: No VTE Prior VTE?: No VTE Risk Level:: Medical - moderate - high VTE Device Contraindication: N/A - Device Ordered VTE Drug Contraindication: N/A - Med Ordered
[2022-07-13 17:54] LABS: C Reactive Protein 2.78 mg/dL (< or = 0.50)
[2022-07-13 18:00] LABS: Reflex Lactate? Lactic Acid Added
[2022-07-13] MEDS: Midodrine HCl 10 MG TABLET PO (18:11)
[2022-07-13] MEDS: Ketorolac Tromethamine 15 MG/ML VIAL IVPUSH (18:11)
[2022-07-13] MEDS: 0.9 % Sodium Chloride 500 ML 250 ML IVCONT (18:12)
[2022-07-13 18:43] LABS: Lactate Dehydrogenase 417 U/L (122-220)
[2022-07-13 18:57] LABS: Ferritin 204 ng/mL (10-250)
[2022-07-13 19:10] LABS: ~Lactic Acid-LAB USE ONLY 0.7 mmol/L (0.5-2.0)
[2022-07-13] MEDS: Enoxaparin Sodium 40 MG/0.4 ML SYRINGE SUBCUT (21:11)
[2022-07-13] MEDS: Remdesivir 200 MG in 0.9 % Sodium Chloride 210 ML 105 MG IV (21:31)
[2022-07-14] VITALS (7 sets, daily range): BP systolic 87–108; BP diastolic 45–62; PULSE 64–91; RESP 15–18; TEMP 36.6–37.1; O2SAT 90–99
--- NOTE | 2022-07-14 00:50 | PC.NURSE ---
ekg ordered by Evaristo OSORIO at 1527 and never done. This tech obtained ekg at 0045. ekg shown to hospitalist as pt is now admitted.
[2022-07-14] MEDS: 0.9 % Sodium Chloride Flush 3 ML SYRINGE IVFLUSH ×3 (01:36→17:20)
[2022-07-14] MEDS: Omeprazole 40 MG CAPSULE.DR PO (05:57)
[2022-07-14] MEDS: Acetaminophen 325 MG TABLET 650 MG PO (06:01)
[2022-07-14 06:34] LABS: Hemoglobin 10.8 g/dl (12.0-16.0); Mean Corpuscular HGB Conc 31.8 g/dl (31.0-35.0); Mean Corpuscular Hemoglobin 31.1 pg (27.0-33.0); Mean Platelet Volume 8.7 fL (9.4-12.3); Platelet Count 360 X10*3/uL (160-400); Red Blood Count 3.47 X10*6/uL (4.20-5.50); Red Cell Distribution Width 19.4 % (11.0-16.0); White Blood Count 6.6 X10*3/uL (4.8-10.8)
[2022-07-14 06:38] LABS: VBG Base Excess -1.4 mmol/L; VBG HCO3 25 mmol/L (22-26); VBG pCO2 49 mmHg; VBG pH 7.31 (7.32-7.43); VBG pO2 32 mmHg
[2022-07-14 06:38] LABS: Venous Blood Gas Refer to POC result
[2022-07-14 07:57] LABS: Alanine Aminotransferase 21 U/L (0-31); Albumin Level 2.9 g/dL (3.5-5.0); Alkaline Phosphatase 109 U/L (39-117); Anion Gap 13 (12-20); Aspartate Amino Transferase 40 U/L (5-31); Bilirubin Total 0.3 mg/dL (0.0-1.0); Blood Urea Nitrogen 10 mg/dL (9-16); Calcium 7.9 mg/dL (8.4-10.2); Carbon Dioxide 24 mmol/L (22-29); Chloride 107 mmol/L (96-108); Creatinine Clr Calc Pharmacy 73.1; Estimated Glomerular Filt Rate > 60; Glucose Random 102 mg/dL (60-115); Potassium 3.8 mmol/L (3.3-5.1); Sodium 140 mmol/L (135-145); Total Protein 5.7 g/dL (6.5-8.0)
[2022-07-14] MEDS: Nicotine 21 MG PATCH.TD24 TRANSDERMA (08:12)
[2022-07-14] MEDS: Folic Acid 1 MG TABLET PO (08:13)
[2022-07-14] MEDS: Thiamine HCL 100 MG TABLET PO (08:13)
[2022-07-14] MEDS: Magnesium Oxide 400 MG TABLET PO ×2 (08:13→17:20)
[2022-07-14] MEDS: Ferrous Sulfate 324 MG TABLET.DR PO (08:13)
[2022-07-14] MEDS: Midodrine HCl 10 MG TABLET PO ×3 (08:13→17:21)
[2022-07-14] MEDS: Multivitamin TABLET 1 TAB PO (08:13)
[2022-07-14] MEDS: dexAMETHasone sod phosphate 4 MG/ML VIAL 6 MG IVPUSH (08:14)
[2022-07-14] MEDS: Albuterol/Iprat 2.5/0.5MG 3 ML AMPUL.NEB INHALE (08:25)
--- NOTE | 2022-07-14 09:55 | MHC.CM.PN ---
Addendum entered by Ludivina Sanchez 07/14/22 10:57: HCP and daughters: Danna Parent [phone] and Carolina Parent [phone] Original Note: IMM addressed with patient's , Noman. White copy mailed via certified mail, per Noman's request and yellow copy filed in chart. IMM addendum completed. Noman reports patient lives with him. She was at [facility] less than 30 days ago, discharged to SNF ([facility]) where she stayed for about 3 weeks. Patient discharged home on Thursday 07/12 and back to [facility] ED due to Covid positive status. Patient was seen by Mily RAYGOZA and his active in their care. He reports patient is primarily bedbound and will need BLS transport. He reports only equipment patient has is a hospital bed. Patient is not Covid vax'd and does not have a PCP; Sridhar scheduled a virtual visit with Jerome Boogie MD of [facility] in [place] for Monday 07/16. Copy of HCP requested. D/C Plan: Home resume KATHRINEA ([employer])
--- NOTE | 2022-07-14 12:29 | HO.PM.IMPN ---
Subjective Subjective Date of Service: 07/14/22 Interval History: Cough + dyspnea improved Still requires O2; RA SaO2 is 88-89% Review of Systems Review of Systems: Yes all other systems are reviewed and are negative Physical Exam Vital Signs: Vital Signs: Last Vital Signs Temp 98.1 F 07/14/22 07:08 Pulse 79 07/14/22 08:28 Resp 15 07/14/22 08:28 BP 100/61 07/14/22 07:08 Pulse Ox 99 07/14/22 07:08 O2 Del Method 07/14/22 07:08 O2 Flow Rate 3 07/14/22 07:08 BMI result Body Mass Index 16.0 Gen: chronically ill-appearing, cachectic and very weak HEENT: sclera anicteric, moist mucus membranes Neck: supple Lungs: clear to auscultation bilaterally Heart: regular, no murmurs Abd: soft, non-tender, non-distended Ext: no edema Skin: warm/well-perfused Neuro: alert and oriented x3, no focal findings Psych:restricted affect Objective Data Active Medications Acetaminophen (Acetaminophen 325 Mg Tablet) 650 mg PO Q6H PRN PRN Reason: Pain, Mild (Pain Scale 1-3) Last Admin: 07/14/22 06:01 Dose: 650 mg Documented By: JAKE Albuterol Sulfate (Albuterol Sulfate (0.083%) 2.5 Mg/3 Ml Vial.Neb) 2.5 mg INHALE Q2H PRN PRN Reason: Shortness of Breath/Wheezing Albuterol/Ipratropium (Albuterol/Iprat 2.5/0.5mg 3 Ml Ampul.Neb) 3 ml INHALE RQ4H WHILE AWAKE [facility] Last Admin: 07/14/22 11:20 Dose: Not Given Documented By: MARK Non-Admin Reason: Patient Asleep Dexamethasone Sodium Phosphate (Dexamethasone Sod Phosphate 4 Mg/Ml Vial) 6 mg IVPUSH DAILY [facility] [place] Stop: 07/23/22 09:01 Last Admin: 07/14/22 08:14 Dose: 6 mg Documented By: FABIAN Enoxaparin Sodium (Enoxaparin Sodium 40 Mg/0.4 Ml Syringe) 40 mg SUBCUT Q24H [facility] [place] Last Admin: 07/13/22 21:11 Dose: 40 mg Documented By: JAKE Ferrous Sulfate (Ferrous Sulfate 324 Mg Tablet.) 324 mg PO DAILY [facility] [place] Last Admin: 07/14/22 08:13 Dose: 324 mg Documented By: FABIAN Folic Acid (Folic Acid 1 Mg Tablet) 1 mg PO DAILY [facility] [place] Last Admin: 07/14/22 08:13 Dose: 1 mg Documented By: FABIAN Remdesivir 100 mg/ Sodium (Chloride) 230 mls @ 115 mls/hr IV Q24H [facility] [place] Stop: 07/17/22 22:59 Magnesium Oxide (Magnesium Oxide 400 Mg Tablet) 400 mg PO BIDPC [facility] [place] Last Admin: 07/14/22 08:13 Dose: 400 mg Documented By: FABIAN Midodrine (Midodrine Hcl 10 Mg Tablet) 10 mg PO TIDAC [facility] [place] Last Admin: 07/14/22 12:29 Dose: 10 mg Documented By: FABIAN Multivitamins/Vitamin C (Multivitamin Tablet) 1 tab PO DAILY [facility] [place] Last Admin: 07/14/22 08:13 Dose: 1 tab Documented By: FABIAN Nicotine (Nicotine 21 Mg Patch.Td24) 21 mg TRANSDERMA DAILY [facility] [place] Last Admin: 07/14/22 08:12 Dose: 21 mg Documented By: FABIAN Omeprazole (Omeprazole 40 Mg Capsule.) 40 mg PO DAILY@0630 [facility] [place] Last Admin: 07/14/22 05:57 Dose: 40 mg Documented By: JAKE Ondansetron HCl (Ondansetron Hcl 4 Mg/2 Ml Vial) 4 mg IVPUSH Q8H PRN PRN Reason: Nausea and Vomiting Sodium Chloride (0.9 % Sodium Chloride Flush 3 Ml Syringe) 3 ml IVFLUSH QSHIFT [facility] [place] Last Admin: 07/14/22 08:09 Dose: 3 ml Documented By: FABIAN Thiamine HCl (Thiamine Hcl 100 Mg Tablet) 100 mg PO DAILY [facility] [place] Last Admin: 07/14/22 08:13 Dose: 100 mg Documented By: FABIAN Labs CBC & Chem 7: 07/14/22 06:24 07/14/22 06:24 Labs: Laboratory Results - last 24 hr 07/13/22 07/13/22 07/13/22 15:52 15:52 15:52 MCV 96.3 MCH 31.0 MCHC 32.1 RDW 19.9 H Plt Count 379 D MPV 8.8 L Immature Gran % (Auto) 0.3 Neut % (Auto) 65.7 Lymph % (Auto) 17.8 L [place] % (Auto) 15.8 H Eos % (Auto) 0.0 Baso % (Auto) 0.4 Lymph # (Auto) 1.3 [place] # (Auto) 1.2 Eos # (Auto) 0.0 Baso # (Auto) 0.0 Abs Immat Gran (auto) 0.02 Absolute Neuts (auto) 4.9 Absolute Nucleated RBC 0.000 Nucleated RBC % (auto) 0.0 VBG pH VBG pCO2 VBG pO2 VBG HCO3 VBG O2 Saturation VBG Base Excess Anion Gap 17 Estim Creat Clear Calc 69.9 Estimated GFR > 60 Random Glucose 87 Lactic Acid 2.1 H* Lactic Acid F/U @ 2Hr Calcium 8.1 L Magnesium 2.0 Ferritin 204 Total Bilirubin 0.3 Direct Bilirubin < 0.2 AST 66 H ALT 23 Alkaline Phosphatase 126 H D Lactate Dehydrogenase 417 H C-Reactive Protein 2.78 H Total Protein 6.8 D Albumin 3.3 L Procalcitonin Ethyl Alcohol < 10 COVID-19 (AVA) COVID-19 [facility] 07/13/22 07/13/22 07/13/22 15:52 15:52 18:49 MCV MCH MCHC RDW Plt Count MPV Immature Gran % (Auto) Neut % (Auto) Lymph % (Auto) [place] % (Auto) Eos % (Auto) Baso % (Auto) Lymph # (Auto) [place] # (Auto) Eos # (Auto) Baso # (Auto) Abs Immat Gran (auto) Absolute Neuts (auto) Absolute Nucleated RBC Nucleated RBC % (auto) VBG pH VBG pCO2 VBG pO2 VBG HCO3 VBG O2 Saturation VBG Base Excess Anion Gap Estim Creat Clear Calc Estimated GFR Random Glucose Lactic Acid Lactic Acid F/U @ 2Hr 0.7 Calcium Magnesium Ferritin Total Bilirubin Direct Bilirubin AST ALT Alkaline Phosphatase Lactate Dehydrogenase C-Reactive Protein Total Protein Albumin Procalcitonin 0.12 Ethyl Alcohol COVID-19 (AVA) Positive A COVID-19 Clin Com See Note 07/14/22 07/14/22 07/14/22 06:24 06:24 06:30 MCV 98.0 MCH 31.1 MCHC 31.8 RDW 19.4 H Plt Count 360 MPV 8.7 L Immature Gran % (Auto) Neut % (Auto) Lymph % (Auto) [place] % (Auto) Eos % (Auto) Baso % (Auto) Lymph # (Auto) [place] # (Auto) Eos # (Auto) Baso # (Auto) Abs Immat Gran (auto) Absolute Neuts (auto) Absolute Nucleated RBC 0.000 Nucleated RBC % (auto) 0.0 VBG pH 7.31 L VBG pCO2 49 VBG pO2 32 VBG HCO3 25 VBG O2 Saturation 40.0 VBG Base Excess -1.4 Anion Gap 13 Estim Creat Clear Calc 73.1 Estimated GFR > 60 Random Glucose 102 Lactic Acid Lactic Acid F/U @ 2Hr Calcium 7.9 L Magnesium Ferritin Total Bilirubin 0.3 Direct Bilirubin AST 40 H ALT 21 Alkaline Phosphatase 109 Lactate Dehydrogenase C-Reactive Protein Total Protein 5.7 L Albumin 2.9 L Procalcitonin Ethyl Alcohol COVID-19 (AVA) COVID-19 Clin Com Assessment and Plan (1) COVID-19: Status: Acute (2) Acute respiratory failure with hypoxia: Status: Acute Plan hospital d#2 77yo bedbound F recently admitted here 06/15-06/22/22 for chronic GI blood loss + folate deficiency anemia and FTT, 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 She was found to be hypoxic from Covid-19 infection with bilateral pleural effusions # Covid-19 infection, severe - d#2/5 remdesivir, d#2/10 dexamethasone, trened CRP, , high risk of decompensation given unvaccinated status + age # acute hypoxic resp failure - supplemental O2 to wean as tolerated # viral sepsis # lactic acidosis - due to Covid-19 infection # COPD exac - steroids as above, nebs # pleural effusions - ?hypoalbuminemia.? to consider US thoracentesis if respiratory status does not improve # chronic anemia due to GI blood loss + folate deficiency - continue Fe + folate supplementation # tobacco abuse - NRT # severe protein-calorie malnutrition - supplements # VTE ppx - LMWH with caution given anemia/GI blood loss; monitor Hb carefully # code status: full In my clinical judgment, the patient requires continued hospitalization for the following reasons: hypoxia Quality Stroke Does the patient have a stroke diagnosis?: No VTE Prior VTE?: No VTE Risk Level:: Medical - moderate - high VTE Device Contraindication: N/A - Device Ordered VTE Drug Contraindication: N/A - Med Ordered
[2022-07-14] MEDS: Enoxaparin Sodium 40 MG/0.4 ML SYRINGE SUBCUT (20:56)
[2022-07-14] MEDS: Remdesivir 100 MG in 0.9 % Sodium Chloride 230 ML 115 MG IV (20:56)
--- NOTE | 2022-07-14 22:21 | PC.NURSE ---
patient had a large bowel movement ,care given bedding change .
[2022-07-15] MEDS: 0.9 % Sodium Chloride Flush 3 ML SYRINGE IVFLUSH ×3 (01:19→17:08)
[2022-07-15 04:50] VITALS: BP 74/38
[2022-07-15 05:21] LABS: Hematocrit 31.3 % (37.0-47.0); Hemoglobin 10.2 g/dl (12.0-16.0); Mean Corpuscular HGB Conc 32.6 g/dl (31.0-35.0); Mean Corpuscular Hemoglobin 31.2 pg (27.0-33.0); Mean Corpuscular Volume 95.7 fL (80.0-98.0); Mean Platelet Volume 8.8 fL (9.4-12.3); Platelet Count 357 X10*3/uL (160-400); Red Blood Count 3.27 X10*6/uL (4.20-5.50); Red Cell Distribution Width 19.3 % (11.0-16.0); White Blood Count 6.5 X10*3/uL (4.8-10.8)
[2022-07-15 05:38] LABS: Anion Gap 14 (12-20); Blood Urea Nitrogen 14 mg/dL (9-16); C Reactive Protein 4.28 mg/dL (< or = 0.50); Calcium 7.8 mg/dL (8.4-10.2); Carbon Dioxide 25 mmol/L (22-29); Chloride 108 mmol/L (96-108); Creatinine Clr Calc Pharmacy 82.8; Estimated Glomerular Filt Rate > 60; Glucose Random 80 mg/dL (60-115); Potassium 3.5 mmol/L (3.3-5.1); Sodium 143 mmol/L (135-145)
[2022-07-15] MEDS: Lactated Ringers 1,000 ML 999 ML IV (06:14)
[2022-07-15 07:51] VITALS: BP 112/83; PULSE 80; RESP 15; TEMP 36.6; O2SAT 94
--- NOTE | 2022-07-15 08:09 | PC.NURSE ---
patient changed and cleaned.sheets were soaked with urine sheets also changed. purwick reapplied correctly. patient complains of diarrhea x2 days. while cleaning black tarry stool noted. nurse made aware.
--- NOTE | 2022-07-15 08:39 | PC.NURSE ---
pt a/o x 3 no sob/preston noted skin pink warm dry speaks in full sentenecs. lungs sound - diminished all lobes. heart sounds regular, abd soft, non-tender. bbs + in all 4 quads. pt eating breakfast. pt aware of plan of care.
[2022-07-15] MEDS: Midodrine HCl 10 MG TABLET PO ×2 (11:10→17:08)
[2022-07-15] MEDS: Folic Acid 1 MG TABLET PO (11:10)
[2022-07-15] MEDS: Magnesium Oxide 400 MG TABLET PO ×2 (11:11→17:08)
[2022-07-15] MEDS: Nicotine 21 MG PATCH.TD24 TRANSDERMA (11:11)
[2022-07-15] MEDS: Thiamine HCL 100 MG TABLET PO (11:11)
[2022-07-15] MEDS: Multivitamin TABLET 1 TAB PO (11:11)
[2022-07-15] MEDS: dexAMETHasone sod phosphate 4 MG/ML VIAL 6 MG IVPUSH (11:14)
--- NOTE | 2022-07-15 11:34 | PC.NURSE ---
pt's son sal ([phone]) called [facility] [place] and was updated on pt status.
--- NOTE | 2022-07-15 15:47 | P.PNIM_ITS ---
Subjective Subjective Date of Service: 07/15/22 Interval History: no acute issues overnight Review of Systems denies chest pain Admits shortness of breath Denies nausea vomiting diarrhea Denies fever chills Physical Exam Vital Signs: Vital Signs: Last Vital Signs Temp 97.9 F 07/15/22 07:51 Pulse 80 07/15/22 07:51 Resp 15 07/15/22 07:51 BP 112/83 07/15/22 07:51 Pulse Ox 94 07/15/22 07:51 O2 Del Method 07/15/22 07:51 O2 Flow Rate 3 07/14/22 07:08 BMI result Body Mass Index 16.0 Const: Other: no acute distress Resp: Other: diminished at bases otherwise clear Cardio: Other: no S4; positive S1-S2; no S3 murmurs rubs or gallops GI: Other: soft nontender nondistended normoactive bowel sounds Extrem: Other: no edema bilaterally Objective Data Active Medications Acetaminophen (Acetaminophen 325 Mg Tablet) 650 mg PO Q6H PRN PRN Reason: Pain, Mild (Pain Scale 1-3) Last Admin: 07/14/22 06:01 Dose: 650 mg Documented By: JAKE Albuterol Sulfate (Albuterol Sulfate (0.083%) 2.5 Mg/3 Ml Vial.Neb) 2.5 mg INHALE Q2H PRN PRN Reason: Shortness of Breath/Wheezing Dexamethasone Sodium Phosphate (Dexamethasone Sod Phosphate 4 Mg/Ml Vial) 6 mg IVPUSH DAILY [facility] Stop: 07/23/22 09:01 Last Admin: 07/15/22 11:14 Dose: 6 mg Documented By: AP Enoxaparin Sodium (Enoxaparin Sodium 40 Mg/0.4 Ml Syringe) 40 mg SUBCUT Q24H [facility] Last Admin: 07/14/22 20:56 Dose: 40 mg Documented By: JOY Ferrous Sulfate (Ferrous Sulfate 324 Mg Tablet.) 324 mg PO DAILY [facility] Last Admin: 07/15/22 11:10 Dose: Not Given Documented By: AP Non-Admin Reason: Patient Refused Folic Acid (Folic Acid 1 Mg Tablet) 1 mg PO DAILY [facility] Last Admin: 07/15/22 11:10 Dose: 1 mg Documented By: AP Remdesivir 100 mg/ Sodium (Chloride) 230 mls @ 115 mls/hr IV Q24H [facility] Stop: 07/17/22 22:59 Last Infusion: 07/15/22 02:00 Dose: 0 mls/hr Documented By: JOY Magnesium Oxide (Magnesium Oxide 400 Mg Tablet) 400 mg PO BIDPC [facility] Last Admin: 07/15/22 11:11 Dose: 400 mg Documented By: AP Midodrine (Midodrine Hcl 10 Mg Tablet) 10 mg PO TIDAC [facility] Last Admin: 07/15/22 14:18 Dose: Not Given Documented By: ZEN Non-Admin Reason: Previously Administered Multivitamins/Vitamin C (Multivitamin Tablet) 1 tab PO DAILY [facility] Last Admin: 07/15/22 11:11 Dose: 1 tab Documented By: AP Nicotine (Nicotine 21 Mg Patch.Td24) 21 mg TRANSDERMA DAILY [facility] Last Admin: 07/15/22 11:11 Dose: 21 mg Documented By: AP Omeprazole (Omeprazole 40 Mg Capsule.Dr) 40 mg PO DAILY@0630 [facility] Last Admin: 07/15/22 11:09 Dose: Not Given Documented By: AP Non-Admin Reason: Patient Refused Ondansetron HCl (Ondansetron Hcl 4 Mg/2 Ml Vial) 4 mg IVPUSH Q8H PRN PRN Reason: Nausea and Vomiting Sodium Chloride (0.9 % Sodium Chloride Flush 3 Ml Syringe) 3 ml IVFLUSH QSHIFT [facility] Last Admin: 07/15/22 11:08 Dose: 3 ml Documented By: AP Thiamine HCl (Thiamine Hcl 100 Mg Tablet) 100 mg PO DAILY [facility] Last Admin: 07/15/22 11:11 Dose: 100 mg Documented By: AP Labs CBC & Chem 7: 07/15/22 05:16 07/15/22 05:16 Labs: Laboratory Results - last 24 hr 07/15/22 07/15/22 05:16 05:16 MCV 95.7 MCH 31.2 MCHC 32.6 RDW 19.3 H Plt Count 357 MPV 8.8 L Absolute Nucleated RBC 0.000 Nucleated RBC % (auto) 0.0 Anion Gap 14 Estim Creat Clear Calc 82.8 Estimated GFR > 60 Random Glucose 80 Calcium 7.8 L C-Reactive Protein 4.28 H Microbiology Microbiology Results: Microbiology 07/13/22 15:52 Blood Culture - Preliminary Blood - Venous Prelim: GPC Gram Stain only 07/13/22 16:08 Blood Culture - Preliminary Blood - Venous No growth after 24 hours. 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 She was found to be hypoxic from Covid-19 infection with bilateral pleural effusions 1.Acute hypoxic respiratory failure secondary to Covid-19 - Remdesivir, (3/), dexamethasone,(3/10) - titrate O2 as tolerated - DuoNebs PRN 2.Chronic anemia - serial CBCs - continue Fe + folate supplementation # VTE ppx - LMWH with caution given anemia/GI blood loss; monitor Hb carefully require ongoing hospitalization for IV steroids secondary to COVID-1 Quality Stroke Does the patient have a stroke diagnosis?: No VTE Prior VTE?: No VTE Risk Level:: Medical - moderate - high VTE Device Contraindication: N/A - Device Ordered VTE Drug Contraindication: N/A - Med Ordered
[2022-07-15 15:49] VITALS: BP 108/73; PULSE 77; RESP 16; O2SAT 100
--- NOTE | 2022-07-15 17:13 | PC.NURSE ---
pt a&ox3, vss, medicated per provider order, pt requesting chocolate ensure, kitchen notified.
[2022-07-15 18:23] VITALS: BP 120/59; PULSE 83; RESP 16; TEMP 36.7; O2SAT 96
[2022-07-15 20:08] VITALS: O2SAT 98
[2022-07-15] MEDS: Remdesivir 100 MG in 0.9 % Sodium Chloride 230 ML 115 MG IV (21:12)
[2022-07-15] MEDS: Enoxaparin Sodium 40 MG/0.4 ML SYRINGE SUBCUT (21:13)
[2022-07-16] VITALS: BP 125/50; PULSE 77; RESP 15; TEMP 37.2; O2SAT 92
[2022-07-16] MEDS: 0.9 % Sodium Chloride Flush 3 ML SYRINGE IVFLUSH ×3 (00:23→16:53)
[2022-07-16 04:07] VITALS: BP 105/63; PULSE 77; RESP 15; TEMP 36.8; O2SAT 96
[2022-07-16] MEDS: Omeprazole 40 MG CAPSULE.DR PO (06:05)
[2022-07-16] MEDS: Nicotine 21 MG PATCH.TD24 TRANSDERMA (08:33)
[2022-07-16] MEDS: dexAMETHasone sod phosphate 4 MG/ML VIAL 6 MG IVPUSH (08:33)
[2022-07-16] MEDS: Magnesium Oxide 400 MG TABLET PO ×2 (08:34→16:55)
[2022-07-16] MEDS: Thiamine HCL 100 MG TABLET PO (08:34)
[2022-07-16] MEDS: Midodrine HCl 10 MG TABLET PO ×2 (08:34→16:52)
[2022-07-16] MEDS: Multivitamin TABLET 1 TAB PO (08:34)
[2022-07-16] MEDS: Folic Acid 1 MG TABLET PO (08:34)
[2022-07-16] MEDS: Ferrous Sulfate 324 MG TABLET.DR PO (08:35)
[2022-07-16 08:40] VITALS: BP 119/72; PULSE 84; RESP 15; TEMP 36.4; O2SAT 93
[2022-07-16 14:00] VITALS: BP 110/66; PULSE 80; RESP 13; TEMP 36.7; O2SAT 95
--- NOTE | 2022-07-16 15:38 | HO.PM.IMPN ---
Subjective Subjective Date of Service: 07/16/22 Interval History: no acute issues overnight Review of Systems denies chest pain Admits shortness of breath Denies nausea vomiting diarrhea Denies fever chills Physical Exam Vital Signs: Vital Signs: Last Vital Signs Temp 98.1 F 07/16/22 14:00 Pulse 80 07/16/22 14:00 Resp 13 07/16/22 14:00 BP 110/66 07/16/22 14:00 Pulse Ox 95 07/16/22 14:00 O2 Del Method 07/16/22 14:00 O2 Flow Rate 4 07/16/22 14:00 BMI result Body Mass Index 16.0 Const: Other: no acute distress Resp: Other: diminished at bases otherwise clear Cardio: Other: no S4; positive S1-S2; no S3 murmurs rubs or gallops GI: Other: soft nontender nondistended normoactive bowel sounds Extrem: Other: no edema bilaterally Objective Data Active Medications Acetaminophen (Acetaminophen 325 Mg Tablet) 650 mg PO Q6H PRN PRN Reason: Pain, Mild (Pain Scale 1-3) Last Admin: 07/14/22 06:01 Dose: 650 mg Documented By: JAKE Albuterol Sulfate (Albuterol Sulfate (0.083%) 2.5 Mg/3 Ml Vial.Neb) 2.5 mg INHALE Q2H PRN PRN Reason: Shortness of Breath/Wheezing Dexamethasone Sodium Phosphate (Dexamethasone Sod Phosphate 4 Mg/Ml Vial) 6 mg IVPUSH DAILY [facility] Stop: 07/23/22 09:01 Last Admin: 07/16/22 08:33 Dose: 6 mg Documented By: AGAPITO Enoxaparin Sodium (Enoxaparin Sodium 40 Mg/0.4 Ml Syringe) 40 mg SUBCUT Q24H [facility] Last Admin: 07/15/22 21:13 Dose: 40 mg Documented By: ISABEL Ferrous Sulfate (Ferrous Sulfate 324 Mg Tablet.) 324 mg PO DAILY [facility] Last Admin: 07/16/22 08:35 Dose: 324 mg Documented By: AGAPITO Folic Acid (Folic Acid 1 Mg Tablet) 1 mg PO DAILY [facility] Last Admin: 07/16/22 08:34 Dose: 1 mg Documented By: AGAPITO Remdesivir 100 mg/ Sodium (Chloride) 230 mls @ 115 mls/hr IV Q24H [facility] Stop: 07/17/22 22:59 Last Infusion: 07/16/22 00:24 Dose: 0 mls/hr Documented By: MICHAEL Ceftriaxone Sodium 1 gm/ (Sodium Chloride) 50 mls @ 100 mls/hr IV Q24H [facility] Doxycycline Hyclate 100 mg/ (Sodium Chloride) 250 mls @ 166.67 mls/hr IV Q12H [facility] Magnesium Oxide (Magnesium Oxide 400 Mg Tablet) 400 mg PO BIDPC [facility] Last Admin: 07/16/22 08:34 Dose: 400 mg Documented By: AGAPITO Midodrine (Midodrine Hcl 10 Mg Tablet) 10 mg PO TIDAC [facility] Last Admin: 07/16/22 08:34 Dose: 10 mg Documented By: AGAPITO Multivitamins/Vitamin C (Multivitamin Tablet) 1 tab PO DAILY [facility] Last Admin: 07/16/22 08:34 Dose: 1 tab Documented By: AGAPITO Nicotine (Nicotine 21 Mg Patch.Td24) 21 mg TRANSDERMA DAILY [facility] Last Admin: 07/16/22 08:33 Dose: 21 mg Documented By: AGAPITO Omeprazole (Omeprazole 40 Mg Capsule.Dr) 40 mg PO DAILY@0630 [facility] Last Admin: 07/16/22 06:05 Dose: 40 mg Documented By: JAKE Ondansetron HCl (Ondansetron Hcl 4 Mg/2 Ml Vial) 4 mg IVPUSH Q8H PRN PRN Reason: Nausea and Vomiting Sodium Chloride (0.9 % Sodium Chloride Flush 3 Ml Syringe) 3 ml IVFLUSH QSHIFT [facility] Last Admin: 07/16/22 08:34 Dose: 3 ml Documented By: AGAPITO Thiamine HCl (Thiamine Hcl 100 Mg Tablet) 100 mg PO DAILY [facility] Last Admin: 07/16/22 08:34 Dose: 100 mg Documented By: AGAPITO Labs CBC & Chem 7: 07/15/22 05:16 07/15/22 05:16 Microbiology Microbiology Results: Microbiology 07/13/22 15:52 Blood Culture - Final Blood - Venous Coag negative Staphylococcus 07/13/22 16:08 Blood Culture - Preliminary Blood - Venous No growth after 48 hours. 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 She was found to be hypoxic from Covid-19 infection with bilateral pleural effusions 1.Acute hypoxic respiratory failure secondary to Covid-19 - Remdesivir, (03/05), dexamethasone,(03/10) - titrate O2 as tolerated - DuoNebs PRN -Add CTX/Doxycyline 2.Chronic anemia - serial CBCs - continue Fe + folate supplementation # VTE ppx - LMWH with caution given anemia/GI blood loss; monitor Hb carefully require ongoing hospitalization for IV steroids secondary to COVID-1 Quality Stroke Does the patient have a stroke diagnosis?: No VTE Prior VTE?: No VTE Risk Level:: Medical - moderate - high VTE Device Contraindication: N/A - Device Ordered VTE Drug Contraindication: N/A - Med Ordered
[2022-07-16 16:00] VITALS: TEMP 36.6
[2022-07-16] MEDS: cefTRIAXone sodium 1 GM in 0.9 % Sodium Chloride 50 ML IV (16:50)
[2022-07-16] MEDS: Doxycycline Hyclate 100 MG in 0.9 % Sodium Chloride 250 ML 166.67 MG IV (16:52)
[2022-07-16] MEDS: Enoxaparin Sodium 40 MG/0.4 ML SYRINGE SUBCUT (19:47)
[2022-07-16] MEDS: Remdesivir 100 MG in 0.9 % Sodium Chloride 230 ML 115 MG IV (20:44)
--- NOTE | 2022-07-16 23:29 | PC.NURSE ---
NUrse rto nurse report called in to [facility] unit, spoke to Leann. Patient to be transferred to [facility] bed [phone] by a transporter.
[2022-07-17] VITALS (9 sets, daily range): BP systolic 100–117; BP diastolic 51–74; PULSE 55–135; RESP 15–19; TEMP 36.7–37.3; O2SAT 92–97; BMI 16.0
[2022-07-17] MEDS: Doxycycline Hyclate 100 MG in 0.9 % Sodium Chloride 250 ML 166.67 MG IV ×2 (00:40→11:45)
[2022-07-17] MEDS: 0.9 % Sodium Chloride Flush 3 ML SYRINGE IVFLUSH ×3 (00:41→16:52)
[2022-07-17] MEDS: Omeprazole 40 MG CAPSULE.DR PO (05:39)
[2022-07-17 07:12] LABS: MANUAL DIFF FLAG NO
[2022-07-17 07:16] LABS: Basophils Percent Auto 0.2 % (0-2); Hematocrit 32.9 % (37.0-47.0); Hemoglobin 10.8 g/dl (12.0-16.0); Imm Gran Abs Auto 0.01 X10*3/uL (0.00-0.03); Imm Gran Pct Auto 0.2 % (0.0-0.4); Lymphocytes Absolute Auto 2.3 X10*3/uL (1.2-4.9); Lymphocytes Percent Auto 51.7 % (20-40); Mean Corpuscular HGB Conc 32.8 g/dl (31.0-35.0); Mean Corpuscular Hemoglobin 31.1 pg (27.0-33.0); Mean Corpuscular Volume 94.8 fL (80.0-98.0); Mean Platelet Volume 8.8 fL (9.4-12.3); Monocytes Absolute Auto 0.6 X10*3/uL (0.1-1.2); Neutrophils Absolute Auto 1.6 x10*3/uL (2.0-8.3); Neutrophils Percent Auto 34.9 % (45-73); Platelet Count 380 X10*3/uL (160-400); Red Blood Count 3.47 X10*6/uL (4.20-5.50); Red Cell Distribution Width 19.4 % (11.0-16.0); White Blood Count 4.5 X10*3/uL (4.8-10.8)
[2022-07-17 07:37] LABS: Alanine Aminotransferase 18 U/L (0-31); Albumin Level 2.7 g/dL (3.5-5.0); Alkaline Phosphatase 102 U/L (39-117); Anion Gap 14 (12-20); Aspartate Amino Transferase 46 U/L (5-31); Bilirubin Total 0.2 mg/dL (0.0-1.0); Blood Urea Nitrogen 7 mg/dL (9-16); Calcium 7.8 mg/dL (8.4-10.2); Carbon Dioxide 28 mmol/L (22-29); Chloride 104 mmol/L (96-108); Creatinine Clr Calc Pharmacy 76.7; Estimated Glomerular Filt Rate > 60; Glucose Fasting 78 mg/dL (60-99); Potassium 3.2 mmol/L (3.3-5.1); Sodium 143 mmol/L (135-145); Total Protein 5.4 g/dL (6.5-8.0)
[2022-07-17] MEDS: Nicotine 21 MG PATCH.TD24 TRANSDERMA (08:52)
[2022-07-17] MEDS: Thiamine HCL 100 MG TABLET PO (08:53)
[2022-07-17] MEDS: Ferrous Sulfate 324 MG TABLET.DR PO (08:53)
[2022-07-17] MEDS: Multivitamin TABLET 1 TAB PO (08:53)
[2022-07-17] MEDS: dexAMETHasone sod phosphate 4 MG/ML VIAL 6 MG IVPUSH (08:53)
[2022-07-17] MEDS: Folic Acid 1 MG TABLET PO (08:53)
[2022-07-17] MEDS: Magnesium Oxide 400 MG TABLET PO ×2 (08:53→16:52)
[2022-07-17] MEDS: Midodrine HCl 10 MG TABLET PO ×3 (08:54→16:52)
[2022-07-17] MEDS: Potassium Chloride Packet 20 MEQ PACKET 40 MEQ PO ×2 (11:30→22:21)
--- NOTE | 2022-07-17 12:26 | MHC.CLN ---
PT IS SEVERELY MALNOURISHED PT WITH SEVERELY DEPLETED SUBCUTANEOUS FAT AND MUSCLE MASS, BMI 16 DIET RX: REGULAR-APPROPRIATE PT RECEIVING ENSURE TID PROVIDES 1050KCALS, 60G PROTEIN MONITOR PO INTAKE CLOSELY SEE ALSO FULL CLINICAL NUTRITION ASSESSMENT
[2022-07-17] MEDS: cefTRIAXone sodium 1 GM in 0.9 % Sodium Chloride 50 ML IV (13:36)
--- NOTE | 2022-07-17 14:59 | P.PNIM_ITS ---
Subjective Subjective Date of Service: 07/17/22 Interval History: no acute issues overnight intermittent atrial fibrillation noted Review of Systems denies chest pain Admits shortness of breath Denies nausea vomiting diarrhea Denies fever chills Physical Exam Vital Signs: Vital Signs: Last Vital Signs Temp 98.6 F 07/17/22 11:33 Pulse 55 07/17/22 11:33 Resp 19 07/17/22 11:33 BP 102/56 L 07/17/22 11:33 Pulse Ox 95 07/17/22 11:33 O2 Del Method 07/17/22 11:33 O2 Flow Rate 3 07/17/22 11:33 BMI result Body Mass Index 16.0 Const: Other: no acute distress Resp: Other: diminished at bases otherwise clear Cardio: Other: no S4; positive S1-S2; no S3 murmurs rubs or gallops GI: Other: soft nontender nondistended normoactive bowel sounds Extrem: Other: no edema bilaterally Objective Data Active Medications Acetaminophen (Acetaminophen 325 Mg Tablet) 650 mg PO Q6H PRN PRN Reason: Pain, Mild (Pain Scale 1-3) Last Admin: 07/14/22 06:01 Dose: 650 mg Documented By: JAKE Albuterol Sulfate (Albuterol Sulfate (0.083%) 2.5 Mg/3 Ml Vial.Neb) 2.5 mg INHALE Q2H PRN PRN Reason: Shortness of Breath/Wheezing Dexamethasone Sodium Phosphate (Dexamethasone Sod Phosphate 4 Mg/Ml Vial) 6 mg IVPUSH DAILY [facility] Stop: 07/23/22 09:01 Last Admin: 07/17/22 08:53 Dose: 6 mg Documented By: KALPANA Comments: 1.5ml Enoxaparin Sodium (Enoxaparin Sodium 40 Mg/0.4 Ml Syringe) 40 mg SUBCUT Q24H [facility] Last Admin: 07/16/22 19:47 Dose: 40 mg Documented By: JAKE Ferrous Sulfate (Ferrous Sulfate 324 Mg Tablet.) 324 mg PO DAILY [facility] Last Admin: 07/17/22 08:53 Dose: 324 mg Documented By: KALPANA Folic Acid (Folic Acid 1 Mg Tablet) 1 mg PO DAILY [facility] Last Admin: 07/17/22 08:53 Dose: 1 mg Documented By: KALPANA Remdesivir 100 mg/ Sodium (Chloride) 230 mls @ 115 mls/hr IV Q24H [facility] Stop: 07/17/22 22:59 Last Infusion: 07/16/22 23:19 Dose: 0 mls/hr Documented By: JAKE Ceftriaxone Sodium 1 gm/ (Sodium Chloride) 50 mls @ 100 mls/hr IV Q24H [facility] Last Infusion: 07/17/22 14:25 Dose: 0 mls/hr Documented By: KALPANA Doxycycline Hyclate 100 mg/ (Sodium Chloride) 250 mls @ 166.67 mls/hr IV Q12H [facility] Last Infusion: 07/17/22 13:39 Dose: 0 mls/hr Documented By: KALPANA Magnesium Oxide (Magnesium Oxide 400 Mg Tablet) 400 mg PO BIDPC [facility] Last Admin: 07/17/22 08:53 Dose: 400 mg Documented By: KALPANA Midodrine (Midodrine Hcl 10 Mg Tablet) 10 mg PO TIDAC [facility] Last Admin: 07/17/22 11:31 Dose: 10 mg Documented By: KALPANA Comments: bp-106/56 Multivitamins/Vitamin C (Multivitamin Tablet) 1 tab PO DAILY [facility] Last Admin: 07/17/22 08:53 Dose: 1 tab Documented By: KALPANA Nicotine (Nicotine 21 Mg Patch.Td24) 21 mg TRANSDERMA DAILY [facility] Last Admin: 07/17/22 08:52 Dose: 21 mg Documented By: KALPANA Omeprazole (Omeprazole 40 Mg Capsule.Dr) 40 mg PO DAILY@0630 [facility] Last Admin: 07/17/22 05:39 Dose: 40 mg Documented By: BAYLEE Ondansetron HCl (Ondansetron Hcl 4 Mg/2 Ml Vial) 4 mg IVPUSH Q8H PRN PRN Reason: Nausea and Vomiting Potassium Chloride (Potassium Chloride Packet 20 Meq Packet) 40 meq PO BID [facility] Stop: 07/18/22 00:00 Last Admin: 07/17/22 11:30 Dose: 40 meq Documented By: KALPANA Sodium Chloride (0.9 % Sodium Chloride Flush 3 Ml Syringe) 3 ml IVFLUSH QSHIFT [facility] Last Admin: 07/17/22 08:55 Dose: 3 ml Documented By: KALPANA Thiamine HCl (Thiamine Hcl 100 Mg Tablet) 100 mg PO DAILY [facility] Last Admin: 07/17/22 08:53 Dose: 100 mg Documented By: KALPANA Labs CBC & Chem 7: 07/17/22 07:05 07/17/22 07:05 Labs: Laboratory Results - last 24 hr 07/17/22 07/17/22 07:05 07:05 MCV 94.8 MCH 31.1 MCHC 32.8 RDW 19.4 H Plt Count 380 MPV 8.8 L Immature Gran % (Auto) 0.2 Neut % (Auto) 34.9 L Lymph % (Auto) 51.7 H [place] % (Auto) 13.0 H Eos % (Auto) 0.0 Baso % (Auto) 0.2 Lymph # (Auto) 2.3 [place] # (Auto) 0.6 Eos # (Auto) 0.0 Baso # (Auto) 0.0 Abs Immat Gran (auto) 0.01 Absolute Neuts (auto) 1.6 L Absolute Nucleated RBC 0.000 Nucleated RBC % (auto) 0.0 Anion Gap 14 Estim Creat Clear Calc 76.7 Estimated GFR > 60 Fasting Glucose 78 Calcium 7.8 L Total Bilirubin 0.2 AST 46 H ALT 18 Alkaline Phosphatase 102 Total Protein 5.4 L Albumin 2.7 L Assessment and Plan (1) Acute respiratory failure with hypoxia: Status: Acute (2) COVID-19: Status: Acute (3) Paroxysmal atrial fibrillation: Status: Acute (4) Chronic blood loss anemia: Status: Acute Plan 77yo bedbound F recently admitted here 06/15-06/22/22 for chronic GI blood loss + folate deficiency anemia and FTT, 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 She was found to be hypoxic from Covid-19 infection with bilateral pleural effusions 1.Acute hypoxic respiratory failure secondary to Covid-19 - Remdesivir, (5/5), dexamethasone,(5/10) - titrate O2 as tolerated - DuoNebs PRN -Add CTX/Doxycyline 2.Paroxysmal atrial fibribrilation - anticoagulation contraindicated with history of GI bleeds - rate control as indicated 3.Chronic anemia - serial CBCs - continue Fe + folate supplementation # VTE ppx - LMWH with caution given anemia/GI blood loss; monitor Hb carefully require ongoing hospitalization for IV steroids secondary to COVID-1 Quality Stroke Does the patient have a stroke diagnosis?: No VTE Prior VTE?: No VTE Risk Level:: Medical - moderate - high VTE Device Contraindication: N/A - Device Ordered VTE Drug Contraindication: N/A - Med Ordered
[2022-07-17] MEDS: Remdesivir 100 MG in 0.9 % Sodium Chloride 230 ML 115 MG IV (22:20)
[2022-07-17] MEDS: Enoxaparin Sodium 40 MG/0.4 ML SYRINGE SUBCUT (22:21)
[2022-07-18 03:24] VITALS: BP 99/54; PULSE 57; RESP 15; TEMP 36.9; O2SAT 90
[2022-07-18] MEDS: Doxycycline Hyclate 100 MG in 0.9 % Sodium Chloride 250 ML 166.67 MG IV ×3 (05:50→20:12)
[2022-07-18] MEDS: Omeprazole 40 MG CAPSULE.DR PO (05:51)
[2022-07-18 07:25] LABS: Basophils Percent Auto 0.2 % (0-2); Hematocrit 32.4 % (37.0-47.0); Hemoglobin 10.5 g/dl (12.0-16.0); Imm Gran Abs Auto 0.02 X10*3/uL (0.00-0.03); Imm Gran Pct Auto 0.4 % (0.0-0.4); Lymphocytes Absolute Auto 2.6 X10*3/uL (1.2-4.9); MANUAL DIFF FLAG SCAN; Mean Corpuscular HGB Conc 32.4 g/dl (31.0-35.0); Mean Corpuscular Hemoglobin 30.4 pg (27.0-33.0); Mean Corpuscular Volume 93.9 fL (80.0-98.0); Mean Platelet Volume 9.1 fL (9.4-12.3); Monocytes Absolute Auto 0.9 X10*3/uL (0.1-1.2); Monocytes Percent Auto 15.9 % (2-11); Neutrophils Absolute Auto 2.1 x10*3/uL (2.0-8.3); Neutrophils Percent Auto 36.5 % (45-73); Platelet Count 384 X10*3/uL (160-400); Red Blood Count 3.45 X10*6/uL (4.20-5.50); Red Cell Distribution Width 19.4 % (11.0-16.0); SCAN SMEAR FLAG 1; White Blood Count 5.6 X10*3/uL (4.8-10.8)
[2022-07-18 07:43] LABS: SLIDE REVIEW VERIFIED
[2022-07-18 07:45] LABS: Alanine Aminotransferase 18 U/L (0-31); Albumin Level 2.7 g/dL (3.5-5.0); Alkaline Phosphatase 97 U/L (39-117); Anion Gap 12 (12-20); Aspartate Amino Transferase 36 U/L (5-31); Bilirubin Total 0.2 mg/dL (0.0-1.0); Blood Urea Nitrogen 12 mg/dL (9-16); Calcium 8.1 mg/dL (8.4-10.2); Carbon Dioxide 31 mmol/L (22-29); Chloride 103 mmol/L (96-108); Creatinine Clr Calc Pharmacy 76.7; Estimated Glomerular Filt Rate > 60; Glucose Fasting 81 mg/dL (60-99); Potassium 2.8 mmol/L (3.3-5.1); Sodium 143 mmol/L (135-145); Total Protein 5.3 g/dL (6.5-8.0)
[2022-07-18 07:51] VITALS: BP 111/60; PULSE 85; RESP 20; TEMP 36.3; O2SAT 94
[2022-07-18 08:22] LABS: Magnesium 1.9 mg/dL (1.6-2.6)
[2022-07-18] MEDS: Magnesium Oxide 400 MG TABLET PO ×2 (08:30→15:47)
[2022-07-18] MEDS: Multivitamin TABLET 1 TAB PO (08:31)
[2022-07-18] MEDS: Midodrine HCl 10 MG TABLET PO ×3 (08:31→15:47)
[2022-07-18] MEDS: dexAMETHasone sod phosphate 4 MG/ML VIAL 6 MG IVPUSH (08:31)
[2022-07-18] MEDS: Folic Acid 1 MG TABLET PO (08:31)
[2022-07-18] MEDS: Thiamine HCL 100 MG TABLET PO (08:31)
[2022-07-18] MEDS: Ferrous Sulfate 324 MG TABLET.DR PO (08:31)
[2022-07-18] MEDS: Potassium Chloride/H20 10 MEQ/100 ML PIGGYBACK 100 MEQ IV ×4 (08:32→17:11)
[2022-07-18] MEDS: Nicotine 21 MG PATCH.TD24 TRANSDERMA (08:32)
[2022-07-18] MEDS: 0.9 % Sodium Chloride Flush 3 ML SYRINGE IVFLUSH ×4 (08:36→20:11)
[2022-07-18 12:00] VITALS: BP 115/69; PULSE 82; RESP 20; TEMP 36.8; O2SAT 99
--- NOTE | 2022-07-18 13:07 | P.CDIC_ITS ---
CDI Concurrent Query Documentation Clarification: PHYSICIAN'S DOCUMENTATION REQUEST Date of Query: 07/18/22 1300 Patient Name: Myriam Licona Parent Admit Date: 07/13/22 Dear Doctor, A review of the medical record indicates additional documentation may be needed. Please review below and update the documentation accordingly. Clinical Indicators: Documentation in the medical record includes: Risk Factors/Clinical Indicators/Treatments Per Nutrition Assessment 07/17/22: patient is severely malnourished patient with severely depleted subcutaneous fat and muscle mass, BMI 16 Diet rx: regular-appropriate patient receiving Ensure TID HT 5.3 WT. 41 kg ASPEN Criteria* Acute Illness Chronic Illness Clinical Characteristic Non-Severe (2 or more criteria present) Severe (2 or more criteria present) Non-Severe (2 or more criteria present) Severe (2 or more criteria present) Energy Intake <75% for >7 days <=50% for >=5 days <75% for >=1 month <=75% for >=1 month Weight Loss 1 week 1 ? 2% >2% N/A N/A 1 month 5% >5% 5% >5% 3 months 7.5 % >7.5% 7.5% >7.5% 6 months N/A N/A 10% >10% 1 year N/A N/A 20% >20% Body Fat Mild Moderate Mild Severe Muscle Mass Mild Moderate Mild Severe Fluid Accumulation Mild Moderate to Severe Mild Severe Reduced Professor/Nurse Anesthetist Strength N/A Measurably Reduced N/A Measurably Reduced *[facility] Hospitalist, 2017 Based on the above, which of the following most accurately represents the patient's nutritional status? * Malnutrition (specify if mild, moderate, or severe) * Protein calorie malnutrition (specify if mild, moderate, or severe) * Cachexia without malnutrition * No nutritional deficiency * Other (please specify): * Unable to determine Use of terms such as suspected, likely, concern for, or probable (associated with a specific diagnosis that is being evaluated, monitored, or treated as if it exists) are acceptable and can be coded in the inpatient setting, when documented at the time of discharge. Thank you, Lindsey Zazueta RN Extension: [phone] Please use your independent medical judgment in providing your response. THIS QUERY IS PART OF THE PERMANENT MEDICAL RECORD
[2022-07-18] MEDS: cefTRIAXone sodium 1 GM in 0.9 % Sodium Chloride 50 ML IV (13:59)
[2022-07-18 15:24] VITALS: BP 103/62; PULSE 80; RESP 18; TEMP 37.3; O2SAT 97
--- NOTE | 2022-07-18 16:15 | P.PNIM_ITS ---
Subjective Subjective Date of Service: 07/18/22 Interval History: still weak. Breathing at baseline Review of Systems denies chest pain Admits shortness of breath Denies nausea vomiting diarrhea Denies fever chills Physical Exam Vital Signs: Vital Signs: Last Vital Signs Temp 99.2 F 07/18/22 15:24 Pulse 80 07/18/22 15:24 Resp 18 07/18/22 15:24 BP 103/62 07/18/22 15:24 Pulse Ox 97 07/18/22 15:24 O2 Del Method 07/18/22 15:24 O2 Flow Rate 3 07/18/22 15:24 BMI result Body Mass Index 16.0 Const: Other: no acute distress Resp: Other: diminished at bases otherwise clear Cardio: Other: no S4; positive S1-S2; no S3 murmurs rubs or gallops GI: Other: soft nontender nondistended normoactive bowel sounds Extrem: Other: no edema bilaterally Objective Data Active Medications Acetaminophen (Acetaminophen 325 Mg Tablet) 650 mg PO Q6H PRN PRN Reason: Pain, Mild (Pain Scale 1-3) Last Admin: 07/14/22 06:01 Dose: 650 mg Documented By: JAKE Albuterol Sulfate (Albuterol Sulfate (0.083%) 2.5 Mg/3 Ml Vial.Neb) 2.5 mg INHALE Q2H PRN PRN Reason: Shortness of Breath/Wheezing Dexamethasone Sodium Phosphate (Dexamethasone Sod Phosphate 4 Mg/Ml Vial) 6 mg IVPUSH DAILY [facility] Stop: 07/23/22 09:01 Last Admin: 07/18/22 08:31 Dose: 6 mg Documented By: CAMILA Enoxaparin Sodium (Enoxaparin Sodium 40 Mg/0.4 Ml Syringe) 40 mg SUBCUT Q24H [facility] Last Admin: 07/17/22 22:21 Dose: 40 mg Documented By: BAYLEE Ferrous Sulfate (Ferrous Sulfate 324 Mg Tablet.) 324 mg PO DAILY [facility] Last Admin: 07/18/22 08:31 Dose: 324 mg Documented By: CAMILA Folic Acid (Folic Acid 1 Mg Tablet) 1 mg PO DAILY [facility] Last Admin: 07/18/22 08:31 Dose: 1 mg Documented By: CAMILA Ceftriaxone Sodium 1 gm/ (Sodium Chloride) 50 mls @ 100 mls/hr IV Q24H [facility] Last Infusion: 07/18/22 14:34 Dose: 0 mls/hr Documented By: CAMILA Doxycycline Hyclate 100 mg/ (Sodium Chloride) 250 mls @ 166.67 mls/hr IV Q12H [facility] Last Infusion: 07/18/22 14:34 Dose: 0 mls/hr Documented By: CAMILA Magnesium Oxide (Magnesium Oxide 400 Mg Tablet) 400 mg PO BIDPC [facility] Last Admin: 07/18/22 15:47 Dose: 400 mg Documented By: CAMILA Midodrine (Midodrine Hcl 10 Mg Tablet) 10 mg PO TIDAC [facility] Last Admin: 07/18/22 15:47 Dose: 10 mg Documented By: CAMILA Multivitamins/Vitamin C (Multivitamin Tablet) 1 tab PO DAILY [facility] Last Admin: 07/18/22 08:31 Dose: 1 tab Documented By: CAMILA Nicotine (Nicotine 21 Mg Patch.Td24) 21 mg TRANSDERMA DAILY [facility] Last Admin: 07/18/22 08:32 Dose: 21 mg Documented By: CAMILA Omeprazole (Omeprazole 40 Mg Capsule.Dr) 40 mg PO DAILY@0630 [facility] Last Admin: 07/18/22 05:51 Dose: 40 mg Documented By: BAYLEE Ondansetron HCl (Ondansetron Hcl 4 Mg/2 Ml Vial) 4 mg IVPUSH Q8H PRN PRN Reason: Nausea and Vomiting Potassium Chloride (Potassium Chloride Packet 20 Meq Packet) 40 meq PO BID [facility] Stop: 07/18/22 21:01 Last Admin: 07/18/22 08:45 Dose: Not Given Documented By: CAMILA Non-Admin Reason: Patient Refused Sodium Chloride (0.9 % Sodium Chloride Flush 3 Ml Syringe) 3 ml IVFLUSH QSHIFT [facility] Last Admin: 07/18/22 15:47 Dose: 3 ml Documented By: CAMILA Thiamine HCl (Thiamine Hcl 100 Mg Tablet) 100 mg PO DAILY [facility] Last Admin: 07/18/22 08:31 Dose: 100 mg Documented By: CAMILA Labs CBC & Chem 7: 07/18/22 06:58 07/18/22 06:58 Labs: Laboratory Results - last 24 hr 07/18/22 07/18/22 06:58 06:58 MCV 93.9 MCH 30.4 MCHC 32.4 RDW 19.4 H Plt Count 384 MPV 9.1 L Immature Gran % (Auto) 0.4 Neut % (Auto) 36.5 L Lymph % (Auto) 47.0 H [place] % (Auto) 15.9 H Eos % (Auto) 0.0 Baso % (Auto) 0.2 Lymph # (Auto) 2.6 [place] # (Auto) 0.9 Eos # (Auto) 0.0 Baso # (Auto) 0.0 Abs Immat Gran (auto) 0.02 Absolute Neuts (auto) 2.1 Absolute Nucleated RBC 0.000 Nucleated RBC % (auto) 0.0 Smear Tech's Comments VERIFIED Anion Gap 12 Estim Creat Clear Calc 76.7 Estimated GFR > 60 Fasting Glucose 81 Calcium 8.1 L Magnesium 1.9 Total Bilirubin 0.2 AST 36 H ALT 18 Alkaline Phosphatase 97 Total Protein 5.3 L Albumin 2.7 L Assessment and Plan (1) Acute respiratory failure with hypoxia: Status: Acute (2) COVID-19: Status: Acute (3) Hypokalemia: Status: Acute Plan 77yo bedbound F recently admitted here 06/15-06/22/22 for chronic GI blood loss + folate deficiency anemia and FTT, 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 She was found to be hypoxic from Covid-19 infection with bilateral pleural effusions 1.Acute hypoxic respiratory failure secondary to Covid-19 - Remdesivir, (5/5), dexamethasone,(/10) - titrate O2 as tolerated - DuoNebs PRN -Add CTX/Doxycyline 2.Paroxysmal atrial fibribrilation - anticoagulation contraindicated with history of GI bleeds - rate control as indicated 3.Chronic anemia - serial CBCs - continue Fe + folate supplementation 4.Hypokalemia - aggressive repletion - hopeful DC in a.m. - will need home O2 eval # VTE ppx - LMWH with caution given anemia/GI blood loss; monitor Hb carefully require ongoing hospitalization for IV steroids secondary to COVID-1 Quality Stroke Does the patient have a stroke diagnosis?: No VTE Prior VTE?: No VTE Risk Level:: Medical - moderate - high VTE Device Contraindication: N/A - Device Ordered VTE Drug Contraindication: N/A - Med Ordered
[2022-07-18 19:21] VITALS: BP 130/74; PULSE 73; RESP 18; TEMP 36.7; O2SAT 93
[2022-07-18] MEDS: Potassium Chloride Packet 20 MEQ PACKET 40 MEQ PO (20:11)
[2022-07-18] MEDS: Enoxaparin Sodium 40 MG/0.4 ML SYRINGE SUBCUT (20:11)
[2022-07-18 23:47] VITALS: BP 125/79; PULSE 73; RESP 16; TEMP 37; O2SAT 99
[2022-07-19] VITALS (8 sets, daily range): BP systolic 105–136; BP diastolic 58–84; PULSE 69–99; RESP 16–19; TEMP 36.3–37.4; O2SAT 92–100
[2022-07-19] MEDS: Omeprazole 40 MG CAPSULE.DR PO (06:05)
[2022-07-19 06:23] LABS: MANUAL DIFF FLAG NO
[2022-07-19 06:27] LABS: Basophils Percent Auto 0.2 % (0-2); Eosinophils Percent Auto 0.2 % (0-4); Hematocrit 30.9 % (37.0-47.0); Hemoglobin 10.2 g/dl (12.0-16.0); Imm Gran Abs Auto 0.03 X10*3/uL (0.00-0.03); Imm Gran Pct Auto 0.5 % (0.0-0.4); Lymphocytes Absolute Auto 2.8 X10*3/uL (1.2-4.9); Lymphocytes Percent Auto 46.5 % (20-40); Mean Corpuscular Volume 93.9 fL (80.0-98.0); Monocytes Absolute Auto 0.8 X10*3/uL (0.1-1.2); Neutrophils Absolute Auto 2.3 x10*3/uL (2.0-8.3); Neutrophils Percent Auto 38.6 % (45-73); Platelet Count 346 X10*3/uL (160-400); Red Blood Count 3.29 X10*6/uL (4.20-5.50); Red Cell Distribution Width 19.2 % (11.0-16.0); White Blood Count 5.9 X10*3/uL (4.8-10.8)
[2022-07-19 07:14] LABS: Alanine Aminotransferase 17 U/L (0-31); Albumin Level 2.6 g/dL (3.5-5.0); Alkaline Phosphatase 91 U/L (39-117); Anion Gap 13 (12-20); Aspartate Amino Transferase 32 U/L (5-31); Bilirubin Total 0.3 mg/dL (0.0-1.0); Blood Urea Nitrogen 10 mg/dL (9-16); Carbon Dioxide 25 mmol/L (22-29); Chloride 105 mmol/L (96-108); Creatinine Clr Calc Pharmacy 80.7; Estimated Glomerular Filt Rate > 60; Glucose Fasting 77 mg/dL (60-99); Potassium 3.5 mmol/L (3.3-5.1); Sodium 139 mmol/L (135-145); Total Protein 5.2 g/dL (6.5-8.0)
[2022-07-19] MEDS: Folic Acid 1 MG TABLET PO (08:49)
[2022-07-19] MEDS: Magnesium Oxide 400 MG TABLET PO ×2 (08:49→16:51)
[2022-07-19] MEDS: Multivitamin TABLET 1 TAB PO (08:49)
[2022-07-19] MEDS: Ferrous Sulfate 324 MG TABLET.DR PO (08:49)
[2022-07-19] MEDS: Thiamine HCL 100 MG TABLET PO (08:49)
[2022-07-19] MEDS: dexAMETHasone sod phosphate 4 MG/ML VIAL 6 MG IVPUSH (08:50)
[2022-07-19] MEDS: Nicotine 21 MG PATCH.TD24 TRANSDERMA (08:50)
[2022-07-19] MEDS: Midodrine HCl 10 MG TABLET PO ×3 (08:50→16:51)
--- NOTE | 2022-07-19 11:47 | MHC.CM.PN ---
Per ROUNDS discussion, Patient is not yet medically cleared for dc (IV Ceftriaxone, IV Decadron, IV Doxycycline, needs PT eval); CM will follow to finalize dc plan.
--- NOTE | 2022-07-19 13:03 | MHC.CLN ---
F/U PT IS SEVERELY MALNOURISHED SEE FULL CLINICAL NUTRITION ASSESSMENT DATED 07/17/22 PO INTAKE 50-100% DIET RX: REGULAR-APPROPRIATE PT RECEIVING ENSURE TID PROVIDES 1050KCALS, 60G PROTEIN CONTINUE TO MONITOR PO INTAKE CLOSELY
[2022-07-19] MEDS: cefTRIAXone sodium 1 GM in 0.9 % Sodium Chloride 50 ML IV (13:52)
--- NOTE | 2022-07-19 14:01 | HO.PM.IMPN ---
Subjective Subjective Date of Service: 07/19/22 Interval History: Feels better this morning, complaining of non productive cough, no fevers no chills, on 2 L of oxygend has been in bed since admission, refusing to ambulate, no acute overnight events. Review of Systems Review of Systems: Yes all other systems are reviewed and are negative Physical Exam Vital Signs: Vital Signs: Last Vital Signs Temp 97.4 F 07/19/22 11:24 Pulse 90 07/19/22 11:24 Resp 16 07/19/22 11:24 BP 105/58 L 07/19/22 11:24 Pulse Ox 92 07/19/22 11:41 O2 Del Method 07/19/22 11:41 O2 Flow Rate 3 07/19/22 08:00 BMI result Body Mass Index 16.0 Const: Other: General awake alert in no acute distress. Neck no JVD. CVS regular rate rhythm, Respiratory lungs clear to auscultation, no respiratory distress, no wheeze, no rhonchi. Gastrointestinal abdomen soft, nontender, bowel sounds audible Extremities no edema. Neuro moving all 4 extremity, speech clear. Skin no rash Objective Data Active Medications Acetaminophen (Acetaminophen 325 Mg Tablet) 650 mg PO Q6H PRN PRN Reason: Pain, Mild (Pain Scale 1-3) Last Admin: 07/14/22 06:01 Dose: 650 mg Documented By: JAKE Albuterol Sulfate (Albuterol Sulfate (0.083%) 2.5 Mg/3 Ml Vial.Neb) 2.5 mg INHALE Q2H PRN PRN Reason: Shortness of Breath/Wheezing Dexamethasone Sodium Phosphate (Dexamethasone Sod Phosphate 4 Mg/Ml Vial) 6 mg IVPUSH DAILY [facility] Stop: 07/23/22 09:01 Last Admin: 07/19/22 08:50 Dose: 6 mg Documented By: LANCE Enoxaparin Sodium (Enoxaparin Sodium 40 Mg/0.4 Ml Syringe) 40 mg SUBCUT Q24H [facility] Last Admin: 07/18/22 20:11 Dose: 40 mg Documented By: ANTJOSE Ferrous Sulfate (Ferrous Sulfate 324 Mg Tablet.) 324 mg PO DAILY [facility] Last Admin: 07/19/22 08:49 Dose: 324 mg Documented By: LANCE Folic Acid (Folic Acid 1 Mg Tablet) 1 mg PO DAILY [facility] Last Admin: 07/19/22 08:49 Dose: 1 mg Documented By: LANCE Ceftriaxone Sodium 1 gm/ (Sodium Chloride) 50 mls @ 100 mls/hr IV Q24H [facility] Last Admin: 07/19/22 13:52 Dose: 100 mls/hr Documented By: LANCE Doxycycline Hyclate 100 mg/ (Sodium Chloride) 250 mls @ 166.67 mls/hr IV Q12H [facility] Last Infusion: 07/18/22 21:51 Dose: 0 mls/hr Documented By: ANTJOSE Magnesium Oxide (Magnesium Oxide 400 Mg Tablet) 400 mg PO BIDPC [facility] Last Admin: 07/19/22 08:49 Dose: 400 mg Documented By: LANCE Midodrine (Midodrine Hcl 10 Mg Tablet) 10 mg PO TIDAC [facility] Last Admin: 07/19/22 13:54 Dose: 10 mg Documented By: LANCE Multivitamins/Vitamin C (Multivitamin Tablet) 1 tab PO DAILY [facility] Last Admin: 07/19/22 08:49 Dose: 1 tab Documented By: LANCE Nicotine (Nicotine 21 Mg Patch.Td24) 21 mg TRANSDERMA DAILY [facility] Last Admin: 07/19/22 08:50 Dose: 21 mg Documented By: LANCE Omeprazole (Omeprazole 40 Mg Capsule.Dr) 40 mg PO DAILY@0630 [facility] Last Admin: 07/19/22 06:05 Dose: 40 mg Documented By: IAN Ondansetron HCl (Ondansetron Hcl 4 Mg/2 Ml Vial) 4 mg IVPUSH Q8H PRN PRN Reason: Nausea and Vomiting Sodium Chloride (0.9 % Sodium Chloride Flush 3 Ml Syringe) 3 ml IVFLUSH QSHIFT [facility] Last Admin: 07/19/22 08:50 Dose: Not Given Documented By: LANCE Non-Admin Reason: Unable to Scan Barcode Thiamine HCl (Thiamine Hcl 100 Mg Tablet) 100 mg PO DAILY [facility] Last Admin: 07/19/22 08:49 Dose: 100 mg Documented By: LANCE Labs CBC & Chem 7: 07/19/22 06:16 07/19/22 06:16 Labs: Laboratory Results - last 24 hr 07/19/22 07/19/22 06:16 06:16 MCV 93.9 MCH 31.0 MCHC 33.0 RDW 19.2 H Plt Count 346 MPV 9.0 L Immature Gran % (Auto) 0.5 H Neut % (Auto) 38.6 L Lymph % (Auto) 46.5 H [place] % (Auto) 14.0 H Eos % (Auto) 0.2 Baso % (Auto) 0.2 Lymph # (Auto) 2.8 [place] # (Auto) 0.8 Eos # (Auto) 0.0 Baso # (Auto) 0.0 Abs Immat Gran (auto) 0.03 Absolute Neuts (auto) 2.3 Absolute Nucleated RBC 0.000 Nucleated RBC % (auto) 0.0 Anion Gap 13 Estim Creat Clear Calc 80.7 Estimated GFR > 60 Fasting Glucose 77 Calcium 8.0 L Total Bilirubin 0.3 AST 32 H ALT 17 Alkaline Phosphatase 91 Total Protein 5.2 L Albumin 2.6 L Microbiology Microbiology Results: Microbiology 07/13/22 16:08 Blood Culture - Final Blood - Venous No growth after 5 days. 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 She was found to be hypoxic from Covid-19 infection with bilateral pleural effusions 1.Acute hypoxic respiratory failure secondary to Covid-19 - finish course of Remdesivir, (04/04), on IV dexamethasone,(06/09) - continue DuoNebs PRN, home O2 eval - on iv CTX/Doxycyline day 03/05 will add cough medication Patient has been bed-bound in last several weeks, did not participated with PT at the rehab facility, mostly in bed and provides the care, will obtain PT eval 2.Paroxysmal atrial fibribrilation - not on anticoagulation with history of GI bleeds - rate control as indicated 3.Chronic anemia - stable hematocrit, continue Fe + folate supplementation 4.Hypokalemia Potassium normalized s/p replacement # VTE ppx - LMWH with caution given anemia/GI blood loss; monitor Hb carefully require ongoing hospitalization for IV steroids secondary to COVID-19 and hypoxia Quality Stroke Does the patient have a stroke diagnosis?: No VTE Prior VTE?: No VTE Risk Level:: Medical - moderate - high VTE Device Contraindication: N/A - Device Ordered VTE Drug Contraindication: N/A - Med Ordered
[2022-07-19] MEDS: Doxycycline Hyclate 100 MG in 0.9 % Sodium Chloride 250 ML 166.67 MG IV (14:21)
[2022-07-19] MEDS: 0.9 % Sodium Chloride Flush 3 ML SYRINGE IVFLUSH ×2 (16:51→19:55)
[2022-07-19] MEDS: guaiFENesin DM 100/10/5 ML 5 ML SYRUP 10 ML PO ×2 (16:51→19:55)
[2022-07-19] MEDS: Enoxaparin Sodium 40 MG/0.4 ML SYRINGE SUBCUT (19:55)
[2022-07-20] MEDS: Doxycycline Hyclate 100 MG in 0.9 % Sodium Chloride 250 ML 166.67 MG IV ×2 (00:10→13:00)
[2022-07-20 03:22] VITALS: BP 113/59; PULSE 78; RESP 16; TEMP 37.1; O2SAT 90
[2022-07-20] MEDS: Omeprazole 40 MG CAPSULE.DR PO (05:58)
[2022-07-20] MEDS: Midodrine HCl 10 MG TABLET PO ×2 (05:58→10:19)
[2022-07-20 08:00] VITALS: BP 127/64; PULSE 82; RESP 20; TEMP 36.8; O2SAT 93
[2022-07-20 09:00] VITALS: O2SAT 93
[2022-07-20] MEDS: guaiFENesin DM 100/10/5 ML 5 ML SYRUP 10 ML PO (10:17)
[2022-07-20] MEDS: Folic Acid 1 MG TABLET PO (10:18)
[2022-07-20] MEDS: Ferrous Sulfate 324 MG TABLET.DR PO (10:18)
[2022-07-20] MEDS: Magnesium Oxide 400 MG TABLET PO (10:18)
[2022-07-20] MEDS: Multivitamin TABLET 1 TAB PO (10:19)
[2022-07-20] MEDS: Nicotine 21 MG PATCH.TD24 TRANSDERMA (10:19)
[2022-07-20] MEDS: dexAMETHasone sod phosphate 4 MG/ML VIAL 6 MG IVPUSH (10:19)
[2022-07-20] MEDS: Thiamine HCL 100 MG TABLET PO (10:19)
[2022-07-20] MEDS: 0.9 % Sodium Chloride Flush 3 ML SYRINGE IVFLUSH (10:22)
--- NOTE | 2022-07-20 11:53 | PM.DS ---
DS: Providers Provider Date of Service: 07/20/22 Date of admission: 07/13/22 17:47 Primary care physician: [facility] DS: Diagnosis Discharge Diagnosis (1) Acute respiratory failure with hypoxia: Status: Acute (2) COVID-19: Status: Acute (3) Hypokalemia: Status: Acute DS: Summary Hospital Course Hospital Course: Chief Complaint: fever, lethargy 77yo bedbound F recently admitted here 06/15-06/22/22 after not seeing a doctor for many years.? She was admitted for anemia due to chronic GI blood loss and folate deficiency, along with failure to thrive.? EGD on 06/17/22 showed esophagitis, moderate inflammation with Schatzki ring, patchy gastric erythema, grade 2 flap on retroflexed examination of cardia, mucosal atrophy with patchy erythema and few erosions of the duodenum.? Patient refused colonoscopy.? She was thought to have alcoholic neuropathy and COPD.? She was discharged to a SNF for short-term rehabilitation and just got home 4 days ago.? However, 2-3 days ago, she developed a cough and worsening dyspnea, along with fever and lethargy.? No sputum production and no chest pain.? She did a home test for Covid-19, which was positive; she is completely unvaccinated.? She arrived in the ED and was found to be tachycardic in the 110s-120s and febrile to 102.6.? SaO2 was 83%.? BP 86/41; she is on midodrine for low blood pressure.? She was given 1L IV NS and 40 mg of IV methylprednisolone.? Lactic acid was 2.1 and AVA confirmed the diagnosis of Covid-19.? The patient had an outpatient CT scan 3 days ago showing decreased R-sided pleural effusion, slightly increased L pleural effusion, and no change in the RUL pleural-based lung mass, for which plan is a repeat CT chest in 3 months. 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 She was found to be hypoxic from Covid-19 infection diagnosed by home test patient admitted to [facility] with a diagnosis of Acute hypoxic respiratory failure secondary to Covid-19 and treated with 5 day course of remdesivir, and IV dexamethasone, oxygen and updraft treatment as needed patient also received 5 day course of ceftriaxone and doxycycline since patient is feeling significantly better, on room air finger oximetry of 93% patient is bed ridden therefore home O2 testing was not done with ambulation,she did not qualify for home O2 at rest, patient is being discharged home to finish 3 more days of dexamethasone patient was evaluated by Physical therapy and since patient is bed ridden for last 6 months no skilled therapy recommended Patient need follow-up CT chest in 3 months as previously recommended due to 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 Paroxysmal atrial fibribrilation not on anticoagulation with history of GI bleeds Chronic anemia stable hematocrit, continue Fe + folate supplementation Hypokalemia ? Potassium normalized s/p replacement Time Spent with Patient Time attestation: Total time spent providing and/or coordinating discharge services: Discharge coordination time: Greater than 30 minutes Quality: Safe Use of Opioids Does Pt have an Active Cancer Diagnosis on the Problem List?: No Quality: Stroke Does the patient have a stroke diagnosis?: No Physical Exam Vital Signs: Vital Signs: Last Vital Signs Temp 98.3 F 07/20/22 08:00 Pulse 82 07/20/22 08:00 Resp 20 07/20/22 08:00 BP 127/64 07/20/22 08:00 Pulse Ox 93 07/20/22 09:00 O2 Del Method 07/20/22 09:00 O2 Flow Rate 3 07/19/22 08:00 BMI result Body Mass Index 16.0 Const: Other: General awake alert in no acute distress.? Neck no JVD. CVS? regular rate rhythm, Respiratory lungs clear to auscultation, diminished breath sounds left base, no respiratory distress, no wheeze, no rhonchi. Gastrointestinal abdomen soft, nontender, bowel sounds audible Extremities no edema. Neuro moving all 4 extremity, speech clear. Skin no rash DS: Data Data Completed and Pending Completed studies during hospitalization [Text1]: Procedures Excision of Esophagus, Via Natural or Artificial Opening Endoscopic, Diagnostic (06/14/22) Excision of Stomach, Pylorus, Via Natural or Artificial Opening Endoscopic, Diagnostic (06/14/22) Transfusion of Nonautologous Red Blood Cells into Peripheral Vein, Percutaneous Approach (06/14/22) Discharge Plan Discharge Patient Disposition: Home Health Service Discharge Diagnosis: Acute hypoxic respiratory failure COVID-19 infection Hypokalemia Chronic anemia Referrals: [facility] [Outside] - 1 Week Center,[facility] [Primary Care Provider] - 1 Week Discharge Medications: New dextromethorphan-guaifenesin 10-100 mg/5 mL Syrup 10 ml PO QID Qty: 237 0RF Rx Instructions: Take cough medication for 4 more days dexamethasone 6 mg tablet 6 mg PO DAILY Qty: 3 0RF Continued omeprazole 40 mg Capsule,Delayed Release(Dr/Ec) 40 mg PO DAILY@0630 Qty: 0 0RF magnesium oxide 400 mg (241.3 mg magnesium) Tablet 400 mg PO BIDPC Qty: 0 0RF folic acid 1 mg Tablet 1 mg PO DAILY Qty: 0 0RF midodrine 10 mg Tablet 10 mg PO TIDAC Qty: 0 0RF ferrous sulfate 324 mg (65 mg iron) Tablet,Delayed Release (Dr/Ec) 324 mg PO DAILY Qty: 0 0RF multivitamin [Daily-Alok] Tablet 1 tab PO DAILY Qty: 0 0RF thiamine mononitrate (vit B1) 100 mg Tablet 100 mg PO DAILY Qty: 0 0RF nicotine 21 mg/24 hr Patch 24 Hour 21 mg transdermal DAILY Qty: 0 0RF Discharge Orders: Discharge Order (Routine); Ordered 07/20/22 Ordered By: Kallie Suazo Diet: Advance to usual diet Activity on Discharge: As tolerated Stand Alone Forms: Patient Portal Discharge page Care Plan Goals: Take dexamethasone for 3 more days take cough medication for next 4 days recommended bed mobility exercises out of bed to chair and add advance activity as tolerated Strongly recommend to abstain from smoking and alcohol Health Concerns: Continue all home medication Plan of Treatment: Follow-up with primary care physician Assessment: As per discharge summary Discharge Date/Time: 07/20/22 15:00
[2022-07-20 12:00] VITALS: BP 126/76; PULSE 71; RESP 16; TEMP 36.8; O2SAT 94
--- NOTE | 2022-07-20 12:18 | MHC.CM.PN ---
Addendum entered by Meri Boone 07/20/22 15:28: CM RECEIVED A CALL FROM PTS DAUGHTER, PORTILLO, WHO REPORTS HER FATHER JUST INFORMED HER THE PT WAS ARRIVING HOME. CM APOLOGIZED THE AMBULANCE CO DID NOT PROVIDE AN UPDATE SHE INDICATED IT WAS FINE BUT SHE HAD OTHER QUESTIONS SHE REPORTS THE PT HAD A FIRST PT APPT SET UP FOR LAST WEEK BUT WAS INPT SO MISSED IT. SHE IS CONCERNED THE [facility] MAY NOT CONTINUE SERVICES IF SHE DOES NOT SEE SOMEONE SOON SHE REPORTS SHE DOES NOT REMEMBER THE NAME OF THE PROVIDER, BUT IT WAS A WOMAN IN [place] CM WILL REACH OUT TO [facility] TO SEE IF THEY HAVE THE PCP APPT INFO CM WILL ALSO TASK APPLE PRESS OPERATOR TO REQUEST A POST DC APPT BE MADE PT DISCHARGED HOME TODAY WITH RESUMPTION OF [facility] WHO INDICATED THEY WOULD PROVIDE SOC BY FRIDAY Original Note: CM INFORMED PT CLEARED TO DC TODAY SHE WILL RESUME [facility] AND NEED BLS TRANSPORT CM RECEIVED A CALL FROM PTS DAUGHTER/HCP, PORTILLO [phone] WHO REPORTS SHE JUST LEARNED ABOUT THE POTENTIAL DC FROM HER FATHER SHE REPORTS SHE THOUGHT SHE WOULD HEAR FROM SOMEONE BUT HAS NOT THROUGHOUT THE ENTIRE ADMISSION SHE REPORTS CONCERNS INCLUDING HAS THE PT COMPLETED ALL IV MEDS REQUIRED, IS SHE STILL CONTAGIOUS AND WILL SHE HAVE NEW MEDS AIDAN INFORMED HER PT WOULD BE ON PO MEDS AT DC, HER POSITIVE TEST WAS 7 DAYS AGO (CDC SUGGESTS DAYS) AND SHE WILL HAVE TWO NEW MEDS PORTILLO REPORTS CONCERN THAT THE [facility] NEVER STARTED IN THE PAST AND THE PT WILL HAVE NEW MEDS CM WILL CONTACT [facility] AND DETERMINE HOW SOON THEY CAN SEE THE PT, IF THE SOC IS NOT IN THE NEXT 48 HOURS NEW REFERRALS WILL BE MADE. PORTILLO WAS ALSO INFORMED THE AMBULANCE REFERRAL WAS SENT HOWEVER THEY HAVE NOT BEEN AVAILABLE ON THE WEEKEND CM WILL INFORM HER OF TRANSPORT TIME ONCE [facility] GIVES A DEFINITE ANSWER
== END 2022-07-20 15:00 | disposition home health service (06) | DRG 871 ==
LOC: HO.ED 16:37 → HO.EDOVER 17:54 → HO.IMC 07-16 21:00
PROVIDERS: Hospitalist; Physician Assistant; Admitting Provider Family Medicine; Emergency Provider Student in an Organized Health Care Education/Training Program; Visit Provider Hospitalist
DX: A41.89 Other specified sepsis (principal); E43 Unspecified severe protein-calorie malnutrition; J96.01 Acute respiratory failure with hypoxia; U07.1 COVID-19; R64 Cachexia; Z68.1 Body mass index [BMI] 19.9 or less, adult; J44.1 Chronic obstructive pulmonary disease with (acute) exacerbation; R65.20 Severe sepsis without septic shock; E86.0 Dehydration; G62.1 Alcoholic polyneuropathy; I48.0 Paroxysmal atrial fibrillation; E88.09 Other disorders of plasma-protein metabolism, not elsewhere classified; D63.8 Anemia in other chronic diseases classified elsewhere; D52.9 Folate deficiency anemia, unspecified; Z28.310 Unvaccinated for COVID-19; Z74.01 Bed confinement status; Z87.891 Personal history of nicotine dependence; Z79.899 Other long term (current) drug therapy
CPT/HCPCS: 36415; 71045; 71260; 80048; 80053; 80076; 82077; 82728; 82803; 83605; 83615; 83735; 84145; 85025; 85027; 86140; 87040; 87147; 87205; 87635; 93005; 94640; 96361; 96374; 96375; 97161; 99285; J0248; J0696; J1100; J1650; J1885; J2920; Q9967

== ENCOUNTER 2024-10-26 15:50 | Inpatient (IN) | payer MEDICARE, OTHER, SELFPAY ==
[2024-10-26] VITALS (7 sets, daily range): BP systolic 113–132; BP diastolic 63–75; PULSE 90–100; RESP 16–20; TEMP 36.9–37; O2SAT 87–99; BMI 18.7
--- NOTE | ~2024-10-26 | CT_ITS ---
EXAMINATION: CT ANGIOGRAM CHEST CLINICAL INFORMATION: Worsening postoperative shortness of breath. COMPARISON: Chest radiograph done earlier the same day and CTA chest dated 10/27/2024. TECHNIQUE: Multiple axial images were obtained through the chest after the administration of 65 mL of Omnipaque 350 intravenous contrast. Extensive vascular post-processing including two-dimensional and three-dimensional reformatted images were created and reviewed on an independent workstation. This CT examination was performed using dose optimization techniques as appropriate, variously including the following: *Automated exposure control *Adjustment of mA and/or kV according to patient size (this includes techniques or standardized protocols for targeted exams where dose is matched to indication/reason for exam; i.e. extremities or head) *Use of iterative reconstruction technique DLP: 184 mGy-cm. FINDINGS: QUALITY OF STUDY/CONTRAST BOLUS: Satisfactory. PULMONARY ARTERIES: No pulmonary emboli. Mild prominence of the central pulmonary arteries is unchanged which could indicate a degree of pulmonary hypertension. THORACIC AORTA: No thoracic aortic dilatation or dissection. Atherosclerotic calcifications are redemonstrated. Prominent intramural thrombus is again noted within the upper abdominal aorta, unchanged. LUNG: Emphysematous changes and chronic interstitial prominence are redemonstrated. Stable posterior right apical spiculated subpleural nodule. Bibasilar atelectasis versus early infiltrates, similar when compared to the prior examination. PLEURA: Small bilateral pleural effusions, new when compared to the prior examination. No pneumothorax. MEDIASTINUM: Normal heart size. No pericardial effusion. No hilar or mediastinal lymphadenopathy. No evidence of septal bowing or right heart strain. CORONARY ARTERY CALCIFICATION: Present. CHEST WALL/AXILLA: No axillary or internal mammary lymphadenopathy. OSSEOUS STRUCTURES: No acute or suspicious osseous abnormality. UPPER ABDOMEN: Partially visualized upper abdominal ascites is redemonstrated. No reflux of contrast into the hepatic veins to suggest elevated right heart pressures. CT/CT angio chest PE protocol IMPRESSION: 1. No CT angiographic evidence of acute pulmonary embolism. 2. Small bilateral pleural effusions, new when compared to the prior examination. Bibasilar atelectasis versus early infiltrates, similar when compared to the prior examination. 3. Emphysematous changes and chronic interstitial prominence are redemonstrated. Stable posterior right apical spiculated subpleural nodule. 4. Partially visualized upper abdominal ascites is redemonstrated. VTE: Negative. Fleischner guidelines were followed. Electronically signed by: Elijah Rebollar MD 10/28/2024 04:52 PM EST
--- NOTE | ~2024-10-26 | XR_ITS ---
EXAMINATION: XR CHEST CLINICAL INFORMATION: NGT PLACEMENT COMPARISON: 07/13/2022. CT chest 07/10/2022. TECHNIQUE: AP portable upright view of the chest was obtained. FINDINGS: NG tube present, tip terminating in the lateral fundus of the stomach, with side hole subdiaphragmatic. Lungs demonstrate advanced emphysematous changes bilaterally, with unchanged scarring in the right middle lobe and lateral left upper lobe. There are a few scattered calcified granulomata. No definite superimposed active disease. No effusions or pneumothorax. Mild cardiomegaly. Aorta is calcified and tortuous. Main pulmonary arteries are enlarged consistent with pulmonary arterial hypertension. No hilar masses. Soft tissues and osseous structures demonstrate right convex kyphoscoliosis of the thoracic spine. No acute bony abnormality. Healed left rib fractures noted. XR/XR chest 1V IMPRESSION: 1. NG tube in good position. 2. Mild cardiomegaly with enlarged main pulmonary arteries consistent with pulmonary arterial hypertension. 3. Ectatic and calcified aorta. 4. Advanced emphysema, with chronic scarring right middle lobe and lateral left upper lobe. No superimposed active pulmonary disease. Electronically signed by: Dale Bauman MD 10/27/2024 10:35 AM [facility]
--- NOTE | ~2024-10-26 | CT_ITS ---
EXAMINATION: CT ANGIOGRAM CHEST CLINICAL INFORMATION: Elevated D-dimer. Hypoxia. Borderline tachycardia. COMPARISON: Most recent chest radiograph date 10/27/[address] abdomen/pelvis dated 10/26/2024. CT chest dated 07/10/2022. TECHNIQUE: Multiple axial images were obtained through the chest after the administration of 65 mL of Omnipaque 350 intravenous contrast. Extensive vascular post-processing including two-dimensional and three-dimensional reformatted images were created and reviewed on an independent workstation. This CT examination was performed using dose optimization techniques as appropriate, variously including the following: *Automated exposure control *Adjustment of mA and/or kV according to patient size (this includes techniques or standardized protocols for targeted exams where dose is matched to indication/reason for exam; i.e. extremities or head) *Use of iterative reconstruction technique DLP: 280 mGy-cm FINDINGS: QUALITY OF STUDY/CONTRAST BOLUS: Satisfactory. PULMONARY ARTERIES: No pulmonary artery filling defect to suggest pulmonary embolism. Mild prominence of the central pulmonary arteries which could indicate a degree of pulmonary hypertension in the appropriate clinical setting. THORACIC AORTA: No thoracic aortic dilatation or dissection. Scattered atherosclerotic calcifications. LUNGS: Mild emphysematous changes with chronic interstitial prominence appears unchanged when compared to the prior examination. Resolution of the previously seen left-sided pleural effusion with persistent left basilar atelectasis versus scarring. Stable 1.0 cm spiculated nodule posteriorly within the right lung apex, unchanged when compared to the examination from 2021. No new large, confluent airspace consolidation. Scar versus atelectasis redemonstrated along the posterior aspect of the right middle lobe, unchanged. No new large pulmonary nodule or mass. PLEURA: Resolution of the previously seen left-sided pleural effusion. No new pleural effusion. No pneumothorax. MEDIASTINUM: Normal heart size. No pericardial effusion. No hilar or mediastinal lymphadenopathy. No evidence of septal bowing or right heart strain. CORONARY ARTERY CALCIFICATION: Present. CHEST WALL/AXILLA: No axillary or internal mammary lymphadenopathy. OSSEOUS STRUCTURES: No acute or suspicious osseous abnormality. UPPER ABDOMEN: Partially visualized mild upper abdominal ascites, new when compared to the prior examination. Upper abdominal aortic intramural hematoma and calcifications are redemonstrated. No reflux of contrast into the hepatic veins to suggest elevated right heart pressures. CT/CT angio chest PE protocol IMPRESSION: 1. No pulmonary artery filling defect to suggest pulmonary embolism. 2. Mild prominence of the central pulmonary arteries which could indicate a degree of pulmonary hypertension in the appropriate clinical setting. 3. Resolution of the previously seen left-sided pleural effusion with persistent left basilar atelectasis versus scarring. No new, large, confluent airspace consolidation. 4. Stable 1.0 cm spiculated nodule posteriorly within the right lung apex, unchanged when compared to the examination from 2021. According to the UPDATED 2017 Fleischner Society recommendations, the advised follow up imaging for a single solid nodule measuring greater than [address] at 3 months, PET/CT, or tissue sampling as clinically appropriate. Given that the nodule is unchanged over the past 24 months, continued attention on follow up is recommended. 5. Partially visualized mild upper abdominal ascites, new when compared to the prior examination. VTE: Negative. Fleischner guidelines were followed. Electronically signed by: Elijah Rebollar MD 10/28/2024 08:32 AM [facility]
--- NOTE | ~2024-10-26 | XR_ITS ---
EXAMINATION: XR CHEST CLINICAL INFORMATION: Short of breath COMPARISON: CTA chest dated 10/27/2024. TECHNIQUE: Frontal view of the chest was obtained. FINDINGS: Chronic interstitial prominence with right middle lobe atelectasis versus scarring, unchanged. No new airspace consolidation. No pleural effusion or pneumothorax. Stable cardiomediastinal silhouette. XR/XR chest 1V IMPRESSION: Chronic interstitial prominence with right middle lobe atelectasis versus scarring, unchanged. No acute cardiopulmonary findings. Electronically signed by: Elijah Rebollar MD 10/28/2024 12:37 PM [facility] [place]
--- NOTE | ~2024-10-26 | CT_ITS ---
EXAMINATION: CT ABDOMEN AND PELVIS WITH CONTRAST CLINICAL INFORMATION: Right upper quadrant/epigastric pain. Tenderness to palpation. Constipation. COMPARISON: CT chest dated 07/10/2022. CT liver dated 06/19/2022 TECHNIQUE: Multidetector volumetric images were obtained from the superior aspect of the liver through the pubic symphysis following administration 85 mL of Omnipaque 350 intravenous contrast. Sagittal and coronal reformatted images were obtained on the technologist's workstation. Oral contrast: No This CT examination was performed using dose optimization techniques as appropriate, variously including the following: *Automated exposure control *Adjustment of mA and/or kV according to patient size (this includes techniques or standardized protocols for targeted exams where dose is matched to indication/reason for exam; i.e. extremities or head) *Use of iterative reconstruction technique DLP: 297 mGy-cm FINDINGS: LUNG BASES: Mild bronchiectasis in the lower lobes, left greater than right. Linear pleural parenchymal scarring is present in the lingula and right middle lobe. Mild dependent atelectasis in the left lower lobe. Mild cardiomegaly. LIVER, GALLBLADDER, AND BILIARY TREE: The liver is normal in size and shape. No biliary duct dilatation. Again seen is a 1.3 cm cyst in the left hepatic lobe along the falciform ligament, decreased in size as compared to prior. There are numerous small subcentimeter hypoattenuating foci in the hepatic parenchyma measuring up to 5 mm in diameter which are new as compared to prior study from 2021. Trace pericholecystic fluid. No gallbladder wall thickening or significant surrounding fat stranding. No biliary ductal dilatation. PANCREAS: Unremarkable. SPLEEN: Unremarkable. ADRENAL GLANDS: Unremarkable. KIDNEYS AND URETERS: The kidneys are normal in size, shape, and attenuation. Multiple right parapelvic cysts. Small subcentimeter foci of cortical hypoattenuation kidneys are too small to characterize, though statistically favored to correspond to simple cysts. No recommended imaging follow-up. No hydronephrosis, hydroureter, or calculi seen. No perinephric stranding. BLADDER: Unremarkable. GASTROINTESTINAL TRACT: The distended cecum is displaced into the left upper quadrant anteriorly with associated distention of the terminal ileum. There is a mesenteric twist resulting in a closed loop obstruction. The cecum measures up to 11.3 cm in diameter with wall thickening and surrounding fat stranding. Small amount of intraperitoneal free fluid. No appreciable pneumatosis or portal venous gas. The proximal small bowel is normal in caliber. Multiple duodenal diverticula. There is severe sigmoid diverticulosis. No evidence of diverticulitis. ABDOMINAL WALL: No significant hernia is appreciated. LYMPH NODES: Normal. VASCULAR: Marked fibrofatty and calcific atheromatous disease is present throughout the abdominal aorta and branch vessels. Aneurysmal dilatation of the suprarenal abdominal aorta measures up to 3.5 cm, not appreciably changed as compared to prior. Aneurysmal dilatation of the infrarenal abdominal aorta measures 3 cm. PELVIC VISCERA: Uterus is surgically absent. No ovarian lesions. OSSEOUS STRUCTURES: Chronic superior endplate compression deformities at the T12 and L5 vertebral bodies. No acute fractures. Mild osteoarthritis mild degenerative convex scoliosis. 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 No appreciable pneumatosis or portal venous gas. Surgical consultation is advised. Severe sigmoid diverticulosis without evidence of acute diverticulitis. Marked calcification fibrofatty atheromatous disease in the abdominal aorta, iliac arteries, and visceral branches. Aneurysmal dilatation of the abdominal aorta to 3.5 cm appreciable change. Based on published guidelines in J Am Gudelia Radiol 2013; 10(10):789-794 and J Vasc Surg. 2018; 67:2-77, the recommendation for an abdominal aortic aneurysm with diameter 3.5-3.9 cm is follow-up every 2 years. Electronically signed by: Dale Rivera MD 10/26/2024 10:03 PM [facility]
--- NOTE | 2024-10-26 16:14 | ED_ITS ---
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 She reports onset was approximately 2.5 days ago. Pain is diffuse. She states that she has had a lack of appetite during this time, has not really consumed anything orally, subsequently has had no bowel movement for the past 2 days either, states she is not passing gas. She reports that she had 2 episodes of vomiting last night however this was after I was clearing my throat describing a post-tussive vomiting states she has not had any particular cough recently, no additional URI symptoms. Denies associated chest pain or shortness of breath. Denies genitourinary symptoms. Denies history of similar pain in the past. Denies associated fevers or chills. No recent sick contacts. No recent antibiotic usage. Related Data Previous Rx's ?Medication ?Instructions ?Recorded folic acid 1 mg tablet 1 mg PO DAILY #0 tabs 06/22/22 magnesium oxide 400 mg (241.3 mg 400 mg PO BIDPC #0 tabs 06/22/22 magnesium) tablet multivitamin (Daily-Alok tablet) 1 tab PO DAILY #0 tabs 06/22/22 omeprazole 40 mg capsule,delayed 40 mg PO DAILY@0630 #0 caps 06/22/22 release thiamine mononitrate (vit B1) 100 100 mg PO DAILY #0 tabs 06/22/22 mg tablet quetiapine 25 mg tablet 12.5 mg (1/2 x 25 mg) PO BEDTIME 08/20/24 #45 tabs Allergies Allergy/AdvReac Type Severity Reaction Status Date / Time No Known Allergies Allergy Verified 10/26/24 16:08 Review of Systems Review of Systems Yes all other systems are reviewed and are negative PMFSH Past Medical History Attestation statement: The following information was validated with the patient. Source: old records reviewed Medical History Paroxysmal atrial fibrillation Chronic blood loss anemia History of uterine fibroid Tobacco abuse History of arteriovenous malformation Surgical History History of hysterectomy Social History Social History Household Members: Spouse Housing: House Do you presently have visiting nurse or other home services: Yes Alcohol intake: current Patient Tobacco Use Status: Former Tobacco user Tobacco use type: Cigarette Cigarette Packs Per Day: 1 Cigarettes Per Day: 20.0 Smoked in Last 30 Days: No e-Cigarette/Vaping Use: Never Used Second Hand Smoke Exposure: Yes Use of substances other than those prescribed or required for medical reasons: No Advance Directives: Yes Advance Directives on File: Yes Advance Directives Date on File: 06/15/22 Do you have a plan to hurt others: No Plan service: No Current occupational status: retired Physical Exam ED Vital Signs: Vital Signs - 24 hr 10/26/24 16:00 10/26/24 16:03 10/26/24 18:38 Temperature 98.6 F 98.6 F Pulse Rate 95 100 Respiratory Rate 18 16 20 Blood Pressure 132/75 132/75 Pulse Oximetry 95 95 Oxygen Delivery Method Room Air Room Air Oxygen Flow Rate 10/26/24 19:18 10/26/24 20:00 10/26/24 22:02 Temperature 98.4 F 98.4 F Pulse Rate 96 90 Respiratory Rate 18 18 16 Blood Pressure 130/72 113/65 Pulse Oximetry 99 87 L 97 Oxygen Delivery Method Nasal Cannula Room Air Nasal Cannula Oxygen Flow Rate 2 2 BMI result Body Mass Index 18.7 Appearance: Alert.?Oriented to person, place and time. No acute distress.?Normal affect.? appears frail? Neck: Normal inspection.? Neck supple.?? CVS: Heart sounds normal. Normal heart rate and rhythm.? Pulses normal.?? Respiratory: No respiratory distress.? Lung sounds clear to auscultation bilaterally?? Abdomen: Soft use tenderness upon palpation.. No rebound tenderness at McBurney's point. Negative psoas sign. Negative Rovsing sign. Negative Hernandez sign. No CVAT. Hypoactive bowel sounds. No pulsatile mass.?? Skin: Skin warm and dry.? Normal skin color.? Extremities: No lower extremity edema.? Neuro: Moves all extremities spontaneously. Sensation intact bilaterally. Course Reevaluation(s) Reevaluation #1: patient had an episode of hypoxia down to 86% on room air, this was after she had received IV morphine, be side effect from the medication/ mild sedation. She was placed on O2 on 2 L via nasal cannula. She was awake and alert, 3 hours after receiving the initial morphine 2 mg IV, room air trial was performed and she again desaturated to 87% without any obvious distress, normal pleath. etiologies of this is unclear. She denies any reported shortness of breath, chest pain. Has not had a recent cough that she endorses. However as mentioned in HPI she did state that she had an episode of vomiting that appeared to be phlegm after clearing her throat . my personal infection of CT of the abdomen pelvis significantly dilated bowel loops with air concerning for obstruction/ volvulus. I reviewed this with my attending Dr. Cross as well. Calling radiology for impression. Reevaluation #2: Received call from [facility] regarding critical CT abdomen and pelvis, cecal volvulus with closely for obstruction with cecal wall thickening fat stranding. Consulted with General surgery Dr. 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 intake and lack of bowel movement over the past 2 days. Abdominal examination Diffuse tenderness upon palpation, hypoactive bowel sounds, overall without signs of systemic toxicity found to be afebrile without tachycardia, no hypotension. No associated chest pain shortness of breath or URI symptoms to suggest pneumonia, no clinical evidence of DVT or personal history of VTE/malignancy to suggest pulmonary embolism. No Associated chest pain to suggest myocardial infarction, less likely AAA, aortic dissection. negative Hernanedz sign, no fever or jaundice to suggest acute cholangitis, may possibly be biliary colic secondary to cholelithiasis. no recent hematemesis history less likely to suggest PUD. Denies excessive alcohol consumption, history of diabetes, lower suspicion acute pancreatitis. No rebound tenderness at McBurney's point, rigidity, guarding to suggest acute appendicitis. No appreciable hernia to suggest strangulation/incarceration. No associated genitourinary symptoms to suggest UTI/pyelonephritis, renal colic, hydronephrosis. Will obtain CBC to evaluate for leukocytosis/ anemia, CMP and lipase to evaluate for abnormal electrolytes /abnormal renal function/ abnormal hepatic/biliary function, CT AP, and Urinalysis. Differential Diagnosis Differential Diagnoses: The differential diagnosis associated with the presentation includes (See narrative above) Admission/Observation Consideration of admission/observation: Escalation of care including admission/observation considered (See narrative above ) Consult Healthcare Provider Management of the patient was discussed with: Account Development Representative ( see course narrative) Lab Data MDM Lab Attestation statement: I reviewed the patient's lab results. CBC reveals a mild leukocytosis 12.2 with left shift, microcytic anemia that does not meet transfusion criteria, mild thrombocytosis. No electrolyte derangement. No JERMAINE. LFTs and lipase within normal range. 10/26/24 17:05 10/26/24 17:05 Labs: Lab Results 10/26/24 10/26/24 Range/Units 17:05 20:16 WBC 12.2 H (4.8-10.8) X10*3/uL RBC 4.81 D (4.20-5.50) X10*6/uL Hgb 10.0 L (12.0-16.0) g/dl Hct 34.6 L (37.0-47.0) % MCV 71.9 L (80.0-98.0) fL MCH 20.8 L (27.0-33.0) pg MCHC 28.9 L (31.0-35.0) g/dl RDW 18.8 H (11.0-16.0) % Plt Count 469 H D (160-400) X10*3/uL MPV 8.4 L (9.4-12.3) fL Immature Gran % (Auto) 0.3 (0.0-0.4) % Neut % (Auto) 84.7 H (45-73) % Lymph % (Auto) 6.8 L (20-40) % Candler % (Auto) 7.9 (2-11) % Eos % (Auto) 0.1 (0-4) % Baso % (Auto) 0.2 (0-2) % Lymph # (Auto) 0.8 L (1.2-4.9) X10*3/uL Candler # (Auto) 1.0 (0.1-1.2) X10*3/uL Eos # (Auto) 0.0 (0.0-0.4) X10*3/uL Baso # (Auto) 0.0 (0.0-0.2) X10*3/uL Abs Immat Gran (auto) 0.04 H (0.00-0.03) X10*3/uL Absolute Neuts (auto) 10.3 H (2.0-8.3) x10*3/uL Absolute Nucleated RBC 0.000 (0.0-0.012) X10*3/uL Nucleated RBC % (auto) 0.0 (0.0-0.2) /100WBC Sodium 138 (135-145) mmol/L Potassium 3.4 (3.3-5.1) mmol/L Chloride 102 (96-108) mmol/L Carbon Dioxide 20 L (22-29) mmol/L Anion Gap 19 (12-20) BUN 11 (9-16) mg/dL Creatinine 0.59 (0.5-1.4) mg/dL Estim Creat Clear Calc 56.5 Estimated GFR > 60 Random Glucose 131 H (60-115) mg/dL Calcium 9.1 D (8.4-10.2) mg/dL Total Bilirubin 0.6 (0.0-1.0) mg/dL AST 18 (5-31) U/L ALT < 6 (0-31) U/L Alkaline Phosphatase 65 (39-117) U/L Total Protein 7.6 (6.5-8.0) g/dL Albumin 4.0 (3.5-5.0) g/dL Lipase 8 (8-78) U/L Influenza Type A (PCR) NEGATIVE (Negative) Influenza Type B (PCR) NEGATIVE (Negative) RSV RNA Qual (PCR) NEGATIVE (Negative) SARS-CoV-2 RNA (RT-PCR) NEGATIVE (Negative) Radiology Impression Discussion of test interpretation with radiology: I have reviewed the radiologist's reading. 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 No appreciable pneumatosis or portal venous gas. Surgical consultation is advised. Severe sigmoid diverticulosis without evidence of acute diverticulitis. Marked calcification fibrofatty atheromatous disease in the abdominal aorta, iliac arteries, and visceral branches. Aneurysmal dilatation of the abdominal aorta to 3.5 cm appreciable change. Based on published guidelines in J Am Gudelia Radiol 2013; 10(10):789-794 and J Vasc Surg. 2018; 67:2-77, the recommendation for an abdominal aortic aneurysm with diameter 3.5-3.9 cm is follow-up every 2 years. Medications Administered Generic Name Dose Route Start Last Admin Trade Name Freq PRN Reason Stop Dose Admin Lactated Ringer's 1,000 mls @ 125 mls/hr 10/26/24 23:00 10/26/24 23:55 Lr IVCONT 125 mls/hr .Q8H MAHSA Administration Piperacillin Sod/Tazobactam 50 mls @ 100 mls/hr 10/26/24 23:00 10/26/24 23:55 Sod 3.375 gm/ Sodium Chloride IV 100 mls/hr Q6H MAHSA Administration Sodium Chloride 3 ml 10/27/24 00:00 10/26/24 23:56 0.9 % Sodium Chloride Flush 3 Ml Syringe IVFLUSH 3 ml QSHIFT MASHA Administration Discontinued Medications Generic Name Dose Route Start Last Admin Trade Name Freq PRN Reason Stop Dose Admin Hydromorphone HCl 0.5 mg 10/26/24 21:22 10/26/24 21:46 Hydromorphone Hcl 0.5 Mg/0.5 Ml Syringe IVPUSH 10/26/24 21:23 0.5 mg ONCE ONE Administration Protocol Sodium Chloride 1,000 mls @ 999 mls/hr 10/26/24 16:30 10/26/24 20:05 Ns IV 10/26/24 17:30 Infused .Q1H1M MAHSA Infusion Iohexol 100 ml 10/26/24 18:53 10/26/24 18:53 Iohexol 350 Mg/Ml 100 Ml Infus..Btl IV 10/26/24 18:54 85 ml ONCE ONE Administration Lidocaine HCl 15 ml 10/26/24 22:59 10/26/24 23:55 Lidocaine Hcl Viscous 2 % 15 Ml Solution MUCOUS MEM 10/26/24 23:00 15 ml ONCE ONE Administration Morphine Sulfate 2 mg 10/26/24 16:26 10/26/24 17:08 Morphine Sulfate 2 Mg/Ml Cartridge IVPUSH 10/26/24 16:27 2 mg ONCE ONE Administration Protocol Morphine Sulfate 2 mg 10/26/24 19:46 10/26/24 20:03 Morphine Sulfate 2 Mg/Ml Cartridge IVPUSH 10/26/24 19:47 2 mg ONCE ONE Administration Protocol Ondansetron HCl 4 mg 10/26/24 16:26 10/26/24 17:08 Ondansetron Hcl 4 Mg/2 Ml Vial IVPUSH 10/26/24 16:27 4 mg ONCE ONE Administration Critical Care Time Critical Care Time Critical Care Time: Yes Total Critical Care Time: 45 Attestation: I personally attest to this critical care time spent taking care of the patient exclusive of all other billable procedures was approximately 45 minutes including initial evaluation of patient, ordering tests, CTinterpretation, morphine and Dilaudid IV and re-evaluation, NGT insertion, EKG interpretation, medical consultation, documentation, re-evaluation. Discharge Plan Discharge Clinical Impression: Cecal volvulus Patient Disposition: Admitted As Inpatient Interventions: Admission Worksheet (ED) Last Done: 10/26/24 23:22
[2024-10-26] MEDS: ondansetron HCL 4 MG/2 ML VIAL IVPUSH (17:08)
[2024-10-26] MEDS: Morphine Sulfate 2 MG/ML CARTRIDGE IVPUSH ×2 (17:08→20:03)
[2024-10-26] MEDS: 0.9 % Sodium Chloride 1,000 ML 999 ML IV (17:08)
[2024-10-26 17:09] LABS: MANUAL DIFF FLAG NO
[2024-10-26 17:12] LABS: Basophils Percent Auto 0.2 % (0-2); Eosinophils Percent Auto 0.1 % (0-4); Hematocrit 34.6 % (37.0-47.0); Imm Gran Abs Auto 0.04 X10*3/uL (0.00-0.03); Imm Gran Pct Auto 0.3 % (0.0-0.4); Lymphocytes Absolute Auto 0.8 X10*3/uL (1.2-4.9); Lymphocytes Percent Auto 6.8 % (20-40); Mean Corpuscular HGB Conc 28.9 g/dl (31.0-35.0); Mean Corpuscular Hemoglobin 20.8 pg (27.0-33.0); Mean Corpuscular Volume 71.9 fL (80.0-98.0); Mean Platelet Volume 8.4 fL (9.4-12.3); Monocytes Percent Auto 7.9 % (2-11); Neutrophils Absolute Auto 10.3 x10*3/uL (2.0-8.3); Neutrophils Percent Auto 84.7 % (45-73); Platelet Count 469 X10*3/uL (160-400); Red Blood Count 4.81 X10*6/uL (4.20-5.50); Red Cell Distribution Width 18.8 % (11.0-16.0); White Blood Count 12.2 X10*3/uL (4.8-10.8)
[2024-10-26 17:25] LABS: Alanine Aminotransferase < 6 U/L (0-31); Alkaline Phosphatase 65 U/L (39-117); Anion Gap 19 (12-20); Aspartate Amino Transferase 18 U/L (5-31); Bilirubin Total 0.6 mg/dL (0.0-1.0); Blood Urea Nitrogen 11 mg/dL (9-16); Calcium 9.1 mg/dL (8.4-10.2); Carbon Dioxide 20 mmol/L (22-29); Chloride 102 mmol/L (96-108); Creatinine Clr Calc Pharmacy 56.5; Estimated Glomerular Filt Rate > 60; Glucose Random 131 mg/dL (60-115); Lipase 8 U/L (8-78); Potassium 3.4 mmol/L (3.3-5.1); Sodium 138 mmol/L (135-145); Total Protein 7.6 g/dL (6.5-8.0)
--- NOTE | 2024-10-26 17:52 | PC.NURSE ---
Pt desat into high 80s on room air. Placed on 2L NC, family at bedside states pt does not wear oxygen at home but sometimes feels sob. Pt asymptomatic at this time.
[2024-10-26] MEDS: iohexoL 350 MG/ML 100 ML INFUS..BTL IV (18:53)
--- NOTE | 2024-10-26 20:15 | PC.NURSE ---
trial on room air failed. Patient dipped to 87% before admin of morphine. Continues to c/o lower abd pain.
[2024-10-26 21:02] LABS: Influenza A PCR NEGATIVE (Negative); Influenza B PCR NEGATIVE (Negative); Resp Syncy Virus RNA Qual PCR NEGATIVE (Negative); SARS COV2 PCR INHOUSE NEGATIVE (Negative)
[2024-10-26] MEDS: HYDROmorphone HCl 0.5 MG/0.5 ML SYRINGE IVPUSH (21:46)
--- NOTE | 2024-10-26 22:47 | PC.NURSE ---
Pain has been difficult to control. Pt finally fell asleep after Dilaudid. Daughters at bedside and await provider update with CT results. Skin PWD. Has been offered bed jesus various times but states she has had small voids in brief. Brief is practically dry.
[2024-10-26] MEDS: Piperacillin Sodium/Tazobactam 3.375 GM in 0.9 % Sodium Chloride 50 ML IV (23:55)
[2024-10-26] MEDS: Lidocaine HCl Viscous 2 % 15 ML SOLUTION MUCOUS MEM (23:55)
[2024-10-26] MEDS: Lactated Ringers 1,000 ML 125 ML IVCONT (23:55)
[2024-10-26] MEDS: 0.9 % Sodium Chloride Flush 3 ML SYRINGE IVFLUSH (23:56)
[2024-10-27] VITALS (17 sets, daily range): BP systolic 94–134; BP diastolic 54–78; PULSE 88–142; RESP 16–20; TEMP 36.2–37.3; O2SAT 87–99; BMI 18.7
--- NOTE | 2024-10-27 | ECG_ITS ---
Test Reason : PREOP Blood Pressure : / mmHG Vent. Rate : 112 BPM Atrial Rate : 112 BPM P-R Int : 154 ms QRS Dur : 090 ms QT Int : 356 ms P-R-T Axes : 067 008 076 degrees QTc Int : 485 ms Sinus tachycardia with occasional Premature ventricular complexes ST & T wave abnormality, consider anterior ischemia Abnormal ECG When compared with ECG of 14-JUL-2022 00:45, Premature ventricular complexes are now Present Premature atrial complexes are no longer Present Vent. rate has increased BY 49 BPM Criteria for Inferior infarct are no longer Present Nonspecific T wave abnormality no longer evident in Inferior leads Referred By: Rachel Low Electronically Signed By:LONA ROB
--- NOTE | 2024-10-27 01:03 | P.CONHOSP_ITS ---
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 consult placed for pre-op evaluation. pt reports that she does not have a primary care doctor due to lack of convenience with her immobility and does not take medications. cardiac history includes paroxysmal a fib, no hx of CHF or MD. she is a former smoker for many years and reports that she was told she has scarring in the lungs but has never had a pulmonary w/u. at baseline she has dyspnea with minimal exertion such as rolling over in bed. no LE edema or chronic cough. she desaturated in the ED requiring O2 via NC, and it was thought to be related to the morphine, however, hours later when removed she was still hypoxic. she reports this is her usual baseline. Review of Systems 2 Constitutional: Constitutional: Denies chills, Reports fatigue, Denies fever(s), Denies headache(s) and Reports poor appetite Eyes: Eyes: Denies change in vision ENT: Denies headache(s), Denies nasal congestion, Denies nasal discharge and Denies sore throat Cardiovascular: Cardiovascular: Denies chest pain, Denies rapid heart rate, Denies lightheadedness, Reports dyspnea, Reports dyspnea on exertion and Reports orthopnea Respiratory: Respiratory: Denies chest congestion, Denies cough, Reports dyspnea, Reports dyspnea on exertion and Denies wheezing Gastrointestinal: Gastrointestinal: Reports as per HPI, Reports bloating, Reports constipation, Denies diarrhea, Denies nausea and Denies vomiting Genitourinary: Genitourinary: Denies dysuria and Denies urinary urgency Musculoskeletal: Musculoskeletal: Denies muscle weakness Integumentary/Breasts: Skin/Breast: Denies rash Neurologic: Denies confusion and Denies headache(s) Psychiatric: Psychiatric: Denies confusion Endocrine: Endocrine: Reports fatigue Allergic/Immunologic: Allergic/Immunologic: Denies wheezing FOR[facility]LY [facility], [facility] Medical History (Updated 10/27/24 @ 01:31 by Rachel Low PA-C) Paroxysmal atrial fibrillation Chronic blood loss anemia History of uterine fibroid Tobacco abuse History of arteriovenous malformation Functional capacity: bed bound Surgical History History of hysterectomy Social History Household Members: Spouse Housing: House Do you presently have visiting nurse or other home services: Yes Alcohol intake: current Patient Tobacco Use Status: Former Tobacco user Tobacco use type: Cigarette Cigarette Packs Per Day: 1 Cigarettes Per Day: 20.0 Smoked in Last 30 Days: No e-Cigarette/Vaping Use: Never Used Second Hand Smoke Exposure: Yes Use of substances other than those prescribed or required for medical reasons: No Advance Directives: Yes Advance Directives on File: Yes Advance Directives Date on File: 06/15/22 Do you have a plan to hurt others: No Plan service: No Current occupational status: retired Meds Allergies Allergy/AdvReac Type Severity Reaction Status Date / Time No Known Allergies Allergy Verified 10/26/24 16:08 Active Medications: Current Medications Acetaminophen (Acetaminophen 325 Mg Tablet) 650 mg PO Q6H PRN PRN Reason: Pain, Mild (Pain Scale 1-3), fever or headache Calcium Carbonate (Calcium Carbonate 750 Mg Tab.Chew) 750 mg PO Q4H PRN PRN Reason: Heartburn Hydromorphone HCl (Hydromorphone Hcl 1 Mg/Ml Syringe) 0.5 mg IVPUSH Q4H PRN; Protocol PRN Reason: Pain, Severe (Pain Scale 7-10) Lactated Ringer's (Lr) 1,000 mls @ 125 mls/hr IVCONT .Q8H COUNTS INCLUDE 234 BEDS AT THE [facility] Last Admin: 10/26/24 23:55 Dose: 125 mls/hr Piperacillin Sod/Tazobactam (Sod 3.375 gm/ Sodium Chloride) 50 mls @ 100 mls/hr IV Q6H COUNTS INCLUDE 234 BEDS AT THE [facility] Last Admin: 10/26/24 23:55 Dose: 100 mls/hr Magnesium Hydroxide (Milk Of Magnesia 30 Ml Oral.Susp) 30 ml PO DAILY PRN PRN Reason: Constipation Melatonin (Melatonin 3 Mg Tablet) 6 mg PO BEDTIME PRN PRN Reason: Insomnia Ondansetron HCl (Ondansetron Hcl 4 Mg/2 Ml Vial) 4 mg IVPUSH Q8H PRN PRN Reason: Nausea and Vomiting Sodium Chloride (0.9 % Sodium Chloride Flush 3 Ml Syringe) 3 ml IVFLUSH QSHIFT COUNTS INCLUDE 234 BEDS AT THE [facility] Last Admin: 10/26/24 23:56 Dose: 3 ml Physical Exam 2 Vital Signs and Narrative: Vital Signs: Last Vital Signs Temp 98.4 F 10/26/24 22:02 Pulse 90 10/26/24 22:02 Resp 16 10/26/24 22:02 BP 113/65 10/26/24 22:02 Pulse Ox 97 10/26/24 22:02 O2 Del Method Nasal Cannula 10/26/24 22:02 O2 Flow Rate 2 10/26/24 22:02 BMI result Body Mass Index 18.7 General: AOx3, no acute distress Resp: diminished throughout, no wheezing or crackles CVS: RRR, +murmur Skin: Warm, dry Extremities: No LE edema Psych: Appropriate affect Const: General: No confusion Orientation/consciousness: No confusion Neuro: General: No confusion Results Labs 10/26/24 17:05 10/26/24 17:05 Labs: Laboratory Results - last 24 hr 10/26/24 10/26/24 10/26/24 17:05 20:16 23:22 MCV 71.9 L MCH 20.8 L MCHC 28.9 L RDW 18.8 H Plt Count 469 H D MPV 8.4 L Immature Gran % (Auto) 0.3 Neut % (Auto) 84.7 H Lymph % (Auto) 6.8 L Jenkins % (Auto) 7.9 Eos % (Auto) 0.1 Baso % (Auto) 0.2 Lymph # (Auto) 0.8 L Jenkins # (Auto) 1.0 Eos # (Auto) 0.0 Baso # (Auto) 0.0 Abs Immat Gran (auto) 0.04 H Absolute Neuts (auto) 10.3 H Absolute Nucleated RBC 0.000 Nucleated RBC % (auto) 0.0 Anion Gap 19 Estim Creat Clear Calc 56.5 Estimated GFR > 60 Random Glucose 131 H Lactic Acid 1.0 Calcium 9.1 D Total Bilirubin 0.6 AST 18 ALT < 6 Alkaline Phosphatase 65 Total Protein 7.6 Albumin 4.0 Lipase 8 Influenza Type A (PCR) NEGATIVE Influenza Type B (PCR) NEGATIVE RSV RNA Qual (PCR) NEGATIVE SARS-CoV-2 RNA (RT-PCR) NEGATIVE Imaging Radiologist's Impressions: Impressions Abdomen/Pelvis CT 10/26/24 18:44 IMPRESSION: 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 No appreciable pneumatosis or portal venous gas. Surgical consultation is advised. Severe sigmoid diverticulosis without evidence of acute diverticulitis. Marked calcification fibrofatty atheromatous disease in the abdominal aorta, iliac arteries, and visceral branches. Aneurysmal dilatation of the abdominal aorta to 3.5 cm appreciable change. Based on published guidelines in J Am Gudelia Radiol 2013; 10(10):789-794 and J Vasc Surg. 2018; 67:2-77, the recommendation for an abdominal aortic aneurysm with diameter 3.5-3.9 cm is follow-up every 2 years. 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 consult placed for pre-op evaluation. cecal volvulus - plan per surgery - NPO - fluids: LR paroxysmal a fib - EKG without current a fib, sinus tach with occ PVCs - no home meds or anticoagulants dyspnea, desaturation episodes requiring O2 -- ?COPD vs CHF vs PE - CXR pending - check BNP and d-dimer - if BNP elevated will order echo - pulmonary consult hx ABLA - H+H .6 - monitor CBC Thank you for allowing me to participate in the pt's care. Will continue to follow. Please contact the medical team if any questions or concerns.
[2024-10-27 02:26] LABS: D Dimer High Sensitivity 624 NG/ML
[2024-10-27] MEDS: Lidocaine HCl 4 % Laryng-O-Jet 4 ML 1 APPL TOPICAL (02:40)
[2024-10-27 02:44] LABS: B Type Natriuretic Peptide 288 pg/mL (<100)
--- NOTE | 2024-10-27 03:33 | PM.HPGS ---
History of Present Illness History of Present Illness Date of Service: 10/27/24 Chief complaint: SBO Narrative: Myriam Jerry is a 79 year old female here with 2 day history of progressively worsening abdominal pain inability to pass flatus and stool. Because of progression of symptoms, patient presents to the emergency department for further evaluation. Workup including CT scan demonstrates findings consistent with a very significant cecal volvulus. Chart was reviewed and patient evaluated. Patient has a collection of comorbidities which are listed. White count 12. H&H stable. [facility] Past Medical History Medical History (Updated 10/27/24 @ 01:31 by Rachel Low PA-C) Paroxysmal atrial fibrillation Chronic blood loss anemia History of uterine fibroid Tobacco abuse History of arteriovenous malformation Surgical History Surgical History History of hysterectomy Social History Social History Household Members: Spouse Housing: House Do you presently have visiting nurse or other home services: Yes Alcohol intake: current Patient Tobacco Use Status: Former Tobacco user Tobacco use type: Cigarette Cigarette Packs Per Day: 1 Cigarettes Per Day: 20.0 Smoked in Last 30 Days: No e-Cigarette/Vaping Use: Never Used Second Hand Smoke Exposure: Yes Use of substances other than those prescribed or required for medical reasons: No Advance Directives: Yes Advance Directives on File: Yes Advance Directives Date on File: 06/15/22 Do you have a plan to hurt others: No Plan service: No Current occupational status: retired Meds Allergies Allergy/AdvReac Type Severity Reaction Status Date / Time No Known Allergies Allergy Verified 10/26/24 16:08 Active Medications: Current Medications Acetaminophen (Acetaminophen 325 Mg Tablet) 650 mg PO Q6H PRN PRN Reason: Pain, Mild (Pain Scale 1-3), fever or headache Calcium Carbonate (Calcium Carbonate 750 Mg Tab.Chew) 750 mg PO Q4H PRN PRN Reason: Heartburn Hydromorphone HCl (Hydromorphone Hcl 1 Mg/Ml Syringe) 0.5 mg IVPUSH Q4H PRN; Protocol PRN Reason: Pain, Severe (Pain Scale 7-10) Lactated Ringer's (Lr) 1,000 mls @ 125 mls/hr IVCONT .Q8H [facility] Last Admin: 10/26/24 23:55 Dose: 125 mls/hr Piperacillin Sod/Tazobactam (Sod 3.375 gm/ Sodium Chloride) 50 mls @ 100 mls/hr IV Q6H [facility] Last Admin: 10/26/24 23:55 Dose: 100 mls/hr Magnesium Hydroxide (Milk Of Magnesia 30 Ml Oral.Susp) 30 ml PO DAILY PRN PRN Reason: Constipation Melatonin (Melatonin 3 Mg Tablet) 6 mg PO BEDTIME PRN PRN Reason: Insomnia Ondansetron HCl (Ondansetron Hcl 4 Mg/2 Ml Vial) 4 mg IVPUSH Q8H PRN PRN Reason: Nausea and Vomiting Sodium Chloride (0.9 % Sodium Chloride Flush 3 Ml Syringe) 3 ml IVFLUSH QSHIFT [facility] Last Admin: 10/26/24 23:56 Dose: 3 ml Physical Exam Vital Signs: Vital Signs: Last Vital Signs Temp 98.4 F 10/26/24 22:02 Pulse 90 10/26/24 22:02 Resp 16 10/26/24 22:02 BP 113/65 10/26/24 22:02 Pulse Ox 97 10/26/24 22:02 O2 Del Method Nasal Cannula 10/26/24 22:02 O2 Flow Rate 2 10/26/24 22:02 BMI result Body Mass Index 18.7 Chest: Other: Chest breath sounds bilaterally, consistent with COPD. HS 1 + 2. AFib? GI: Other: Abdomen thin, marked periumbilical tenderness. Results Results Labs: Short CBC 10/26/24 Range/Units 17:05 WBC 12.2 H (4.8-10.8) X10*3/uL Hgb 10.0 L (12.0-16.0) g/dl Hct 34.6 L (37.0-47.0) % Plt Count 469 H D (160-400) X10*3/uL BMP 10/26/24 17:05 Sodium 138 Potassium 3.4 Chloride 102 Carbon Dioxide 20 L BUN 11 Creatinine 0.59 Calcium 9.1 D Liver Function 10/26/24 Range/Units 17:05 Total Bilirubin 0.6 (0.0-1.0) mg/dL AST 18 (5-31) U/L ALT < 6 (0-31) U/L Alkaline Phosphatase 65 (39-117) U/L Albumin 4.0 (3.5-5.0) g/dL Assessment and Plan (1) Cecal volvulus: Status: Acute Plan Risks, benefits, and alternatives exploratory laparotomy and bowel resection were reviewed with the patient and included but not limited to bleeding, infection, recurrence of events, numbness, pain, scarring, possible ostomy (bag), prolonged ventilator support and she wishes to proceed. All questions answered. Consent signed. Quality Stroke Does the patient have a stroke diagnosis?: No VTE Prior VTE?: No VTE Risk Level:: Surgical - low VTE Device Contraindication: N/A - Device Ordered VTE Drug Contraindication: Treatment Not Indicated Procedures Date of Service Date of Service: 10/27/24
--- NOTE | 2024-10-27 03:51 | HO.ANESPROP2 ---
HPI - Anesthesia Eval Consult details Narrative: Cecum volvulus PMFSH Active Problems Active Problems: All Active Problems Paroxysmal atrial fibrillation (Chronic) Pre-op evaluation (Acute) Cecal volvulus (Acute) Vaccine counseling (Acute) Bedbound (Acute) Insomnia (Acute) Physical exam, annual (Acute) Laboratory tests ordered as part of a complete physical exam (CPE) (Acute) COVID-19 (Acute) Cerebellar ataxia (Acute) Alcoholic peripheral neuropathy (Acute) Alcoholism (Acute) Malnutrition (Acute) Musculoskeletal immobility (Acute) Acute blood loss anemia (Acute) Heme positive stool (Acute) Past Medical History Medical History (Updated 10/27/24 @ 01:31 by Rachel Low PA-C) Paroxysmal atrial fibrillation Chronic blood loss anemia History of uterine fibroid Tobacco abuse History of arteriovenous malformation Functional capacity: bed bound Family History Family history of problems with anesthesia: No Surgical History Surgical History History of hysterectomy History of Problems with Anesthesia: No Social History Social History Household Members: Spouse Housing: House Do you presently have visiting nurse or other home services: Yes Alcohol intake: current Patient Tobacco Use Status: Former Tobacco user Tobacco use type: Cigarette Cigarette Packs Per Day: 1 Cigarettes Per Day: 20.0 e-Cigarette/Vaping Use: Never Used Second Hand Smoke Exposure: Yes Advance Directives Date on File: 06/15/22 service: No Current occupational status: retired Meds Allergies Allergy/AdvReac Type Severity Reaction Status Date / Time No Known Allergies Allergy Verified 10/26/24 16:08 Active Medications: Current Medications Acetaminophen (Acetaminophen 325 Mg Tablet) 650 mg PO Q6H PRN PRN Reason: Pain, Mild (Pain Scale 1-3), fever or headache Calcium Carbonate (Calcium Carbonate 750 Mg Tab.Chew) 750 mg PO Q4H PRN PRN Reason: Heartburn Hydromorphone HCl (Hydromorphone Hcl 1 Mg/Ml Syringe) 0.5 mg IVPUSH Q4H PRN; Protocol PRN Reason: Pain, Severe (Pain Scale 7-10) Lactated Ringer's (Lr) 1,000 mls @ 125 mls/hr IVCONT .Q8H [facility] Last Admin: 10/26/24 23:55 Dose: 125 mls/hr Piperacillin Sod/Tazobactam (Sod 3.375 gm/ Sodium Chloride) 50 mls @ 100 mls/hr IV Q6H [facility] Last Admin: 10/26/24 23:55 Dose: 100 mls/hr Magnesium Hydroxide (Milk Of Magnesia 30 Ml Oral.Susp) 30 ml PO DAILY PRN PRN Reason: Constipation Melatonin (Melatonin 3 Mg Tablet) 6 mg PO BEDTIME PRN PRN Reason: Insomnia Ondansetron HCl (Ondansetron Hcl 4 Mg/2 Ml Vial) 4 mg IVPUSH Q8H PRN PRN Reason: Nausea and Vomiting Sodium Chloride (0.9 % Sodium Chloride Flush 3 Ml Syringe) 3 ml IVFLUSH QSHIFT [facility] Last Admin: 10/26/24 23:56 Dose: 3 ml Exam Height,Weight and Vital Signs: Height 5 ft 1 in Weight 44.9 kg Last Vital Signs Temp 98.4 F 10/26/24 22:02 Pulse 108 H 10/27/24 03:36 Resp 17 10/27/24 03:36 BP 108/78 10/27/24 03:36 Pulse Ox 94 10/27/24 03:36 O2 Del Method Nasal Cannula 10/27/24 03:36 O2 Flow Rate 2 10/27/24 03:36 Pertinent Lab Results Pertinent Lab Results: Laboratory Tests 10/26/24 10/26/24 10/26/24 17:05 20:16 23:22 WBC 12.2 H RBC 4.81 D Hgb 10.0 L Hct 34.6 L MCV 71.9 L MCH 20.8 L MCHC 28.9 L RDW 18.8 H Plt Count 469 H D MPV 8.4 L Immature Gran % (Auto) 0.3 Neut % (Auto) 84.7 H Lymph % (Auto) 6.8 L [place] % (Auto) 7.9 Eos % (Auto) 0.1 Baso % (Auto) 0.2 Lymph # (Auto) 0.8 L [place] # (Auto) 1.0 Eos # (Auto) 0.0 Baso # (Auto) 0.0 Abs Immat Gran (auto) 0.04 H Absolute Neuts (auto) 10.3 H Absolute Nucleated RBC 0.000 Nucleated RBC % (auto) 0.0 D-Dimer High Sensitivty Sodium 138 Potassium 3.4 Chloride 102 Carbon Dioxide 20 L Anion Gap 19 BUN 11 Creatinine 0.59 Estim Creat Clear Calc 56.5 Estimated GFR > 60 Random Glucose 131 H Lactic Acid 1.0 Calcium 9.1 D Total Bilirubin 0.6 AST 18 ALT < 6 Alkaline Phosphatase 65 B-Natriuretic Peptide Total Protein 7.6 Albumin 4.0 Lipase 8 Influenza Type A (PCR) NEGATIVE Influenza Type B (PCR) NEGATIVE RSV RNA Qual (PCR) NEGATIVE SARS-CoV-2 RNA (RT-PCR) NEGATIVE 10/27/24 02:09 WBC RBC Hgb Hct MCV MCH MCHC RDW Plt Count MPV Immature Gran % (Auto) Neut % (Auto) Lymph % (Auto) [place] % (Auto) Eos % (Auto) Baso % (Auto) Lymph # (Auto) [place] # (Auto) Eos # (Auto) Baso # (Auto) Abs Immat Gran (auto) Absolute Neuts (auto) Absolute Nucleated RBC Nucleated RBC % (auto) D-Dimer High Sensitivty 624 Sodium Potassium Chloride Carbon Dioxide Anion Gap BUN Creatinine Estim Creat Clear Calc Estimated GFR Random Glucose Lactic Acid Calcium Total Bilirubin AST ALT Alkaline Phosphatase B-Natriuretic Peptide 288 H Total Protein Albumin Lipase Influenza Type A (PCR) Influenza Type B (PCR) RSV RNA Qual (PCR) SARS-CoV-2 RNA (RT-PCR) Airway Mallampati Class: II TM Dist: >3cm Neck ROM: Full Loose/Missing/Broken Teeth: No Heart: RRR Lungs: CTA Assessment and Plan Assessment Anesthesia Assessment: Anesthesia Plan Discussed and Chart Reviewed Final Anesthetic Review Family History of Problems with Anesthesia: No History of Problems with Anesthesia: No NPO: No ASA Class: III and Emergency Final Preanesthetic Review: No Changes in Pt Med Stat, Meds/Allgs Chart Reviewed, Consent Obtained/Reviewed and Anes Risks/Benef Reviewed Patient Risk: High Procedure Risk: High Anesthetic Plan Anesthetic Plan: GA Disposition: Standard PACU
--- NOTE | 2024-10-27 04:05 | PC.NURSE ---
Late entry Assumed care for pt at 1900. Pt aox4, resting at the bedside. No apparent distress noted. Pt on 2L NC with O2 sat 94%. Orders for NG tube placement. Unsuccessful attempt in both nostrils due to resistance/deviated septum this this nurse and a different nurse. MLP notified. MLP unsuccessful at placing NG tube for same reasons. MD made aware. MD able to place size 14 tube in the left nostril. Tube secured and xray done. Pt reports discomfort during procedure. 400ml of brown liquid removed after NG placement. NC changed to an oxymask to accommodate NG tube. 16G damon cath placed. Pt tolerated well. 100ml of clear yellow urine in collection container. Surgeon came to the bedside and updated pt on plan for surgery. Pt in agreement. Pts daughter, Desire, called and updated on plan per pts request. Desire would like a call once pt is out of surgery.
--- NOTE | 2024-10-27 06:17 | P.OP_ITS ---
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 No other gross intra-abdominal pathology demonstrated. Findings: [] Patient was brought to the operating room, placed on operative table supine position, after an adequate level of general anesthesia was induced, the patient's abdomen is prepped and draped in usual sterile fashion. Using a midline incision, this carried down through skin, subcutaneous tissue, and linea alba. Posterior fascia and peritoneum were entered sharply and extended along the length of the incision. Findings were as noted above. The ileocecal volvulus was identified. Proximal distal ileum and distal transverse colon were of normal caliber, and transected using MER staplers. Avoiding untwisting of this cecal volvulus, the mesentery was sequentially taken down using double fir ing of ligature device. Specimen sent to pathology. A functional end-to-end anastomosis using MER 60 and TA 60 staplers was performed between the distal ileum and the proximal transverse colon. Succus traversed the anastomosis with no leak. Crotch of the anastomosis was buttressed using interrupted 3-0 silk sutures. Mesenteric defect was closed using interrupted 3-0 Vicryl sutures. Abdominal cavity was copiously irrigated secured hemostasis. Wound was closed in the following manner; mass closure using 1. PDS suture was used to reapproximate the fascia. Skin was closed using interrupted inverted dermal 3-0 Vicryl sutures followed by Steri-Strips and sterile dressings. Wound was infiltrated 0.5% Marcaine at completion. Sponge, needle, and instrument counts reported correct. Patient tolerated the procedure well and emerged from anesthesia stable condition. EBL minimal
[2024-10-27] MEDS: Metoprolol Tartrate 5 MG/5 ML VIAL 2.5 MG IVPUSH (06:40)
[2024-10-27] MEDS: Piperacillin Sodium/Tazobactam 3.375 GM in 0.9 % Sodium Chloride 50 ML IV ×4 (06:44→22:40)
[2024-10-27] MEDS: fentaNYL citrate/PF 100 MCG/2 ML VIAL 25 MCG IVPUSH ×2 (06:53→06:58)
--- NOTE | 2024-10-27 07:00 | CA_ITS ---
Transthoracic Echocardiogram Patient (Last, First, Middle): Parent, Monae Miguel Gender: Female Date of : 1945 Age: 79 Procedure Date: 10/27/2024 Procedure Type: Transthoracic Echocardiogram Location: S3E Height: 154.94 cm Weight: 44.45 kg BSA: 1.40 m2 Heart Rate: bpm BP: 110 / 56 mmHg Emergency Technician: Referring MD: Rachel Low PA-C Symptoms: elevated BNP, no dx of CHF, pre-op eval Study Quality: Fair ECG Rhythm: Sinus tachycardia Conclusions: - The left ventricular systolic function is normal. The visually estimated ejection fraction is between 60-65%. - The mitral valve appears myxomatous. There is moderate mitral annular calcification. There is mild mitral valve regurgitation. - Myxomatous tricuspid valve is noted. There is mild to moderate tricuspid valve regurgitation. - Moderate pulmonary hypertension is present. Findings Left Ventricle Normal left ventricular cavity size. There is normal left ventricular wall thickness. The left ventricular systolic function is normal. The visually estimated ejection fraction is between 60-65%. There is no evidence of regional wall motion abnormalities. Diastolic function is normal for age. Right Ventricle Normal right ventricular cavity size and systolic function. Distal part of free wall appears akinetic. Atria The left atrium is mildly dilated. The right atrium is normal in size. There is a prominent Chiari network. Aortic Valve There is mild calcification of the aortic valve. There is no aortic valve stenosis. There is no aortic valve regurgitation. Mitral Valve The mitral valve appears myxomatous. There is moderate mitral annular calcification. There is mild mitral valve regurgitation. There is no mitral valve stenosis. Pulmonic Valve The pulmonic valve is likely normal. Tricuspid Valve Myxomatous tricuspid valve is noted. There is mild to moderate tricuspid valve regurgitation. Moderate pulmonary hypertension is present. Great Vessels The asc aorta is normal in size. Venous The inferior vena cava was not well visualized. Pericardium/Pleural There is no evidence of pericardial effusion. Prior Study Comparison Changes noted compared to prior study dated: 06/20/2022. Increase in RVSP. Measurements 2D Linear Measurements IVSd: 1.00 0.6-0.9/0.6-1.0 cm LVIDd: 4.63 3.9-5.3/4.2-5.9 cm LVIDd Index: 3.31 2.4-3.2/2.2-3.1 cm/m2 LVIDs: 3.07 2.0-3.6 cm LVPWd: 1.03 0.7-1.1 cm Ao Root: 4.10 2.1-3.5 cm LA Diam: 3.30 2.7-3.8/3.0-4.0 cm LAIDs Index: 2.36 1.5-2.3 cm/m2 LV Mass: 204.00 67-162/88-224 g LV Mass Index: 145.72 43-95/49-115 g/m2 LVOT Diam: 2.40 3.0+(-)1.3 cm Mitral Valve MV VTI: 0.21 MV Pk Mele: 1.01 MV Mn Mele: 0.65 MV Pk Grad: 4.00 MV Mn Grad: 2.00 MV Pk E: 0.63 MV PK A: 1.08 MV Decel Time: 141.00 E/A: 0.60 E'Lateral: 12.70 E'Medial: 10.90 E/E' Med: 5.70 E/E' Lat: 4.90 PHT: 41.00 MVA PHT: 5.37 MVA Continuity: 3.44 Decel Levy: 4.43 Aortic Valve AoV Pk Mele: 1.19 AoV Mn Mele: 0.74 AoV VTI: 0.17 AoV Pk Grad: 6.00 Aov Mn Grad: 3.00 SHERLY Cont.VTI: 4.20 LVOT LVOT Pk Mele: 0.88 LVOT Mn Mele: 0.55 LVOT VTI: 0.16 LVOT Pk Grad: 3.00 LVOT Mn Grad: 2.00 LVOT Diam: 2.40 LVOT Area: 4.52 Diastolic Function MV Pk E: 0.63 MV Pk A: 1.08 E/A: 0.60 E'Medial: 10.90 E/E' Med: 5.70 E' Laterial: 12.70 E/E' Lat: 4.90 Right Ventricle TAPSE (mm): 25.00 TVS' Mele: 16.00 Tricuspid Valve TR Pk Mele: 3.74 TR Pk Grad: 56.00 Great Vessels Aorta Ao Root-2D: 4.10 2.0-3.7 cm Ao Asc: 3.50 2.1-3.4 cm Pulmonary Valve PV Pk Mele: 1.01 Peak PV Grad: 4.00 Updated in Other Vendor System with Status of Final Dank De La Cruz MD electronically signed on 10/27/2024 12:16:09 PM with status of Final
--- NOTE | 2024-10-27 08:01 | PHA.MEDREC ---
Addendum entered by Mary Beth Marcus RPh 10/27/24 08:25: [facility] REVIEWED Original Note: Pharmacy Consult ? Medication Reconciliation Pharmacy has completed the medication reconciliation. Spoke with patient and she confirmed she is only taking Quetiapine 25mg tabs and confirmed she is taking 1/2 tabs at bedtime. She also stated she drinks one bottle a day. She last took her medications Friday night.
[2024-10-27] MEDS: 0.9 % Sodium Chloride Flush 3 ML SYRINGE IVFLUSH ×3 (09:04→17:00)
[2024-10-27] MEDS: Lactated Ringers 1,000 ML 125 ML IVCONT ×2 (09:06→16:59)
--- NOTE | 2024-10-27 14:12 | PM.EVENT ---
Event Note Date of Service: 10/27/24 Event Note: Called to see patient secondary to relative hypotension. Patient awake alert .. No complaints. Repeat CBC and CMP done with blood cultures. Do not believe this is related to sepsis; this is a postoperative sequelae secondary to surgery overnight. We will follow clinically Time Spent With Patient Time: Total time managing care of this patient today ____ minutes.
--- NOTE | 2024-10-27 15:18 | MHC.CM.PN ---
IMM DELIVERED PT LIVES WITH SPOUSE. USES [facility] FOR [facility]. NO SERVICES AT THIS TIME. +HCP ON FILE. PCP DR. SIMON DP: PT WILL BENEFIT FROM A P.T. EVAL TO DETERMINE DC DISPOSITION. PT STATES SHE WILL NEED BLS TRANSPORT. CM WILL CONTINUE TO FOLLOW FOR ANY CHANGE TO DC PLAN/NEEDS.
[2024-10-27 16:04] LABS: Hematocrit 28.2 % (37.0-47.0); Hemoglobin 8.2 g/dl (12.0-16.0); Mean Corpuscular HGB Conc 29.1 g/dl (31.0-35.0); Mean Corpuscular Hemoglobin 21.3 pg (27.0-33.0); Mean Corpuscular Volume 73.2 fL (80.0-98.0); Platelet Count 363 X10*3/uL (160-400); Red Blood Count 3.85 X10*6/uL (4.20-5.50); Red Cell Distribution Width 18.4 % (11.0-16.0); White Blood Count 16.7 X10*3/uL (4.8-10.8)
[2024-10-27 16:19] LABS: Alkaline Phosphatase 46 U/L (39-117)
[2024-10-27 16:22] LABS: Alanine Aminotransferase < 6 U/L (0-31); Albumin Level 3.2 g/dL (3.5-5.0); Anion Gap 18 (12-20); Aspartate Amino Transferase 23 U/L (5-31); Bilirubin Total 0.6 mg/dL (0.0-1.0); Blood Urea Nitrogen 12 mg/dL (9-16); Calcium 8.2 mg/dL (8.4-10.2); Carbon Dioxide 20 mmol/L (22-29); Chloride 110 mmol/L (96-108); Creatinine Clr Calc Pharmacy 60.7; Estimated Glomerular Filt Rate > 60; Glucose Random 97 mg/dL (60-115); Potassium 3.5 mmol/L (3.3-5.1); Sodium 144 mmol/L (135-145); Total Protein 6.1 g/dL (6.5-8.0)
[2024-10-27 16:40] LABS: SLIDE REVIEW MANUAL DIFF
[2024-10-27 16:46] LABS: Band Neutrophils Percent 2 % (3-5); Lymphocytes Absolute Manual 0.5 X10*3/uL (1.2-4.9); Lymphocytes Percent Manual 3 % (20-40); Monocytes Absolute Manual 0.7 X10*3/uL (0.1-1.2); Monocytes Percent Manual 4 % (2-11); Neutrophils Absolute Manual 15.5 X10*3/uL (2.0-8.3); Neutrophils Percent Manual 91 % (45-73)
[2024-10-27 16:51] LABS: Stomatocytes 1+ (5-14) /OIF
[2024-10-27 16:53] LABS: Platelet Estimate NORMAL (NORMAL); Platelet Morphology Comment NORMAL; RBC Morphology NOTED
[2024-10-27] MEDS: HYDROmorphone HCl 1 MG/ML SYRINGE 0.5 MG IVPUSH (18:39)
[2024-10-27] MEDS: iohexoL 350 MG/ML 100 ML INFUS..BTL IV (18:59)
[2024-10-28] VITALS (11 sets, daily range): BP systolic 87–106; BP diastolic 38–62; PULSE 90–141; RESP 17–20; TEMP 36.1–36.7; O2SAT 91–98
--- NOTE | 2024-10-28 | ECG_ITS ---
Test Reason : CK RHYTHM Blood Pressure : / mmHG Vent. Rate : 113 BPM Atrial Rate : 113 BPM P-R Int : 184 ms QRS Dur : 098 ms QT Int : 382 ms P-R-T Axes : 059 -11 268 degrees QTc Int : 523 ms Sinus tachycardia with Premature supraventricular complexes and with occasional Premature ventricular complexes Low voltage QRS ST & T wave abnormality, consider anterolateral ischemia Prolonged QT Abnormal ECG When compared with ECG of 28-OCT-2024 03:57, No significant changes seen Referred By: Uri Mckeon Electronically Signed By:LONA ROB
[2024-10-28] MEDS: Lactated Ringers 1,000 ML 125 ML IVCONT ×2 (00:47→08:42)
[2024-10-28] MEDS: HYDROmorphone HCl 1 MG/ML SYRINGE 0.5 MG IVPUSH ×4 (00:59→15:37)
--- NOTE | 2024-10-28 03:57 | ECG_ITS ---
Test Reason : CK RHYTHM Blood Pressure : / mmHG Vent. Rate : 119 BPM Atrial Rate : 000 BPM P-R Int : 000 ms QRS Dur : 098 ms QT Int : 376 ms P-R-T Axes : 000 000 103 degrees QTc Int : 528 ms Atrial fibrillation with rapid ventricular response with premature ventricular or aberrantly conducted complexes Low voltage QRS T wave abnormality, consider anterolateral ischemia Prolonged QT Abnormal ECG When compared with ECG of 27-OCT-2024 00:55, Atrial fibrillation has replaced Sinus rhythm Referred By: Uri Mckeon Electronically Signed By:LONA ROB
[2024-10-28] MEDS: Piperacillin Sodium/Tazobactam 3.375 GM in 0.9 % Sodium Chloride 50 ML IV ×3 (04:33→17:03)
--- NOTE | 2024-10-28 04:45 | PC.NURSE ---
0350 heart rate 70's -130's. notified, EKG done and tiger texted to pt put on a hall monitor.
[2024-10-28] MEDS: 0.9 % Sodium Chloride Flush 3 ML SYRINGE IVFLUSH ×2 (08:56→17:07)
--- NOTE | 2024-10-28 09:53 | ECG_ITS ---
Test Reason : CK RHYTHM Blood Pressure : / mmHG Vent. Rate : 121 BPM Atrial Rate : 000 BPM P-R Int : 000 ms QRS Dur : 096 ms QT Int : 360 ms P-R-T Axes : 000 -06 270 degrees QTc Int : 511 ms Normal sinus rhythm with Premature atrial complexes Premature ventricular complexes Low voltage QRS Possible Inferior infarct , age undetermined ST & T wave abnormality, consider anterolateral ischemia Abnormal ECG When compared with ECG of 28-OCT-2024 03:57, No significant changes seen Referred By: Uri Mckeon Electronically Signed By:LONA ROB
--- NOTE | 2024-10-28 09:57 | ECG_ITS ---
Test Reason : RHYTHM Blood Pressure : / mmHG Vent. Rate : 137 BPM Atrial Rate : 137 BPM P-R Int : 136 ms QRS Dur : 096 ms QT Int : 348 ms P-R-T Axes : 061 -17 110 degrees QTc Int : 525 ms Sinus tachycardia with occasional Premature ventricular complexes Low voltage QRS Incomplete right bundle branch block Inferior infarct (cited on or before 28-OCT-2024) ST & T wave abnormality, consider anterolateral ischemia Abnormal ECG When compared with ECG of 28-OCT-2024 09:53, No significant changes seen Referred By: Uri Mckeon Electronically Signed By:LONA ROB
[2024-10-28] MEDS: 0.9 % Sodium Chloride 500 ML IV (10:10)
[2024-10-28] MEDS: dilTIAZem HCL 125 MG in 0.9 % Sodium Chloride 100 ML 10 MG IVCONT (10:22)
[2024-10-28] MEDS: Furosemide 40 MG/4 ML VIAL IVPUSH (11:26)
--- NOTE | 2024-10-28 14:02 | HO.PM.IMPN ---
Subjective Subjective Date of Service: 10/28/24 Interval History: Noted to have increasing O2 requirements this a.m.. Repeat chest x-ray without significant changes Review of Systems Denies chest pain Admits shortness of breath with movement Admits to abdominal pain with movement Denies fever chills Physical Exam Vital Signs: Vital Signs: Last Vital Signs Temp 97.4 F 10/28/24 11:00 Pulse 99 10/28/24 11:51 Resp 20 10/28/24 11:51 BP 106/61 10/28/24 11:51 Pulse Ox 98 10/28/24 11:51 O2 Del Method Oxymask 10/28/24 11:51 O2 Flow Rate 10 10/28/24 11:51 Oxygen Flow Rate 3 10/28/24 03:26 BMI result Body Mass Index 18.7 Const: Other: Awake alert no acute distress speaking in full sentence Resp: Other: Diminished at bases but otherwise clear Cardio: Other: No S4; positive S1-S2; no S3 murmurs rubs or gallops GI: Other: Bowel sounds present albeit quiet Extrem: Other: No edema bilaterally Objective Data Active Medications Acetaminophen (Acetaminophen 325 Mg Tablet) 650 mg PO Q6H PRN PRN Reason: Pain, Mild (Pain Scale 1-3), fever or headache Calcium Carbonate (Calcium Carbonate 750 Mg Tab.Chew) 750 mg PO Q4H PRN PRN Reason: Heartburn Hydromorphone HCl (Hydromorphone Hcl 1 Mg/Ml Syringe) 0.5 mg IVPUSH Q4H PRN; Protocol PRN Reason: Pain, Severe (Pain Scale 7-10) Last Admin: 10/28/24 08:53 Dose: 0.5 mg Documented By: SAMANTHA Piperacillin Sod/Tazobactam (Sod 3.375 gm/ Sodium Chloride) 50 mls @ 100 mls/hr IV Q6H [facility] Last Infusion: 10/28/24 11:24 Dose: Infused Documented By: JOSE Diltiazem HCl 125 mg/ Sodium (Chloride) 125 mls @ 0 mls/hr IVCONT .Q0M [facility]; Protocol Last Admin: 10/28/24 10:22 Dose: 10 mg/hr, 10 mls/hr Documented By: JOSE Magnesium Hydroxide (Milk Of Magnesia 30 Ml Oral.Susp) 30 ml PO DAILY PRN PRN Reason: Constipation Magnesium Hydroxide (Milk Of Magnesia 30 Ml Oral.Susp) 30 ml PO DAILY PRN PRN Reason: Constipation Melatonin (Melatonin 3 Mg Tablet) 6 mg PO BEDTIME PRN PRN Reason: Insomnia Ondansetron HCl (Ondansetron Hcl 4 Mg/2 Ml Vial) 4 mg IVPUSH Q8H PRN PRN Reason: Nausea and Vomiting Sodium Chloride (0.9 % Sodium Chloride Flush 3 Ml Syringe) 3 ml IVFLUSH QSRIFT [facility] Last Admin: 10/28/24 08:37 Dose: Not Given Documented By: SAMANTHA Non-Admin Reason: IV Running Sodium Chloride (0.9 % Sodium Chloride Flush 3 Ml [facility]ringe) [facility] Last Admin: 10/28/24 08:56 Dose: 3 ml Documented By: SAMANTHA Labs 10/27/24 15:50 10/27/24 15:50 Labs: Laboratory Results - last 24 hr 10/27/24 15:50 MCV 73.2 L MCH 21.3 L MCHC 29.1 L RDW 18.4 H Plt Count 363 MPV 9.0 L Immature Gran % (Auto) Cancelled Neut % (Auto) Cancelled Lymph % (Auto) Cancelled [place] % (Auto) Cancelled Eos % (Auto) Cancelled Baso % (Auto) Cancelled Lymph # (Auto) Cancelled [place] # (Auto) Cancelled Eos # (Auto) Cancelled Baso # (Auto) Cancelled Abs Immat Gran (auto) Cancelled Absolute Neuts (auto) Cancelled Absolute Nucleated RBC 0.000 Nucleated RBC % (auto) 0.0 Neutrophils % (Manual) 91 H Band Neutrophils % 2 L Lymphocytes % (Manual) 3 L Monocytes % (Manual) 4 Abs Neuts (Manual) 15.5 H Lymphocytes # (Manual) 0.5 L Monocytes # (Manual) 0.7 Platelet Estimate NORMAL Plt Morphology Comment NORMAL RBC Morphology NOTED Stomatocytes 1+ (5-14) Smear Tech's Comments MANUAL DIFF Anion Gap 18 Estim Creat Clear Calc 60.7 Estimated GFR > 60 Random Glucose 97 Calcium 8.2 L D Total Bilirubin 0.6 AST 23 ALT < 6 Alkaline Phosphatase 46 Total Protein 6.1 L Albumin 3.2 L Hold Red Top See Note Assessment and Plan (1) Cecal volvulus: Status: Acute (2) Paroxysmal atrial fibrillation: Status: Chronic Plan Patient is a 79-year-old female with past medical history of 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 consult placed for pre-op evaluation. 1.Cecal volvulus - advance diet to clear liquids -surgery following 2.Dyspnea, desaturation episodes requiring O2 -- - CXR pending without evidence of acute failure - check CTA 3.PAF -acceptable control -no anticoagulation at present Quality Stroke Does the patient have a stroke diagnosis?: No VTE Prior VTE?: No VTE Risk Level:: Surgical - low VTE Device Contraindication: N/A - Device Ordered VTE Drug Contraindication: Treatment Not Indicated
--- NOTE | 2024-10-28 15:03 | P.PNGS_ITS ---
Subjective Subjective Date of Service: 10/29/24 Interval history: pt feeling worsening shortness of breath and had a ct angio to rule out PE- negative no abdo complaints Physical Exam 2 Vital Signs: Vital Signs: Last Vital Signs Temp 97.4 F 10/28/24 11:00 Pulse 99 10/28/24 11:51 Resp 20 10/28/24 11:51 BP 106/61 10/28/24 11:51 Pulse Ox 98 10/28/24 11:51 O2 Del Method Oxymask 10/28/24 11:51 O2 Flow Rate 10 10/28/24 11:51 Oxygen Flow Rate 3 10/28/24 03:26 BMI result Body Mass Index 18.7 Const: Other: pt with face mask oxygen feeling no abdo pain GI: Other: abdo soft - bandages intact Objective Data Active Medications Acetaminophen (Acetaminophen 325 Mg Tablet) 650 mg PO Q6H PRN PRN Reason: Pain, Mild (Pain Scale 1-3), fever or headache Calcium Carbonate (Calcium Carbonate 750 Mg Tab.Chew) 750 mg PO Q4H PRN PRN Reason: Heartburn Hydromorphone HCl (Hydromorphone Hcl 1 Mg/Ml Syringe) 0.5 mg IVPUSH Q4H PRN; Protocol PRN Reason: Pain, Severe (Pain Scale 7-10) Last Admin: 10/28/24 08:53 Dose: 0.5 mg Documented By: SAMANTHA Piperacillin Sod/Tazobactam (Sod 3.375 gm/ Sodium Chloride) 50 mls @ 100 mls/hr IV Q6H [facility] Last Infusion: 10/28/24 11:24 Dose: Infused Documented By: JOSE Diltiazem HCl 125 mg/ Sodium (Chloride) 125 mls @ 0 mls/hr IVCONT .Q0M [facility]; Protocol Last Admin: 10/28/24 10:22 Dose: 10 mg/hr, 10 mls/hr Documented By: JOSE Magnesium Hydroxide (Milk Of Magnesia 30 Ml Oral.Susp) 30 ml PO DAILY PRN PRN Reason: Constipation Magnesium Hydroxide (Milk Of Magnesia 30 Ml Oral.Susp) 30 ml PO DAILY PRN PRN Reason: Constipation Melatonin (Melatonin 3 Mg Tablet) 6 mg PO BEDTIME PRN PRN Reason: Insomnia Ondansetron HCl (Ondansetron Hcl 4 Mg/2 Ml Vial) 4 mg IVPUSH Q8H PRN PRN Reason: Nausea and Vomiting Sodium Chloride (0.9 % Sodium Chloride Flush 3 Ml Syringe) [facility] Last Admin: 10/28/24 08:37 Dose: Not Given Documented By: SAMANTHA Non-Admin Reason: IV Running Sodium Chloride (0.9 % Sodium Chloride Flush 3 Ml Syringe) 3 ml IVFLUSH [facility] Last Admin: 10/28/24 08:56 Dose: 3 ml Documented By: SAMANTHA Labs 10/27/24 15:50 10/27/24 15:50 Labs: Laboratory Results - last 24 hr 10/27/24 15:50 MCV 73.2 L MCH 21.3 L MCHC 29.1 L RDW 18.4 H Plt Count 363 MPV 9.0 L Immature Gran % (Auto) Cancelled Neut % (Auto) Cancelled Lymph % (Auto) Cancelled [place] % (Auto) Cancelled Eos % (Auto) Cancelled Baso % (Auto) Cancelled Lymph # (Auto) Cancelled [place] # (Auto) Cancelled Eos # (Auto) Cancelled Baso # (Auto) Cancelled Abs Immat Gran (auto) Cancelled Absolute Neuts (auto) Cancelled Absolute Nucleated RBC 0.000 Nucleated RBC % (auto) 0.0 Neutrophils % (Manual) 91 H Band Neutrophils % 2 L Lymphocytes % (Manual) 3 L Monocytes % (Manual) 4 Abs Neuts (Manual) 15.5 H Lymphocytes # (Manual) 0.5 L Monocytes # (Manual) 0.7 Platelet Estimate NORMAL Plt Morphology Comment NORMAL RBC Morphology NOTED Stomatocytes 1+ (5-14) Smear Tech's Comments MANUAL DIFF Anion Gap 18 Estim Creat Clear Calc 60.7 Estimated GFR > 60 Random Glucose 97 Calcium 8.2 L D Total Bilirubin 0.6 AST 23 ALT < 6 Alkaline Phosphatase 46 Total Protein 6.1 L Albumin 3.2 L Hold Red Top See Note Procedures Date of Service Date of Service: 10/29/24 Progress Note: A&P Assessment and plan (1) Cecal volvulus: Status: Acute Assessment and Plan: 79 yo female s/p right colectomy for cecal volvulus and compromised colon - doing well re gi perspective but having shortness of breath - med team following - may consider limit clear liquids until resp status improved for fear of aspiration Time Spent With Patient Time: Total time managing care of this patient today ____ minutes. Quality Stroke Does the patient have a stroke diagnosis?: No VTE Prior VTE?: No VTE Risk Level:: Surgical - low VTE Device Contraindication: N/A - Device Ordered VTE Drug Contraindication: Treatment Not Indicated
[2024-10-28] MEDS: iohexoL 350 MG/ML 100 ML INFUS..BTL 65 ML IV (16:19)
[2024-10-28] MEDS: Lactated Ringers 1,000 ML 100 ML IVCONT (20:21)
[2024-10-29] VITALS (9 sets, daily range): BP systolic 91–133; BP diastolic 50–61; PULSE 80–96; RESP 18–20; TEMP 36.1–37.1; O2SAT 96–100
[2024-10-29] MEDS: Piperacillin Sodium/Tazobactam 3.375 GM in 0.9 % Sodium Chloride 50 ML IV ×5 (00:19→23:25)
[2024-10-29] MEDS: 0.9 % Sodium Chloride Flush 3 ML SYRINGE IVFLUSH ×3 (00:21→15:59)
[2024-10-29] MEDS: HYDROmorphone HCl 1 MG/ML SYRINGE 0.5 MG IVPUSH ×4 (00:43→21:20)
[2024-10-29] MEDS: Lactated Ringers 1,000 ML 100 ML IVCONT ×2 (05:35→15:56)
[2024-10-29 08:34] LABS: MANUAL DIFF FLAG NO
[2024-10-29 08:39] LABS: Basophils Percent Auto 0.3 % (0-2); Eosinophils Percent Auto 0.1 % (0-4); Hematocrit 25.8 % (37.0-47.0); Hemoglobin 7.5 g/dl (12.0-16.0); Imm Gran Abs Auto 0.06 X10*3/uL (0.00-0.03); Imm Gran Pct Auto 0.6 % (0.0-0.4); Lymphocytes Absolute Auto 0.7 X10*3/uL (1.2-4.9); Lymphocytes Percent Auto 6.8 % (20-40); Mean Corpuscular HGB Conc 29.1 g/dl (31.0-35.0); Mean Corpuscular Hemoglobin 20.9 pg (27.0-33.0); Mean Corpuscular Volume 72.1 fL (80.0-98.0); Mean Platelet Volume 9.2 fL (9.4-12.3); Monocytes Absolute Auto 1.5 X10*3/uL (0.1-1.2); Monocytes Percent Auto 13.6 % (2-11); Neutrophils Absolute Auto 8.5 x10*3/uL (2.0-8.3); Neutrophils Percent Auto 78.6 % (45-73); Platelet Count 337 X10*3/uL (160-400); Red Blood Count 3.58 X10*6/uL (4.20-5.50); Red Cell Distribution Width 18.5 % (11.0-16.0); White Blood Count 10.8 X10*3/uL (4.8-10.8)
[2024-10-29 09:13] LABS: Alanine Aminotransferase 8 U/L (0-31); Albumin Level 2.6 g/dL (3.5-5.0); Alkaline Phosphatase 42 U/L (39-117); Anion Gap 9 (12-20); Aspartate Amino Transferase 31 U/L (5-31); Bilirubin Total 0.6 mg/dL (0.0-1.0); Blood Urea Nitrogen 4 mg/dL (9-16); Calcium 7.7 mg/dL (8.4-10.2); Carbon Dioxide 32 mmol/L (22-29); Chloride 100 mmol/L (96-108); Creatinine Clr Calc Pharmacy 72.6; Estimated Glomerular Filt Rate > 60; Glucose Fasting 111 mg/dL (60-99); Sodium 139 mmol/L (135-145); Total Protein 5.2 g/dL (6.5-8.0)
[2024-10-29] MEDS: Potassium Chloride/H20 10 MEQ/100 ML PIGGYBACK 100 MEQ IV ×4 (09:20→14:28)
[2024-10-29 09:57] LABS: Magnesium 1.5 mg/dL (1.6-2.6)
--- NOTE | 2024-10-29 12:19 | MHC.CLN ---
F/U DIET ADVANCED TO CLEAR LIQUIDS 10/28. QUALIFIES MODERATELY MALNOURISHED IN THE CONTEXT OF CHRONIC ILLNESS. TAKES ENSURE AT HOME (PREFERS CHOCOLATE). WHEN ABLE, ADD ENSURE TID (1050 KCALS, 60 G PROTEIN). FOLLOW FOR DIET ADVANCEMENT AND PO INTAKE.
--- NOTE | 2024-10-29 14:16 | HO.PM.IMPN ---
Subjective Subjective Date of Service: 10/29/24 Interval History: Slow progress. Still tolerating minimal liquids. No vomiting Review of Systems Denies chest pain Admits shortness of breath with movement Admits to abdominal pain with movement Denies fever chills Physical Exam Vital Signs: Vital Signs: Last Vital Signs Temp 97.0 F 10/29/24 12:00 Pulse 96 10/29/24 12:00 Resp 20 10/29/24 12:00 BP 91/56 L 10/29/24 12:00 Pulse Ox 100 10/29/24 12:00 O2 Del Method Nasal Cannula 10/29/24 12:00 O2 Flow Rate 10 10/29/24 12:00 Oxygen Flow Rate 92 10/29/24 03:00 BMI result Body Mass Index 18.7 Const: Other: Awake alert no acute distress speaking in full sentence Resp: Other: Diminished at bases but otherwise clear Cardio: Other: No S4; positive S1-S2; no S3 murmurs rubs or gallops GI: Other: Bowel sounds present albeit quiet Extrem: Other: No edema bilaterally Objective Data Active Medications Acetaminophen (Acetaminophen 325 Mg Tablet) 650 mg PO Q6H PRN PRN Reason: Pain, Mild (Pain Scale 1-3), fever or headache Calcium Carbonate (Calcium Carbonate 750 Mg Tab.Chew) 750 mg PO Q4H PRN PRN Reason: Heartburn Hydromorphone HCl (Hydromorphone Hcl 1 Mg/Ml Syringe) 0.5 mg IVPUSH Q4H PRN; Protocol PRN Reason: Pain, Severe (Pain Scale 7-10) Last Admin: 10/29/24 07:18 Dose: 0.5 mg Documented By: SAMANTHA Piperacillin Sod/Tazobactam (Sod 3.375 gm/ Sodium Chloride) 50 mls @ 100 mls/hr IV Q6H [facility] Last Infusion: 10/29/24 11:53 Dose: Infused Documented By: SAMANTHA Diltiazem HCl 125 mg/ Sodium (Chloride) 125 mls @ 0 mls/hr IVCONT .Q0M [facility]; Protocol Last Titration: 10/28/24 20:03 Dose: 0 mg/hr, 0 mls/hr Documented By: HARPAL Lactated Ringer's (Lr) 1,000 mls @ 100 mls/hr IVCONT .Q10H [facility] Last Admin: 10/29/24 05:35 Dose: 100 mls/hr Documented By: HARPAL Magnesium Hydroxide (Milk Of Magnesia 30 Ml Oral.Susp) 30 ml PO DAILY PRN PRN Reason: Constipation Magnesium Hydroxide (Milk Of Magnesia 30 Ml Oral.Susp) 30 ml PO DAILY PRN PRN Reason: Constipation Melatonin (Melatonin 3 Mg Tablet) 6 mg PO BEDTIME PRN PRN Reason: Insomnia Ondansetron HCl (Ondansetron Hcl 4 Mg/2 Ml Vial) 4 mg IVPUSH Q8H PRN PRN Reason: Nausea and Vomiting Sodium Chloride (0.9 % Sodium Chloride Flush 3 Ml Syringe) 3 ml IVFLUSH [facility] Last Admin: 10/29/24 08:22 Dose: 3 ml Documented By: SAMANTHA Sodium Chloride (0.9 % Sodium Chloride Flush 3 Ml Syringe) 3 ml IVFLUSH [facility] Last Admin: 10/29/24 08:23 Dose: Not Given Documented By: SAMANTHA Non-Admin Reason: Duplicate Order Labs 10/29/24 07:52 10/29/24 07:52 Labs: Laboratory Results - last 24 hr 10/29/24 07:52 MCV 72.1 L MCH 20.9 L MCHC 29.1 L RDW 18.5 H Plt Count 337 MPV 9.2 L Immature Gran % (Auto) 0.6 H Neut % (Auto) 78.6 H Lymph % (Auto) 6.8 L [place] % (Auto) 13.6 H Eos % (Auto) 0.1 Baso % (Auto) 0.3 Lymph # (Auto) 0.7 L [place] # (Auto) 1.5 H Eos # (Auto) 0.0 Baso # (Auto) 0.0 Abs Immat Gran (auto) 0.06 H Absolute Neuts (auto) 8.5 H Absolute Nucleated RBC 0.000 Nucleated RBC % (auto) 0.0 Anion Gap 9 L Estim Creat Clear Calc 72.6 Estimated GFR > 60 Fasting Glucose 111 H Calcium 7.7 L D Magnesium 1.5 L Total Bilirubin 0.6 AST 31 ALT 8 Alkaline Phosphatase 42 Total Protein 5.2 L Albumin 2.6 L Microbiology Microbiology Results: Microbiology 10/27/24 15:50 Blood Culture - Preliminary Blood - Venous No growth after 24 hours. 10/27/24 15:50 Blood Culture - Preliminary Blood - Venous No growth after 24 hours. 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 consult placed for pre-op evaluation. 1.Cecal volvulus - advance diet to clear liquids -surgery following 2.Dyspnea, desaturation episodes requiring O2 -- - CXR pending without evidence of acute failure - check CTA 3.PAF -acceptable control -no anticoagulation at present Quality Stroke Does the patient have a stroke diagnosis?: No VTE Prior VTE?: No VTE Risk Level:: Surgical - low VTE Device Contraindication: N/A - Device Ordered VTE Drug Contraindication: Treatment Not Indicated
[2024-10-29] MEDS: Acetaminophen 325 MG TABLET 650 MG PO (16:58)
--- NOTE | 2024-10-29 17:47 | PM.PNGS ---
Subjective Subjective Date of Service: 10/30/24 Interval history: feeling a bit better off face mask o2 but still with sob abdo feeling more distended not much gas as yet Physical Exam Vital Signs: Vital Signs: Last Vital Signs Temp 98.5 F 10/29/24 16:00 Pulse 85 10/29/24 16:00 Resp 20 10/29/24 16:00 BP 108/58 L 10/29/24 16:00 Pulse Ox 100 10/29/24 16:00 O2 Del Method Nasal Cannula 10/29/24 16:00 O2 Flow Rate 9 10/29/24 16:00 Oxygen Flow Rate 92 10/29/24 03:00 BMI result Body Mass Index 18.7 GI: Other: nontender bancages ok - hypo bowel sounds Objective Data Active Medications Acetaminophen (Acetaminophen 325 Mg Tablet) 650 mg PO Q6H PRN PRN Reason: Pain, Mild (Pain Scale 1-3), fever or headache Last Admin: 10/29/24 16:58 Dose: 650 mg Documented By: SAMANTHA Calcium Carbonate (Calcium Carbonate 750 Mg Tab.Chew) 750 mg PO Q4H PRN PRN Reason: Heartburn Hydromorphone HCl (Hydromorphone Hcl 1 Mg/Ml Syringe) 0.5 mg IVPUSH Q4H PRN; Protocol PRN Reason: Pain, Severe (Pain Scale 7-10) Last Admin: 10/29/24 14:36 Dose: 0.5 mg Documented By: SAMANTHA Piperacillin Sod/Tazobactam (Sod 3.375 gm/ Sodium Chloride) 50 mls @ 100 mls/hr IV Q6H [facility] Last Infusion: 10/29/24 17:29 Dose: Infused Documented By: SAMANTHA Diltiazem HCl 125 mg/ Sodium (Chloride) 125 mls @ 0 mls/hr IVCONT .Q0M [facility]; Protocol Last Titration: 10/28/24 20:03 Dose: 0 mg/hr, 0 mls/hr Documented By: HARPAL Lactated Ringer's (Lr) 1,000 mls @ 100 mls/hr IVCONT .Q10H [facility] Last Admin: 10/29/24 15:56 Dose: 100 mls/hr Documented By: SAMANTHA Magnesium Hydroxide (Milk Of Magnesia 30 Ml Oral.Susp) 30 ml PO DAILY PRN PRN Reason: Constipation Magnesium Hydroxide (Milk Of Magnesia 30 Ml Oral.Susp) 30 ml PO DAILY PRN PRN Reason: Constipation Melatonin (Melatonin 3 Mg Tablet) 6 mg PO BEDTIME PRN PRN Reason: Insomnia Ondansetron HCl (Ondansetron Hcl 4 Mg/2 Ml Vial) 4 mg IVPUSH Q8H PRN PRN Reason: Nausea and Vomiting Sodium Chloride (0.9 % Sodium Chloride Flush 3 Ml Syringe) 3 ml IVFLUSH QSTNFT [facility] Last Admin: 10/29/24 15:59 Dose: Not Given Documented By: SAMANTHA Non-Admin Reason: IV Running Sodium Chloride (0.9 % Sodium Chloride Flush 3 Ml Syringe) 3 ml IVFLUSH [facility] Last Admin: 10/29/24 15:59 Dose: 3 ml Documented By: SAMANTHA Labs 10/29/24 07:52 10/29/24 07:52 Labs: Laboratory Results - last 24 hr 10/29/24 07:52 MCV 72.1 L MCH 20.9 L MCHC 29.1 L RDW 18.5 H Plt Count 337 MPV 9.2 L Immature Gran % (Auto) 0.6 H Neut % (Auto) 78.6 H Lymph % (Auto) 6.8 L [place] % (Auto) 13.6 H Eos % (Auto) 0.1 Baso % (Auto) 0.3 Lymph # (Auto) 0.7 L [place] # (Auto) 1.5 H Eos # (Auto) 0.0 Baso # (Auto) 0.0 Abs Immat Gran (auto) 0.06 H Absolute Neuts (auto) 8.5 H Absolute Nucleated RBC 0.000 Nucleated RBC % (auto) 0.0 Anion Gap 9 L Estim Creat Clear Calc 72.6 Estimated GFR > 60 Fasting Glucose 111 H Calcium 7.7 L D Magnesium 1.5 L Total Bilirubin 0.6 AST 31 ALT 8 Alkaline Phosphatase 42 Total Protein 5.2 L Albumin 2.6 L Microbiology Microbiology Results: Microbiology 10/27/24 15:50 Blood Culture - Preliminary Blood - Venous No growth after 24 hours. 10/27/24 15:50 Blood Culture - Preliminary Blood - Venous No growth after 24 hours. Procedures Date of Service Date of Service: 10/30/24 Progress Note: A&P Assessment and plan (1) Cecal volvulus: Status: Acute Assessment and Plan: sp right colectomy doing ok with gi function little slow - need to optimize med issues and her resp issues - PE ruled out. decrease to sips of clear liquids Time Spent With Patient Time: Total time managing care of this patient today ____ minutes. Quality Stroke Does the patient have a stroke diagnosis?: No VTE Prior VTE?: No VTE Risk Level:: Surgical - low VTE Device Contraindication: N/A - Device Ordered VTE Drug Contraindication: Treatment Not Indicated
[2024-10-30] VITALS (9 sets, daily range): BP systolic 89–109; BP diastolic 51–67; PULSE 93–113; RESP 16–18; TEMP 36–37.2; O2SAT 80–100
[2024-10-30] MEDS: Lactated Ringers 1,000 ML 100 ML IVCONT ×2 (02:40→11:02)
[2024-10-30] MEDS: Piperacillin Sodium/Tazobactam 3.375 GM in 0.9 % Sodium Chloride 50 ML IV ×4 (04:00→22:21)
--- NOTE | 2024-10-30 04:45 | PC.NURSE ---
Pt reports feeling burning in damon catheter and is requesting for damon catheter be removed. MD notified. Order to pull damon catheter. Pt able to void using purewick. Pt bladder scanned at 04:00 for 151mls.
[2024-10-30] MEDS: HYDROmorphone HCl 1 MG/ML SYRINGE 0.5 MG IVPUSH ×3 (06:28→19:24)
[2024-10-30] MEDS: 0.9 % Sodium Chloride Flush 3 ML SYRINGE IVFLUSH ×2 (07:40→12:38)
[2024-10-30 08:33] LABS: MANUAL DIFF FLAG NO
[2024-10-30 08:40] LABS: Basophils Percent Auto 0.3 % (0-2); Eosinophils Percent Auto 0.4 % (0-4); Hematocrit 27.3 % (37.0-47.0); Hemoglobin 7.7 g/dl (12.0-16.0); Imm Gran Abs Auto 0.05 X10*3/uL (0.00-0.03); Imm Gran Pct Auto 0.5 % (0.0-0.4); Lymphocytes Absolute Auto 0.9 X10*3/uL (1.2-4.9); Lymphocytes Percent Auto 8.8 % (20-40); Mean Corpuscular HGB Conc 28.2 g/dl (31.0-35.0); Mean Corpuscular Hemoglobin 20.6 pg (27.0-33.0); Mean Platelet Volume 8.8 fL (9.4-12.3); Monocytes Absolute Auto 1.2 X10*3/uL (0.1-1.2); Monocytes Percent Auto 12.6 % (2-11); Neutrophils Absolute Auto 7.5 x10*3/uL (2.0-8.3); Neutrophils Percent Auto 77.4 % (45-73); Platelet Count 356 X10*3/uL (160-400); Red Blood Count 3.74 X10*6/uL (4.20-5.50); Red Cell Distribution Width 18.4 % (11.0-16.0); White Blood Count 9.7 X10*3/uL (4.8-10.8)
[2024-10-30 08:54] LABS: Alanine Aminotransferase < 6 U/L (0-31); Albumin Level 2.5 g/dL (3.5-5.0); Alkaline Phosphatase 43 U/L (39-117); Anion Gap 8 (12-20); Aspartate Amino Transferase 21 U/L (5-31); Bilirubin Total 0.5 mg/dL (0.0-1.0); Blood Urea Nitrogen 4 mg/dL (9-16); Calcium 7.6 mg/dL (8.4-10.2); Carbon Dioxide 36 mmol/L (22-29); Chloride 98 mmol/L (96-108); Estimated Glomerular Filt Rate > 60; Glucose Fasting 106 mg/dL (60-99); Potassium 3.1 mmol/L (3.3-5.1); Sodium 139 mmol/L (135-145); Total Protein 4.8 g/dL (6.5-8.0)
--- NOTE | 2024-10-30 15:05 | HO.PM.IMPN ---
Subjective Subjective Date of Service: 10/30/24 Interval History: Slow to improve. Still with pain but improving. Review of Systems Denies chest pain Admits shortness of breath with movement Admits to abdominal pain with movement Denies fever chills Physical Exam Vital Signs: Vital Signs: Last Vital Signs Temp 98.5 F 10/30/24 11:07 Pulse 113 H 10/30/24 11:07 Resp 16 10/30/24 11:07 BP 89/54 L 10/30/24 11:07 Pulse Ox 98 10/30/24 11:07 O2 Del Method Nasal Cannula 10/30/24 11:07 O2 Flow Rate 5 10/30/24 11:07 Oxygen Flow Rate 5 10/30/24 03:00 BMI result Body Mass Index 18.7 Const: Other: Awake alert no acute distress speaking in full sentence Resp: Other: Diminished at bases but otherwise clear Cardio: Other: No S4; positive S1-S2; no S3 murmurs rubs or gallops GI: Other: Bowel sounds present albeit quiet Extrem: Other: No edema bilaterally Objective Data Active Medications Acetaminophen (Acetaminophen 325 Mg Tablet) 650 mg PO Q6H PRN PRN Reason: Pain, Mild (Pain Scale 1-3), fever or headache Last Admin: 10/29/24 16:58 Dose: 650 mg Documented By: SAMANTHA Calcium Carbonate (Calcium Carbonate 750 Mg Tab.Chew) 750 mg PO Q4H PRN PRN Reason: Heartburn Hydromorphone HCl (Hydromorphone Hcl 1 Mg/Ml Syringe) 0.5 mg IVPUSH Q4H PRN; Protocol PRN Reason: Pain, Severe (Pain Scale 7-10) Last Admin: 10/30/24 12:38 Dose: 0.5 mg Documented By: KALPANA Piperacillin Sod/Tazobactam (Sod 3.375 gm/ Sodium Chloride) 50 mls @ 100 mls/hr IV Q6H [facility] Last Infusion: 10/30/24 10:56 Dose: Infused Documented By: KALPANA Lactated Ringer's (Lr) 1,000 mls @ 100 mls/hr IVCONT .Q10H [facility] Last Admin: 10/30/24 11:02 Dose: 100 mls/hr Documented By: KALPANA Magnesium Hydroxide (Milk Of Magnesia 30 Ml Oral.Susp) 30 ml PO DAILY PRN PRN Reason: Constipation Magnesium Hydroxide (Milk Of Magnesia 30 Ml Oral.Susp) 30 ml PO DAILY PRN PRN Reason: Constipation Melatonin (Melatonin 3 Mg Tablet) 6 mg PO BEDTIME PRN PRN Reason: Insomnia Ondansetron HCl (Ondansetron Hcl 4 Mg/2 Ml Vial) 4 mg IVPUSH Q8H PRN PRN Reason: Nausea and Vomiting Oxycodone HCl (Oxycodone Hcl Immed Release 5 Mg Tablet) 5 mg PO Q4H PRN PRN Reason: Pain, Moderate(Pain Scale 4-6) Sodium Chloride (0.9 % Sodium Chloride Flush 3 Ml Syringe) 3 ml IVFLUSH QSHIFT [facility] Last Admin: 10/30/24 12:38 Dose: 3 ml Documented By: KALPANA Labs 10/30/24 08:21 10/30/24 08:21 Labs: Laboratory Results - last 24 hr 10/30/24 08:21 MCV 73.0 L MCH 20.6 L MCHC 28.2 L RDW 18.4 H Plt Count 356 MPV 8.8 L Immature Gran % (Auto) 0.5 H Neut % (Auto) 77.4 H Lymph % (Auto) 8.8 L [place] % (Auto) 12.6 H Eos % (Auto) 0.4 Baso % (Auto) 0.3 Lymph # (Auto) 0.9 L [place] # (Auto) 1.2 Eos # (Auto) 0.0 Baso # (Auto) 0.0 Abs Immat Gran (auto) 0.05 H Absolute Neuts (auto) 7.5 Absolute Nucleated RBC 0.000 Nucleated RBC % (auto) 0.0 Anion Gap 8 L Estim Creat Clear Calc 71.0 Estimated GFR > 60 Fasting Glucose 106 H Calcium 7.6 L Total Bilirubin 0.5 AST 21 ALT < 6 Alkaline Phosphatase 43 Total Protein 4.8 L Albumin 2.5 L Microbiology Microbiology Results: Microbiology 10/27/24 15:50 Blood Culture - Preliminary Blood - Venous No growth after 48 hours. 10/27/24 15:50 Blood Culture - Preliminary Blood - Venous No growth after 48 hours. 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 consult placed for pre-op evaluation. 1.Cecal volvulus - advance diet to clear liquids -add oxycodone to pain regimen -surgery following 2.Dyspnea, desaturation episodes requiring O2 -- - workup negative. .. Likely atelectasis and COPD -titrate O2 as tolerated 3.PAF -acceptable control -no anticoagulation at present Quality Stroke Does the patient have a stroke diagnosis?: No VTE Prior VTE?: No VTE Risk Level:: Surgical - low VTE Device Contraindication: N/A - Device Ordered VTE Drug Contraindication: Treatment Not Indicated
--- NOTE | 2024-10-30 19:34 | P.PNGS_ITS ---
Subjective Subjective Date of Service: 10/30/24 Interval history: Patient is feeling well no new issues with her abdomen she is passing some gas tolerating liquids well feeling less bloated. Her breathing has improved as well. She is a little concerned to have a bowel movement as she is afraid she may not be able to control it Physical Exam 2 Vital Signs: Vital Signs: Last Vital Signs Temp 98.9 F 10/30/24 19:11 Pulse 109 H 10/30/24 19:11 Resp 16 10/30/24 19:11 BP 100/57 L 10/30/24 19:11 Pulse Ox 100 10/30/24 19:11 O2 Del Method Nasal Cannula 10/30/24 19:11 O2 Flow Rate 2 10/30/24 19:11 Oxygen Flow Rate 5 10/30/24 03:00 BMI result Body Mass Index 18.7 GI: Other: Abdomen is soft mildly distended active bowel sounds incision looks good Objective Data Active Medications Acetaminophen (Acetaminophen 325 Mg Tablet) 650 mg PO Q6H PRN PRN Reason: Pain, Mild (Pain Scale 1-3), fever or headache Last Admin: 10/29/24 16:58 Dose: 650 mg Documented By: SAMANTHA Calcium Carbonate (Calcium Carbonate 750 Mg Tab.Chew) 750 mg PO Q4H PRN PRN Reason: Heartburn Hydromorphone HCl (Hydromorphone Hcl 1 Mg/Ml Syringe) 0.5 mg IVPUSH Q4H PRN; Protocol PRN Reason: Pain, Severe (Pain Scale 7-10) Last Admin: 10/30/24 19:24 Dose: 0.5 mg Documented By: HARPAL Piperacillin Sod/Tazobactam (Sod 3.375 gm/ Sodium Chloride) 50 mls @ 100 mls/hr IV Q6H [facility] Last Infusion: 10/30/24 17:30 Dose: Infused Documented By: KALPANA Lactated Ringer's (Lr) 1,000 mls @ 100 mls/hr IVCONT .Q10H [facility] Last Admin: 10/30/24 11:02 Dose: 100 mls/hr Documented By: KALPANA Magnesium Hydroxide (Milk Of Magnesia 30 Ml Oral.Susp) 30 ml PO DAILY PRN PRN Reason: Constipation Magnesium Hydroxide (Milk Of Magnesia 30 Ml Oral.Susp) 30 ml PO DAILY PRN PRN Reason: Constipation Melatonin (Melatonin 3 Mg Tablet) 6 mg PO BEDTIME PRN PRN Reason: Insomnia Ondansetron HCl (Ondansetron Hcl 4 Mg/2 Ml Vial) 4 mg IVPUSH Q8H PRN PRN Reason: Nausea and Vomiting Oxycodone HCl (Oxycodone Hcl Immed Release 5 Mg Tablet) 5 mg PO Q4H PRN PRN Reason: Pain, Moderate(Pain Scale 4-6) Sodium Chloride (0.9 % Sodium Chloride Flush 3 Ml Syringe) 3 ml IVFLUSH QSHIFT [facility] Last Admin: 10/30/24 12:38 Dose: 3 ml Documented By: KALPANA Labs 10/30/24 08:21 10/30/24 08:21 Labs: Laboratory Results - last 24 hr 10/30/24 08:21 MCV 73.0 L MCH 20.6 L MCHC 28.2 L RDW 18.4 H Plt Count 356 MPV 8.8 L Immature Gran % (Auto) 0.5 H Neut % (Auto) 77.4 H Lymph % (Auto) 8.8 L [place] % (Auto) 12.6 H Eos % (Auto) 0.4 Baso % (Auto) 0.3 Lymph # (Auto) 0.9 L [place] # (Auto) 1.2 Eos # (Auto) 0.0 Baso # (Auto) 0.0 Abs Immat Gran (auto) 0.05 H Absolute Neuts (auto) 7.5 Absolute Nucleated RBC 0.000 Nucleated RBC % (auto) 0.0 Anion Gap 8 L Estim Creat Clear Calc 71.0 Estimated GFR > 60 Fasting Glucose 106 H Calcium 7.6 L Total Bilirubin 0.5 AST 21 ALT < 6 Alkaline Phosphatase 43 Total Protein 4.8 L Albumin 2.5 L Microbiology Microbiology Results: Microbiology 10/27/24 15:50 Blood Culture - Preliminary Blood - Venous No growth after 48 hours. 10/27/24 15:50 Blood Culture - Preliminary Blood - Venous No growth after 48 hours. Procedures Date of Service Date of Service: 10/30/24 Progress Note: A&P Assessment and plan (1) Cecal volvulus: Status: Acute Assessment and Plan: Patient is a 79-year-old female who is stable after right colectomy for cecal volvulus in compromised right colon. Overall is improving. Her respiratory status is good improving. Ileus is resolving and we will continue her on liquids until she has a bowel movement then advance her. We will be good to get her out of bed into the chair if not ambulating a little bit with a cyst now that her respiratory status is improving. P.o. pain meds Time Spent With Patient Time: Total time managing care of this patient today ____ minutes. Quality Stroke Does the patient have a stroke diagnosis?: No VTE Prior VTE?: No VTE Risk Level:: Surgical - low VTE Device Contraindication: N/A - Device Ordered VTE Drug Contraindication: Treatment Not Indicated
[2024-10-31] VITALS (7 sets, daily range): BP systolic 88–127; BP diastolic 51–64; PULSE 79–107; RESP 15–18; TEMP 36–36.8; O2SAT 96–100
[2024-10-31] MEDS: HYDROmorphone HCl 1 MG/ML SYRINGE 0.5 MG IVPUSH ×5 (01:57→23:25)
[2024-10-31] MEDS: Piperacillin Sodium/Tazobactam 3.375 GM in 0.9 % Sodium Chloride 50 ML IV ×4 (04:02→23:12)
[2024-10-31 06:33] LABS: MANUAL DIFF FLAG NO
[2024-10-31 06:40] LABS: Basophils Percent Auto 0.5 % (0-2); Eosinophils Absolute Auto 0.1 X10*3/uL (0.0-0.4); Eosinophils Percent Auto 1.7 % (0-4); Hematocrit 27.5 % (37.0-47.0); Hemoglobin 7.9 g/dl (12.0-16.0); Imm Gran Abs Auto 0.04 X10*3/uL (0.00-0.03); Imm Gran Pct Auto 0.5 % (0.0-0.4); Lymphocytes Absolute Auto 1.2 X10*3/uL (1.2-4.9); Lymphocytes Percent Auto 15.2 % (20-40); Mean Corpuscular HGB Conc 28.7 g/dl (31.0-35.0); Mean Corpuscular Hemoglobin 21.2 pg (27.0-33.0); Mean Corpuscular Volume 73.7 fL (80.0-98.0); Mean Platelet Volume 8.6 fL (9.4-12.3); Monocytes Absolute Auto 1.2 X10*3/uL (0.1-1.2); Monocytes Percent Auto 15.1 % (2-11); Neutrophils Absolute Auto 5.4 x10*3/uL (2.0-8.3); Platelet Count 358 X10*3/uL (160-400); Red Blood Count 3.73 X10*6/uL (4.20-5.50); Red Cell Distribution Width 18.6 % (11.0-16.0); White Blood Count 8.1 X10*3/uL (4.8-10.8)
[2024-10-31 06:59] LABS: Alanine Aminotransferase < 6 U/L (0-31); Albumin Level 2.4 g/dL (3.5-5.0); Alkaline Phosphatase 45 U/L (39-117); Aspartate Amino Transferase 20 U/L (5-31); Bilirubin Total 0.4 mg/dL (0.0-1.0); Blood Urea Nitrogen 4 mg/dL (9-16); Calcium 7.7 mg/dL (8.4-10.2); Creatinine Clr Calc Pharmacy 75.8; Estimated Glomerular Filt Rate > 60; Glucose Fasting 102 mg/dL (60-99); Total Protein 4.8 g/dL (6.5-8.0)
[2024-10-31 07:17] LABS: Anion Gap 9 (12-20); Carbon Dioxide 37 mmol/L (22-29); Chloride 98 mmol/L (96-108); Potassium 2.6 mmol/L (3.3-5.1); Sodium 141 mmol/L (135-145)
[2024-10-31] MEDS: Dextrose 5 % and Lactated Ring 1,000 ML 100 ML IVCONT ×2 (08:38→18:08)
[2024-10-31] MEDS: Potassium Chloride/H20 10 MEQ/100 ML PIGGYBACK 100 MEQ IV ×4 (08:51→13:28)
[2024-10-31] MEDS: Magnesium Sulfate/H2O 2 GM/50 ML PIGGYBACK IV (08:55)
--- NOTE | 2024-10-31 11:28 | PM.PNGS ---
Subjective Subjective Date of Service: 10/31/24 Interval history: Feeling better in regards to her breathing passing gas no good bowel movement as yet Physical Exam Vital Signs: Vital Signs: Last Vital Signs Temp 98.1 F 10/31/24 11:17 Pulse 97 10/31/24 11:17 Resp 18 10/31/24 11:17 BP 99/56 L 10/31/24 11:17 Pulse Ox 96 10/31/24 11:17 O2 Del Method Nasal Cannula 10/31/24 11:17 O2 Flow Rate 5 10/31/24 11:17 Oxygen Flow Rate 2 10/31/24 03:00 BMI result Body Mass Index 18.7 GI: Other: Abdomen is soft distended tender at the incisional line. Objective Data Active Medications Acetaminophen (Acetaminophen 325 Mg Tablet) 650 mg PO Q6H PRN PRN Reason: Pain, Mild (Pain Scale 1-3), fever or headache Last Admin: 10/29/24 16:58 Dose: 650 mg Documented By: SAMANTHA Calcium Carbonate (Calcium Carbonate 750 Mg Tab.Chew) 750 mg PO Q4H PRN PRN Reason: Heartburn Hydromorphone HCl (Hydromorphone Hcl 1 Mg/Ml Syringe) 0.5 mg IVPUSH Q4H PRN; Protocol PRN Reason: Pain, Severe (Pain Scale 7-10) Last Admin: 10/31/24 08:36 Dose: 0.5 mg Documented By: ERIKA Piperacillin Sod/Tazobactam (Sod 3.375 gm/ Sodium Chloride) 50 mls @ 100 mls/hr IV Q6H [facility] Last Infusion: 10/31/24 04:33 Dose: Infused Documented By: HARPAL Potassium Chloride (Potassium Chloride/H20) 10 meq in 100 mls @ 100 mls/hr IV Q1H [facility] Stop: 10/31/24 11:29 Last Admin: 10/31/24 10:30 Dose: 100 mls/hr Documented By: ERIKA Dextrose/Lactated Ringer's (D5lr) 1,000 mls @ 100 mls/hr IVCONT .Q10H [facility] Last Admin: 10/31/24 08:38 Dose: 100 mls/hr Documented By: ERIKA Magnesium Hydroxide (Milk Of Magnesia 30 Ml Oral.Susp) 30 ml PO DAILY PRN PRN Reason: Constipation Magnesium Hydroxide (Milk Of Magnesia 30 Ml Oral.Susp) 30 ml PO DAILY PRN PRN Reason: Constipation Melatonin (Melatonin 3 Mg Tablet) 6 mg PO BEDTIME PRN PRN Reason: Insomnia Ondansetron HCl (Ondansetron Hcl 4 Mg/2 Ml Vial) 4 mg IVPUSH Q8H PRN PRN Reason: Nausea and Vomiting Oxycodone HCl (Oxycodone Hcl Immed Release 5 Mg Tablet) 5 mg PO Q4H PRN PRN Reason: Pain, Moderate(Pain Scale 4-6) Sodium Chloride (0.9 % Sodium Chloride Flush 3 Ml Syringe) 3 ml IVFLUSH QSHIFT [facility] Last Admin: 10/31/24 08:59 Dose: Not Given Documented By: ERIKA Non-Admin Reason: IV Running Labs 10/31/24 06:26 10/31/24 06:26 Labs: Laboratory Results - last 24 hr 10/31/24 06:26 MCV 73.7 L MCH 21.2 L MCHC 28.7 L RDW 18.6 H Plt Count 358 MPV 8.6 L Immature Gran % (Auto) 0.5 H Neut % (Auto) 67.0 Lymph % (Auto) 15.2 L [place] % (Auto) 15.1 H Eos % (Auto) 1.7 Baso % (Auto) 0.5 Lymph # (Auto) 1.2 [place] # (Auto) 1.2 Eos # (Auto) 0.1 Baso # (Auto) 0.0 Abs Immat Gran (auto) 0.04 H Absolute Neuts (auto) 5.4 Absolute Nucleated RBC 0.000 Nucleated RBC % (auto) 0.0 Anion Gap 9 L Estim Creat Clear Calc 75.8 Estimated GFR > 60 Fasting Glucose 102 H Calcium 7.7 L Total Bilirubin 0.4 AST 20 ALT < 6 Alkaline Phosphatase 45 Total Protein 4.8 L Albumin 2.4 L Procedures Date of Service Date of Service: 10/31/24 Progress Note: A&P Assessment and plan (1) Cecal volvulus: Status: Acute Assessment and Plan: Patient is status post right colectomy for cecal volvulus doing well. Had some issues with respiratory insufficiency but get continue clear liquids until passing better gas and stool and then advance to regular. Incisions look good Time Spent With Patient Time: Total time managing care of this patient today ____ minutes. Quality Stroke Does the patient have a stroke diagnosis?: No VTE Prior VTE?: No VTE Risk Level:: Surgical - low VTE Device Contraindication: N/A - Device Ordered VTE Drug Contraindication: Treatment Not Indicated
--- NOTE | 2024-10-31 13:48 | P.PNIM_ITS ---
Subjective Subjective Date of Service: 10/31/24 Interval History: Slowly improving. Pain control adequate. Willing to try to advance diet Review of Systems Denies chest pain Admits shortness of breath with movement Admits to abdominal pain with movement Denies fever chills Physical Exam 2 Vital Signs: Vital Signs: Last Vital Signs Temp 98.1 F 10/31/24 11:17 Pulse 97 10/31/24 11:17 Resp 18 10/31/24 11:17 BP 99/56 L 10/31/24 11:17 Pulse Ox 96 10/31/24 11:17 O2 Del Method Nasal Cannula 10/31/24 11:17 O2 Flow Rate 5 10/31/24 11:17 Oxygen Flow Rate 2 10/31/24 03:00 BMI result Body Mass Index 18.7 Const: Other: Awake alert no acute distress speaking in full sentence Resp: Other: Diminished at bases but otherwise clear Cardio: Other: No S4; positive S1-S2; no S3 murmurs rubs or gallops GI: Other: Bowel sounds present albeit quiet Extrem: Other: No edema bilaterally Objective Data Active Medications Acetaminophen (Acetaminophen 325 Mg Tablet) 650 mg PO Q6H PRN PRN Reason: Pain, Mild (Pain Scale 1-3), fever or headache Last Admin: 10/29/24 16:58 Dose: 650 mg Documented By: SAMANTHA Calcium Carbonate (Calcium Carbonate 750 Mg Tab.Chew) 750 mg PO Q4H PRN PRN Reason: Heartburn Hydromorphone HCl (Hydromorphone Hcl 1 Mg/Ml Syringe) 0.5 mg IVPUSH Q4H PRN; Protocol PRN Reason: Pain, Severe (Pain Scale 7-10) Last Admin: 10/31/24 12:45 Dose: 0.5 mg Documented By: ERIKA Piperacillin Sod/Tazobactam (Sod 3.375 gm/ Sodium Chloride) 50 mls @ 100 mls/hr IV Q6H [facility] Last Infusion: 10/31/24 12:51 Dose: Infused Documented By: ERIKA Dextrose/Lactated Ringer's (D5lr) 1,000 mls @ 100 mls/hr IVCONT .Q10H [facility] Last Admin: 10/31/24 08:38 Dose: 100 mls/hr Documented By: ERIKA Magnesium Hydroxide (Milk Of Magnesia 30 Ml Oral.Susp) 30 ml PO DAILY PRN PRN Reason: Constipation Magnesium Hydroxide (Milk Of Magnesia 30 Ml Oral.Susp) 30 ml PO DAILY PRN PRN Reason: Constipation Melatonin (Melatonin 3 Mg Tablet) 6 mg PO BEDTIME PRN PRN Reason: Insomnia Ondansetron HCl (Ondansetron Hcl 4 Mg/2 Ml Vial) 4 mg IVPUSH Q8H PRN PRN Reason: Nausea and Vomiting Oxycodone HCl (Oxycodone Hcl Immed Release 5 Mg Tablet) 5 mg PO Q4H PRN PRN Reason: Pain, Moderate(Pain Scale 4-6) Sodium Chloride (0.9 % Sodium Chloride Flush 3 Ml Syringe) 3 ml IVFLUSH QSHIFT [facility] Last Admin: 10/31/24 08:59 Dose: Not Given Documented By: ERIKA Non-Admin Reason: IV Running Labs 10/31/24 06:26 10/31/24 06:26 Labs: Laboratory Results - last 24 hr 10/31/24 06:26 MCV 73.7 L MCH 21.2 L MCHC 28.7 L RDW 18.6 H Plt Count 358 MPV 8.6 L Immature Gran % (Auto) 0.5 H Neut % (Auto) 67.0 Lymph % (Auto) 15.2 L [place] % (Auto) 15.1 H Eos % (Auto) 1.7 Baso % (Auto) 0.5 Lymph # (Auto) 1.2 [place] # (Auto) 1.2 Eos # (Auto) 0.1 Baso # (Auto) 0.0 Abs Immat Gran (auto) 0.04 H Absolute Neuts (auto) 5.4 Absolute Nucleated RBC 0.000 Nucleated RBC % (auto) 0.0 Anion Gap 9 L Estim Creat Clear Calc 75.8 Estimated GFR > 60 Fasting Glucose 102 H Calcium 7.7 L Total Bilirubin 0.4 AST 20 ALT < 6 Alkaline Phosphatase 45 Total Protein 4.8 L Albumin 2.4 L Assessment and Plan (1) Cecal volvulus: Status: Acute Plan Patient is a 79-year-old female with past medical history of 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 consult placed for pre-op evaluation. 1.Cecal volvulus - advance diet to full liquids -add oxycodone to pain regimen -surgery following 2.Dyspnea, desaturation episodes requiring O2 -- - workup negative. .. Likely atelectasis and COPD -titrate O2 as tolerated 3.PAF -acceptable control -no anticoagulation at present Quality Stroke Does the patient have a stroke diagnosis?: No VTE Prior VTE?: No VTE Risk Level:: Surgical - low VTE Device Contraindication: N/A - Device Ordered VTE Drug Contraindication: Treatment Not Indicated
[2024-10-31] MEDS: 0.9 % Sodium Chloride Flush 3 ML SYRINGE IVFLUSH (23:12)
[2024-11-01] VITALS (7 sets, daily range): BP systolic 82–138; BP diastolic 51–60; PULSE 95–107; RESP 12–20; TEMP 36.4–37.1; O2SAT 97–99; BMI 18.7
--- NOTE | 2024-11-01 01:31 | PM.EVENT ---
Event Note Date of Service: 11/01/24 Event Note: 88/64, normal HR and temp. Patient has not symptoms. Patient has underlying soft BPs. Doubt sepsis. Receving IV dilaudid which is likely contributing to soft BPs. Time Spent With Patient Time: Total time managing care of this patient today ____ minutes.
[2024-11-01] MEDS: HYDROmorphone HCl 1 MG/ML SYRINGE 0.5 MG IVPUSH (05:23)
[2024-11-01] MEDS: Dextrose 5 % and Lactated Ring 1,000 ML 100 ML IVCONT (05:24)
[2024-11-01] MEDS: Piperacillin Sodium/Tazobactam 3.375 GM in 0.9 % Sodium Chloride 50 ML IV ×4 (05:24→23:09)
[2024-11-01] MEDS: Magnesium Sulfate/H2O 2 GM/50 ML PIGGYBACK IV (06:22)
[2024-11-01 08:07] LABS: MANUAL DIFF FLAG NO
[2024-11-01 08:11] LABS: Basophils Absolute Auto 0.1 X10*3/uL (0.0-0.2); Basophils Percent Auto 0.6 % (0-2); Eosinophils Absolute Auto 0.2 X10*3/uL (0.0-0.4); Eosinophils Percent Auto 2.4 % (0-4); Hematocrit 26.4 % (37.0-47.0); Hemoglobin 7.3 g/dl (12.0-16.0); Imm Gran Abs Auto 0.04 X10*3/uL (0.00-0.03); Imm Gran Pct Auto 0.5 % (0.0-0.4); Lymphocytes Absolute Auto 1.1 X10*3/uL (1.2-4.9); Lymphocytes Percent Auto 12.9 % (20-40); Mean Corpuscular HGB Conc 27.7 g/dl (31.0-35.0); Mean Corpuscular Hemoglobin 20.4 pg (27.0-33.0); Mean Corpuscular Volume 73.9 fL (80.0-98.0); Mean Platelet Volume 8.9 fL (9.4-12.3); Monocytes Absolute Auto 1.3 X10*3/uL (0.1-1.2); Monocytes Percent Auto 14.8 % (2-11); Neutrophils Absolute Auto 6.1 x10*3/uL (2.0-8.3); Neutrophils Percent Auto 68.8 % (45-73); Platelet Count 393 X10*3/uL (160-400); Red Blood Count 3.57 X10*6/uL (4.20-5.50); Red Cell Distribution Width 19.1 % (11.0-16.0); White Blood Count 8.9 X10*3/uL (4.8-10.8)
[2024-11-01 08:37] LABS: Alanine Aminotransferase 6 U/L (0-31); Albumin Level 2.1 g/dL (3.5-5.0); Alkaline Phosphatase 42 U/L (39-117); Anion Gap 10 (12-20); Aspartate Amino Transferase 25 U/L (5-31); Bilirubin Total 0.3 mg/dL (0.0-1.0); Blood Urea Nitrogen < 3 mg/dL (9-16); Calcium 7.4 mg/dL (8.4-10.2); Carbon Dioxide 37 mmol/L (22-29); Chloride 99 mmol/L (96-108); Creatinine Clr Calc Pharmacy 83.5; Estimated Glomerular Filt Rate > 60; Glucose Fasting 115 mg/dL (60-99); Sodium 143 mmol/L (135-145); Total Protein 4.3 g/dL (6.5-8.0)
[2024-11-01 08:38] LABS: Potassium 2.5 mmol/L (3.3-5.1)
[2024-11-01] MEDS: Potassium Chloride/H20 10 MEQ/100 ML PIGGYBACK 100 MEQ IV ×2 (09:30→10:58)
[2024-11-01] MEDS: oxyCODONE HCl Immed Release 5 MG TABLET PO ×3 (09:36→23:07)
[2024-11-01] MEDS: Potassium Chloride ER 20 MEQ TAB.ER.PRT 40 MEQ PO (11:42)
[2024-11-01] MEDS: Lidocaine 4 % Patch ADH..PATCH 1 PATCH TRANSDERMA (11:43)
[2024-11-01] MEDS: Acetaminophen 325 MG TABLET 650 MG PO (11:52)
--- NOTE | 2024-11-01 13:04 | MHC.CLN ---
Addendum entered by Elizabeth Garber, RD 11/01/24 14:52: RE: CONSULT QUALIFIES MODERATELY MALNOURISHED IN THE CONTEXT OF CHRONIC ILLNESS DIET RX: ADVANCED TO F/L NOTED BELOW RECEIVING ENSURE TID TO INCREASE KCALS CONSULT FOR PPN TO START 11/02 PER PHARMACY POLICY RECOMMEND PPN AT 45ML/HR TO PROVIDE 551KCALS, 108G DEXTROSE, 46G PROTEIN REPLETE LYTES NEEDED CONTINUE TO MONITOR PO INTAKE AND ENCOURAGE SUPPLEMENTS SEE ALSO FULL CLINICAL NUTRITION ASSESSMENT Original Note: F/U QUALIFIES MODERATELY MALNOURISHED IN THE CONTEXT OF CHRONIC ILLNESS DIET ADVANCED TO F/L TAKES ENSURE AT HOME (PREFERS CHOCOLATE) ADD ENSURE TID TO PROVIDE 1050 KCALS, 60 G PROTEIN MONITOR PO INTAKE AND ENCOURAGE SUPPLEMENTS
--- NOTE | 2024-11-01 13:19 | HO.PM.IMPN ---
Subjective Subjective Date of Service: 11/01/24 Interval History: complaining of back pain, abdominal pain, no bowel movement, passing flatus very resistant to move and be out of bed. Review of Systems all other symptoms reviewed and negative Physical Exam Vital Signs: Vital Signs: Last Vital Signs Temp 98.2 F 11/01/24 11:50 Pulse 100 11/01/24 11:50 Resp 16 11/01/24 11:50 BP 82/60 L 11/01/24 11:50 Pulse Ox 98 11/01/24 11:50 O2 Del Method Nasal Cannula 11/01/24 11:50 O2 Flow Rate 5 11/01/24 11:50 Oxygen Flow Rate 2 10/31/24 03:00 BMI result Body Mass Index 18.7 Const: Other: General resting comfortably in no acute distress. Neck no JVD. CVS regular rate rhythm, Respiratory lungs clear to auscultation, diminished at bases,no respiratory distress. Gastrointestinal abdomen soft, tenderness at site of incision, no guarding , no rigidity. Extremities no edema. Neuro non focal Skin no rash Objective Data Active Medications Acetaminophen (Acetaminophen 325 Mg Tablet) 650 mg PO Q6H PRN PRN Reason: Pain, Mild (Pain Scale 1-3), fever or headache Last Admin: 11/01/24 11:52 Dose: 650 mg Documented By: LAKESHIA Calcium Carbonate (Calcium Carbonate 750 Mg Tab.Chew) 750 mg PO Q4H PRN PRN Reason: Heartburn Piperacillin Sod/Tazobactam (Sod 3.375 gm/ Sodium Chloride) 50 mls @ 100 mls/hr IV Q6H [facility] Last Infusion: 11/01/24 13:13 Dose: Infused Documented By: LAKESHIA Lidocaine (Lidocaine 4 % Patch Adh..Patch) 1 patch TRANSDERMA DAILY [facility]; Protocol Last Admin: 11/01/24 11:43 Dose: 1 patch Documented By: LAKESHIA Magnesium Hydroxide (Milk Of Magnesia 30 Ml Oral.Susp) 30 ml PO DAILY PRN PRN Reason: Constipation Magnesium Hydroxide (Milk Of Magnesia 30 Ml Oral.Susp) 30 ml PO DAILY PRN PRN Reason: Constipation Melatonin (Melatonin 3 Mg Tablet) 6 mg PO BEDTIME PRN PRN Reason: Insomnia Ondansetron HCl (Ondansetron Hcl 4 Mg/2 Ml Vial) 4 mg IVPUSH Q8H PRN PRN Reason: Nausea and Vomiting Oxycodone HCl (Oxycodone Hcl Immed Release 5 Mg Tablet) 5 mg PO Q4H PRN PRN Reason: Pain, Moderate(Pain Scale 4-6) Last Admin: 11/01/24 09:36 Dose: 5 mg Documented By: LAKESHIA Sodium Chloride (0.9 % Sodium Chloride Flush 3 Ml Syringe) 3 ml IVFLUSH QSHIFT [facility] Last Admin: 11/01/24 10:59 Dose: Not Given Documented By: ELIDA Non-Admin Reason: IV Running Labs 11/01/24 07:19 11/01/24 07:19 Labs: Laboratory Results - last 24 hr 11/01/24 07:19 MCV 73.9 L MCH 20.4 L MCHC 27.7 L RDW 19.1 H Plt Count 393 MPV 8.9 L Immature Gran % (Auto) 0.5 H Neut % (Auto) 68.8 Lymph % (Auto) 12.9 L [place] % (Auto) 14.8 H Eos % (Auto) 2.4 Baso % (Auto) 0.6 Lymph # (Auto) 1.1 L [place] # (Auto) 1.3 H Eos # (Auto) 0.2 Baso # (Auto) 0.1 Abs Immat Gran (auto) 0.04 H Absolute Neuts (auto) 6.1 Absolute Nucleated RBC 0.000 Nucleated RBC % (auto) 0.0 Anion Gap 10 L Estim Creat Clear Calc 83.5 Estimated GFR > 60 Fasting Glucose 115 H Calcium 7.4 L Total Bilirubin 0.3 AST 25 ALT 6 Alkaline Phosphatase 42 Total Protein 4.3 L Albumin 2.1 L Assessment and Plan (1) Cecal volvulus: Status: Acute Plan 79-year-old female with past medical history of 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 consult placed for pre-op evaluation. 1.Cecal volvulus - advance diet to full liquids -encourage out of bed to chair and ambulation as tolerated, DC IV fluids, DC IV Dilaudid, encourage incentive spirometry -continue IV Zosyn/ oxycodone / at [facility] for back pain -surgery following 2.Dyspnea, desaturation episodes requiring O2 -- - workup negative. .. Likely atelectasis and COPD - encourage incentive spirometry and out of bed to chair, titrate O2 as tolerated 3.PAF -acceptable control, not on anticoagulation at present 4. acute hypokalemia will replete and follow labs 5. hypotension seems chronic patient asymptomatic, follow BP. 6. chronic microcytic anemia recommend outpatient follow-up DVT prophylaxis compression boots patient requires continued inpatient hospitalization for management of cecal volvulus unable to tolerate regular diet/ pain management. Quality Stroke Does the patient have a stroke diagnosis?: No VTE Prior VTE?: No VTE Risk Level:: Surgical - low VTE Device Contraindication: N/A - Device Ordered VTE Drug Contraindication: Treatment Not Indicated
--- NOTE | 2024-11-01 13:31 | P.PNGS_ITS ---
Subjective Subjective Date of Service: 11/01/24 Interval history: Reports difficulty taking deep breaths due to pain. Usually mostly bed bound at home and will ambulate minimally. Has not been OOB during stay due to pain she says. Passing flatus, no BM. Physical Exam 2 Vital Signs: Vital Signs: Last Vital Signs Temp 98.2 F 11/01/24 11:50 Pulse 100 11/01/24 11:50 Resp 16 11/01/24 11:50 BP 82/60 L 11/01/24 11:50 Pulse Ox 98 11/01/24 11:50 O2 Del Method Nasal Cannula 11/01/24 11:50 O2 Flow Rate 5 11/01/24 11:50 Oxygen Flow Rate 2 10/31/24 03:00 BMI result Body Mass Index 18.7 Const: General: comfortable, no acute distress and alert O rientation/consciousness: patient oriented x3 Resp: Effort & Inspection: able to speak in complete sentences, no cough, no respiratory distress and tachypneic GI: Inspection: Yes distended and Yes incision (clean) Palpation (GI): Soft to palpation, Tenderness to palpation present (GI) and no guarding P ercussion: Yes tympanic to percussion Skin: General skin exam: no rashes or lesions noted Neuro: General: patient oriented x3 and moves all extremities Objective Data Active Medications Acetaminophen (Acetaminophen 325 Mg Tablet) 650 mg PO Q6H PRN PRN Reason: Pain, Mild (Pain Scale 1-3), fever or headache Last Admin: 11/01/24 11:52 Dose: 650 mg Documented By: LAKESHIA Calcium Carbonate (Calcium Carbonate 750 Mg Tab.Chew) 750 mg PO Q4H PRN PRN Reason: Heartburn Piperacillin Sod/Tazobactam (Sod 3.375 gm/ Sodium Chloride) 50 mls @ 100 mls/hr IV Q6H [facility] Last Infusion: 11/01/24 13:13 Dose: Infused Documented By: LAKESHIA Lidocaine (Lidocaine 4 % Patch Adh..Patch) 1 patch TRANSDERMA DAILY [facility]; Protocol Last Admin: 11/01/24 11:43 Dose: 1 patch Documented By: LAKESHIA Magnesium Hydroxide (Milk Of Magnesia 30 Ml Oral.Susp) 30 ml PO DAILY PRN PRN Reason: Constipation Magnesium Hydroxide (Milk Of Magnesia 30 Ml Oral.Susp) 30 ml PO DAILY PRN PRN Reason: Constipation Melatonin (Melatonin 3 Mg Tablet) 6 mg PO BEDTIME PRN PRN Reason: Insomnia Ondansetron HCl (Ondansetron Hcl 4 Mg/2 Ml Vial) 4 mg IVPUSH Q8H PRN PRN Reason: Nausea and Vomiting Oxycodone HCl (Oxycodone Hcl Immed Release 5 Mg Tablet) 5 mg PO Q4H PRN PRN Reason: Pain, Moderate(Pain Scale 4-6) Last Admin: 11/01/24 09:36 Dose: 5 mg Documented By: LAKESHIA Sodium Chloride (0.9 % Sodium Chloride Flush 3 Ml Syringe) 3 ml IVFLUSH QSHIFT [facility] Last Admin: 11/01/24 10:59 Dose: Not Given Documented By: ELIDA Non-Admin Reason: IV Running Labs 11/01/24 07:19 11/01/24 07:19 Labs: Laboratory Results - last 24 hr 11/01/24 07:19 MCV 73.9 L MCH 20.4 L MCHC 27.7 L RDW 19.1 H Plt Count 393 MPV 8.9 L Immature Gran % (Auto) 0.5 H Neut % (Auto) 68.8 Lymph % (Auto) 12.9 L [place] % (Auto) 14.8 H Eos % (Auto) 2.4 Baso % (Auto) 0.6 Lymph # (Auto) 1.1 L [place] # (Auto) 1.3 H Eos # (Auto) 0.2 Baso # (Auto) 0.1 Abs Immat Gran (auto) 0.04 H Absolute Neuts (auto) 6.1 Absolute Nucleated RBC 0.000 Nucleated RBC % (auto) 0.0 Anion Gap 10 L Estim Creat Clear Calc 83.5 Estimated GFR > 60 Fasting Glucose 115 H Calcium 7.4 L Total Bilirubin 0.3 AST 25 ALT 6 Alkaline Phosphatase 42 Total Protein 4.3 L Albumin 2.1 L Procedures Date of Service Date of Service: 11/01/24 Progress Note: A&P Assessment and plan (1) Cecal volvulus: Status: Acute Plan Patient is status post right colectomy for cecal volvulus. Respiratory status improving. Remains distended but passing flatus. Will cont clear liquids for now. Unfortunately she is essentially bed bound and has not been OOB yet. Will consult PT for eval. Hospitalists following. Consult nutrition for PPN. Time Spent With Patient Time: Total time managing care of this patient today ____ minutes. Quality Stroke Does the patient have a stroke diagnosis?: No VTE Prior VTE?: No VTE Risk Level:: Surgical - low VTE Device Contraindication: N/A - Device Ordered VTE Drug Contraindication: Treatment Not Indicated
--- NOTE | 2024-11-01 14:03 | MHC.CM.PN ---
EMR REVIEWED, PER SURG NOTE PT STILL WITH NO BM, PT WILL REMAIN ON CLEAR LIQUID DIET AND NUTRITION CONSULT FOR PPN, CM WILL CONT TO FOLLOW DC NEEDS.
[2024-11-01] MEDS: Potassium Chloride ER 20 MEQ TAB.ER.PRT PO (14:47)
[2024-11-01] MEDS: Calcium Carbonate 750 MG TAB.CHEW PO (14:51)
[2024-11-01] MEDS: QUEtiapine Fumarate 25 MG TABLET 12.5 MG PO (22:40)
[2024-11-02] VITALS (10 sets, daily range): BP systolic 93–113; BP diastolic 50–61; PULSE 94–120; RESP 16–20; TEMP 36.2–37.2; O2SAT 95–100
--- NOTE | 2024-11-02 | ECG_ITS ---
Test Reason : non sustained V-tach Blood Pressure : / mmHG Vent. Rate : 000 BPM Atrial Rate : 000 BPM P-R Int : 000 ms QRS Dur : 000 ms QT Int : 000 ms P-R-T Axes : 000 000 000 degrees QTc Int : 000 ms No QRS complexes found, no ECG analysis possible When compared with ECG of 28-OCT-2024 09:57, Current undetermined rhythm precludes rhythm comparison, needs review Referred By: Kallie Suazo Electronically Signed By:
[2024-11-02] MEDS: Piperacillin Sodium/Tazobactam 3.375 GM in 0.9 % Sodium Chloride 50 ML IV ×3 (05:49→18:04)
[2024-11-02 08:04] LABS: MANUAL DIFF FLAG NO
[2024-11-02 08:10] LABS: Basophils Absolute Auto 0.1 X10*3/uL (0.0-0.2); Basophils Percent Auto 0.6 % (0-2); Eosinophils Absolute Auto 0.4 X10*3/uL (0.0-0.4); Eosinophils Percent Auto 3.8 % (0-4); Hematocrit 27.2 % (37.0-47.0); Hemoglobin 7.6 g/dl (12.0-16.0); Imm Gran Abs Auto 0.05 X10*3/uL (0.00-0.03); Imm Gran Pct Auto 0.5 % (0.0-0.4); Lymphocytes Absolute Auto 1.6 X10*3/uL (1.2-4.9); Lymphocytes Percent Auto 16.1 % (20-40); Mean Corpuscular HGB Conc 27.9 g/dl (31.0-35.0); Mean Corpuscular Hemoglobin 20.5 pg (27.0-33.0); Mean Corpuscular Volume 73.3 fL (80.0-98.0); Mean Platelet Volume 8.7 fL (9.4-12.3); Monocytes Absolute Auto 1.3 X10*3/uL (0.1-1.2); Neutrophils Absolute Auto 6.7 x10*3/uL (2.0-8.3); Platelet Count 428 X10*3/uL (160-400); Red Blood Count 3.71 X10*6/uL (4.20-5.50); Red Cell Distribution Width 19.8 % (11.0-16.0); White Blood Count 10.1 X10*3/uL (4.8-10.8)
[2024-11-02 08:30] LABS: Alanine Aminotransferase < 6 U/L (0-31); Albumin Level 2.3 g/dL (3.5-5.0); Alkaline Phosphatase 56 U/L (39-117); Anion Gap 8 (12-20); Aspartate Amino Transferase 20 U/L (5-31); Bilirubin Total 0.3 mg/dL (0.0-1.0); Blood Urea Nitrogen < 3 mg/dL (9-16); Calcium 7.4 mg/dL (8.4-10.2); Carbon Dioxide 37 mmol/L (22-29); Chloride 101 mmol/L (96-108); Creatinine Clr Calc Pharmacy 83.5; Estimated Glomerular Filt Rate > 60; Glucose Fasting 86 mg/dL (60-99); Potassium 3.6 mmol/L (3.3-5.1); Sodium 142 mmol/L (135-145); Total Protein 4.7 g/dL (6.5-8.0)
[2024-11-02] MEDS: Lidocaine 4 % Patch ADH..PATCH 1 PATCH TRANSDERMA (09:45)
[2024-11-02] MEDS: oxyCODONE HCl Immed Release 5 MG TABLET PO ×3 (09:47→21:07)
[2024-11-02] MEDS: 0.9 % Sodium Chloride Flush 3 ML SYRINGE IVFLUSH ×4 (09:55→21:09)
--- NOTE | 2024-11-02 10:06 | P.PNGS_ITS ---
Subjective Subjective Date of Service: 11/02/24 Interval history: Has had multiple BMs. Oral intake remains poor. Physical Exam 2 Vital Signs: Vital Signs: Last Vital Signs Temp 97.8 F 11/02/24 07:00 Pulse 99 11/02/24 07:00 Resp 20 11/02/24 07:00 BP 103/56 L 11/02/24 07:00 Pulse Ox 100 11/02/24 07:00 O2 Del Method Nasal Cannula 11/02/24 07:00 O2 Flow Rate 5 11/02/24 07:00 Oxygen Flow Rate 2 11/02/24 03:00 BMI result Body Mass Index 18.7 Const: General: comfortable, no acute distress and alert O rientation/consciousness: patient oriented x3 Resp: Effort & Inspection: normal respiratory effort, able to speak in complete sentences and no use of accessory muscles GI: Inspection: Yes incision (clean) Palpation (GI): Soft to palpation and no guarding Skin: General skin exam: no rashes or lesions noted Neuro: General: patient oriented x3 Objective Data Active Medications Acetaminophen (Acetaminophen 325 Mg Tablet) 650 mg PO Q6H PRN PRN Reason: Pain, Mild (Pain Scale 1-3), fever or headache Last Admin: 11/01/24 11:52 Dose: 650 mg Documented By: LAKESHIA Calcium Carbonate (Calcium Carbonate 750 Mg Tab.Chew) 750 mg PO Q4H PRN PRN Reason: Heartburn Last Admin: 11/01/24 14:51 Dose: 750 mg Documented By: LAKESHIA Piperacillin Sod/Tazobactam (Sod 3.375 gm/ Sodium Chloride) 50 mls @ 100 mls/hr IV Q6H [facility] Last Admin: 11/02/24 09:54 Dose: 100 mls/hr Documented By: BRICE Lidocaine (Lidocaine 4 % Patch Adh..Patch) 1 patch TRANSDERMA DAILY [facility]; Protocol Last Admin: 11/02/24 09:45 Dose: 1 patch Documented By: BRICE Magnesium Hydroxide (Milk Of Magnesia 30 Ml Oral.Susp) 30 ml PO DAILY PRN PRN Reason: Constipation Magnesium Hydroxide (Milk Of Magnesia 30 Ml Oral.Susp) 30 ml PO DAILY PRN PRN Reason: Constipation Melatonin (Melatonin 3 Mg Tablet) 6 mg PO BEDTIME PRN PRN Reason: Insomnia Ondansetron HCl (Ondansetron Hcl 4 Mg/2 Ml Vial) 4 mg IVPUSH Q8H PRN PRN Reason: Nausea and Vomiting Oxycodone HCl (Oxycodone Hcl Immed Release 5 Mg Tablet) 5 mg PO Q4H PRN PRN Reason: Pain, Moderate(Pain Scale 4-6) Last Admin: 11/02/24 09:47 Dose: 5 mg Documented By: BRICE Quetiapine Fumarate (Quetiapine Fumarate 25 Mg Tablet) 12.5 mg PO BEDTIME [facility] Last Admin: 11/01/24 22:40 Dose: 12.5 mg Documented By: ROBERT Sodium Chloride (0.9 % Sodium Chloride Flush 3 Ml Syringe) 3 ml IVFLUSH QSHIFT [facility] Last Admin: 11/02/24 09:55 Dose: 3 ml Documented By: BRICE Labs 11/02/24 07:18 11/02/24 07:18 Labs: Laboratory Results - last 24 hr 11/02/24 07:18 MCV 73.3 L MCH 20.5 L MCHC 27.9 L RDW 19.8 H Plt Count 428 H MPV 8.7 L Immature Gran % (Auto) 0.5 H Neut % (Auto) 66.0 Lymph % (Auto) 16.1 L [place] % (Auto) 13.0 H Eos % (Auto) 3.8 Baso % (Auto) 0.6 Lymph # (Auto) 1.6 [place] # (Auto) 1.3 H Eos # (Auto) 0.4 Baso # (Auto) 0.1 Abs Immat Gran (auto) 0.05 H Absolute Neuts (auto) 6.7 Absolute Nucleated RBC 0.000 Nucleated RBC % (auto) 0.0 Anion Gap 8 L Estim Creat Clear Calc 83.5 Estimated GFR > 60 Fasting Glucose 86 Calcium 7.4 L Total Bilirubin 0.3 AST 20 ALT < 6 Alkaline Phosphatase 56 Total Protein 4.7 L Albumin 2.3 L Microbiology Microbiology Results: Microbiology 10/27/24 15:50 Blood Culture - Final Blood - Venous No growth after 5 days. 10/27/24 15:50 Blood Culture - Final Blood - Venous No growth after 5 days. Procedures Date of Service Date of Service: 11/02/24 Progress Note: A&P Assessment and plan (1) Cecal volvulus: Status: Acute Plan S/p right colectomy for cecal volvulus. Now with good GI function. Will advance diet to solids with PO supplements. Unfortunately she is essentially bed bound and activity has been limited. PT consulted but did not complete eval due to H/H which remains stable. Will await input. Hospitalists following. Wean O2. Time Spent With Patient Time: Total time managing care of this patient today ____ minutes. Quality Stroke Does the patient have a stroke diagnosis?: No VTE Prior VTE?: No VTE Risk Level:: Surgical - low VTE Device Contraindication: N/A - Device Ordered VTE Drug Contraindication: Treatment Not Indicated
--- NOTE | 2024-11-02 10:33 | HO.PM.IMPN ---
Subjective Subjective Date of Service: 11/02/24 Interval History: Tolerating full liquid diet, had bowel movement, continued to have abdominal pain but improved, no nausea ,no vomiting. Tele monitor showed nonsustained V-tach, patient has chronic shortness of breath and dizziness, denies chest pain, had mild palpitations, now resolved, denies prior history of coronary artery disease is former smoker quit 3 years ago. Review of Systems All other system reviewed and are negative. Physical Exam Vital Signs: Vital Signs: Last Vital Signs Temp 97.8 F 11/02/24 07:00 Pulse 99 11/02/24 07:00 Resp 20 11/02/24 07:00 BP 103/56 L 11/02/24 07:00 Pulse Ox 100 11/02/24 07:00 O2 Del Method Nasal Cannula 11/02/24 07:00 O2 Flow Rate 5 11/02/24 07:00 Oxygen Flow Rate 2 11/02/24 03:00 BMI result Body Mass Index 18.7 Const: Other: General resting comfortably in no acute distress, appears anxious. Neck no JVD. CVS regular rate rhythm, Respiratory lungs clear to auscultation, diminished at bases,no respiratory distress. Gastrointestinal abdomen soft, tenderness at site of incision, no guarding , no rigidity. Extremities no edema. Neuro non focal Skin no rash/pallor Objective Data Active Medications Acetaminophen (Acetaminophen 325 Mg Tablet) 650 mg PO Q6H PRN PRN Reason: Pain, Mild (Pain Scale 1-3), fever or headache Last Admin: 11/01/24 11:52 Dose: 650 mg Documented By: LAKESHIA Calcium Carbonate (Calcium Carbonate 750 Mg Tab.Chew) 750 mg PO Q4H PRN PRN Reason: Heartburn Last Admin: 11/01/24 14:51 Dose: 750 mg Documented By: LAKESHIA Piperacillin Sod/Tazobactam (Sod 3.375 gm/ Sodium Chloride) 50 mls @ 100 mls/hr IV Q6H [facility] Last Admin: 11/02/24 09:54 Dose: 100 mls/hr Documented By: BRICE Lidocaine (Lidocaine 4 % Patch Adh..Patch) 1 patch TRANSDERMA DAILY [facility]; Protocol Last Admin: 11/02/24 09:45 Dose: 1 patch Documented By: BRICE Magnesium Hydroxide (Milk Of Magnesia 30 Ml Oral.Susp) 30 ml PO DAILY PRN PRN Reason: Constipation Magnesium Hydroxide (Milk Of Magnesia 30 Ml Oral.Susp) 30 ml PO DAILY PRN PRN Reason: Constipation Melatonin (Melatonin 3 Mg Tablet) 6 mg PO BEDTIME PRN PRN Reason: Insomnia Ondansetron HCl (Ondansetron Hcl 4 Mg/2 Ml Vial) 4 mg IVPUSH Q8H PRN PRN Reason: Nausea and Vomiting Oxycodone HCl (Oxycodone Hcl Immed Release 5 Mg Tablet) 5 mg PO Q4H PRN PRN Reason: Pain, Moderate(Pain Scale 4-6) Last Admin: 11/02/24 09:47 Dose: 5 mg Documented By: BRICE Quetiapine Fumarate (Quetiapine Fumarate 25 Mg Tablet) 12.5 mg PO BEDTIME [facility] Last Admin: 11/01/24 22:40 Dose: 12.5 mg Documented By: ROBERT Sodium Chloride (0.9 % Sodium Chloride Flush 3 Ml Syringe) 3 ml IVFLUSH QSHIFT [facility] Last Admin: 11/02/24 09:55 Dose: 3 ml Documented By: BRICE Labs 11/02/24 07:18 11/02/24 07:18 Labs: Laboratory Results - last 24 hr 11/02/24 07:18 MCV 73.3 L MCH 20.5 L MCHC 27.9 L RDW 19.8 H Plt Count 428 H MPV 8.7 L Immature Gran % (Auto) 0.5 H Neut % (Auto) 66.0 Lymph % (Auto) 16.1 L [place] % (Auto) 13.0 H Eos % (Auto) 3.8 Baso % (Auto) 0.6 Lymph # (Auto) 1.6 [place] # (Auto) 1.3 H Eos # (Auto) 0.4 Baso # (Auto) 0.1 Abs Immat Gran (auto) 0.05 H Absolute Neuts (auto) 6.7 Absolute Nucleated RBC 0.000 Nucleated RBC % (auto) 0.0 Anion Gap 8 L Estim Creat Clear Calc 83.5 Estimated GFR > 60 Fasting Glucose 86 Calcium 7.4 L Total Bilirubin 0.3 AST 20 ALT < 6 Alkaline Phosphatase 56 Total Protein 4.7 L Albumin 2.3 L Microbiology Microbiology Results: Microbiology 10/27/24 15:50 Blood Culture - Final Blood - Venous No growth after 5 days. 10/27/24 15:50 Blood Culture - Final Blood - Venous No growth after 5 days. 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 consult placed for pre-op evaluation. 1.Cecal volvulus - advance diet to full liquids -encourage out of bed to chair and ambulation as tolerated, DC IV fluids, DC IV Dilaudid, encourage incentive spirometry -continue IV Zosyn/ oxycodone / at [facility] past for back pain -surgery following 2. Nonsustained V-tach/acute hypoxic respiratory failure with Dyspnea/acute CHF due to right-sided heart failure Patient is symptomatic with shortness of breaths/dizziness Echo showed EF 66 AST 5, mitral valve myxomatous appearing, moderate mitral calcification and mild regurg, [id number] tricuspid valve regurg, moderate pulmonary hypertension, no evidence of regional wall motion abnormality Potassium 3.6, magnesium 2.2, phosphorus low 1.2 BNP 288/recent CTA chest showed no PE, showed small bilateral pleural effusion, bibasilar atelectasis, emphysematous changes and chronic interstitial prominence Will keep potassium greater than 4/replace phosphorous, obtain EKG treat with IV Lasix Cardiology consult obtained Dr. Diaz agrees with the above treatment plan. 3.PAF -acceptable control, not on anticoagulation 4. acute hypokalemia will replete and follow labs 5. hypotension seems chronic patient asymptomatic, follow BP. 6. Acute on chronic microcytic anemia multifactorial likely due to poor nutrition, recent surgery Will transfuse 1 unit packed RBC and follow CBC. 7. Acute hypophosphatemia will replete and follow labs 8. Moderate malnutrition due to chronic illness poor by mouth intake in last few days diet advanced to regular continue t.i.d. ensure , PPN as per General surgery DVT prophylaxis compression boots patient requires continued inpatient hospitalization for management of cecal volvulus unable to tolerate regular diet/ pain management/electrolyte abnormality nonsustained V-tach requiring close tele monitoring. Quality Stroke Does the patient have a stroke diagnosis?: No VTE Prior VTE?: No VTE Risk Level:: Surgical - low VTE Device Contraindication: N/A - Device Ordered VTE Drug Contraindication: Treatment Not Indicated
--- NOTE | 2024-11-02 10:41 | MHC.CLN ---
F/U POOR PO X >5 DAYS REVIEWED LABS DIET RX: ADVANCED TO REGULAR TODAY WITH ENSURE BID PO INTAKE <25% x 2 meals CONSULT FOR PPN TO START 11/02 DISCUSSED WITH PHARMACY RECOMMEND PPN AT 45ML/HR TO PROVIDE 551KCALS, 108G DEXTROSE, 46G PROTEIN REPLETE LYTES NEEDED CONTINUE TO MONITOR PO INTAKE AND ENCOURAGE SUPPLEMENTS
[2024-11-02 11:00] LABS: Magnesium 2.2 mg/dL (1.6-2.6)
[2024-11-02] MEDS: Potassium Chloride ER 20 MEQ TAB.ER.PRT 40 MEQ PO (11:09)
[2024-11-02] MEDS: Furosemide 20 MG/2 ML VIAL IVPUSH (11:10)
[2024-11-02 11:13] LABS: Phosphorus 1.2 mg/dL (2.7-4.5)
--- NOTE | 2024-11-02 12:58 | P.CONCA_ITS ---
History of Present Illness History of Present Illness Date of Service: 11/02/24 Requesting physician: Kallie Suazo Chief complaint: SBO, NSVT Narrative: 79-year-old lady with background of paroxysmal atrial fibrillation cerebellar ataxia, alcoholic peripheral neuropathy, alcoholism, malnutrition who is admitted with small-bowel obstruction is status post surgery at this point. Quite frail and deconditioned appearing lady. She had run of nonsustained ventricular tachycardia on telemetry. She is saying she had some palpitations and has been getting palpitations and was complaining of palpitations at the time of interview while in sinus rhythm. She is complaining of shortness of breath which is something new since admission. On supplemental oxygen. Denying any chest discomfort. She is saying abdominal pain is improving. [facility] Past Medical History Medical History (Updated 11/02/24 @ 13:05 by Jone Diaz MD) Paroxysmal atrial fibrillation Chronic blood loss anemia History of uterine fibroid Tobacco abuse History of arteriovenous malformation Surgical History Surgical History History of hysterectomy Social History Social History Household Members: Spouse Housing: House Do you presently have visiting nurse or other home services: No Alcohol intake: current Patient Tobacco Use Status: Former Tobacco user Tobacco use type: Cigarette Cigarette Packs Per Day: 1 Cigarettes Per Day: 20.0 e-Cigarette/Vaping Use: Never Used Second Hand Smoke Exposure: Yes Advance Directives Date on File: 06/15/22 service: No Current occupational status: retired Meds Allergies Allergy/AdvReac Type Severity Reaction Status Date / Time No Known Allergies Allergy Verified 10/26/24 16:08 Active Medications: Current Medications Acetaminophen (Acetaminophen 325 Mg Tablet) 650 mg PO Q6H PRN PRN Reason: Pain, Mild (Pain Scale 1-3), fever or headache Last Admin: 11/01/24 11:52 Dose: 650 mg Calcium Carbonate (Calcium Carbonate 750 Mg Tab.Chew) 750 mg PO Q4H PRN PRN Reason: Heartburn Last Admin: 11/01/24 14:51 Dose: 750 mg Piperacillin Sod/Tazobactam (Sod 3.375 gm/ Sodium Chloride) 50 mls @ 100 mls/hr IV Q6H [facility] Last Infusion: 12/03/24 10:25 Dose: Infused Lidocaine (Lidocaine 4 % Patch Adh..Patch) 1 patch TRANSDERMA DAILY [facility]; Protocol Last Admin: 11/02/24 09:45 Dose: 1 patch Magnesium Hydroxide (Milk Of Magnesia 30 Ml Oral.Susp) 30 ml PO DAILY PRN PRN Reason: Constipation Magnesium Hydroxide (Milk Of Magnesia 30 Ml Oral.Susp) 30 ml PO DAILY PRN PRN Reason: Constipation Melatonin (Melatonin 3 Mg Tablet) 6 mg PO BEDTIME PRN PRN Reason: Insomnia Ondansetron HCl (Ondansetron Hcl 4 Mg/2 Ml Vial) 4 mg IVPUSH Q8H PRN PRN Reason: Nausea and Vomiting Oxycodone HCl (Oxycodone Hcl Immed Release 5 Mg Tablet) 5 mg PO Q4H PRN PRN Reason: Pain, Moderate(Pain Scale 4-6) Last Admin: 11/02/24 09:47 Dose: 5 mg Potassium Phos/Sodium Phos (Sodium,Potassium Phosphates Powd.Pack) 1 packet PO TID [facility] Quetiapine Fumarate (Quetiapine Fumarate 25 Mg Tablet) 12.5 mg PO BEDTIME [facility] Last Admin: 11/01/24 22:40 Dose: 12.5 mg Sodium Chloride (0.9 % Sodium Chloride Flush 3 Ml Syringe) [facility] Last Admin: 11/02/24 09:55 Dose: 3 ml Home Medications ?Medication ?Instructions ?Recorded ?Confirmed ?Last Taken ?Type Ensure Complete 1 bottle PO DAILY 10/27/24 10/27/24 10/25/24 History Physical Exam 2 Vital Signs: Vital Signs: Last Vital Signs Temp 97.9 F 11/02/24 10:55 Pulse 105 H 11/02/24 10:55 Resp 20 11/02/24 10:55 BP 101/59 L 11/02/24 10:55 Pulse Ox 95 11/02/24 10:55 O2 Del Method Nasal Cannula 11/02/24 10:55 O2 Flow Rate 3 11/02/24 10:55 Oxygen Flow Rate 2 11/02/24 03:00 BMI result Body Mass Index 18.7 GENERAL APPEARANCE: Frail appearing. In no acute distress. NECK: no carotid bruit, positive jugular venous distention. SKIN: no suspicious lesions, warm and dry. HEART: no murmurs, regular rate and rhythm. LUNGS: Diminished at bases. EXTREMITIES: no edema. PERIPHERAL PULSES: equal. NEUROLOGIC: No gross deficits, AAO X 3 Objective Labs and Meds 11/02/24 07:18 11/02/24 07:18 Lab results: Laboratory Results - last 24 hr 11/02/24 07:18 WBC 10.1 RBC 3.71 L Hgb 7.6 L Hct 27.2 L MCV 73.3 L MCH 20.5 L MCHC 27.9 L RDW 19.8 H Plt Count 428 H MPV 8.7 L Immature Gran % (Auto) 0.5 H Neut % (Auto) 66.0 Lymph % (Auto) 16.1 L [place] % (Auto) 13.0 H Eos % (Auto) 3.8 Baso % (Auto) 0.6 Lymph # (Auto) 1.6 [place] # (Auto) 1.3 H Eos # (Auto) 0.4 Baso # (Auto) 0.1 Abs Immat Gran (auto) 0.05 H Absolute Neuts (auto) 6.7 Absolute Nucleated RBC 0.000 Nucleated RBC % (auto) 0.0 Sodium 142 Potassium 3.6 D Chloride 101 Carbon Dioxide 37 H Anion Gap 8 L BUN < 3 L Creatinine 0.40 L Estim Creat Clear Calc 83.5 Estimated GFR > 60 Fasting Glucose 86 Calcium 7.4 L Phosphorus 1.2 L Magnesium 2.2 Total Bilirubin 0.3 AST 20 ALT < 6 Alkaline Phosphatase 56 Total Protein 4.7 L Albumin 2.3 L Assessment and Plan (1) NSVT (nonsustained ventricular tachycardia): Status: Acute (2) Acute CHF: Status: Acute Plan Pleasant 79-year-old female who was admitted with bowel obstruction and is status post surgery at this point. She had run of nonsustained ventricular tachycardia and we have been asked to assess her. She appears clinically volume overloaded. Start gentle diuretics with 20 mg IV Lasix. Monitor electrolytes closely. Consider adding metoprolol tartrate 12.5 mg twice a day. Continue broad-spectrum antibiotics as before. Monitor electrolytes closely. She has background of alcoholism and quite frequently these patients have low magnesium and potassium levels. Thank you for allowing me to participate in the care of your patient. Please feel free to contact me if you have any questions. Procedures Date of Service Date of Service: 11/02/24
[2024-11-02] MEDS: Sodium,Potassium Phosphates POWD.PACK 1 PACKET PO ×2 (15:13→21:06)
[2024-11-02] MEDS: QUEtiapine Fumarate 25 MG TABLET 12.5 MG PO (21:06)
[2024-11-03] VITALS (8 sets, daily range): BP systolic 92–124; BP diastolic 52–65; PULSE 68–104; RESP 16–20; TEMP 36.2–37.4; O2SAT 94–98
[2024-11-03] MEDS: Piperacillin Sodium/Tazobactam 3.375 GM in 0.9 % Sodium Chloride 50 ML IV ×3 (00:33→10:40)
[2024-11-03 06:45] LABS: Hematocrit 32.6 % (37.0-47.0); Hemoglobin 9.5 g/dl (12.0-16.0); Mean Corpuscular HGB Conc 29.1 g/dl (31.0-35.0); Mean Corpuscular Volume 75.6 fL (80.0-98.0); Mean Platelet Volume 8.5 fL (9.4-12.3); Platelet Count 468 X10*3/uL (160-400); Red Blood Count 4.31 X10*6/uL (4.20-5.50); Red Cell Distribution Width 20.6 % (11.0-16.0); White Blood Count 9.4 X10*3/uL (4.8-10.8)
[2024-11-03 07:01] LABS: Anion Gap 10 (12-20); Blood Urea Nitrogen 5 mg/dL (9-16); Carbon Dioxide 37 mmol/L (22-29); Chloride 101 mmol/L (96-108); Creatinine Clr Calc Pharmacy 77.6; Estimated Glomerular Filt Rate > 60; Glucose Random 98 mg/dL (60-115); Magnesium 2.1 mg/dL (1.6-2.6); Phosphorus 2.1 mg/dL (2.7-4.5); Sodium 144 mmol/L (135-145); Triglycerides 65 mg/dL (<150)
[2024-11-03 07:03] LABS: B Type Natriuretic Peptide 1063 pg/mL (<100)
--- NOTE | 2024-11-03 07:43 | PM.PNGS ---
Subjective Subjective Date of Service: 11/03/24 Interval history: Patient tolerated her soft solid diet. Still passing flatus and stool. No significant abdominal discomfort. Physical Exam Vital Signs: Vital Signs: Last Vital Signs Temp 99.3 F 11/03/24 07:06 Pulse 97 11/03/24 07:06 Resp 16 11/03/24 07:06 BP 110/60 11/03/24 07:06 Pulse Ox 97 11/03/24 07:06 O2 Del Method Nasal Cannula 11/03/24 07:06 O2 Flow Rate 5 11/03/24 07:06 Oxygen Flow Rate 5 11/03/24 03:00 BMI result Body Mass Index 18.7 GI: Other: Abdomen is soft. Incision clean dry and intact Objective Data Active Medications Acetaminophen (Acetaminophen 325 Mg Tablet) 650 mg PO Q6H PRN PRN Reason: Pain, Mild (Pain Scale 1-3), fever or headache Last Admin: 11/01/24 11:52 Dose: 650 mg Documented By: LAKESHIA Calcium Carbonate (Calcium Carbonate 750 Mg Tab.Chew) 750 mg PO Q4H PRN PRN Reason: Heartburn Last Admin: 11/01/24 14:51 Dose: 750 mg Documented By: LAKESHIA Piperacillin Sod/Tazobactam (Sod 3.375 gm/ Sodium Chloride) 50 mls @ 100 mls/hr IV Q6H [facility] Last Infusion: 11/03/24 06:18 Dose: Infused Documented By: MARK Lidocaine (Lidocaine 4 % Patch Adh..Patch) 1 patch TRANSDERMA DAILY [facility]; Protocol Last Admin: 11/02/24 09:45 Dose: 1 patch Documented By: BRICE Magnesium Hydroxide (Milk Of Magnesia 30 Ml Oral.Susp) 30 ml PO DAILY PRN PRN Reason: Constipation Magnesium Hydroxide (Milk Of Magnesia 30 Ml Oral.Susp) 30 ml PO DAILY PRN PRN Reason: Constipation Melatonin (Melatonin 3 Mg Tablet) 6 mg PO BEDTIME PRN PRN Reason: Insomnia Ondansetron HCl (Ondansetron Hcl 4 Mg/2 Ml Vial) 4 mg IVPUSH Q8H PRN PRN Reason: Nausea and Vomiting Oxycodone HCl (Oxycodone Hcl Immed Release 5 Mg Tablet) 5 mg PO Q4H PRN PRN Reason: Pain, Moderate(Pain Scale 4-6) Last Admin: 11/02/24 21:07 Dose: 5 mg Documented By: MARK Potassium Phos/Sodium Phos (Sodium,Potassium Phosphates Powd.Pack) 1 packet PO TID [facility] Last Admin: 11/02/24 21:06 Dose: 1 packet Documented By: MARK Quetiapine Fumarate (Quetiapine Fumarate 25 Mg Tablet) 12.5 mg PO BEDTIME [facility] Last Admin: 11/02/24 21:06 Dose: 12.5 mg Documented By: MARK Sodium Chloride (0.9 % Sodium Chloride Flush 3 Ml Syringe) 3 ml IVFLUSH QSHIFT [facility] Last Admin: 11/02/24 21:09 Dose: 3 ml Documented By: MARK Labs 11/03/24 06:28 11/03/24 06:28 Labs: Laboratory Results - last 24 hr 11/02/24 11/02/24 11/03/24 07:18 13:58 06:28 MCV 73.3 L 75.6 L MCH 20.5 L 22.0 L MCHC 27.9 L 29.1 L RDW 19.8 H 20.6 H Plt Count 428 H 468 H MPV 8.7 L 8.5 L Immature Gran % (Auto) 0.5 H Neut % (Auto) 66.0 Lymph % (Auto) 16.1 L [place] % (Auto) 13.0 H Eos % (Auto) 3.8 Baso % (Auto) 0.6 Lymph # (Auto) 1.6 [place] # (Auto) 1.3 H Eos # (Auto) 0.4 Baso # (Auto) 0.1 Abs Immat Gran (auto) 0.05 H Absolute Neuts (auto) 6.7 Absolute Nucleated RBC 0.000 0.000 Nucleated RBC % (auto) 0.0 0.0 Anion Gap 8 L 10 L Estim Creat Clear Calc 83.5 77.6 Estimated GFR > 60 > 60 Random Glucose 98 Fasting Glucose 86 Calcium 7.4 L 8.0 L D Phosphorus 1.2 L 2.1 L Magnesium 2.2 2.1 Total Bilirubin 0.3 AST 20 ALT < 6 Alkaline Phosphatase 56 B-Natriuretic Peptide 1063 H Total Protein 4.7 L Albumin 2.3 L Triglycerides 65 Blood Type B Positive Antibody Screen NEGATIVE Crossmatch See Detail Procedures Date of Service Date of Service: 11/03/24 Progress Note: A&P Assessment and plan (1) Cecal volvulus: Status: Acute Plan Continue supportive care. I discussed with the patient consideration for ECF placement for further convalescence. She said she had a bad experience with this in the past but would consider it. Continue incentive spirometry, physical therapy, care coordination evaluation as well. Time Spent With Patient Time: Total time managing care of this patient today ____ minutes. Quality Stroke Does the patient have a stroke diagnosis?: No VTE Prior VTE?: No VTE Risk Level:: Surgical - low VTE Device Contraindication: N/A - Device Ordered VTE Drug Contraindication: Treatment Not Indicated
[2024-11-03] MEDS: Metoprolol Tartrate 12.5 MG HALFTAB PO ×2 (10:27→21:03)
[2024-11-03] MEDS: Sodium,Potassium Phosphates POWD.PACK 1 PACKET PO ×3 (10:28→21:03)
[2024-11-03] MEDS: Lidocaine 4 % Patch ADH..PATCH 1 PATCH TRANSDERMA (10:28)
[2024-11-03] MEDS: Furosemide 20 MG/2 ML VIAL IVPUSH (10:28)
[2024-11-03] MEDS: oxyCODONE HCl Immed Release 5 MG TABLET PO ×3 (10:28→21:09)
[2024-11-03] MEDS: 0.9 % Sodium Chloride Flush 3 ML SYRINGE IVFLUSH ×3 (10:29→21:04)
--- NOTE | 2024-11-03 10:45 | MHC.CLN ---
F/U PO INTAKE 25,50% PPN CANCELLED AND D/C PER PROVIDER DIET RX: REGULAR PT RECEIVING ENSURE TID PROVIDE 1050KCALS, 60G PROTEIN WITH 100% ACCEPTANCE CONTINUE TO MONITOR PO INTAKE AND ENCOURAGE SUPPLEMENTS
--- NOTE | 2024-11-03 12:27 | P.PNIM_ITS ---
Subjective Subjective Date of Service: 11/04/24 Interval History: Complaining of persistent shortness of breath, and abdominal pain, had moderate brown loose stool, denies fever, no chills, no lightheadedness or dizziness, no acute events overnight, has history of prior colonoscopy at [facility] known to have AV malformation. Review of Systems All other system reviewed and are negative. Physical Exam 2 Vital Signs: Vital Signs: Last Vital Signs Temp 98.8 F 11/03/24 10:57 Pulse 99 11/03/24 10:57 Resp 18 11/03/24 10:57 BP 105/61 11/03/24 10:57 Pulse Ox 95 11/03/24 10:57 O2 Del Method Nasal Cannula 11/03/24 10:57 O2 Flow Rate 5 11/03/24 07:06 Oxygen Flow Rate 5 11/03/24 03:00 BMI result Body Mass Index 18.7 Const: Other: General awake alert x3, in mild distress, appears anxious. Neck + JVD. CVS regular rate rhythm, Respiratory lungs clear to auscultation, no crackles. Gastrointestinal abdomen soft, tenderness at site of incision, no guarding , no rigidity. Extremities no edema. Neuro non focal Skin no rash/pallor Psych appropriate affect Objective Data Active Medications Acetaminophen (Acetaminophen 325 Mg Tablet) 650 mg PO Q6H PRN PRN Reason: Pain, Mild (Pain Scale 1-3), fever or headache Last Admin: 11/01/24 11:52 Dose: 650 mg Documented By: LAKESHIA Calcium Carbonate (Calcium Carbonate 750 Mg Tab.Chew) 750 mg PO Q4H PRN PRN Reason: Heartburn Last Admin: 11/01/24 14:51 Dose: 750 mg Documented By: LAKESHIA Ferrous Sulfate (Ferrous Sulfate 324 Mg Tablet.Dr) 324 mg PO BIDWM [facility] Furosemide (Furosemide 20 Mg/2 Ml Vial) 20 mg IVPUSH DAILY [facility]; Protocol Last Admin: 11/03/24 10:28 Dose: 20 mg Documented By: ERIKA Piperacillin Sod/Tazobactam (Sod 3.375 gm/ Sodium Chloride) 50 mls @ 100 mls/hr IV Q6H [facility] Last Infusion: 11/03/24 11:13 Dose: Infused Documented By: ERIKA Lidocaine (Lidocaine 4 % Patch Adh..Patch) 1 patch TRANSDERMA DAILY [facility]; Protocol Last Admin: 11/03/24 10:28 Dose: 1 patch Documented By: ERIKA Magnesium Hydroxide (Milk Of Magnesia 30 Ml Oral.Susp) 30 ml PO DAILY PRN PRN Reason: Constipation Magnesium Hydroxide (Milk Of Magnesia 30 Ml Oral.Susp) 30 ml PO DAILY PRN PRN Reason: Constipation Melatonin (Melatonin 3 Mg Tablet) 6 mg PO BEDTIME PRN PRN Reason: Insomnia Metoprolol Tartrate (Metoprolol Tartrate 12.5 Mg Halftab) 12.5 mg PO BID [facility]; Protocol Last Admin: 11/03/24 10:27 Dose: 12.5 mg Documented By: ERIKA Ondansetron HCl (Ondansetron Hcl 4 Mg/2 Ml Vial) 4 mg IVPUSH Q8H PRN PRN Reason: Nausea and Vomiting Oxycodone HCl (Oxycodone Hcl Immed Release 5 Mg Tablet) 5 mg PO Q4H PRN PRN Reason: Pain, Moderate(Pain Scale 4-6) Last Admin: 11/03/24 10:28 Dose: 5 mg Documented By: ERIKA Potassium Phos/Sodium Phos (Sodium,Potassium Phosphates Powd.Pack) 1 packet PO TID [facility] Last Admin: 11/03/24 10:28 Dose: 1 packet Documented By: ERIKA Quetiapine Fumarate (Quetiapine Fumarate 25 Mg Tablet) 12.5 mg PO BEDTIME [facility] Last Admin: 11/02/24 21:06 Dose: 12.5 mg Documented By: MARK Sodium Chloride (0.9 % Sodium Chloride Flush 3 Ml Syringe) 3 ml IVFLUSH QSHIFT [facility] Last Admin: 11/03/24 10:29 Dose: 3 ml Documented By: ERIKA Labs 11/03/24 06:28 11/04/24 06:54 Labs: Laboratory Results - last 24 hr 11/02/24 11/03/24 13:58 06:28 MCV 75.6 L MCH 22.0 L MCHC 29.1 L RDW 20.6 H Plt Count 468 H MPV 8.5 L Absolute Nucleated RBC 0.000 Nucleated RBC % (auto) 0.0 Anion Gap 10 L Estim Creat Clear Calc 77.6 Estimated GFR > 60 Random Glucose 98 Calcium 8.0 L D Phosphorus 2.1 L Magnesium 2.1 B-Natriuretic Peptide 1063 H Triglycerides 65 Blood Type B Positive Antibody Screen NEGATIVE Crossmatch See Detail Assessment and Plan (1) Acute CHF: Status: Acute (2) NSVT (nonsustained ventricular tachycardia): Status: Acute Plan 79-year-old female with past medical history of 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 consult placed for pre-op evaluation. 1.Cecal volvulus - being followed by General surgery, stable abdominal pain -encourage out of bed to chair and ambulation as tolerated, encourage incentive spirometry -dc IV Zosyn -on oxycodone and Rod pas for back pain 2. Nonsustained V-tach/acute hypoxic respiratory failure with Dyspnea/acute CHF due to right-sided heart failure persistent shortness of breath, Echo showed EF 66 AST 5, mitral valve myxomatous appearing, moderate mitral calcification and mild regurg, [id number] tricuspid valve regurg, moderate pulmonary hypertension, no WMA On admission BNP 288/recent CTA chest showed no PE, showed small bilateral pleural effusion, bibasilar atelectasis, emphysematous changes and chronic interstitial prominence Repeat BNP 1063 keep potassium greater than 4/replace phosphorous Continue IV Lasix monitor i/os ,daily wt. Cardiology consult obtained Dr. Diaz agrees with the above treatment plan. 3.PAF -acceptable control, not on anticoagulation 4. acute hypokalemia repleted and normalized 5. hypotension seems chronic and stable. 6. Acute on chronic microcytic anemia multifactorial likely due to poor nutrition, recent surgery s/p 1 unit packed RBC , hematocrit improved, history of iron deficiency anemia in the past, as per patient outpatient colonoscopy showed AV malformation, status post upper endoscopy 06/19/2022 that showed duodenitis, esophagitis and gastritis will place on iron supplement and follow CBC. Recommend close outpatient GI follow-up 7. Acute hypophosphatemia will replete and follow labs 8. Moderate malnutrition due to chronic illness poor by mouth intake in last few days diet advanced to regular continue t.i.d. ensure , PPN as per General surgery DVT prophylaxis compression boots patient requires continued inpatient hospitalization for management of cecal volvulus / pain management/electrolyte abnormality nonsustained V-tach requiring close tele monitoring and treatment for acute CHF. Quality Stroke Does the patient have a stroke diagnosis?: No VTE Prior VTE?: No VTE Risk Level:: Surgical - low VTE Device Contraindication: N/A - Device Ordered VTE Drug Contraindication: Treatment Not Indicated
[2024-11-03] MEDS: Potassium Chloride ER 20 MEQ TAB.ER.PRT PO (16:32)
[2024-11-03] MEDS: Furosemide 20 MG TABLET PO (16:32)
[2024-11-03] MEDS: Ferrous Sulfate 324 MG TABLET.DR PO (16:32)
[2024-11-03] MEDS: QUEtiapine Fumarate 25 MG TABLET 12.5 MG PO (21:03)
[2024-11-04 03:00] VITALS: O2SAT 96
[2024-11-04 03:52] VITALS: BP 98/51; PULSE 91; RESP 19; TEMP 36.6; O2SAT 100
[2024-11-04] MEDS: oxyCODONE HCl Immed Release 5 MG TABLET PO ×4 (04:54→23:08)
[2024-11-04 07:10] VITALS: BP 106/50; PULSE 97; RESP 18; TEMP 36.6; O2SAT 98
[2024-11-04 08:20] LABS: Albumin Level 2.4 g/dL (3.5-5.0); Anion Gap 13 (12-20); Blood Urea Nitrogen 4 mg/dL (9-16); Calcium 7.7 mg/dL (8.4-10.2); Carbon Dioxide 32 mmol/L (22-29); Chloride 99 mmol/L (96-108); Creatinine Clr Calc Pharmacy 81.4; Estimated Glomerular Filt Rate > 60; Glucose Random 82 mg/dL (60-115); Magnesium 1.9 mg/dL (1.6-2.6); Phosphorus 3.5 mg/dL (2.7-4.5); Potassium 3.5 mmol/L (3.3-5.1); Sodium 140 mmol/L (135-145)
[2024-11-04] MEDS: Furosemide 20 MG TABLET PO (10:33)
[2024-11-04] MEDS: Metoprolol Tartrate 12.5 MG HALFTAB PO (10:33)
[2024-11-04] MEDS: Sodium,Potassium Phosphates POWD.PACK 1 PACKET PO (10:33)
[2024-11-04] MEDS: Ferrous Sulfate 324 MG TABLET.DR PO ×2 (10:33→17:21)
--- NOTE | 2024-11-04 10:33 | PM.PNCARD ---
Subjective Subjective Date of Service: 11/04/24 Interval history: Seen and examined at bedside. Breathing improving. Physical Exam Vital Signs: Last Vital Signs Temp 97.9 F 11/04/24 07:10 Pulse 97 11/04/24 07:10 Resp 18 11/04/24 07:10 BP 106/50 L 11/04/24 07:10 Pulse Ox 98 11/04/24 07:10 O2 Del Method Nasal Cannula 11/04/24 07:10 O2 Flow Rate 2.5 11/04/24 07:10 Oxygen Flow Rate 3 11/04/24 03:00 BMI result Body Mass Index 18.7 GENERAL APPEARANCE: Frail appearing. In no acute distress. NECK: no carotid bruit, no jugular venous distention. SKIN: no suspicious lesions, warm and dry. HEART: no murmurs, regular rate and rhythm. LUNGS: Diminished at bases. EXTREMITIES: no edema. PERIPHERAL PULSES: equal. NEUROLOGIC: No gross deficits, AAO X 3 Objective Labs and Meds 11/03/24 06:28 11/04/24 06:54 Lab results: Laboratory Results - last 24 hr 11/04/24 06:54 Hold Purple Top SEE NOTE Sodium 140 Potassium 3.5 Chloride 99 Carbon Dioxide 32 H Anion Gap 13 BUN 4 L Creatinine 0.41 L Estim Creat Clear Calc 81.4 Estimated GFR > 60 Random Glucose 82 Calcium 7.7 L Phosphorus 3.5 Magnesium 1.9 Albumin 2.4 L Progress Note: A&P Assessment and plan (1) Acute CHF: Status: Acute Plan 79 female with surgery for bowel obstruction. She is on PO Lasix. Was clinically in CHF post OP. Euvolemic. Monitor electrolytes. Time Spent With Patient Time: Total time managing care of this patient today ____ minutes. Progress Note: Quality Stroke Does the patient have a stroke diagnosis?: No Procedures Date of Service Date of Service: 11/04/24
[2024-11-04] MEDS: 0.9 % Sodium Chloride Flush 3 ML SYRINGE IVFLUSH ×2 (10:34→17:23)
[2024-11-04] MEDS: Lidocaine 4 % Patch ADH..PATCH 1 PATCH TRANSDERMA (10:34)
[2024-11-04 10:49] VITALS: BP 84/52; PULSE 99; RESP 16; TEMP 37; O2SAT 93
--- NOTE | 2024-11-04 11:00 | PM.PNGS ---
Subjective Subjective Date of Service: 11/04/24 Interval history: Oral intake slowly improving. Continues to have BMs. Continues to c/o chest pressure. Physical Exam Vital Signs: Vital Signs: Last Vital Signs Temp 97.9 F 11/04/24 07:10 Pulse 97 11/04/24 07:10 Resp 18 11/04/24 07:10 BP 106/50 L 11/04/24 07:10 Pulse Ox 98 11/04/24 07:10 O2 Del Method Nasal Cannula 11/04/24 07:10 O2 Flow Rate 2.5 11/04/24 07:10 Oxygen Flow Rate 3 11/04/24 03:00 BMI result Body Mass Index 18.7 Const: General: comfortable, no acute distress and alert Orientation/consciousness: patient oriented x3 Resp: Effort & Inspection: normal respiratory effort, respiratory effort not decreased and not tachypneic GI: Other: incision clean nondistended abd soft Skin: General skin exam: no rashes or lesions noted Neuro: General: patient oriented x3 and moves all extremities Objective Data Active Medications Acetaminophen (Acetaminophen 325 Mg Tablet) 650 mg PO Q6H PRN PRN Reason: Pain, Mild (Pain Scale 1-3), fever or headache Last Admin: 11/01/24 11:52 Dose: 650 mg Documented By: LAKESHIA Calcium Carbonate (Calcium Carbonate 750 Mg Tab.Chew) 750 mg PO Q4H PRN PRN Reason: Heartburn Last Admin: 11/01/24 14:51 Dose: 750 mg Documented By: LAKESHIA Ferrous Sulfate (Ferrous Sulfate 324 Mg Tablet.) 324 mg PO BIDWM [facility] Last Admin: 11/04/24 10:33 Dose: 324 mg Documented By: ERIKA Furosemide (Furosemide 20 Mg Tablet) 20 mg PO DAILY [facility]; Protocol Last Admin: 11/04/24 10:33 Dose: 20 mg Documented By: ERIKA Lidocaine (Lidocaine 4 % Patch Adh..Patch) 1 patch TRANSDERMA DAILY [facility]; Protocol Last Admin: 11/04/24 10:34 Dose: 1 patch Documented By: ERIKA Magnesium Hydroxide (Milk Of Magnesia 30 Ml Oral.Susp) 30 ml PO DAILY PRN PRN Reason: Constipation Magnesium Hydroxide (Milk Of Magnesia 30 Ml Oral.Susp) 30 ml PO DAILY PRN PRN Reason: Constipation Melatonin (Melatonin 3 Mg Tablet) 6 mg PO BEDTIME PRN PRN Reason: Insomnia Metoprolol Tartrate (Metoprolol Tartrate 12.5 Mg Halftab) 12.5 mg PO BID [facility]; Protocol Last Admin: 11/04/24 10:33 Dose: 12.5 mg Documented By: ERIKA Ondansetron HCl (Ondansetron Hcl 4 Mg/2 Ml Vial) 4 mg IVPUSH Q8H PRN PRN Reason: Nausea and Vomiting Oxycodone HCl (Oxycodone Hcl Immed Release 5 Mg Tablet) 5 mg PO Q4H PRN PRN Reason: Pain, Moderate(Pain Scale 4-6) Last Admin: 11/04/24 10:34 Dose: 5 mg Documented By: ERIKA Potassium Phos/Sodium Phos (Sodium,Potassium Phosphates Powd.Pack) 1 packet PO TID [facility] Last Admin: 11/04/24 10:33 Dose: 1 packet Documented By: ERIKA Quetiapine Fumarate (Quetiapine Fumarate 25 Mg Tablet) 12.5 mg PO BEDTIME [facility] Last Admin: 11/03/24 21:03 Dose: 12.5 mg Documented By: FOUZIA Sodium Chloride (0.9 % Sodium Chloride Flush 3 Ml Syringe) 3 ml IVFLUSH QSHIFT [facility] Last Admin: 11/04/24 10:34 Dose: 3 ml Documented By: ERIKA Labs 11/03/24 06:28 11/04/24 06:54 Labs: Laboratory Results - last 24 hr 11/04/24 06:54 Hold Purple Top SEE NOTE Anion Gap 13 Estim Creat Clear Calc 81.4 Estimated GFR > 60 Random Glucose 82 Calcium 7.7 L Phosphorus 3.5 Magnesium 1.9 Albumin 2.4 L Procedures Date of Service Date of Service: 11/04/24 Progress Note: A&P Assessment and plan (1) Cecal volvulus: Status: Acute Plan S/p exploratory laparotomy, ileal right colectomy with primary ileocolic transverse colon anastomosis. Oral intake increasing. Good GI function. Abd remains benign with clean incision. No acute surgical issues. Remains inpatient for treatment of acute medical problems. Continues to be diuresed for acute CHF. High UOP yesterday. Respiratory status slowly improving. PT rec STR upon discharge. Refused to stand and ambulate yesterday due to SOB. Time Spent With Patient Time: Total time managing care of this patient today ____ minutes. Quality Stroke Does the patient have a stroke diagnosis?: No VTE Prior VTE?: No VTE Risk Level:: Surgical - low VTE Device Contraindication: N/A - Device Ordered VTE Drug Contraindication: Treatment Not Indicated
--- NOTE | 2024-11-04 13:29 | HO.PM.IMPN ---
Subjective Subjective Date of Service: 11/04/24 Interval History: Feels abdominal pressure after eating breakfast and complain of blocked ears. Denies shortness of breath, no lightheadedness, no dizziness, no chest pain, tolerating diet. Review of Systems All other system reviewed and are negative Physical Exam Vital Signs: Vital Signs: Last Vital Signs Temp 98.6 F 11/04/24 10:49 Pulse 99 11/04/24 10:49 Resp 16 11/04/24 10:49 BP 84/52 L 11/04/24 10:49 Pulse Ox 93 11/04/24 10:49 O2 Del Method Nasal Cannula 11/04/24 10:49 O2 Flow Rate 3 11/04/24 10:49 Oxygen Flow Rate 3 11/04/24 03:00 BMI result Body Mass Index 18.7 Const: Other: General awake alert x3, in no distress, appears anxious. B/L ears: nl TM Neck no JVD. CVS regular rate rhythm, Respiratory lungs clear to auscultation, no crackles. Gastrointestinal abdomen soft, mild discomfort at site of incision, no guarding , no rigidity. Extremities no edema. Neuro non focal Skin no rash/pallor Psych appropriate affect Objective Data Active Medications Acetaminophen (Acetaminophen 325 Mg Tablet) 650 mg PO Q6H PRN PRN Reason: Pain, Mild (Pain Scale 1-3), fever or headache Last Admin: 11/01/24 11:52 Dose: 650 mg Documented By: LAKESHIA Calcium Carbonate (Calcium Carbonate 750 Mg Tab.Chew) 750 mg PO Q4H PRN PRN Reason: Heartburn Last Admin: 11/01/24 14:51 Dose: 750 mg Documented By: LAKESHIA Ferrous Sulfate (Ferrous Sulfate 324 Mg Tablet.Dr) 324 mg PO BIDWM [facility] Last Admin: 11/04/24 10:33 Dose: 324 mg Documented By: ERIKA Furosemide (Furosemide 20 Mg Tablet) 20 mg PO DAILY [facility]; Protocol Last Admin: 11/04/24 10:33 Dose: 20 mg Documented By: ERIKA Lidocaine (Lidocaine 4 % Patch Adh..Patch) 1 patch TRANSDERMA DAILY [facility]; Protocol Last Admin: 11/04/24 10:34 Dose: 1 patch Documented By: ERIKA Magnesium Hydroxide (Milk Of Magnesia 30 Ml Oral.Susp) 30 ml PO DAILY PRN PRN Reason: Constipation Magnesium Hydroxide (Milk Of Magnesia 30 Ml Oral.Susp) 30 ml PO DAILY PRN PRN Reason: Constipation Melatonin (Melatonin 3 Mg Tablet) 6 mg PO BEDTIME PRN PRN Reason: Insomnia Metoprolol Tartrate (Metoprolol Tartrate 12.5 Mg Halftab) 12.5 mg PO BID [facility]; Protocol Last Admin: 11/04/24 10:33 Dose: 12.5 mg Documented By: ERIKA Ondansetron HCl (Ondansetron Hcl 4 Mg/2 Ml Vial) 4 mg IVPUSH Q8H PRN PRN Reason: Nausea and Vomiting Oxycodone HCl (Oxycodone Hcl Immed Release 5 Mg Tablet) 5 mg PO Q4H PRN PRN Reason: Pain, Moderate(Pain Scale 4-6) Last Admin: 11/04/24 10:34 Dose: 5 mg Documented By: ERIKA Potassium Phos/Sodium Phos (Sodium,Potassium Phosphates Powd.Pack) 1 packet PO TID [facility] Last Admin: 11/04/24 10:33 Dose: 1 packet Documented By: ERIKA Quetiapine Fumarate (Quetiapine Fumarate 25 Mg Tablet) 12.5 mg PO BEDTIME [facility] Last Admin: 11/03/24 21:03 Dose: 12.5 mg Documented By: FOUZIA Sodium Chloride (0.9 % Sodium Chloride Flush 3 Ml Syringe) 3 ml IVFLUSH QSHIFT [facility] Last Admin: 11/04/24 10:34 Dose: 3 ml Documented By: ERIKA Labs 11/03/24 06:28 11/04/24 06:54 Labs: Laboratory Results - last 24 hr 11/04/24 06:54 Hold Purple Top SEE NOTE Anion Gap 13 Estim Creat Clear Calc 81.4 Estimated GFR > 60 Random Glucose 82 Calcium 7.7 L Phosphorus 3.5 Magnesium 1.9 Albumin 2.4 L Assessment and Plan (1) Acute CHF: Status: Acute (2) NSVT (nonsustained ventricular tachycardia): Status: Acute (3) Paroxysmal atrial fibrillation: Status: Chronic (4) Cecal volvulus: Status: Acute Plan 79-year-old female with past medical history of 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 consult placed for pre-op evaluation. 1.Cecal volvulus - being followed by General surgery, stable abdominal pain, tolerating diet -encourage out of bed to chair and ambulation as tolerated, encourage incentive spirometry -on oxycodone for abdominal pain and Rod pas for back pain. -continue dietary supplements 2. Nonsustained V-tach/acute hypoxic respiratory failure with Dyspnea/acute CHF due to right-sided heart failure shortness of breath resolved, no recurrent symptoms , no recurrent episodes of NSVT in last 48h , 3.8 L neg Echo 10/27 showed EF 65 %, mitral valve myxomatous appearing, moderate mitral calcification and mild regurg, [id number] tricuspid valve regurg, moderate pulmonary hypertension, no WMA On admission BNP 288/recent CTA chest showed no PE, showed small bilateral pleural effusion, bibasilar atelectasis, emphysematous changes and chronic interstitial prominence Repeat BNP 1063 on 11/03 NSVT likley due to electrolyte abnormalities/CHF DC IV Lasix and transitioned to by mouth Lasix 20 mg daily, continue low-dose metoprolol xl 12.5 mg daily and follow BP Cardiology consult obtained Dr. Diaz agrees with the above treatment plan. Not on home O2 wean oxygen as tolerated Follow BMP and BNP 3.PAF -acceptable control, not on anticoagulation, patient not aware. 4. acute hypokalemia repleted and normalized. 5. hypotension seems chronic and stable. Patient asymptomatic, likely will improve with activity, will transition to metoprolol xl 12.5mg. 6. Acute on chronic microcytic anemia multifactorial likely due to poor nutrition, recent surgery s/p 1 unit packed RBC , hematocrit improved, history of iron deficiency anemia in the past, as per patient outpatient colonoscopy showed AV malformation, status post upper endoscopy 06/19/2022 that showed duodenitis, esophagitis and gastritis, will add Prilosec 20 mg daily Continue iron supplement , Recommend close outpatient GI follow-up 7. Acute hypophosphatemia repleted and normalized. 8. Moderate malnutrition due to chronic illness poor by mouth intake , tolerating diet, continue supplements. 9. Disposition seen by PT they recommend short-term rehab/patient medically stable DVT prophylaxis compression boots patient requires continued inpatient hospitalization for management of cecal volvulus / pain management/electrolyte abnormality nonsustained V-tach / acute CHF and safe disposition. Quality Stroke Does the patient have a stroke diagnosis?: No VTE Prior VTE?: No VTE Risk Level:: Surgical - low VTE Device Contraindication: N/A - Device Ordered VTE Drug Contraindication: Treatment Not Indicated
[2024-11-04 15:50] VITALS: BP 92/56; PULSE 96; RESP 18; TEMP 36.8; O2SAT 94
[2024-11-04] MEDS: Potassium Chloride ER 20 MEQ TAB.ER.PRT PO (18:41)
[2024-11-04 20:00] VITALS: BP 105/64; PULSE 97; RESP 18; TEMP 36.8; O2SAT 93
[2024-11-04] MEDS: QUEtiapine Fumarate 25 MG TABLET 12.5 MG PO (23:05)
[2024-11-05] VITALS (10 sets, daily range): BP systolic 90–111; BP diastolic 51–66; PULSE 88–115; RESP 16–18; TEMP 36.4–37; O2SAT 93–96
[2024-11-05] MEDS: Omeprazole 20 MG CAPSULE.DR PO (05:51)
[2024-11-05 07:15] LABS: Albumin Level 2.6 g/dL (3.5-5.0); Anion Gap 14 (12-20); Blood Urea Nitrogen 5 mg/dL (9-16); Calcium 8.3 mg/dL (8.4-10.2); Carbon Dioxide 30 mmol/L (22-29); Chloride 99 mmol/L (96-108); Creatinine Clr Calc Pharmacy 79.5; Estimated Glomerular Filt Rate > 60; Glucose Random 88 mg/dL (60-115); Magnesium 1.9 mg/dL (1.6-2.6); Potassium 3.7 mmol/L (3.3-5.1); Sodium 139 mmol/L (135-145)
[2024-11-05 07:16] LABS: B Type Natriuretic Peptide 671 pg/mL (<100)
--- NOTE | 2024-11-05 08:16 | P.PNGS_ITS ---
Subjective Subjective Date of Service: 11/05/24 Interval history: Participated with PT yesterday. Tolerating solid diet. Continues to move bowels. Abd pain and pressure improving. Reports breathing is improving but SOB off oxygen. Physical Exam 2 Vital Signs: Vital Signs: Last Vital Signs Temp 98.3 F 11/05/24 07:11 Pulse 92 11/05/24 07:11 Resp 18 11/05/24 07:11 BP 97/51 L 11/05/24 07:11 Pulse Ox 96 11/05/24 07:11 O2 Del Method Nasal Cannula 11/05/24 07:11 O2 Flow Rate 1 11/05/24 07:11 Oxygen Flow Rate 2 11/05/24 03:00 BMI result Body Mass Index 18.7 Const: General: comfortable, no acute distress and alert O rientation/consciousness: patient oriented x3 Resp: Effort & Inspection: normal respiratory effort GI: Inspection: No distended and Yes incision (clean) Palpation (GI): Soft to palpation and no guarding Skin: General skin exam: no rashes or lesions noted Neuro: General: patient oriented x3 and moves all extremities Objective Data Active Medications Acetaminophen (Acetaminophen 325 Mg Tablet) 650 mg PO Q6H PRN PRN Reason: Pain, Mild (Pain Scale 1-3), fever or headache Last Admin: 11/01/24 11:52 Dose: 650 mg Documented By: LAKESHIA Calcium Carbonate (Calcium Carbonate 750 Mg Tab.Chew) 750 mg PO Q4H PRN PRN Reason: Heartburn Last Admin: 11/01/24 14:51 Dose: 750 mg Documented By: LAKESHIA Ferrous Sulfate (Ferrous Sulfate 324 Mg Tablet.) 324 mg PO BIDWM [facility] Last Admin: 11/04/24 17:21 Dose: 324 mg Documented By: ERIKA Furosemide (Furosemide 20 Mg Tablet) 20 mg PO DAILY [facility]; Protocol Last Admin: 11/04/24 10:33 Dose: 20 mg Documented By: ERIKA Lidocaine (Lidocaine 4 % Patch Adh..Patch) 1 patch TRANSDERMA DAILY [facility]; Protocol Last Admin: 11/04/24 10:34 Dose: 1 patch Documented By: ERIKA Magnesium Hydroxide (Milk Of Magnesia 30 Ml Oral.Susp) 30 ml PO DAILY PRN PRN Reason: Constipation Magnesium Hydroxide (Milk Of Magnesia 30 Ml Oral.Susp) 30 ml PO DAILY PRN PRN Reason: Constipation Melatonin (Melatonin 3 Mg Tablet) 6 mg PO BEDTIME PRN PRN Reason: Insomnia Metoprolol Succinate (Metoprolol Succinate Er 12.5 Mg Halftab.Er.24h) 12.5 mg PO DAILY [facility]; Protocol Omeprazole (Omeprazole 20 Mg Capsule.Dr) 20 mg PO DAILY@0630 [facility] Last Admin: 11/05/24 05:51 Dose: 20 mg Documented By: FOUZIA Ondansetron HCl (Ondansetron Hcl 4 Mg/2 Ml Vial) 4 mg IVPUSH Q8H PRN PRN Reason: Nausea and Vomiting Oxycodone HCl (Oxycodone Hcl Immed Release 5 Mg Tablet) 5 mg PO Q4H PRN PRN Reason: Pain, Moderate(Pain Scale 4-6) Last Admin: 11/04/24 23:08 Dose: 5 mg Documented By: FOUZIA Quetiapine Fumarate (Quetiapine Fumarate 25 Mg Tablet) 12.5 mg PO BEDTIME [facility] Last Admin: 11/04/24 23:05 Dose: 12.5 mg Documented By: FOUZIA Sodium Chloride (0.9 % Sodium Chloride Flush 3 Ml Syringe) 3 ml IVFLUSH QSHIFT [facility] Last Admin: 11/05/24 03:25 Dose: Not Given Documented By: FOUZIA Non-Admin Reason: Patient Asleep Labs 11/03/24 06:28 11/05/24 06:12 Labs: Laboratory Results - last 24 hr 11/04/24 11/05/24 06:54 06:12 Anion Gap 13 14 Estim Creat Clear Calc 81.4 79.5 Estimated GFR > 60 > 60 Random Glucose 82 88 Calcium 7.7 L 8.3 L D Phosphorus 3.5 3.0 Magnesium 1.9 1.9 B-Natriuretic Peptide 671 H Albumin 2.4 L 2.6 L Procedures Date of Service Date of Service: 11/05/24 Progress Note: A&P Assessment and plan (1) Acute CHF: Status: Acute (2) Cecal volvulus: Status: Acute Plan S/p exploratory laparotomy, ileal right colectomy with primary ileocolic transverse colon anastomosis. Oral intake increasing. Good GI function. Abd remains benign with clean incision. No acute surgical issues. Remains inpatient for treatment of acute medical problems including diuresis for acute CHF. UOP remains high yesterday, BNP improving but remains elevated. Respiratory status slowly improving. PT rec STR upon discharge. Time Spent With Patient Time: Total time managing care of this patient today ____ minutes. Quality Stroke Does the patient have a stroke diagnosis?: No VTE Prior VTE?: No VTE Risk Level:: Surgical - low VTE Device Contraindication: N/A - Device Ordered VTE Drug Contraindication: Treatment Not Indicated
[2024-11-05] MEDS: Lidocaine 4 % Patch ADH..PATCH 1 PATCH TRANSDERMA (09:08)
[2024-11-05] MEDS: Metoprolol Succinate ER 12.5 MG HALFTAB.ER.24H PO (09:08)
[2024-11-05] MEDS: oxyCODONE HCl Immed Release 5 MG TABLET PO ×3 (09:08→20:02)
[2024-11-05] MEDS: 0.9 % Sodium Chloride Flush 3 ML SYRINGE IVFLUSH ×3 (09:09→20:04)
[2024-11-05] MEDS: Furosemide 20 MG TABLET PO (09:09)
[2024-11-05] MEDS: Ferrous Sulfate 324 MG TABLET.DR PO ×2 (09:09→15:33)
--- NOTE | 2024-11-05 10:27 | P.PNIM_ITS ---
Subjective Subjective Date of Service: 11/05/24 Interval History: shortness of breath with moving no chest pain no leg swelling abd pain controlled Review of Systems Review of Systems: Yes all other systems are reviewed and are negative Physical Exam 2 Vital Signs: Vital Signs: Last Vital Signs Temp 98.3 F 11/05/24 07:11 Pulse 92 11/05/24 07:11 Resp 18 11/05/24 07:11 BP 104/63 11/05/24 08:21 Pulse Ox 96 11/05/24 07:11 O2 Del Method Nasal Cannula 11/05/24 07:11 O2 Flow Rate 1 11/05/24 07:11 Oxygen Flow Rate 2 11/05/24 03:00 BMI result Body Mass Index 18.7 Gen: in no acute distress HEENT: sclera anicteric, moist mucus membranes Neck: supple Lungs: diminished Heart: regular rate and rhythm, no murmurs Abd: soft, incision clean + appropriately tender Ext: no edema Skin: warm/well-perfused Neuro: alert and oriented x3, no focal findings Psych: appropriate affect Objective Data Active Medications Acetaminophen (Acetaminophen 325 Mg Tablet) 650 mg PO Q6H PRN PRN Reason: Pain, Mild (Pain Scale 1-3), fever or headache Last Admin: 11/01/24 11:52 Dose: 650 mg Documented By: LAKESHIA Calcium Carbonate (Calcium Carbonate 750 Mg Tab.Chew) 750 mg PO Q4H PRN PRN Reason: Heartburn Last Admin: 11/01/24 14:51 Dose: 750 mg Documented By: LAKESHIA Ferrous Sulfate (Ferrous Sulfate 324 Mg Tablet.) 324 mg PO BIDWM [facility] Last Admin: 11/05/24 09:09 Dose: 324 mg Documented By: ALLAN Furosemide (Furosemide 20 Mg Tablet) 20 mg PO DAILY [facility]; Protocol Last Admin: 11/05/24 09:09 Dose: 20 mg Documented By: ALLAN Lidocaine (Lidocaine 4 % Patch Adh..Patch) 1 patch TRANSDERMA DAILY [facility]; Protocol Last Admin: 11/05/24 09:08 Dose: 1 patch Documented By: ALLAN Magnesium Hydroxide (Milk Of Magnesia 30 Ml Oral.Susp) 30 ml PO DAILY PRN PRN Reason: Constipation Magnesium Hydroxide (Milk Of Magnesia 30 Ml Oral.Susp) 30 ml PO DAILY PRN PRN Reason: Constipation Melatonin (Melatonin 3 Mg Tablet) 6 mg PO BEDTIME PRN PRN Reason: Insomnia Metoprolol Succinate (Metoprolol Succinate Er 12.5 Mg Halftab.Er.24h) 12.5 mg PO DAILY [facility]; Protocol Last Admin: 11/05/24 09:08 Dose: 12.5 mg Documented By: ALLAN Omeprazole (Omeprazole 20 Mg Capsule.Dr) 20 mg PO DAILY@0630 [facility] Last Admin: 11/05/24 05:51 Dose: 20 mg Documented By: FOUZIA Ondansetron HCl (Ondansetron Hcl 4 Mg/2 Ml Vial) 4 mg IVPUSH Q8H PRN PRN Reason: Nausea and Vomiting Oxycodone HCl (Oxycodone Hcl Immed Release 5 Mg Tablet) 5 mg PO Q4H PRN PRN Reason: Pain, Moderate(Pain Scale 4-6) Last Admin: 11/05/24 09:08 Dose: 5 mg Documented By: ALLAN Quetiapine Fumarate (Quetiapine Fumarate 25 Mg Tablet) 12.5 mg PO BEDTIME [facility] Last Admin: 11/04/24 23:05 Dose: 12.5 mg Documented By: FOUZIA Sodium Chloride (0.9 % Sodium Chloride Flush 3 Ml Syringe) 3 ml IVFLUSH QSHIFT [facility] Last Admin: 11/05/24 09:09 Dose: 3 ml Documented By: ALLAN Labs 11/03/24 06:28 11/05/24 06:12 Labs: Laboratory Results - last 24 hr 11/05/24 06:12 Anion Gap 14 Estim Creat Clear Calc 79.5 Estimated GFR > 60 Random Glucose 88 Calcium 8.3 L D Phosphorus 3.0 Magnesium 1.9 B-Natriuretic Peptide 671 H Albumin 2.6 L Assessment and Plan (1) Acute CHF: Status: Acute (2) NSVT (nonsustained ventricular tachycardia): Status: Acute (3) Paroxysmal atrial fibrillation: Status: Chronic (4) Cecal volvulus: Status: Acute Plan d11 for 79yo bed-bound F with cerebellar ataxia, EtOH peripheral neuropathy, malnutrition, anemia, colonic AVM, pAF presenting with abd pain/obstipation/constipation, admitted to Gen Surg for cecal volvulus; hospitalist consult for management of comorbid conditions NSVT - resolved after repletion of K + Mg AHRF due to R-sided HF - echo 10/27 showed EF 65 %, mitral valve myxomatous appearing, moderate mitral calcification and mild regurg, [id number] tricuspid valve regurg, moderate pulmonary hypertension, no WMA - diuresed with IV furosemide- will give 1 more dose and recheck BMP/BNP in AM - started on metoprolol succinate 12.5 mg daily - outpt Cardiology consult - wean O2 as tolerated cecal volvulus - postop care per Gen Surg; tolerating diet acute/chronic BEST - got 1u pRBCs - outpatient colonoscopy showed AVM; outpt EGD showed duodenitis/esophagitis/gastritis - continue PPI + iron - outpt GI f/u hypoK hypoMg hypoPO4 - repleted hypotension - resolved; stable on metoprolol succinate pAF - no issues; not on anticoagulation chronically moderate protein-calorie malnutrition - supplements VTE ppx - SCDs dispo - STR recommended Total time managing care of this patient today: 40 minutes. Quality Stroke Does the patient have a stroke diagnosis?: No VTE Prior VTE?: No VTE Risk Level:: Surgical - low VTE Device Contraindication: N/A - Device Ordered VTE Drug Contraindication: Treatment Not Indicated
--- NOTE | 2024-11-05 11:58 | MHC.CLN ---
F/U PO INTAKE 25-50% DIET RX: REGULAR PT RECEIVING ENSURE TID PROVIDE 1050KCALS, 60G PROTEIN WITH 100% ACCEPTANCE CONTINUE TO MONITOR PO INTAKE AND ENCOURAGE SUPPLEMENTS OBTAIN WEEKLY WEIGHTS R/T MALNUTRITION
[2024-11-05] MEDS: Furosemide 20 MG/2 ML VIAL IVPUSH (12:53)
--- NOTE | 2024-11-05 13:49 | MHC.CM.PN ---
Addendum entered by Deborah Block 11/05/24 15:24: Per MD, anticipating pt will be ready for discharge to STR tomorrow 11/06. STR bed offers received from all 3 of pts daughters preferred places. This CM placed a call to [facility] to see which facility bed offer they will accept, awaiting a return call. Original Note: EMR reviewed and per MD rounds pt is not medically cleared for discharged. PT evaluated pt and has recommended STR. This CM met with pt to discuss rehab options, per pt [facility] is the first choice. Referral placed to [facility], however they do not have an available bed. This CM met with pt to let her know there is not bed at [facility], pt requested this CM to speak with her daughter/HCP [facility] regarding other rehab options. This CM placed a call to pts daughter Danna to discuss rehab options, a list of local rehabs was emailed to her per her request. After reviewing [facility] called this CM back with the following options for rehabs: [facility], [facility], and [facility]. Referrals placed in [facility] accordingly, awaiting a bed offer.
[2024-11-05] MEDS: QUEtiapine Fumarate 25 MG TABLET 12.5 MG PO (20:00)
[2024-11-06 02:26] VITALS: O2SAT 94
[2024-11-06 03:23] VITALS: BP 111/68; PULSE 93; RESP 17; TEMP 36.6; O2SAT 96
[2024-11-06 06:18] LABS: Albumin Level 2.6 g/dL (3.5-5.0); Anion Gap 11 (12-20); Blood Urea Nitrogen 6 mg/dL (9-16); Calcium 8.3 mg/dL (8.4-10.2); Carbon Dioxide 30 mmol/L (22-29); Chloride 101 mmol/L (96-108); Creatinine Clr Calc Pharmacy 83.5; Estimated Glomerular Filt Rate > 60; Glucose Random 87 mg/dL (60-115); Phosphorus 2.8 mg/dL (2.7-4.5); Potassium 3.7 mmol/L (3.3-5.1); Sodium 138 mmol/L (135-145)
[2024-11-06 06:23] LABS: B Type Natriuretic Peptide 389 pg/mL (<100)
[2024-11-06] MEDS: Omeprazole 20 MG CAPSULE.DR PO (06:24)
[2024-11-06 07:37] VITALS: BP 99/65; PULSE 88; RESP 20; TEMP 36.2; O2SAT 97
[2024-11-06] MEDS: 0.9 % Sodium Chloride Flush 3 ML SYRINGE IVFLUSH (09:12)
[2024-11-06] MEDS: Ferrous Sulfate 324 MG TABLET.DR PO (09:12)
[2024-11-06] MEDS: Furosemide 20 MG TABLET PO (09:12)
[2024-11-06 09:13] VITALS: BP 105/55; PULSE 99
[2024-11-06] MEDS: Metoprolol Succinate ER 12.5 MG HALFTAB.ER.24H PO (09:13)
[2024-11-06] MEDS: Lidocaine 4 % Patch ADH..PATCH 1 PATCH TRANSDERMA (09:13)
--- NOTE | 2024-11-06 09:57 | HO.PM.IMPN ---
Subjective Subjective Date of Service: 11/06/24 Interval History: dyspnea improved some abdominal discomfort Review of Systems Review of Systems: Yes all other systems are reviewed and are negative Physical Exam Vital Signs: Vital Signs: Last Vital Signs Temp 97.2 F 11/06/24 07:37 Pulse 99 11/06/24 09:13 Resp 20 11/06/24 07:37 BP 105/55 L 11/06/24 09:13 Pulse Ox 97 11/06/24 07:37 O2 Del Method Nasal Cannula 11/06/24 07:37 O2 Flow Rate 2 11/06/24 07:37 Oxygen Flow Rate 2 11/06/24 02:26 BMI result Body Mass Index 18.7 Gen: in no acute distress HEENT: sclera anicteric, moist mucus membranes Neck: supple Lungs: clear bilaterally Heart: regular rate and rhythm, no murmurs Abd: soft, incision clean + appropriately tender Ext: no edema Skin: warm/well-perfused Neuro: alert and oriented x3, no focal findings Psych: appropriate affect Objective Data Active Medications Acetaminophen (Acetaminophen 325 Mg Tablet) 650 mg PO Q6H PRN PRN Reason: Pain, Mild (Pain Scale 1-3), fever or headache Last Admin: 11/01/24 11:52 Dose: 650 mg Documented By: LAKESHIA Calcium Carbonate (Calcium Carbonate 750 Mg Tab.Chew) 750 mg PO Q4H PRN PRN Reason: Heartburn Last Admin: 11/01/24 14:51 Dose: 750 mg Documented By: LAKESHIA Ferrous Sulfate (Ferrous Sulfate 324 Mg Tablet.Dr) 324 mg PO BIDWM [facility] Last Admin: 11/06/24 09:12 Dose: 324 mg Documented By: PAZ Furosemide (Furosemide 20 Mg Tablet) 20 mg PO Q48H [facility]; Protocol Lidocaine (Lidocaine 4 % Patch Adh..Patch) 1 patch TRANSDERMA DAILY [facility]; Protocol Last Admin: 11/06/24 09:13 Dose: 1 patch Documented By: PAZ Magnesium Hydroxide (Milk Of Magnesia 30 Ml Oral.Susp) 30 ml PO DAILY PRN PRN Reason: Constipation Magnesium Hydroxide (Milk Of Magnesia 30 Ml Oral.Susp) 30 ml PO DAILY PRN PRN Reason: Constipation Melatonin (Melatonin 3 Mg Tablet) 6 mg PO BEDTIME PRN PRN Reason: Insomnia Metoprolol Succinate (Metoprolol Succinate Er 12.5 Mg Halftab.Er.24h) 12.5 mg PO DAILY [facility]; Protocol Last Admin: 11/06/24 09:13 Dose: 12.5 mg Documented By: PAZ Omeprazole (Omeprazole 20 Mg Capsule.Dr) 20 mg PO DAILY@0630 [facility] Last Admin: 11/06/24 06:24 Dose: 20 mg Documented By: MARK Ondansetron HCl (Ondansetron Hcl 4 Mg/2 Ml Vial) 4 mg IVPUSH Q8H PRN PRN Reason: Nausea and Vomiting Oxycodone HCl (Oxycodone Hcl Immed Release 5 Mg Tablet) 5 mg PO Q4H PRN PRN Reason: Pain, Moderate(Pain Scale 4-6) Last Admin: 11/05/24 20:02 Dose: 5 mg Documented By: MARK Quetiapine Fumarate (Quetiapine Fumarate 25 Mg Tablet) 12.5 mg PO BEDTIME [facility] Last Admin: 11/05/24 20:00 Dose: 12.5 mg Documented By: MARK Sodium Chloride (0.9 % Sodium Chloride Flush 3 Ml Syringe) 3 ml IVFLUSH QSHIFT [facility] Last Admin: 11/06/24 09:12 Dose: 3 ml Documented By: PAZ Labs 11/03/24 06:28 11/06/24 05:30 Labs: Laboratory Results - last 24 hr 11/06/24 05:30 Anion Gap 11 L Estim Creat Clear Calc 83.5 Estimated GFR > 60 Random Glucose 87 Calcium 8.3 L Phosphorus 2.8 Magnesium 2.0 B-Natriuretic Peptide 389 H Albumin 2.6 L Assessment and Plan (1) Acute CHF: Status: Acute (2) NSVT (nonsustained ventricular tachycardia): Status: Acute (3) Paroxysmal atrial fibrillation: Status: Chronic (4) Cecal volvulus: Status: Acute Plan d12 for 79yo bed-bound F with cerebellar ataxia, EtOH peripheral neuropathy, malnutrition, anemia, colonic AVM, pAF presenting with abd pain/obstipation/constipation, admitted to Gen Surg for cecal volvulus; hospitalist consult for management of comorbid conditions NSVT - resolved after repletion of K + Mg AHRF due to R-sided HF - echo 10/27/24 showed EF 65 %, mitral valve myxomatous appearing, moderate mitral calcification and mild regurg, [id number] tricuspid valve regurg, moderate pulmonary hypertension, no WMA - diuresed with IV furosemide and now euvolemic- place on 20 mg every 48h - started on metoprolol succinate 12.5 mg daily - recommend outpt Cardiology follow-up - wean O2 as tolerated cecal volvulus - postop care per Gen Surg; tolerating diet acute/chronic BEST - got 1u pRBCs - outpatient colonoscopy showed AVM; outpt EGD showed duodenitis/esophagitis/gastritis - continue PPI + iron - recommend outpt GI f/u hypoK hypoMg hypoPO4 - repleted hypotension - resolved; stable on metoprolol succinate pAF - no issues; not on anticoagulation chronically moderate protein-calorie malnutrition - supplements VTE ppx - SCDs dispo - STR recommended; medically cleared Total time managing care of this patient today: 35 minutes. Quality Stroke Does the patient have a stroke diagnosis?: No VTE Prior VTE?: No VTE Risk Level:: Surgical - low VTE Device Contraindication: N/A - Device Ordered VTE Drug Contraindication: Treatment Not Indicated
--- NOTE | 2024-11-06 09:58 | PM.PNCARD ---
Subjective Subjective Date of Service: 11/06/24 Interval history: Seen examined at bedside. Feeling better. Complaining of some pressure-like feeling in the stomach after eating. Physical Exam Vital Signs: Last Vital Signs Temp 97.2 F 11/06/24 07:37 Pulse 99 11/06/24 09:13 Resp 20 11/06/24 07:37 BP 105/55 L 11/06/24 09:13 Pulse Ox 97 11/06/24 07:37 O2 Del Method Nasal Cannula 11/06/24 07:37 O2 Flow Rate 2 11/06/24 07:37 Oxygen Flow Rate 2 11/06/24 02:26 BMI result Body Mass Index 18.7 GENERAL APPEARANCE: Frail appearing. In no acute distress. NECK: no carotid bruit, no jugular venous distention. SKIN: no suspicious lesions, warm and dry. HEART: no murmurs, regular rate and rhythm. LUNGS: Diminished at bases. EXTREMITIES: no edema. PERIPHERAL PULSES: equal. NEUROLOGIC: No gross deficits, AAO X 3 Objective Labs and Meds 11/03/24 06:28 11/06/24 05:30 Lab results: Laboratory Results - last 24 hr 11/06/24 05:30 Sodium 138 Potassium 3.7 Chloride 101 Carbon Dioxide 30 H Anion Gap 11 L BUN 6 L Creatinine 0.40 L Estim Creat Clear Calc 83.5 Estimated GFR > 60 Random Glucose 87 Calcium 8.3 L Phosphorus 2.8 Magnesium 2.0 B-Natriuretic Peptide 389 H Albumin 2.6 L Progress Note: A&P Assessment and plan (1) Acute CHF: Status: Acute (2) NSVT (nonsustained ventricular tachycardia): Status: Acute Plan 79 female status post surgery for bowel obstruction. She developed congestive heart failure and had nonsustained VT. She is on PO Lasix. Clinically she is euvolemic and quite sensitive to Lasix. I think we should use Lasix 20 mg q.48h. Continue low-dose metoprolol. Thank you for allowing me to participate in the care of your patient. Please feel free to contact me if you have any questions. Time Spent With Patient Time: Total time managing care of this patient today ____ minutes. Progress Note: Quality Stroke Does the patient have a stroke diagnosis?: No Procedures Date of Service Date of Service: 11/06/24
[2024-11-06] MEDS: oxyCODONE HCl Immed Release 5 MG TABLET PO ×2 (10:25→14:33)
[2024-11-06 12:00] VITALS: BP 104/61; PULSE 92; RESP 20; TEMP 36.6; O2SAT 96
--- NOTE | 2024-11-06 12:00 | PM.PNGS ---
Subjective Subjective Date of Service: 11/06/24 Interval history: Patient reports passing flatus and small bowel movement Physical Exam Vital Signs: Vital Signs: Last Vital Signs Temp 97.2 F 11/06/24 07:37 Pulse 99 11/06/24 09:13 Resp 20 11/06/24 07:37 BP 105/55 L 11/06/24 09:13 Pulse Ox 97 11/06/24 07:37 O2 Del Method Nasal Cannula 11/06/24 07:37 O2 Flow Rate 2 11/06/24 07:37 Oxygen Flow Rate 2 11/06/24 02:26 BMI result Body Mass Index 18.7 Const: General: comfortable, no acute distress and alert Orientation/consciousness: patient oriented x3 Resp: Effort & Inspection: normal respiratory effort GI: Inspection: No distended and Yes incision (clean) Palpation (GI): Soft to palpation and no guarding Skin: General skin exam: no rashes or lesions noted Neuro: General: patient oriented x3 and moves all extremities Objective Data Active Medications Acetaminophen (Acetaminophen 325 Mg Tablet) 650 mg PO Q6H PRN PRN Reason: Pain, Mild (Pain Scale 1-3), fever or headache Last Admin: 11/01/24 11:52 Dose: 650 mg Documented By: LAKESHIA Calcium Carbonate (Calcium Carbonate 750 Mg Tab.Chew) 750 mg PO Q4H PRN PRN Reason: Heartburn Last Admin: 11/01/24 14:51 Dose: 750 mg Documented By: LAKESHIA Ferrous Sulfate (Ferrous Sulfate 324 Mg Tablet.Dr) 324 mg PO BIDWM [facility] Last Admin: 11/06/24 09:12 Dose: 324 mg Documented By: PAZ Furosemide (Furosemide 20 Mg Tablet) 20 mg PO Q48H [facility]; Protocol Lidocaine (Lidocaine 4 % Patch Adh..Patch) 1 patch TRANSDERMA DAILY [facility]; Protocol Last Admin: 11/06/24 09:13 Dose: 1 patch Documented By: PAZ Magnesium Hydroxide (Milk Of Magnesia 30 Ml Oral.Susp) 30 ml PO DAILY PRN PRN Reason: Constipation Magnesium Hydroxide (Milk Of Magnesia 30 Ml Oral.Susp) 30 ml PO DAILY PRN PRN Reason: Constipation Melatonin (Melatonin 3 Mg Tablet) 6 mg PO BEDTIME PRN PRN Reason: Insomnia Metoprolol Succinate (Metoprolol Succinate Er 12.5 Mg Halftab.Er.24h) 12.5 mg PO DAILY [facility]; Protocol Last Admin: 11/06/24 09:13 Dose: 12.5 mg Documented By: PAZ Omeprazole (Omeprazole 20 Mg Capsule.Dr) 20 mg PO DAILY@0630 [facility] Last Admin: 11/06/24 06:24 Dose: 20 mg Documented By: MARK Ondansetron HCl (Ondansetron Hcl 4 Mg/2 Ml Vial) 4 mg IVPUSH Q8H PRN PRN Reason: Nausea and Vomiting Oxycodone HCl (Oxycodone Hcl Immed Release 5 Mg Tablet) 5 mg PO Q4H PRN PRN Reason: Pain, Moderate(Pain Scale 4-6) Last Admin: 11/06/24 10:25 Dose: 5 mg Documented By: PAZ Quetiapine Fumarate (Quetiapine Fumarate 25 Mg Tablet) 12.5 mg PO BEDTIME [facility] Last Admin: 11/05/24 20:00 Dose: 12.5 mg Documented By: MARK Sodium Chloride (0.9 % Sodium Chloride Flush 3 Ml Syringe) 3 ml IVFLUSH QSHIFT [facility] Last Admin: 11/06/24 09:12 Dose: 3 ml Documented By: PAZ Labs 11/03/24 06:28 11/06/24 05:30 Labs: Laboratory Results - last 24 hr 11/06/24 05:30 Anion Gap 11 L Estim Creat Clear Calc 83.5 Estimated GFR > 60 Random Glucose 87 Calcium 8.3 L Phosphorus 2.8 Magnesium 2.0 B-Natriuretic Peptide 389 H Albumin 2.6 L Procedures Date of Service Date of Service: 11/06/24 Progress Note: A&P Assessment and plan (1) Acute CHF: Status: Acute (2) Cecal volvulus: Status: Acute Plan S/p exploratory laparotomy, ileal right colectomy with primary ileocolic transverse colon anastomosis. Oral intake increasing. Good GI function. Abd remains benign with clean incision. No acute surgical issues. Plan for discharge to short-term rehab. Time Spent With Patient Time: Total time managing care of this patient today ____ minutes. Quality Stroke Does the patient have a stroke diagnosis?: No VTE Prior VTE?: No VTE Risk Level:: Surgical - low VTE Device Contraindication: N/A - Device Ordered VTE Drug Contraindication: Treatment Not Indicated
--- NOTE | 2024-11-06 12:41 | PM.DS ---
DS: Providers Provider Date of Service: 11/06/24 Date of admission: 10/26/24 22:53 Primary care physician: Vickey Bush MD Admitting clinician: Uri Mckeon Consults: 10/26/24 22:53 Consult to Hospitalist Stat Comment: Consulting Provider: [facility] Hospitalists Reason For Exam: ecal volvulos, for OR. Medical eval pre-op 11/02/24 12:58 Consult to Cardiology Routine Consulting Provider: Jone Diaz Reason for consultation: nsvtach Has provider been notified: No Attending physician on discharge: Uri Mckeon DS: Diagnosis Discharge Diagnosis (1) Acute CHF: Status: Acute (2) Cecal volvulus: Status: Acute DS: Summary Hospital Course Hospital Course: Myriam Jerry is a 79 year old female here with 2 day history of progressively worsening abdominal pain inability to pass flatus and stool. Because of progression of symptoms, patient presents to the emergency department for further evaluation. Workup including CT scan demonstrates findings consistent with a very significant cecal volvulus. Her past history is significant for cerebellar ataxia, ETOH, peripheral neuropathy, malnutrition, anemia, colonic AVM, paroxysmal atrial fibrillation. She was admitted to the surgical service on 10/27/2024 and subsequently taken to the operating room on the day of admission for an ileo right colectomy with primary ileo transverse colon anastomosis. Postoperatively she developed shortness of breath, SVT and anemia. She had a prolonged hospital course. Summation of problems: NSVT - resolved after repletion of K + Mg AHRF due to R-sided HF - echo 10/27/24 showed EF 65 %, mitral valve myxomatous appearing, moderate mitral calcification and mild regurg, [id number] tricuspid valve regurg, moderate pulmonary hypertension, no WMA - diuresed with IV furosemide and now euvolemic- place on 20 mg every 48h - started on metoprolol succinate 12.5 mg daily - recommend outpt Cardiology follow-up - wean O2 as tolerated cecal volvulus -resolved following surgery; tolerating diet, passing flatus and having bowel movements acute/chronic BEST - got 1u pRBCs - outpatient colonoscopy showed AVM; outpt EGD showed duodenitis/esophagitis/gastritis - continue PPI + iron - recommend outpt GI f/u hypoK hypoMg hypoPO4 - repleted hypotension - resolved; stable on metoprolol succinate pAF - no issues; not on anticoagulation chronically moderate protein-calorie malnutrition - supplements VTE ppx - SCDs Status at Discharge Functional status at discharge: bed bound Overall status at discharge: patient is not back to baseline Time Attestation Discharge Coordination Time (in mins): 35 Quality: Safe Use of Opioids Does Pt have an Active Cancer Diagnosis on the Problem List?: No Quality: Stroke Does the patient have a stroke diagnosis?: No Physical Exam Vital Signs: Vital Signs: Last Vital Signs Temp 97.9 F 11/06/24 12:00 Pulse 92 11/06/24 12:00 Resp 20 11/06/24 12:00 BP 104/61 11/06/24 12:00 Pulse Ox 96 11/06/24 12:00 O2 Del Method Nasal Cannula 11/06/24 12:00 O2 Flow Rate 2 11/06/24 12:00 Oxygen Flow Rate 2 11/06/24 02:26 BMI result Body Mass Index 18.7 Const: General: comfortable, no acute distress and alert Orientation/consciousness: patient oriented x3 Resp: Effort & Inspection: normal respiratory effort GI: Inspection: No distended and Yes incision (clean) Palpation (GI): Soft to palpation and no guarding Skin: General skin exam: no rashes or lesions noted Neuro: General: patient oriented x3 and moves all extremities DS: Data Data Completed and Pending Completed studies during hospitalization [Text1]: Pending at discharge 10/27/24 05:32 Surgical [PTH] Routine Procedures Excision of Esophagus, Via Natural or Artificial Opening Endoscopic, Diagnostic (06/14/22) Excision of Stomach, Pylorus, Via Natural or Artificial Opening Endoscopic, Diagnostic (06/14/22) Introduction of Remdesivir Anti-infective into Peripheral Vein, Percutaneous Approach, [employer] (07/13/22) Transfusion of Nonautologous Red Blood Cells into Peripheral Vein, Percutaneous Approach (06/14/22) Labs on day of discharge: Laboratory Results - last 24 hr 11/06/24 05:30 Sodium 138 Potassium 3.7 Chloride 101 Carbon Dioxide 30 H Anion Gap 11 L BUN 6 L Creatinine 0.40 L Estim Creat Clear Calc 83.5 Estimated GFR > 60 Random Glucose 87 Calcium 8.3 L Phosphorus 2.8 Magnesium 2.0 B-Natriuretic Peptide 389 H Albumin 2.6 L Discharge Plan Discharge Anticipated Discharge Date/Time: 11/06/24 12:41 Patient Disposition: Xfer Inpatient Rehab Fac Discharge Diagnosis: Cecal volvulus s/p ileocecal resection Referrals: Vickey Bush MD [Primary Care Provider] - 1 Week Jone Diaz MD [Physician] - 2 Weeks Uri Mckeon MD [Physician] - 1 Week Discharge Medications: New furosemide 20 mg Tablet 20 mg PO Q48H Qty: 15 0RF Protocol: Hold for SBP< HOLD for SBP < : 90 ferrous sulfate 324 mg (65 mg iron) Tablet,Delayed Release (Dr/Ec) 324 mg PO DAILY Qty: 30 0RF metoprolol succinate 25 mg tablet extended release 24 hr 12.5 mg PO DAILY Qty: 15 0RF Continued quetiapine 25 mg tablet 12.5 mg PO BEDTIME Qty: 45 1RF Ensure Complete 1 bottle PO DAILY Discharge Orders: Discharge Order (Routine); Ordered 11/06/24 Ordered By: Alverto Jones Diet: Advance to usual diet Activity on Discharge: No heavy lifting Stand Alone Forms: Patient Portal Discharge page Print Language: Serbian Activity Restrictions/Additional Instructions: May shower in 2 days. No strenuous activities CHF [congestive heart failure] Low-sodium diet: less than 2000 mg of sodium daily. Weigh yourself daily and call your doctor if your weight goes up by more than 3 lb/day or 5 lb/week. Take furosemide 20 mg every other day Take metoprolol succinate 12.5 mg daily Follow up with [facility] Cardiology in 2 weeks Care Plan Goals: Returned to usual activity and diet Health Concerns: Cecal volvulus Plan of Treatment: S/p ileocecal colectomy Assessment: Cecal volvulus Acute CHF Nonsustained ventricular tachycardia Paroxysmal atrial fibrillation Bed-bound Insomnia Cerebellar ataxia Acute blood loss anemia
--- NOTE | 2024-11-06 13:14 | MHC.CM.PN ---
PT CLEARED TO DC TO STR TODAY CM SPOKE TO PTS DAUGHTER, HELEN, WHO [facility] WOULD BE PREFERRED BLS TRANSPORT BOOKED FOR 1500 HOURS [facility]IA [facility]
== END 2024-11-06 15:30 | DRG 329 ==
LOC: HO.ED 22:32 → HO.EDOVER 23:04 → HO.S3 10-27 06:55 → HO.IMC 10-28 09:57
PROVIDERS: Family Medicine; Hospitalist; Nurse Practitioner Family; Physician Assistant; Student in an Organized Health Care Education/Training Program; Admitting Provider Surgery; Emergency Provider Emergency Medicine; PCP Family Medicine; Visit Provider Surgery
PROC: 0DTF0ZZ Resection of Right Large Intestine, Open Approach (ICD-10-PCS; CPT 49000; principal; 2024-10-27 05:00)
DX: K56.2 Volvulus (principal); J96.01 Acute respiratory failure with hypoxia; K63.1 Perforation of intestine (nontraumatic); G11.9 Hereditary ataxia, unspecified; K55.9 Vascular disorder of intestine, unspecified; I47.20 Ventricular tachycardia, unspecified; E44.0 Moderate protein-calorie malnutrition; Z68.1 Body mass index [BMI] 19.9 or less, adult; I08.1 Rheumatic disorders of both mitral and tricuspid valves; D50.9 Iron deficiency anemia, unspecified; E87.6 Hypokalemia; Z74.01 Bed confinement status; E83.42 Hypomagnesemia; I27.20 Pulmonary hypertension, unspecified; E83.39 Other disorders of phosphorus metabolism; I50.811 Acute right heart failure; F10.90 Alcohol use, unspecified, uncomplicated; I95.9 Hypotension, unspecified; G62.1 Alcoholic polyneuropathy; I48.0 Paroxysmal atrial fibrillation; Z20.822 Contact with and (suspected) exposure to COVID-19; Z87.891 Personal history of nicotine dependence; Z79.899 Other long term (current) drug therapy
CPT/HCPCS: 0241U; 36415; 71045; 71275; 74177; 80048; 80053; 82040; 83605; 83690; 83735; 83880; 84100; 84478; 85007; 85025; 85027; 85379; 86850; 86900; 86901; 86923; 87040; 88307; 93005; 93306; 97162; 97530; 99285; C1758; J0330; J1171; J1940; J2003; J2270; J2371; J2405; J2543; J2704; J2795; J3010; J3475; J3480; J7120; P9016; Q9967

== ENCOUNTER 2024-10-26 22:53 | Outpatient (BNV) | payer MEDICARE, OTHER, SELFPAY | END 2024-10-28 03:57 | PROVIDERS: Admitting Provider Surgery; Emergency Provider Emergency Medicine; PCP Family Medicine; Visit Provider Internal Medicine | DX: R00.0 Tachycardia, unspecified (principal); I49.3 Ventricular premature depolarization; I49.1 Atrial premature depolarization; R94.31 Abnormal electrocardiogram [ECG] [EKG] | CPT/HCPCS: 93010 ==

== ENCOUNTER 2024-10-26 22:53 | Outpatient (BNV) | payer MEDICARE, OTHER, SELFPAY | END 2024-10-27 07:00 | PROVIDERS: Admitting Provider Surgery; Emergency Provider Emergency Medicine; PCP Family Medicine; Visit Provider Internal Medicine | DX: I34.0 Nonrheumatic mitral (valve) insufficiency (principal); I36.1 Nonrheumatic tricuspid (valve) insufficiency; I35.8 Other nonrheumatic aortic valve disorders | CPT/HCPCS: 93010; 93306 ==

== ENCOUNTER 2024-10-26 22:53 | Outpatient (BNV) | payer MEDICARE, OTHER, SELFPAY | END 2024-10-27 02:05 | PROVIDERS: Admitting Provider Surgery; Emergency Provider Emergency Medicine; PCP Family Medicine; Visit Provider Radiology Diagnostic Radiology | DX: J43.1 Panlobular emphysema (principal); I51.7 Cardiomegaly; Z93.1 Gastrostomy status | CPT/HCPCS: 71045 ==

== ENCOUNTER → 2024-10-26 22:53 | Outpatient (BNV) | payer MEDICARE, OTHER, SELFPAY | PROVIDERS: Admitting Provider Surgery; Emergency Provider Emergency Medicine; PCP Family Medicine; Visit Provider Surgery | DX: I50.9 Heart failure, unspecified (principal); K56.2 Volvulus | CPT/HCPCS: 44140; 99024; 99222 ==

== ENCOUNTER → 2024-10-26 22:53 | Outpatient (BNV) | payer MEDICARE, OTHER, SELFPAY | PROVIDERS: Admitting Provider Surgery; Emergency Provider Emergency Medicine; PCP Family Medicine; Visit Provider Internal Medicine Cardiovascular Disease | DX: I50.9 Heart failure, unspecified (principal); I47.29 Other ventricular tachycardia | CPT/HCPCS: 99223; 99232 ==

== ENCOUNTER → 2024-10-26 22:53 | Outpatient (BNV) | payer MEDICARE, OTHER, SELFPAY | PROVIDERS: Admitting Provider Surgery; Emergency Provider Emergency Medicine; PCP Family Medicine; Visit Provider Hospitalist | DX: I50.810 Right heart failure, unspecified (principal); I47.29 Other ventricular tachycardia; K56.2 Volvulus | CPT/HCPCS: 99222; 99232; 99499 ==

== ENCOUNTER 2024-11-30 10:21 | Outpatient (AMB) | payer MEDICARE, OTHER, SELFPAY ==
--- OUTSIDE RECORDS SUMMARY | 2024-11-30 10:23 | XMS_ITS | Clinical Summary ---
Author Organization Unknown Care Team Providers Care Nitrate Operator Name Role Phone LYNDON MOWER MECHANIC, GEOVANNI Unavailable Unavailable BIA RN, JUNE Unavailable Unavailable KASIA PT, STEPHAN Unavailable Unavailable SPAFFORD OT, JASPAL Unavailable Unavailable CONDINO BIANCA/MARTINEZ, STEVE Unavailable Unav ailable FECTEAU CIGARETTE BOOK MAKER, CURRY Unavailable Unavailable Payers Payer Name Policy Type Policy Number Effective Date Expira tion Date MEDICARE.NGS.PDGM [id number] Problems Condition Name Condition Details Condition Category Status Onset Date Resolution Date Last Treatment Date Treating Clinician Comments COVID-19 Active 8 00:00: 00 ACUTE RESPIRATORY FAILURE WITH HYPOXIA Active 07-19 00:00: 00 DYSPNEA, UNSPECIFIED Active 8 00:00: 00 COUGH, UNSPECIFIED Active 8 00:00: 00 CHRONIC OBSTRUCTIVE PULMONARY DISEASE, UNSPECIFIED Active 8 00:00: 00 HYPOTENSION, UNSPECIFIED Active 12-01 00:00: 00 ANEMIA, UNSPECIFIED Active 12-01 00:00: 00 ESOPHAGITIS, UNSPECIFIED WITHOUT BLEEDING Active 12-01 00:00: 00 PAROXYSMAL ATRIAL FIBRILLATION Active 12-01 00:00: 00 PRIMARY PULMONARY HYPERTENSION Active 12-01 00:00: 00 OTHER ARTERIAL EMBOLISM AND THROMBOSIS OF ABDOMINAL AORTA Active 12-01 00:00: 00 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 Active 12-01 00:00: 00 ALCOHOLIC POLYNEUROPAT HY Active 12-01 00:00: 00 ALCOHOL DEPENDENCE, UNCOMPLICATE D Active 12-01 00:00: 00 UNSPECIFIED SEVERE PROTEIN-RONNELL MICHAEL MALNUTRITION Active 12-01 00:00: 00 IRON DEFICIENCY Active 12-01 00:00: 00 DEFICIENCY OF OTHER SPECIFIED B GROUP VITAMINS Active 12-01 00:00: 00 UNSPECIFIED HEMORRHOIDS Active 12-01 00:00: 00 HEPATOMEGALY , NOT ELSEWHERE CLASSIFIED Active 12-01 00:00: 00 SOLITARY PULMONARY NODULE Active 12-01 00:00: 00 ADULT FAILURE TO THRIVE Active 12-01 00:00: 00 CONSTIPATION , UNSPECIFIED Active 12-01 00:00: 00 NICOTINE DEPENDENCE, CIGARETTES, UNCOMPLICATE D Active 12-01 00:00: 00 HISTORY OF FALLING Active 07-01 00:00: 00 Allergies, Adverse Reactions, Alerts Allergy Name Allergy Type Status Severity Reaction(s) Onset Date Inactive Date Treating Clinician Comments NO KNOWN ALLERGIES Propensity to adverse reactions Active 07-13 20:39: 37 Medications Ordered Medication Name Filled Medication Name Start Date Stop Date Current Medication? Ordering Clinician Indication Dosage Frequency Signature (SIG) Comments Components albuterol sulfate HFA 90 mcg/actuati on aerosol inhaler 07-13 00:00: 00 Yes [id number] TREATS COPD 2 puff EVERY 4 HOURS 2 puff EVERY 4 HOURS (route: inhalation ) Med Classific ation: Respirato ry Therapy Agents Breo Ellipta 100 mcg-25 mcg/dose powder for inhalation 07-13 00:00: 00 Yes [id number] TREATS COPD Per instruc tions 2 TIMES DAILY Per instructio ns 2 TIMES DAILY (route: inhalation ) Med Classific ation: Respirato ry Therapy Agents folic acid 1 mg tablet 07-13 00:00: 00 Yes [id number] SUPPLEMENT 1 mg DAILY 1 mg DINORAH LY (route: oral) Med Classific ation: Electroly te Balance-N utritiona l Products iron 325 mg (65 mg iron) tablet 07-13 00:00: 00 Yes [id number] TREATS ANEMIA 325 mg DAILY 325 mg DAILY (route: oral) Med Classific ation: Electroly te Balance-N utritiona l Products magnesium oxide 400 mg (241.3 mg magnesium) tablet 07-13 00:00: 00 Yes [id number] SUPPLEMENT 400 mg 2 TIMES DAILY 400 mg 2 TIMES DAILY (route: oral) Med Classific ation: Electroly te Balance-N utritiona l Products midodrine 10 mg tablet 07-13 00:00: 00 Yes [id number] TREATS HYPOTENSION 10 mg 3 TIMES DAILY 10 mg 3 TIMES DAILY (route: oral) Med Classific ation: Cardiovas cular Therapy Agents multivitami n tablet 07-13 00:00: 00 Yes [id number] SUPPLEMENT 1 tablet DAILY 1 tablet DAILY (route: oral) Med Classific ation: Electroly te Balance-N utritiona l Products nicotine 21 mg/24 hr daily transdermal patch 07-13 00:00: 00 Yes [id number] NON SMOKING PATCH 1 patch, transde rmal 24 hours DAILY 1 patch, transderma l 24 hours DAILY (route: transderma l) Med Classific ation: Chemical Dependenc y, Agents to Treat omeprazole 40 mg capsule,del ayed release 07-13 00:00: 00 Yes [id number] TREATS GERD 40 mg DAILY 40 mg DAILY (route: oral) Med Classific ation: Gastroint estinal Therapy Agents thiamine HCl (vitamin B1) 100 mg tablet 07-13 00:00: 00 Yes [id number] SUPPLEMENT 100 mg DAILY 100 mg DAILY (route: oral) Med Classific ation: Electroly te Balance-N utritiona l Products dextrometho rphan-guaif enesin 10 mg-100 mg/5 mL oral liquid 07-22 00:00: 00 07-25 23:59 :00 No [id number] cough 10 mL 4 TIMES DAILY 10 mL 4 TIMES DAILY (route: oral) Med Classific ation: Respirato ry Therapy Agents dexamethaso ne 6 mg tablet 07-22 00:00: 00 07-24 23:59 :00 No [id number] covid 1 tablet DAILY 1 tablet DAILY (route: oral) Med Classific ation: Endocrine Immunizations Ordered Immunization Name Filled Immunization Name Date Status Comments Refusal Reason INFLUENZA, TIV (INACTIVATED) 2021-09-05 00:00:00 Vital Signs Vital Name Observation Time Observation Value Commen ts Temperature 2022-07-25 10:50:00.000 97.9 [degF] Temperature 2022-07-24 14:02:00.000 97.1 [degF] Temperature 2022-07-22 11:59:00.000 96.5 [degF] Temperature 2022-07-13 12:41:00.000 101 [degF] BMI (%) 2022-07-22 11:59:00.000 17 kg/m2 BMI (%) 2022-07-13 12:41:00.000 17 kg/m2 Height 2022-07-22 11:59:00.000 62 [in_us] Height 2022-07-13 12:41:00.000 62 [in_us] Pulse 2022-07-25 10:50:00.000 60 /min Pulse 2022-07-24 14:02:00.000 61 /min Pulse 2022-07-22 11:59:00.000 84 /min Pulse 2022-07-13 12:41:00.000 88 /min O2 Saturation (%) 2022-07-25 10:50:00.000 92 % O2 Saturation (%) 2022-07-24 14:02:00.000 91 % O2 Saturation (%) 2022-07-22 12:03:00.000 93 % O2 Saturation (%) 2022-07-13 12:42:00.000 93 % Respirations 2022-07-25 10:50:00.000 18 /min Respirations 2022-07-24 14:02:00.000 18 /min Respirations 2022-07-22 11:59:00.000 18 /min Respirations 2022-07-13 12:41:00.000 18 /min Weight (lbs) 2022-07-22 11:59:00.000 96 [lb_av] Weight (lbs) 2022-07-13 12:41:00.000 94 [lb_av] Systolic Blood Pressure 2022-07-25 10:50:00.000 110 mm [Hg] Systolic Blood Pressure 2022-07-24 14:02:00.000 92 mm[ Hg] Systolic Blood Pressure 2022-07-22 11:59:00.000 110 mm [Hg] Systolic Blood Pressure 2022-07-13 12:41:00.000 108 mm [Hg] Diastolic Blood Pressure 2022-07-25 10:50:00.000 60 mm [Hg] Diastolic Blood Pressure 2022-07-24 14:02:00.000 54 mm [Hg] Diastolic Blood Pressure 2022-07-22 11:59:00.000 70 mm [Hg] Diastolic Blood Pressure 2022-07-13 12:41:00.000 60 mm [Hg] Plan of Treatment Planned Activity Planned Date Details Comments Future Scheduled Test MEDICATION MANAGEMENT; SKILLED NURSE TO REVIEW MEDICATIONS FOR INTERACTIONS, EFFECTIVENESS OF DRUG THERAPY, AND SIGNS/SYMPTOMS OF ADVERSE REACTIONS. MAY INSTRUCT AND REINFORCE MEDICATION TEACHING RELATED TO THE USE OF MEDICATIONS, DOSAGE, FREQUENCY, PURPOSE, SIDE EFFECTS, AND TO REPORT COMPLICATIONS. [code = MEDICATION MANAGEMENT; SKILLED NURSE TO REVIEW MEDICATIONS FOR INTERACTIONS, EFFECTIVENESS OF DRUG THERAPY, AND SIGNS/SYMPTOMS OF ADVERSE REACTIONS. MAY INSTRUCT AND REINFORCE MEDICATION TEACHING RELATED TO THE USE OF MEDICATIONS, DOSAGE, FREQUENCY, PURPOSE, SIDE EFFECTS, AND TO REPORT COMPLICATIONS.] Future Scheduled Test RESPIRATOR Y SYSTEM MANAGEMENT; SKILLED NURSE TO ASSESS AND TEACH RELATED TO ALTERED RESPIRATORY STATUS TO MINIMIZE COMPLICATIONS AND REDUCE HOSPITALIZATION. [code = RESPIRATORY SYSTEM MANAGEMENT; SKILLED NURSE TO ASSESS AND TEACH RELATED TO ALTERED RESPIRATORY STATUS TO MINIMIZE COMPLICATIONS AND REDUCE HOSPITALIZATION.] Future Scheduled Test COPD MANAG EMENT; SKILLED NURSE TO ASSESS AND TEACH SIGNS/SYMPTOMS OF COPD EXACERBATION AND PROVIDE EARLY INTERVENTIONS TO MINIMIZE RISK OF HOSPITALIZATION. SKILLED NURSE TO INSTRUCT ON SELF-CARE MANAGEMENT INCLUDING BREATHING TECHNIQUES, AIRWAY CLEARANCE, AND PROPER USE OF COPD MEDICATIONS. ASSESS CAREGIVER ABILITY TO MONITOR AND RECORD VITALS SIGNS INCLUDING PULSE OXIMETRY AND BLOOD PRESSURE. [code = COPD MANAGEMENT; SKILLED NURSE TO ASSESS AND TEACH SIGNS/SYMPTOMS OF COPD EXACERBATION AND PROVIDE EARLY INTERVENTIONS TO MINIMIZE RISK OF HOSPITALIZATION. SKILLED NURSE TO INSTRUCT ON SELF-CARE MANAGEMENT INCLUDING BREATHING TECHNIQUES, AIRWAY CLEARANCE, AND PROPER USE OF COPD MEDICATIONS. ASSESS CAREGIVER ABILITY TO MONITOR AND RECORD VITALS SIGNS INCLUDING PULSE OXIMETRY AND BLOOD PRESSURE. ] Future Scheduled Test FALL REDUC TION MANAGEMENT; NURSING TO PROVIDE SKILLED ASSESSMENT, EDUCATION, AND INTERVENTION TO IDENTIFY FALL RISK FACTORS SUCH MEDICATIONS THAT MAY CAUSE DIZZINESS, CHRONIC DISEASES, PSYCHOLOGICAL FACTORS, AND EMPOWER/EDUCATE CAREGIVER TO MINIMIZE FALL RISK. [code = FALL REDUCTION MANAGEMENT; NURSING TO PROVIDE SKILLED ASSESSMENT, EDUCATION, AND INTERVENTION TO IDENTIFY FALL RISK FACTORS SUCH MEDICATIONS THAT MAY CAUSE DIZZINESS, CHRONIC DISEASES, PSYCHOLOGICAL FACTORS, AND EMPOWER/EDUCATE CAREGIVER TO MINIMIZE FALL RISK.] Future Scheduled Test SKILLED NU RSE TO ASSESS, EVALUATE, AND DEVELOP AN INDIVIDUALIZED PLAN OF CARE. AGENCY MAY ACCEPT ORDERS FROM CONSULTING PHYSICIANS SN TO OBSERVE/ASSESS RISK FOR FALLS AND INSTRUCT IN FALL PREVENTION, HOME SAFETY, MEDICATION MANAGEMENT, INFECTION PREVENTION, AND NUTRITION MANAGEMENT. SN MAY PERFORM O2 SATURATION LEVEL ON ADMISSION AND PRN TO ASSESS PATIENT, WITH NOTIFICATION TO THE PHYSICIAN IF SATURATION IS 90% IN THE ABSENCE OF MORE SPECIFIC PARAMETERS FROM THE PHYSICIAN. AGENCY MAY PERFORM A RESUMPTION OF CARE VISIT FOLLOWING ANY HOSPITAL ADMISSION. SKILLED NURSE TO ASSESS/EVALUATE CO-MORBID CONDITIONS AND ANY NEW CONDITIONS THAT PRESENT THEMSELVES DURING THIS EPISODE TO IDENTIFY CHANGES AND INTERVENE TO MINIMIZE COMPLICATIONS. [code = SKILLED NURSE TO ASSESS, EVALUATE, AND DEVELOP AN INDIVIDUALIZED PLAN OF CARE. AGENCY MAY ACCEPT ORDERS FROM CONSULTING PHYSICIANS SN TO OBSERVE/ASSESS RISK FOR FALLS AND INSTRUCT IN FALL PREVENTION, HOME SAFETY, MEDICATION MANAGEMENT, INFECTION PREVENTION, AND NUTRITION MANAGEMENT. SN MAY PERFORM O2 SATURATION LEVEL ON ADMISSION AND PRN TO ASSESS PATIENT, WITH NOTIFICATION TO THE PHYSICIAN IF SATURATION IS 90% IN THE ABSENCE OF MORE SPECIFIC PARAMETERS FROM THE PHYSICIAN. AGENCY MAY PERFORM A RESUMPTION OF CARE VISIT FOLLOWING ANY HOSPITAL ADMISSION. SKILLED NURSE TO ASSESS/EVALUATE CO-MORBID CONDITIONS AND ANY NEW CONDITIONS THAT PRESENT THEMSELVES DURING THIS EPISODE TO IDENTIFY CHANGES AND INTERVENE TO MINIMIZE COMPLICATIONS.] Future Scheduled Test PAIN MANAG EMENT; SKILLED NURSE TO OBSERVE, ASSESS, AND PROVIDE EDUCATION ON PAIN MANAGEMENT TECHNIQUES. [code = PAIN MANAGEMENT; SKILLED NURSE TO OBSERVE, ASSESS, AND PROVIDE EDUCATION ON PAIN MANAGEMENT TECHNIQUES.] Future Scheduled Test SKILLED NU RSE TO OBSERVE CLOSED BLOOD BLISTER LT MEDIAL HEEL, TEACH CAREGIVER TO OBSERVE WOUND. SN TO ACQUIRE WOUND ORDERS WHEN PT RETURNS HOME FROM THE HOSPITAL / REHAB. [code = SKILLED NURSE TO OBSERVE CLOSED BLOOD BLISTER LT MEDIAL HEEL, TEACH CAREGIVER TO OBSERVE WOUND. SN TO ACQUIRE WOUND ORDERS WHEN PT RETURNS HOME FROM THE HOSPITAL / REHAB.] Future Scheduled Test RISK FOR H OSPITALIZATION; SKILLED NURSE TO INSTRUCT PATIENT/CAREGIVER ON RISK FOR HOSPITALIZATION, TEACH SIGNS AND SYMPTOMS THAT PUT PATIENT AT RISK, WHEN TO NOTIFY NURSE OF COMPLICATIONS/DECLINE, AND WHEN TO CALL 911. SKILLED NURSE TO INSTRUCT PATIENT/CAREGIVER ON: SIGNS AND SYMPTOMS TO BE ON ALERT FOR EARLY INTERVENTION, PRIOR TO NEEDING EMERGENCY SERVICES CALL JENNIS NURSE TO KEEP SENIOR DIRECTOR OF STRATEGY SYMPTOM REPORT FOR VISIBLE REFERENCE NOTIFY SKILLED NURSE/PHYSICIAN FOR DECLINE IN STATUS WHEN AND HOW TO CALL HOME HEALTH AGENCY FACILITATE PHYSICIAN FOLLOW UP APPOINTMENT IDENTIFY SOCIOECONOMIC CONCERNS AND MAKE APPROPRIATE REFERRAL NEEDED [code = RISK FOR HOSPITALIZATION; SKILLED NURSE TO INSTRUCT PATIENT/CAREGIVER ON RISK FOR HOSPITALIZATION, TEACH SIGNS AND SYMPTOMS THAT PUT PATIENT AT RISK, WHEN TO NOTIFY NURSE OF COMPLICATIONS/DECLINE, AND WHEN TO CALL 911. SKILLED NURSE TO INSTRUCT PATIENT/CAREGIVER ON: SIGNS AND SYMPTOMS TO BE ON ALERT FOR EARLY INTERVENTION, PRIOR TO NEEDING EMERGENCY SERVICES CALL JENNIS NURSE TO KEEP SENIOR DIRECTOR OF STRATEGY SYMPTOM REPORT FOR VISIBLE REFERENCE NOTIFY SKILLED NURSE/PHYSICIAN FOR DECLINE IN STATUS WHEN AND HOW TO CALL HOME HEALTH AGENCY FACILITATE PHYSICIAN FOLLOW UP APPOINTMENT IDENTIFY SOCIOECONOMIC CONCERNS AND MAKE APPROPRIATE REFERRAL NEEDED] Future Scheduled Test CARDIOVASC ULAR SYSTEM; SKILLED NURSE TO ASSESS AND TEACH RELATED TO ALTERED CARDIOVASCULAR STATUS R/T HYPOTENSION TO MINIMIZE COMPLICATIONS AND REDUCE HOSPITALIZATION. [code = CARDIOVASCULAR SYSTEM; SKILLED NURSE TO ASSESS AND TEACH RELATED TO ALTERED CARDIOVASCULAR STATUS R/T HYPOTENSION TO MINIMIZE COMPLICATIONS AND REDUCE HOSPITALIZATION.] Future Scheduled Test SKIN INTEG RITY - SN OBSERVE AND ASSESS INTEGUMENTARY STATUS TO IDENTIFY CHANGES AND INTERVENE TO MINIMIZE COMPLICATIONS. PROVIDE SKILLED TEACHING OF GENERAL WOUND AND SKIN CARE AND PREVENTION RELATED TO ACTUAL ALTERED SKIN INTEGRITY LT MEDIAL HEEL [code = SKIN INTEGRITY - SN OBSERVE AND ASSESS INTEGUMENTARY STATUS TO IDENTIFY CHANGES AND INTERVENE TO MINIMIZE COMPLICATIONS. PROVIDE SKILLED TEACHING OF GENERAL WOUND AND SKIN CARE AND PREVENTION RELATED TO ACTUAL ALTERED SKIN INTEGRITY LT MEDIAL HEEL] Future Scheduled Test COVID-19 P OSITIVE/SYMPTOMATIC MANAGEMENT; THIS RN ASKED PTS DTR TO GET AN INSTANT COVID TEST KIT DTR HELEN CALLED ME TO REPORT PT IS COVID + [code = COVID-19 POSITIVE/SYMPTOMATIC MANAGEMENT; THIS RN ASKED PTS DTR TO GET AN INSTANT COVID TEST KIT DTR HELEN CALLED ME TO REPORT PT IS COVID +] Goal 2022-07-22 Patient Goal - TO GAIN STREN GTH Goal 2022-07-26 Patient Goal - TO GAIN STREN GTH Goal Provider Goal - CAREGIVER TO VERBALIZE, AND CONSISTENTLY DEMONSTRATE EFFECTIVE, SAFE MANAGEMENT OF MEDICATION INCLUDING KNOWLEDGE OF EFFECTIVENESS, POTENTIAL SIDE EFFECTS AND DRUG REACTIONS AND WHEN TO CONTACT THE APPROPRIATE CARE PROVIDER. PATIENT/CAREGIVER WILL BE ABLE TO VERBALIZE UNDERSTANDING OF MEDICATION REGIMEN AND ACCURATELY TAKE MEDICATIONS PRESCRIBED WITHOUT ADVERSE EFFECTS BY 07/24 Goal Provider Goal - CAREGIVER WILL VERBALIZE/DEMONSTRATE UNDERSTANDING OF MEASURES TO MANAGE ALTERED RESPIRATORY STATUS BY END OF EPISODE. Goal Provider Goal - CAREGIVER WILL VERBALIZE/DEMONSTRATE AN ABILITY TO ADHERE TO SELF-MANAGEMENT OF COPD TO MINIMIZE COMPLICATIONS AND AVOID HOSPITALIZATION BY END OF EPISODE. Goal Provider Goal - CAREGIVER ABLE TO IDENTIFY FALL RISK FACTORS AND IMPLEMENT STRATEGIES TO MINIMIZE FALL RISK. /CAREGIVER WILL VERBALIZE/DEMONSTRATE AN ABILITY TO ADHERE TO FALL REDUCTION SELF MANAGEMENT AND LIFE-STYLE CHANGES AT DISCHARGE. PERSONAL GOAL STATED BY PATIENT/ WILL BE MET BY END OF EPISODE Goal Provider Goal - A PLAN OF CARE WILL BE ESTABLISHED THAT MEETS THE PATIENTS NEEDS. PATIENT WILL DEMONSTRATE OXYGEN SATURATION WITHIN NORMAL LIMITS OR PATIENTS OPTIMAL LEVEL ESTABLISHED BY THE PHYSICIAN THROUGHOUT CARE. CHANGES TO CO-MORBID CONDITIONS AND ANY NEW CONDITIONS WILL BE IDENTIFIED AND REPORTED TO THE PHYSICIAN. Goal Provider Goal - CAREGIVER WILL VERBALIZE / DEMONSTRATE UNDERSTANDING OF PAIN CONTROL MEASURES BY END OF EPISODE Goal Provider Goal - PT GOAL: CAREGIVER WILL VERBALIZE / DEMONSTRATE ABILITY TO ASSESS WOUND STATUS WHEN PT RETURNS HOME FROM HOSPITAL/ REHAB. Goal Provider Goal - PATIENT/CAREGIVER WILL VERBALIZE UNDERSTANDING OF SIGNS AND SYMPTOMS THAT PUT THE PATIENT AT RISK FOR HOSPITALIZATION, WHEN TO NOTIFY SN OF COMPLICATIONS/DECLINE AND WHEN TO CALL 911. Goal Provider Goal - PATIENT / CAREGIVER WILL VERBALIZE/DEMONSTRATE UNDERSTANDING OF MEASURES TO MANAGE ALTERED CARDIOVASCULAR STATUS BY END OF EPISODE Goal Provider Goal - CHANGES IN SKIN INTEGRITY STATUS WILL BE IDENTIFIED AND REPORTED TO THE PHYSICIAN FOR PROMPT INTERVENTION. PATIENT / CAREGIVER WILL VERBALIZE/DEMONSTRATE ADEQUATE KNOWLEDGE OF INTEGUMENTARY STATUS AND APPROPRIATE MEASURES TO PROMOTE SKIN INTEGRITY AND PREVENT INJURY BY END OF EPISODE Goal Provider Goal - BASED ON PTS MANY CO- MORBIDITIES, THIS RN ARRAINGED FOR AN AMBULANCE TO TRANSPORT PT TO [facility] FOR ADMISSION Reason for Visit MODERATE ASSIST WITH TRANSFER/AMBULATION/ADLS Encounters Start Date/Time End Date/Time Encounter Type Admission Type Attending [facility] Care Facility Care Department Encounter ID Discharge Date Discharge Status Discharge Condition Discharge Reason Percent Goals Met 2022-07-13 00:00:00 2022-07-26 00:00:00 Outpatient NEW ADMISSION BIAJUNE [facility] [id number] 2022-07-26 00:00:00 DISCHARGE TO HOME OR SELF CARE MODERATE ASSIST WITH TRANSFER/A MBULATION/ ADLS HH ONLY - OTHER (PROVIDE DETAILS IN COORD NOTE) 20.69
--- NOTE | 2024-11-30 10:46 | A.OFFVIS_ITS ---
Intake Visit Reasons: exploratory laparotomy, ileal right colectomy Allergies No Known Allergies Allergy (Verified 10/26/24 16:08) HPI Comments Details: Patient was status post surgery for cecal volvulus. She is doing well. She is an extended care facility and tells me she is to be discharge in a couple of days. In the meantime, she is tolerating a diet. He is having regular bowel habits. She is slowly but steadily increasing her activity level. She has minimal incisional discomfort [facility] Medical History (Updated 11/14/24 @ 00:02 by Nadja Loza) Acute CHF NSVT (nonsustained ventricular tachycardia) Pre-op evaluation Cecal volvulus Paroxysmal atrial fibrillation Chronic blood loss anemia History of uterine fibroid Tobacco abuse History of arteriovenous malformation Surgical History (Updated 11/30/24 @ 10:47 by Uri Mckeon MD) History of hysterectomy Social History Household Members: Spouse Housing: House Do you presently have visiting nurse or other home services: No Alcohol intake: current Patient Tobacco Use Status: Former Tobacco user Tobacco use type: Cigarette Cigarette Packs Per Day: 1 Cigarettes Per Day: 20.0 e-Cigarette/Vaping Use: Never Used Second Hand Smoke Exposure: Yes Advance Directives Date on File: 06/15/22 service: No Current occupational status: retired Physical Exam GI Other: Abdomen is soft, benign. Incision clean dry and intact healing very well Assessment & Plan Assessment & Plan (1) Postop check: Code(s): Z09 - Encounter for follow-up examination after completed treatment for conditions other than malignant neoplasm Category: Surgical Plan Patient and facility have been given local instructions, patient will otherwise follow-up p.r.n.. All questions answered. Form filled out for facility and given to patient was transport team. Copy made for our records. Coding Level of Care Code Global (02174) Diagnoses Postop check Z09
== END 2024-11-30 10:35 | disposition home or self-care (01) ==
LOC: HO.HGS 10:21
PROVIDERS: PCP Family Medicine; Visit Provider Surgery
DX: Z09 Encounter for follow-up examination after completed treatment for conditions other than malignant neoplasm (principal)
CPT/HCPCS: 99024

== ENCOUNTER → 2024-11-30 10:21 | Outpatient (BNVA) | payer MEDICARE, OTHER, SELFPAY | PROVIDERS: PCP Family Medicine; Visit Provider Surgery | DX: Z09 Encounter for follow-up examination after completed treatment for conditions other than malignant neoplasm (principal) | CPT/HCPCS: 99212 ==